=== PATIENT | male | born 1970 | race Caucasian/White ===

== ENCOUNTER → 2017-04-14 07:20 | Outpatient (CLI) | payer OTHER, SELFPAY ==
[2017-04-14 10:13] LABS: AST(SGOT) 24 U/L (15-37); Alanine Aminotransfer ALT/SGPT 64 U/L (16-61); Albumin, Serum 3.2 g/dL (3.2-5.0); Alkaline Phosphatase 82 U/L (45-117); Bilirubin, Direct 0.12 mg/dL (0.00-0.30); Globulin 4.3 g/dL (2.2-4.2); Protein, Total 7.5 g/dL (6.4-8.2)
[2017-04-16 12:59] LABS: Anti-Smooth Muscle ABS 16 Units (0-19)
[2017-04-17 12:53] LABS: ANTINUCLEAR ANTIBODIES DIRECT Negative (Negative)
== END ==
PROVIDERS: Family Provider Nurse Practitioner; PCP Nurse Practitioner; Visit Provider Internal Medicine Gastroenterology
DX: K51.90 Ulcerative colitis, unspecified, without complications (principal)
CPT/HCPCS: 36415; 80076; 83516; 86038

== ENCOUNTER → 2017-11-07 10:14 | Outpatient (CLI) | payer OTHER, SELFPAY ==
--- NOTE | 2017-11-07 10:16 | RAD_ITS ---
STUDY: X-RAY CHEST REASON FOR EXAM: Male, 47 years old. One-week history of cough. TECHNIQUE: PA and lateral views of the chest. COMPARISON: Comparison is made with prior examination dated September 09, 2016. FINDINGS: Azygos lobe. This is a normal variant. Mild increased markings in the lingular segment of the left upper lobe. This may represent either atelectasis and/or scarring. There is no demonstrated pleural abnormality. Normal size heart. Normal mediastinum and kathy. Normal visualized pulmonary arteries. Normal visualized aortic arch and descending thoracic aorta. There are degenerative changes of the visualized thoracic spine. Normal visualized ribs, clavicles, and shoulders. There is no demonstrated abnormality of the visualized soft tissue structures of the upper abdomen. RAD/Chest PA and Lateral IMPRESSION: Mild increased linear markings in the lingular segment of the left upper lobe suggestive of either linear atelectasis and/or scarring. Electronically Signed: Zoltan iWley MD at 10:29 EDT Tel [phone], Service support ,
== END ==
PROVIDERS: Family Provider Nurse Practitioner; PCP Nurse Practitioner; Visit Provider Physician Assistant Surgical
DX: R06.02 Shortness of breath (principal)
CPT/HCPCS: 71046

== ENCOUNTER → 2017-11-15 09:15 | Outpatient (CLI) | payer OTHER, SELFPAY ==
--- NOTE | 2017-11-15 09:18 | RAD_ITS ---
STUDY: X-RAY CHEST REASON FOR EXAM: Male, 47 years old. Acute asthma. TECHNIQUE: Frontal and lateral views of the chest. COMPARISON: November 07, 2017 FINDINGS: The lungs are clear and expanded. There is no demonstrated pleural abnormality. Normal size heart. Normal mediastinum and kathy. Normal visualized pulmonary arteries. Normal visualized aortic arch and descending thoracic aorta. Normal visualized thoracic spine. Normal visualized ribs, clavicles, and shoulders. There is no demonstrated abnormality of the visualized soft tissue structures of the upper abdomen. RAD/Chest PA and Lateral IMPRESSION: Normal x-ray examination of the chest. Electronically Signed: Vin Pelletier MD at 10:47 EDT , Service support ,
== END ==
PROVIDERS: Family Provider Nurse Practitioner; PCP Nurse Practitioner; Visit Provider Nurse Practitioner
DX: J45.901 Unspecified asthma with (acute) exacerbation (principal)
CPT/HCPCS: 71046

== ENCOUNTER → 2017-11-17 10:01 | Outpatient (CLI) | payer OTHER, SELFPAY ==
[2017-11-17 11:56] LABS: Absolute Lymphocyte Count 0.66 X10^3/ul (0.83-4.51); Absolute Neutrophil Count 12.2 X10^3/uL (2.0-7.7); Basophil# 0.01 X10^3/uL; Basophil% 0.1 % (0-1); Eosinophil# 0.01 X10^3/uL; Eosinophils% 0.1 % (0-5); Hematocrit 43.4 % (40-54); Hemoglobin 14.2 g/dl (13.0-16.5); Lymphocyte # 0.66 X10^3/ul (4.0); Lymphocyte % 4.9 % (19-41); Mean Corp Hgb Conc 32.7 g/gl (32-36); Mean Corpuscular Volume 88.8 fL (80-94); Monocyte# 0.56 X10^3/uL; Monocyte% 4.1 % (0-10); Neutrophil # 12.22 X10^3/uL (2.7-7.7); Neutrophil % 90.2 % (47-70); Platelet Count 308 K/mm3 (150-450); RBC Distribution Width CV 13.8 % (11.6-14.6); RBC Distribution Width SD 44.8 fl (35.1-43.9); Red Blood Count 4.89 M/mm3 (4.6-6.2); White Blood Count 13.5 K/mm3 (4.4-11.0)
[2017-11-17 11:58] LABS: POSITIVE COUNT NO; POSITIVE DIFFERENTIAL NO; POSITIVE MORPHOLOGY NO
[2017-11-17 12:09] LABS: ALB/GLOB Ratio 0.7 RATIO (0.9-2.4); AST(SGOT) 26 U/L (15-37); Alanine Aminotransfer ALT/SGPT 80 U/L (16-61); Albumin, Serum 3.2 g/dL (3.2-5.0); Alkaline Phosphatase 109 U/L (45-117); Anion Gap 9 (5-15); BUN 18 mg/dL (7-18); BUN/Creat Ratio 17.5 RATIO (10-20); Calcium,Total 8.8 mg/dL (8.5-10.1); Chloride 102 mmol/L (98-107); Creatinine, Serum 1.03 mg/dL (0.70-1.30); EST Glomerular Filtration Rate 82 mL/min (>60); Est Glom Filt Rate - Afr Amer 99 mL/min (>60); Globulin 4.3 g/dL (2.2-4.2); Glucose 124 mg/dL (74-106); Potassium 3.8 mmol/L (3.5-5.1); Protein, Total 7.5 g/dL (6.4-8.2); Sodium Level 139 mmol/L (136-145)
[2017-11-17 12:16] LABS: BNP,B-Type NATRIURETIC PEPTIDE 11.3 pg/mL (0-100)
== END ==
PROVIDERS: Family Provider Nurse Practitioner; PCP Nurse Practitioner; Visit Provider Nurse Practitioner
DX: Z79.899 Other long term (current) drug therapy (principal)
CPT/HCPCS: 36415; 80053; 83880; 85025

== ENCOUNTER → 2017-11-20 12:01 | Outpatient (CLI) | payer OTHER, SELFPAY ==
--- NOTE | 2017-11-20 12:58 | CT_ITS ---
STUDY: CT CHEST WITH CONTRAST REASON FOR EXAM: Male, 47 years old. 4 1/2 week history of shortness of breath and cough. RADIATION DOSAGE (If Supplied By Facility): CTDIvol = ( 18.47 ) mGy, DLP = ( 1053.15 ) mGycm TECHNIQUE: Transaxial imaging was performed following intravenous administration of 100 ml of Isovue 300 contrast material. Multiplanar coronal and sagittal images were reformatted. Individualized dose optimization techniques were used for this CT. COMPARISON: Comparison is made with prior study dated September 09, 2016. FINDINGS: There is evidence of an azygous lobe. This is a normal variant. Minimal degree of increased markings at the lung bases suggestive of a linear atelectasis and/or mild scarring. There is no demonstrated pleural abnormality. Normal heart and pericardium. There are multiple small lymph nodes within the mediastinum, which are normal in size and morphology most compatible with reactive lymph hyperplasia. Normal hilar regions. Normal enhanced pulmonary arteries. Normal aorta arch and descending thoracic aorta. There are multi-level degenerative changes of the thoracic spine. There is no demonstrated abnormality of the visualized upper abdomen. CT/Chest WITH Contrast IMPRESSION: Minimal increased markings at the lung bases suggestive of mild linear atelectasis and/or scarring. Electronically Signed: Zoltan Wiley MD at 14:08 EDT Tel [phone], Service support ,
--- NOTE | 2017-11-20 12:58 | CT_ITS ---
STUDY: CT MAXILLOFACIAL SINUSES REASON FOR EXAM: Male, 47 years old. Cough and sinusitis. RADIATION DOSAGE (If Supplied By Facility): CTDIvol = ( 18.47 ) mGy, DLP = ( 1053.15 ) mGycm TECHNIQUE: The patient was scanned in a multi detector CT scanner. High resolution axial imaging was performed without the administration of intravenous contrast material. Sagittal and coronal images were reconstructed. Individualized dose optimization techniques were used for this CT. COMPARISON: None. FINDINGS: FRONTAL SINUSES: Partial opacification of the frontal sinus. ETHMOIDAL SINUSES: Partial opacification of the ethmoid sinuses worse on the right side. MAXILLARY SINUSES: There is opacification of the right maxillary sinus partial opacification of the left maxillary sinus. SPHENOIDAL SINUSES: Mucosal thickening of the right sphenoid sinus. There is patency of the bilateral maxillary infundibuli with normal uncinate processes, ethmoid bullae, and hiatus semilunaris. Normal bilateral middle turbinates. Normal bilateral inferior turbinates. There is a right sided nasal septal deviation, but without a nasal septal spur. There is patency of the bilateral nasal airways. The visualized osseous structures are normal. The visualized bilateral orbital contents are normal. CT/Sinus/Facial Bone IMPRESSION: Rutledge sinusitis. Electronically Signed: Zoltan Wiley MD at 14:06 EDT Tel [phone], Service support ,
== END ==
PROVIDERS: Family Provider Nurse Practitioner; PCP Nurse Practitioner; Visit Provider Nurse Practitioner
DX: J32.9 Chronic sinusitis, unspecified (principal); R05 Cough
CPT/HCPCS: 70486; 71260; 85379; Q9967

== ENCOUNTER 2017-11-20 17:47 | Emergency (ER) | payer OTHER, SELFPAY ==
[2017-11-20 17:48] VITALS: BP 123/76; PULSE 105; RESP 18; TEMP 36.7; O2SAT 98; BMI 25.2
--- NOTE | 2017-11-20 18:35 | ED.VISSUMM ---
- ER Visit Summary Date of Service: 11/20/17 Chief Complaint: Sinusitis History of Present Illness: The patient is a [address] ulcerative colitis on immunosuppressive meds. Patient's had sinus infection for weeks. He was initially treated with Augmentin and then Zithromax and now currently on Levaquin he is not getting any better. The nurse practitioner that is his primary provider Haily Hayward obtain a CAT scan which showed pansinusitis and sent in the ER to be evaluated. Physical Examination: Middle-aged male no acute distress vital signs stable afebrile. Pulse ox 90% on room air no signs of hypoxia. HEENT exam posterior pharynx unremarkable. Moist mucous membranes. No erythema or exudate. No trouble swallowing or breathing. Frontal maxillary sinus tenderness. Swollen nasal turbinates. Neck nontender no meningismus. No lymphadenopathy. Lungs dry cough but no rales, rhonchi or wheezing. Heart regular rhythm no murmur. Abdomen soft nontender. Moving all 4 extremities. Neuro vascular intact. No edema. Neurologically awake and alert with no focal motor deficits. Test Results: Outpatient CT scan today showed pansinusitis. CBC showed white count 12.9. Normal hemoglobin. Chemistries normal. Normal creatinine and gap. Emergency Department Course and Treatment: Repeat exam patient is doing well at 1920. I went over his test results today. I went over the conversation I had with the ear nose and throat physician manager utilization management. Patient will call their office tomorrow to get in this week. I did speak to Dr. Zavala manager utilization management for ENT. He and I both feel the patient is better served to be seen in our office for outpatient potentially procedure of a balloon rhinoplasty. He did not feel the patient need to be admitted for IV antibiotics. Treatment Plan: Prednisone 40 mg a day for 5 days. Continue his current antibiotic Levaquin. Follow-up with ENT this week. Disposition: Discharge Impression: Acute pansinusitis History of ulcerative colitis This note was generated with [employer] dictation software. It may contain incorrect words, spelling, and punctuation that were not noted in review of the chart prior to signing ED Disposition - Plan for ED Patient: Chief Complaint: Cold Sx Referrals: Haily Zapata [Primary Care Provider] -
--- NOTE | 2017-11-20 18:42 | ED.DCSUM_ITS ---
- ER Visit Summary Date of Service: 11/20/17 Chief Complaint: Sinusitis History of Present Illness: The patient is a [address] ulcerative colitis on immunosuppressive meds. Patient's had sinus infection for weeks. He was initially treated with Augmentin and then Zithromax and now currently on Levaquin he is not getting any better. The nurse practitioner that is his primary provider Haily Hayward obtain a CAT scan which showed pansinusitis and sent in the ER to be evaluated. Physical Examination: Middle-aged male no acute distress vital signs stable afebrile. Pulse ox 90% on room air no signs of hypoxia. HEENT exam posterior pharynx unremarkable. Moist mucous membranes. No erythema or exudate. No trouble swallowing or breathing. Frontal maxillary sinus tenderness. Swollen nasal turbinates. Neck nontender no meningismus. No lymphadenopathy. Lungs dry cough but no rales, rhonchi or wheezing. Heart regular rhythm no murmur. Abdomen soft nontender. Moving all 4 extremities. Neuro vascular intact. No edema. Neurologically awake and alert with no focal motor deficits. Test Results: Outpatient CT scan today showed pansinusitis. CBC showed white count 12.9. Normal hemoglobin. Chemistries normal. Normal creatinine and gap. Emergency Department Course and Treatment: Repeat exam patient is doing well at 1920. I went over his test results today. I went over the conversation I had with the ear nose and throat physician weatherization administrator. Patient will call their office tomorrow to get in this week. I did speak to Dr. Zavala weatherization administrator for ENT. He and I both feel the patient is better served to be seen in our office for outpatient potentially procedure of a balloon rhinoplasty. He did not feel the patient need to be admitted for IV antibiotics. Treatment Plan: Prednisone 40 mg a day for 5 days. Continue his current antibiotic Levaquin. Follow-up with ENT this week. Disposition: Discharge Impression: Acute pansinusitis History of ulcerative colitis This note was generated with [employer] dictation software. It may contain incorrect words, spelling, and punctuation that were not noted in review of the chart prior to signing ED Disposition - Plan for ED Patient: Chief Complaint: Cold Sx Referrals: Haily Zapata [Primary Care Provider] -
[2017-11-20 18:49] LABS: Absolute Lymphocyte Count 1.03 X10^3/ul (0.83-4.51); Absolute Neutrophil Count 10.9 X10^3/uL (2.0-7.7); Basophil# 0.01 X10^3/uL; Basophil% 0.1 % (0-1); Eosinophil# 0.03 X10^3/uL; Eosinophils% 0.2 % (0-5); Hematocrit 44.8 % (40-54); Hemoglobin 14.9 g/dl (13.0-16.5); Lymphocyte # 1.03 X10^3/ul (4.0); Mean Corp Hgb Conc 33.3 g/gl (32-36); Mean Corpuscular Hgb 29.2 pg (27.0-32.0); Mean Corpuscular Volume 87.7 fL (80-94); Mean Platelet Vol. 9.4 fl (6.2-12.0); Monocyte% 6.2 % (0-10); Neutrophil # 10.93 X10^3/uL (2.7-7.7); Platelet Count 316 K/mm3 (150-450); RBC Distribution Width CV 13.8 % (11.6-14.6); RBC Distribution Width SD 44.3 fl (35.1-43.9); Red Blood Count 5.11 M/mm3 (4.6-6.2); White Blood Count 12.9 K/mm3 (4.4-11.0)
[2017-11-20 18:53] LABS: POSITIVE COUNT NO; POSITIVE DIFFERENTIAL NO; POSITIVE MORPHOLOGY NO
[2017-11-20 19:00] LABS: Anion Gap 7 (5-15); BUN 22 mg/dL (7-18); BUN/Creat Ratio 23.8 RATIO (10-20); Calcium,Total 8.9 mg/dL (8.5-10.1); Chloride 105 mmol/L (98-107); Creatinine, Serum 0.93 mg/dL (0.70-1.30); EST Glomerular Filtration Rate 92 mL/min (>60); Est Glom Filt Rate - Afr Amer 112 mL/min (>60); Estimated Creatinine Clearance 102.33 ml/min; Glucose 88 mg/dL (74-106); Potassium 4.1 mmol/L (3.5-5.1); Sodium Level 138 mmol/L (136-145)
--- NOTE | 2017-11-20 19:26 | ED.DEP ---
ED Disposition - Plan for ED Patient: Disposition: Home or Assisted Living Chief Complaint: Cold Sx Instructions: ED Sinusitis Abx Tx Prescriptions: Prednisone [Deltasone] 40 mg PO DAILY #7 tab Referrals: Wilver Lanier MD [STAFF PHYSICIAN] - As soon as possible Additional Instructions: Continue taking her Levaquin. Call Dr. Arnie Zavala's office first thing in the morning to be seen in the next 1-3 days. After he evaluates you they may consider doing a balloon rhinoplasty or other procedure. Prednisone daily to decrease the inflammation and help nasal drainage.
== END 2017-11-20 19:37 | disposition home or self-care (01) ==
PROVIDERS: Emergency Provider Emergency Medicine; Family Provider Nurse Practitioner; PCP Nurse Practitioner
DX: J01.40 Acute pansinusitis, unspecified (principal); K51.90 Ulcerative colitis, unspecified, without complications; Z79.899 Other long term (current) drug therapy
CPT/HCPCS: 80048; 85025; 99284; A4216

== ENCOUNTER → 2018-01-17 16:04 | Outpatient (CLI) | payer OTHER, SELFPAY | PROVIDERS: Family Provider Nurse Practitioner; PCP Nurse Practitioner; Referring Provider Otolaryngology; Visit Provider Otolaryngology | DX: J32.9 Chronic sinusitis, unspecified (principal) | CPT/HCPCS: 87070; 87205 ==

== ENCOUNTER → 2018-01-25 15:53 | Outpatient (CLI) | payer OTHER, SELFPAY ==
--- NOTE | 2018-01-25 08:21 | COLBX_PTH ---
PATIENT: HELEN NOGUEIRA LOC: [facility] U#:[id number] AGE/SX: 54/M ROOM: RE01/25/[address]: Dr. Constantino Mcelroy MD : 1970 BED: DIS: SPEC #: [id number] RECD: 01/25/18 15:29 STATUS: DELLA CHRISTIANO #: [id number] KADE: 01/25/18 08:[address]: Constantino Mcelroy DEPT: SURGICAL PATHOLOGY RECD BY: Vince Westfall ENTERED: 01/26/18 08:01 SP TYPE: COLON BX OTHR DR: Haily Zapata, PRODUCT [facility] Tissues: A - Right colon B - Left colon C - Transverse colon Procedures: Surgery Specimen Level IV HEADER OPERATION: Colonoscopy with biopsy PRE-OP DIAGNOSIS: History of ulcerative colitis TISSUE SUBMITTED: A - Biopsy right colon, rule out ulcerative colitis/dysplasia, B - Biopsy left colon, rule out ulcerative colitis/dysplasia, C - Transverse colon pseudopolyps, rule out dysplasia MICROSCOPIC DIAGNOSIS A. Right colon, biopsy: Focal acute colitis. See microscopic description and comment. B. Left colon, biopsy: Focal active colitis. See microscopic description and comment. C. Transverse colon, pseudopolyps, biopsy: Fragments of inflammatory pseudopolyps. See microscopic description and comment. SJ:deandra 01/29/18 COMMENT Correlation with clinical, endoscopic findings and appropriate follow up are necessary. Please make reference to previous specimen ([id number]) right colon, biopsy with diagnosis of fragments of colonic mucosa with minimal granular architectural distortion and left colon, biopsy with diagnosis of moderate diffuse chronic active colitis and ([id number]) left colon, biopsy with diagnosis of inflammatory polyp and smaller fragment of colonic mucosa with focal acute colitis and mild glandular distortion distal sigmoid/rectum, biopsy with diagnosis of mild architectural change with focal active colitis. MICROSCOPIC DESCRIPTION Slides are reviewed. A. The specimen shows fragments of colonic mucosa with one of the fragments showing focal cryptitis consistent with focal acute colitis. Significant glandular distortion, crypt abscesses or granulomas are not seen. No evidence of dysplasia. B. The specimen shows fragments of colonic mucosa with moderate glandular architectural distortion and focal cryptitis. Significant crypt abscess or granulomas are not seen. No evidence of dysplasia. C. The specimen shows fragments of colonic mucosa with moderate acute and chronic inflammatory cell infiltrates in the lamina propria, glandular distortion, cryptitis and crypt abscesses consistent with inflammatory pseudopolyp. No evidence of dysplasia. Granulomas are not seen. GROSS DESCRIPTION A - Received in fixative is one container labeled with the patient's name and designated biopsy right colon. The specimen consists of multiple irregular fragments of light conner soft tissue that in aggregate measure 2 x 0.6 x 0.1 cm. The specimen is totally submitted in one cassette. B - Received in fixative is one container labeled with the patient's name and designated biopsy left colon. The specimen consists of multiple irregular fragments of light conner soft tissue that in aggregate measure 1 x 0.5 x 0.1 cm. The specimen is totally submitted in one cassette. C - Received in fixative is one container labeled with the patient's name and designated biopsy transverse colon pseudopolyps. The specimen consists of multiple irregular fragments of light conner soft tissue that in aggregate measure 0.7 x 0.5 x 0.1 cm. The specimen is totally submitted in one cassette. / SJ:rg 01/26/18 TC:2 CPT: 81343 x3
--- OUTSIDE RECORDS SUMMARY | 2018-03-22 22:09 | XMS RPT_ITS ---
:1970 Author Organization OHIP Support Name Relationship Address Phone NORSCH Unavailable [address] + [address] [place] [address] JERO, LILA Unavailable [address] [place] + [place] [address] NORSCH Unavailable [address] + [address] [place] [address] JERO, LILA Unavailable [address] [place] + [place] [address] NORSCH Unavailable [address] + [address] [place] [address] JERO, LILA Unavailable [address] + [place] [address] NORSCH Unavailable [address] + [address] [place] [address] JERO, LILA Unavailable [address] [place] + [place] [address] NORSCH Unavailable [address] + [address] [place] [address] JERO, LILA Unavailable [address] + [place] [address] NORSCH Unavailable [address] + [address] [place] [address] JERO, LILA Unavailable [address] [place] + [place] [address] NORSCH Unavailable [address] + [address] [place] [address] JERO, LILA Unavailable [address] [place] + [place] [address] NORSCH Unavailable [address] + [address] [place] [address] JERO, LILA Unavailable [address] [place] + [place] [address] NORSCH Unavailable [address] + [address] [place] [address] JERO, LILA Unavailable [address] [place] + [place] [address] NORSCH Unavailable [address] + [address] [place] [address] JERO, LILA Unavailable [address] [place] + [place] [address] NORSCH Unavailable [address] + [address] [place] [address] JERO, LILA Unavailable [address] [place] + [place] [address] NORSCH Unavailable [address] + [address] [place] [address] JERO, LILA Unavailable [address] [place] + [place] [address] NORSCH Unavailable [address] + [address] [place] [address] NORSCH Unavailable [address] + [address] [place] [address] JERO, LILA Unavailable [address] [place] + [place] [address] NORSCH Unavailable [address] + [address] [place] [address] JERO, LILA Unavailable [address] [place] + [place] [address] JERO, ALYSA Unavailable [address] + [place] [address] NORSCH Unavailable [address] + [address] [place] [address] JERO, LILA Unavailable [address] [place] + [place] [address] JERO, ALYSA Unavailable [address] + [place] [address] NORSCH Unavailable [address] + [address] [place] [address] JERO, LILA Unavailable [address] [place] + [place] [address] ALYSA NOGUEIRA Unavailable [address] + [place] [address] Care Team Providers Name Role Phone Constantino Mcelroy Attending Unavailable Ciesa, Haily Primary Care Unavailable Jabour, Vincent Referring Unavailable Ciesa, Haily Consulting Unavailable Navi, Constantino Attending Unavailable Ciesa, [facility] Primary [facility] Unavailable Jabour, Constantino Referring Unavailable Simonbour, Constantino Attending Unavailable Ciesa, [facility] Unavailable Shantelle Dominguez Attending Unavailable Ciesa, Haily Referring Unavailable Ciesa, [facility] Unavailable Jabour, Constantino Attending Unavailable Ciesa, [facility] Unavailable Naveen Valencia Attending Unavailable Ciesa, Haily Referring Unavailable Ciesa, [facility] Unavailable Ashley Dempsey D.C. Attending Unavailable Ciesa, Haily Referring Unavailable Ciesa, [facility] Unavailable Naveen Valencia Attending Unavailable Ciesa, Haily Referring Unavailable Ciesa, [facility] Unavailable Tip Iglesias Attending Unavailable Ciesa, Haily Referring Unavailable Ciesa, [facility] Unavailable Tip Iglesias Attending Unavailable Tip Iglesias Referring Unavailable Ciesa, [facility] Unavailable Ciesa, Haily Attending Unavailable Ciesa, [facility] Unavailable Ciesa, Haily Attending Unavailable Ciesa, Haily Referring Unavailable Ciesa, [facility] Unavailable Ciesa, Haily Attending Unavailable Ciesa, Haily Referring Unavailable Ciesa, [facility] Unavailable Ciesa, [facility] Unavailable Sarabjit Izaguirre Attending Unavailable Domingo Atkinson Attending Unavailable Domingo Atkinson Referring Unavailable Ciesa, [facility] Unavailable Constantino Mcelroy Attending Unavailable Simonbour, Vincnettie Referring Unavailable Ciesa, [facility] Unavailable PROBLEMS PROBLEMS DATE TYPE CONDITION / CODE ATTENDING STATUS SOURCE 11/20/2017 Unknown J32.9 - Chronic CiesHaily bello Active [place] sinusitis, Community unspecified / Hospital J32.9(ICD-10) Repository 11/20/2017 Unknown R05 - Cough / CiesHaily bello Active [place] R05(ICD-10) Community Hospital Repository 11/17/2017 Unknown Z79.899 - Other CiesaHaily Active [facility] (current[facility] drug Hospital therapy / Repository Z79.899(ICD-10) 11/15/2017 Unknown J45.901 - Haily Butts Active [place] Unspecified asthma Community with (acute) Hospital exacerbation / Repository J45.901(ICD-10) 11/07/2017 Unknown R06.02 - ShortTip Joseph Active [facility] of breath / Community R06.02(ICD-10) Hospital Repository 08/23/2017 Unknown 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 Right colon B. Left colon C. Transverse colon COMMENT Correlation with clinical, endoscopic findings and appropriate follow up are necessary. Please make reference to previous specimen ([id number]) right colon, biopsy with diagnosis of fragments of colonic mucosa with minimal granular architectural distortion and left colon, biopsy with diagnosis of moderate diffuse chronic active colitis and (S18-120) left colon, biopsy with diagnosis of inflammatory polyp and smaller fragment of colonic mucosa with focal acute colitis and mild glandular distortion distal sigmoid/rectum, biopsy with diagnosis of mild architectural change with focal active colitis. GROSS DESCRIPTION A - Received in fixative is one container labeled with the patient's name and designated biopsy right colon. The specimen consists of multiple irregular fragments of light conner soft tissue that in aggregate measure 2 x 0.6 x 0.1 cm. The specimen is totally submitted in one cassette. B - Received in fixative is one container labeled with the patient's name and designated biopsy left colon. The specimen consists of multiple irregular fragments of light conner soft tissue that in aggregate measure 1 x 0.5 x 0.1 cm. The specimen is totally submitted in one cassette. C - Received in fixative is one container labeled with the patient's name and designated biopsy transverse colon pseudopolyps. The specimen consists of multiple irregular fragments of light conner soft tissue that in aggregate measure 0.7 x 0.5 x 0.1 cm. The specimen is totally submitted in one cassette. / VICTOR HUGO:deandra 01/26/18 TC:2 CPT: 90631 x3 HEADER OPERATION: Colonoscopy with biopsy PRE-OP DIAGNOSIS: History of ulcerative colitis TISSUE SUBMITTED: A - Biopsy right colon, rule out ulcerative colitis/ dysplasia, B - Biopsy left colon, rule out ulcerative colitis/dysplasia, C - Transverse colon pseudopolyps, rule out dysplasia MICROSCOPIC DESCRIPTION Slides are reviewed. A. The specimen shows fragments of colonic mucosa with one of the fragments showing focal cryptitis consistent with focal acute colitis. Significant glandular distortion, crypt abscesses or granulomas are not seen. No evidence of dysplasia. B. The specimen shows fragments of colonic mucosa with moderate glandular architectural distortion and focal cryptitis. Significant crypt abscess or granulomas are not seen. No evidence of dysplasia. C. The specimen shows fragments of colonic mucosa with moderate acute and chronic inflammatory cell infiltrates in the lamina propria, glandular distortion, cryptitis and crypt abscesses consistent with inflammatory pseudopolyp. No evidence of dysplasia. Granulomas are not seen. MICROSCOPIC DIAGNOSIS A. Right colon, biopsy: Focal acute colitis. See microscopic description and comment. B. Left colon, biopsy: Focal active colitis. See microscopic description and comment. C. Transverse colon, pseudopolyps, biopsy: Fragments of inflammatory pseudopolyps. See microscopic description and comment. SJ:deandra 01/29/18 Signed Doyle Brand 01/29/18 <signature on file> Performed By: #### PCOLBX #### [facility] [address] [place], [address] Observed: 01/17/2018 Status: F Source: [place] CULTURE, MISCELLANEOUS 5:16 AM [facility] REPOSITORY Comments: SINUS BACTERIA AEROBIC Misc. Culture No growth aerobically. Gram Stain Gram Stain Rare Red Blood Cells No organisms seen Performed By: #### M100.1950 #### [facility] [address] [place], [address] EMERGENCY DEPARTMENT Observed: 11/21/2017 Status: F Source: [place] SUMMARY 12:19 AM [facility] REPOSITORY [facility] Medical Records Department [address] [place] [address] Emergency Department Summary 11/20/17 1835 MR#: [id number] Acct: [id number] Name: HELEN NOGUEIRA Rep #: [id number] : 1970 47 From: Sarabjit Izaguirre MD PCP: Haily Butts NP Status: DEP ER - ER Visit Summary Date of Service: 11/20/17 Chief Complaint: Sinusitis History of Present Illness: The patient is a [address] ulcerative colitis on immunosuppressive meds. Patient's had sinus infection for weeks. He was initially treated with Augmentin and then Zithromax and now currently on Levaquin he is not getting any better. The nurse practitioner that is his primary provider Haily Hayward obtain a CAT scan which showed pansinusitis and sent in the ER to be evaluated. Physical Examination: Middle-aged male no acute distress vital signs stable afebrile. Pulse ox 90% on room air no signs of hypoxia. HEENT exam posterior pharynx unremarkable. Moist mucous membranes. No erythema or exudate. No trouble swallowing or breathing. Frontal maxillary sinus tenderness. Swollen nasal turbinates. Neck nontender no meningismus. No lymphadenopathy. Lungs dry cough but no rales, rhonchi or wheezing. Heart regular rhythm no murmur. Abdomen soft nontender. Moving all 4 extremities. Neuro vascular intact. No edema. Neurologically awake and alert with no focal motor deficits. Test Results: Outpatient CT scan today showed pansinusitis. CBC showed white count 12.9. Normal hemoglobin. Chemistries normal. Normal creatinine and gap. Emergency Department Course and Treatment: Repeat exam patient is doing well at 1920. I went over his test results today. I went over the conversation I had with the ear nose and throat physician second officer. Patient will call their office tomorrow to get in this week. I did speak to Dr. Zavala second officer for ENT. He and I both feel the patient is better served to be seen in our office for outpatient potentially procedure of a balloon rhinoplasty. He did not feel the patient need to be admitted for IV antibiotics. Treatment Plan: Prednisone 40 mg a day for 5 days. Continue his current antibiotic Levaquin. Follow-up with ENT this week. Disposition: Discharge Impression: Acute pansinusitis History of ulcerative colitis This note was generated with [employer] dictation software. It may contain incorrect words, spelling, and punctuation that were not noted in review of the chart prior to signing ED Disposition - Plan for ED Patient: Chief Complaint: Cold Sx Referrals: Haily Butts [Primary Care Provider] - What to do if you have Problems For any increased pain, shortness of breath, bleeding, nausea or vomiting, chest pain, or any unexpected problems, contact your Primary Care Provider. Call [facility] ([phone]) or report to the closest Emergency Room. Call 911 if necessary. 11/21/17 0019 <Electronically signed by Sarabjit Izaguirre MD> Date Sarabjit Izaguirre MD Cosigner Signature (If Indicated): Date CC: Haily Butts NP DISCHARGE INSTRUCTION Observed: 11/21/2017 Status: F Source: [place] 12:19 AM [facility] Medical Records Department [address] [place] [address] Discharge Instruction 11/20/17 1926 MR#: [id number] Acct: [id number] Name: HELEN NOGUEIRA Rep #: [id number] : 1970 47 From: Sarabjit Izaguirre MD PCP: Haily Butts NP Status: DEP ER ED Disposition - Plan for ED Patient: Disposition: Home or Assisted Living Chief Complaint: Cold Sx Instructions: ED Sinusitis Abx Tx Prescriptions: Prednisone [Deltasone] 40 mg PO DAILY #7 tab Referrals: Wilver Lanier MD [STAFF PHYSICIAN] - As soon as possible Additional Instructions: Continue taking her Levaquin. Call Dr. Arnie Zavala's office first thing in the morning to be seen in the next 1-3 days. After he evaluates you they may consider doing a balloon rhinoplasty or other procedure. Prednisone daily to decrease the inflammation and help nasal drainage. What to do if you have Problems For any increased pain, shortness of breath, bleeding, nausea or vomiting, chest pain, or any unexpected problems, contact your Primary Care Provider. Call [facility] ([phone]) or report to the closest Emergency Room. Call 911 if necessary. 11/21/17 0019 <Electronically signed by Sarabjit Izaguirre MD> Date Sarabjit Izaguirre MD Cosigner Signature (If Indicated): Date CC: Haily Butts ORTHOTICS ASSISTANT CBC W/DIFF, AUTOMATED Collected: 11/20/2017 Status: F Source: [place] 6:40 PM [facility] REPOSITORY TYPE CODE TESTS RESULT OUT OF RANGE REFERENCE UNITS LAB L100.1000 4.4-11.0 K/mm3 High WBC 12.9 LAB L100.1200 4.6-6.2 M/mm3 Normal RBC 5.11 LAB L100.1300 13.0-16.5 g/dl Normal HGB 14.9 LAB L100.1400 40-54 % Normal HCT 44.8 LAB L100.1500 80-94 fL Normal MCV 87.7 LAB L100.1600 27.0-32.0 pg Normal MCH 29.2 LAB L100.1700 32-36 g/gl Normal MCHC 33.3 LAB L100.1810 11.6-14.6 % Normal RDW CV 13.8 LAB L100.1820 35.1-43.9 fl High RDW SD 44.3 LAB L100.1900 150-450 K/mm3 Normal PLT 316 LAB L100.2000 6.2-12.0 fl Normal MPV 9.4 LAB L100.2100 47-70 % High NEUT% 85.0 LAB L100.2200 19-41 % Low LY% 8.0 LAB L100.2300 0-10 % Normal MONO% 6.2 LAB L100.2400 0-5 % Normal EO% 0.2 LAB L100.2500 0-1 % Normal BASO% 0.1 LAB L100.2550 0.0-0.9 % Normal IM GRAN % 0.500 Result Comment: IG% - Immature Granulocytes (promyelocytes, myelocytes and metamyelocytes) > 1% indicates that a LEFT SHIFT is Present. LAB L100.2620 2.0-7.7 X10 3/uL High Absolute Neut 10.9 LAB L100.2720 0.83-4.51 X10 3/ul Normal Absolute Lymph 1.03 Performed By: #### L100.0100 #### [facility] [address] [place], [address] BASIC METABOLIC Collected: 11/20/2017 Status: F Source: [place] PROFILE ([facility]) 6:40 PM [facility] REPOSITORY TYPE CODE TESTS RESULT OUT OF RANGE REFERENCE UNITS LAB L501.0100 74-106 mg/dL Normal GLU 88 Result Comment: Please note revised GLUCOSE reference range effective 2017. LAB L501.1000 7-18 mg/dL High BUN 22 LAB L501.1100 0.70-1.30 mg/dL Normal CREAT,SERUM 0.93 Result Comment: The validity of the calculated GFR AND GFRAA in patients over 70 years has not been determined. Clinical correlation is essential. LAB L501.1110 >60 mL/min Normal EST GFR 92 Result Comment: Non- GFR Calc LAB L501.1115 >60 mL/min Normal EST GFR - AA 112 Result Comment: GFR Calc LAB L501.1255 ml/min Normal Estimated CRCL 102.33 LAB L501.1300 10-20 RATIO High BUN/CRE 23.8 LAB L501.2200 8.5-10 mg/dL .1 CA Normal 8.9 LAB L501.5300 136-14 mmol/L 5 NA Normal 138 LAB L501.5600 3.5-5. mmol/L 1 K Normal 4.1 LAB L501.5900 98-107 mmol/L CL Normal 105 LAB L501.6100 21.0-3 mmol/L 2.0 CO2 Normal 26.0 LAB L501.6200 5-15 GAP Normal 7 Performed By: #### L500.2500 #### [facility] [address] [place], [address] SINUS/FACIAL BONE Observed: 11/20/2017 Status: F Source: [place] 12:59 PM [facility] REPOSITORY [facility] Imaging Services [address] [place] [address] Sinus/Facial Bone MR#: [id number] Acct: [id number] Name: HELEN NOGUEIRA Rep #: [id number] : 1970 M 47 From: Zoltan Wiley MD PCP: Haily Butts NP Status: REG CLI Study: Sinus/Facial Bone Date of Exam: 11/20/17 Exam# [id number] Ordering Dr: Haily Butts STUDY: CT MAXILLOFACIAL SINUSES REASON FOR EXAM: Male, 47 years old. Cough and sinusitis. RADIATION DOSAGE (If Supplied By Facility): CTDIvol = ( 18.47 ) mGy, DLP = ( 1053.15 ) mGycm TECHNIQUE: The patient was scanned in a multi detector CT scanner. High resolution axial imaging was performed without the administration of intravenous contrast material. Sagittal and coronal images were reconstructed. Individualized dose optimization techniques were used for this CT. COMPARISON: None. FINDINGS: FRONTAL SINUSES: Partial opacification of the frontal sinus. ETHMOIDAL SINUSES: Partial opacification of the ethmoid sinuses worse on the right side. MAXILLARY SINUSES: There is opacification of the right maxillary sinus partial opacification of the left maxillary sinus. SPHENOIDAL SINUSES: Mucosal thickening of the right sphenoid sinus. There is patency of the bilateral maxillary infundibuli with normal uncinate processes, ethmoid bullae, and hiatus semilunaris. Normal bilateral middle turbinates. Normal bilateral inferior turbinates. There is a right sided nasal septal deviation, but without a nasal septal spur. There is patency of the bilateral nasal airways. The visualized osseous structures are normal. The visualized bilateral orbital contents are normal. CT/Sinus/Facial Bone IMPRESSION: [place] sinusitis. Electronically Signed: Zoltan Wiley MD at 14:06 EDT Tel [phone], Service support , CC: Haily Butts NP Clinical Education Consultant: Signed CHEST WITH CONTRAST Observed: 11/20/2017 Status: F Source: [place] 12:59 PM [facility] REPOSITORY [facility] Imaging Services [address] [place] [address] Chest WITH Contrast MR#: [id number] Acct: [id number] Name: HELEN NOGUEIRA Rep #: [id number] : 1970 M 47 From: Zoltan Wiley MD PCP: Haily Butts NP Status: REG CLI Study: Chest WITH Contrast Date of Exam: 11/20/17 Exam# [id number] Ordering Dr: Haily Butts STUDY: CT CHEST WITH CONTRAST REASON FOR EXAM: Male, 47 years old. 4 1/2 week history of shortness of breath and cough. RADIATION DOSAGE (If Supplied By Facility): CTDIvol = ( 18.47 ) mGy, DLP = ( 1053.15 ) mGycm TECHNIQUE: Transaxial imaging was performed following intravenous administration of 100 ml of Isovue 300 contrast material. Multiplanar coronal and sagittal images were reformatted. Individualized dose optimization techniques were used for this CT. COMPARISON: Comparison is made with prior study dated September 09, 2016. FINDINGS: There is evidence of an azygous lobe. This is a normal variant. Minimal degree of increased markings at the lung bases suggestive of a linear atelectasis and/or mild scarring. There is no demonstrated pleural abnormality. Normal heart and pericardium. There are multiple small lymph nodes within the mediastinum, which are normal in size and morphology most compatible with reactive lymph hyperplasia. Normal hilar regions. Normal enhanced pulmonary arteries. Normal aorta arch and descending thoracic aorta. There are multi-level degenerative changes of the thoracic spine. There is no demonstrated abnormality of the visualized upper abdomen. CT/Chest WITH Contrast IMPRESSION: Minimal increased markings at the lung bases suggestive of mild linear atelectasis and/or scarring. Electronically Signed: Zoltan Wiley MD at 14:08 EDT Tel [phone], Service support , CC: Haily Butts NP Clinical Education Consultant: Signed D-DIMER QUANTITATIVE Collected: 11/20/2017 Status: F Source: [place] (DVT/PE) 11:28 AM [facility] REPOSITORY Order Comment: Order Date: 11/20/17 Order Info: 51818-0 - D-DIMER TYPE CODE TESTS RESULT OUT OF RANGE REFERENCE UNITS LAB L300.8000 0.27-0.49 FEU/ug/m High alert D-DIMER 0.80 QUANT Result Comment: D-Dimer ELEVATED (>0.49): Additional studies and clinical assessments are indicated to conclude diagnosis of: Deep Vein Thrombosis (DVT) or Pulmonary Embolism (PE) CRITICAL VALUE VERIFIED. CALLED TO HAILY BUTTS NP 11/20/17 1310 Marquis Rueda. RESULTS READ BACK BY SAME. Performed By: #### L300.8000 #### [facility] [place], [address] CBC W/DIFF, AUTOMATED Collected: 11/17/2017 Status: F Source: [place] 10:04 AM [facility] REPOSITORY TYPE CODE TESTS RESULT OUT OF RANGE REFERENCE UNITS LAB L100.1000 4.4-11.0 K/mm3 High WBC 13.5 LAB L100.1200 4.6-6.2 M/mm3 Normal RBC 4.89 LAB L100.1300 13.0-16.5 g/dl Normal HGB 14.2 LAB L100.1400 40-54 % Normal HCT 43.4 LAB L100.1500 80-94 fL Normal MCV 88.8 LAB L100.1600 27.0-32.0 pg Normal MCH 29.0 LAB L100.1700 32-36 g/gl Normal MCHC 32.7 LAB L100.1810 11.6-14.6 % Normal RDW CV 13.8 LAB L100.1820 35.1-43.9 fl High RDW SD 44.8 LAB L100.1900 150-450 K/mm3 Normal PLT 308 LAB L100.2000 6.2-12.0 fl Normal MPV 10.0 LAB L100.2100 47-70 % High NEUT% 90.2 LAB L100.2200 19-41 % Low LY% 4.9 LAB L100.2300 0-10 % Normal MONO% 4.1 LAB L100.2400 0-5 % Normal EO% 0.1 LAB L100.2500 0-1 % Normal BASO% 0.1 LAB L100.2550 0.0-0.9 % Normal IM GRAN % 0.600 Result Comment: IG% - Immature Granulocytes (promyelocytes, myelocytes and metamyelocytes) > 1% indicates that a LEFT SHIFT is Present. LAB L100.2620 2.0-7.7 X10 3/uL High Absolute Neut 12.2 LAB L100.2720 0.83-4.51 X10 3/ul Low Absolute Lymph 0.66 Performed By: #### L100.0100 #### [facility] [address] [place], [place], [address] COMPREHENSIVE METABOLIC Collected: 11/17/2017 Status: F Source: [facility] 10:04 AM [facility] REPOSITORY TYPE CODE TESTS RESULT OUT OF RANGE REFERENCE UNITS LAB L501.0100 74-106 mg/dL High GLU 124 Result Comment: Fasting Glucose result from 100 to 125 mg/dL suggests IMPAIRED HOMEOSTASIS per A.D.A. criteria. Please note revised GLUCOSE reference range effective 2017. LAB L501.1000 7-18 mg/dL Normal BUN 18 LAB L501.1100 0.70-1.30 mg/dL Normal CREAT,SERUM 1.03 Result Comment: The validity of the calculated GFR AND GFRAA in patients over 70 years has not been determined. Clinical correlation is essential. LAB L501.1110 >60 mL/min Normal EST GFR 82 Result Comment: Non- GFR Calc LAB L501.1115 >60 mL/min Normal EST GFR - AA 99 Result Comment: GFR Calc LAB L501.1300 10-20 RATIO Normal BUN/CRE 17.5 LAB L501.1500 6.4-8.2 g/dL T Normal PROT 7.5 LAB L501.1800 3.2-5.0 g/dL Normal ALB 3.2 LAB L501.1950 2.2-4.2 g/dL High GLOB 4.3 LAB L501.2000 0.9-2.4 RATIO Low A/G 0.7 LAB L501.2200 8.5-10.1 mg/dL CA Normal 8.8 LAB L501.4100 15-37 U/L Normal AST 26 LAB L501.4305 45-117 U/L Normal ALK P 109 LAB L501.4405 16-61 U/L High ALT 80 LAB L501.4600 0.20-1.00 mg/dL T Normal BILI 0.40 LAB L501.5300 136-145 mmol/L NA Normal 139 LAB L501.5600 3.5-5.1 mmol/L K Normal 3.8 LAB L501.5900 98-107 mmol/L CL Normal 102 LAB L501.6100 21.0-32.0 mmol/L Normal CO2 28.0 LAB L501.6200 5-15 Normal GAP 9 Performed By: #### L500.4050 #### [facility] [address] [place], [address] BNP,B-TYPE NATRIURETIC Collected: 11/17/2017 Status: F Source: [place] [facility] 10:04 AM [facility] REPOSITORY TYPE CODE TESTS RESULT OUT OF RANGE REFERENCE UNITS LAB L503.6620 0-100 pg/mL Normal B-TYPE 11.3 DONTAE PEP Performed By: #### L503.6620 #### [facility] [address] [place], [address] CHEST PA AND LATERAL Observed: 11/15/2017 Status: F Source: [place] 9:18 AM [facility] REPOSITORY [facility] Imaging Services [address] [place] [address] Chest PA and Lateral MR#: [id number] Acct: [id number] Name: HELEN NOGUEIRA Rep #: [id number] : 1970 M 47 From: Vin Pelletier MD PCP: Haily Butts NP Status: REG CLI Study: Chest PA and Lateral Date of Exam: 11/15/17 Exam# [id number] Ordering Dr: Haily Butts STUDY: X-RAY CHEST REASON FOR EXAM: Male, 47 years old. Acute asthma. TECHNIQUE: Frontal and lateral views of the chest. COMPARISON: November 07, 2017 FINDINGS: The lungs are clear and expanded. There is no demonstrated pleural abnormality. Normal size heart. Normal mediastinum and kathy. Normal visualized pulmonary arteries. Normal visualized aortic arch and descending thoracic aorta. Normal visualized thoracic spine. Normal visualized ribs, clavicles, and shoulders. There is no demonstrated abnormality of the visualized soft tissue structures of the upper abdomen. RAD/Chest PA and Lateral IMPRESSION: Normal x-ray examination of the chest. Electronically Signed: Vin Pelletier MD at 10:47 EDT , Service support , CC: Haily Butts NP Clinical Education Consultant: Signed URGENT CARE VISIT Observed: 11/07/2017 Status: F Source: [place] REPORT 10:50 AM [facility] [address] [place] [address] OFFICE VISIT Date of Service: 11/07/17 MR#: [id number] Acct: [id number] Name: HELEN NOGUEIRA Rep #: [id number] : 1970 Provider: Tip YUN Age/Sex: 47/M Location: [facility] Status: Signed Intake Vital Signs11/07/17 Height 5 ft 11 in 11/07/17 Weight: 185 lb 11/07/17 Body Mass Index (BMI) 25.7 11/07/17 Blood Pressure 140/88 Intake Visit Reasons: SINUS INFECTION Chief Complaint: sinus congestion Floor 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 Required: No Accompanied by: self Is patient in pain?: No Allergies No Known Allergies Allergy (Verified 11/07/17 10:07) Medications Infliximab [Remicade] 10 mg IV QMONTH 06/06/14 [History Confirmed 11/07/17] Desloratadine [Clarinex] 5 mg PO DAILY 03/06/15 [History Confirmed 11/07/17] Fluticasone/Salmeterol [Advair 100/50 Diskus] 1 puff INHALATION DAILY 03/06/15 [History Confirmed 11/07/17] Mesalamine [Lialda] 2.4 gm PO DAILY 04/17/15 [History Confirmed 11/07/17] amoxicillin 875 mg-potassium clavulanate 125 mg tablet 1 tab PO BID #20 tab 11/01/17 [Rx Confirmed 11/07/17] azithromycin 250 mg tablet See Label Instructions PO .COMPLEX #6 tab 11/07/17 [Rx Confirmed 11/07/17] dextromethorphan-guaifenesin 20 mg-400 mg tablet 1 tab PO Q4H PRN #30 tab 11/07/17 [Rx Confirmed 11/07/17] methylprednisolone 4 mg tablets in a dose pack 4 mg PO PER PKG DIR 5 Days #21 tab 11/07/17 [Rx Confirmed 11/07/17] PFSH Social History Smoking Status: Never smoker alcohol intake: current alcohol intake frequency: holidays/special occasions only substance use type: does not use what type of physical activity do you participate in: walking, aerobics, weight training frequency: 3-4 times per week HPI HPI Chief Complaint: sinus congestion Details: HELEN NOGUEIRA, is a 47 M who presents to the office today for complaint of continued sinus pressure and pain and new cough with chest congestion. Patient was seen here on 11/01/2017 and started for treatment of maxillary sinusitis with Augmentin 875 mg twice daily for 10 days. Patient states that his symptoms have worsened since being seen on that date and he is concerned that the drainage and congestion has moved into his chest. He does report that he has had some shortness of breath due to inability to take deep breaths because of the congestion as well as wheezing which is worse at night. He describes his cough as productive of yellow sputum however denies any hemoptysis. Patient does report being on an immune modulator for ulcerative colitis and states that he regularly gets sinus infections and other types of infections. He denies any fever, chills, sweats. No nausea, vomiting, diarrhea. No history of asthma or pneumonia. No other associated symptoms or alleviating/aggravating factors. ROS Const Constitutional: No fever(s), chills, headache(s), night sweats or abnormal sleep pattern ENT ENT: Positive for nasal discharge, nasal congestion, post nasal drip, sinus pressure and sinus pain; no headache(s), ear pain, ear discharge or sore throat Resp Respiratory: Positive for cough Cough: Yes productive, wheezing and pain with cough; no hemoptysis or shortness of breath Cardio Cardiology: No chest pain at rest or shortness of breath Neuro Neurology: No headache(s), behavioral changes or confusion Psych Psychiatric: No abnormal sleep pattern, No behavioral changes, No confusion Aller/Imm Allergy/Immunologic: Positive for wheezing Exam Const General: cooperative, well developed HENMT Head: normal to inspection Ears: hearing grossly normal bilaterally, TM's normal bilaterally, EAC's normal Nose: nasal discharge clear Face and sinus: sinus tenderness maxillary Mouth: oral mucosae normal Throat: abnormal tonsil bilaterally, postnasal drainage Resp Effort AND Inspection: normal respiratory effort, audible wheezes, not labored Auscultation: Bilateral: Expiratory Wheezes Cardio Palpation: normal PMI Rate: regular rate Rhythm: regular rhythm Neuro General: alert, CN's II-XI intact bilaterally Psych Appearance: grossly normal Mental Status: mental status grossly normal Assessment AND Plan Problems 1. Acute non-recurrent maxillary sinusitis J01.00 2. Bronchitis J40 Plan X-ray read and interpreted by myself finding no acute signs of pneumonia. Later radiologist confirmed with interpretation of possible atelectasis/scarring however no other acute findings. Z-Aubrey and Medrol Dosepak as prescribed today. Encouraged to get plenty of rest, drink lots of clear liquids, and use Tylenol or Ibuprofen (unless contraindicated) for fever and comfort. Patient also educated on other symptomatic management techniques. To be seen in 7-10 days if no improvement; sooner if worsening of symptoms. Patient advised of potential red flags and when appropriate report to the ED. Patient verbalized understanding of all the above. Orders Orders: Medications New: Plan Detail Goals Decrease pain Improve sleep Coding Level of Care Code Off vis,est,level 4 Diagnoses Acute non-recurrent maxillary sinusitis J01.00 Chronicity: acute Recurrence: non-recurrent Bronchitis J40 11/07/17 1050 <Electronically signed by Tip YUN> Date Tip YUN Cosigner Signature: Date (if applicable) CC: CHEST PA AND LATERAL Observed: 11/07/2017 Status: F Source: [place] 10:16 AM [facility] REPOSITORY [facility] Imaging Services [address] [place] [address] Chest PA and Lateral MR#: [id number] Acct: [id number] Name: HELEN NOGUEIRA Rep #: [id number] : 1970 M 47 From: Zoltan Wiley MD PCP: Haily Butts NP Status: REG CLI Study: Chest PA and Lateral Date of Exam: 11/07/17 Exam# [id number] Ordering Dr: Tip Iglesias STUDY: X-RAY CHEST REASON FOR EXAM: Male, 47 years old. One-week history of cough. TECHNIQUE: PA and lateral views of the chest. COMPARISON: Comparison is made with prior examination dated September 09, 2016. FINDINGS: Azygos lobe. This is a normal variant. Mild increased markings in the lingular segment of the left upper lobe. This may represent either atelectasis and/or scarring. There is no demonstrated pleural abnormality. Normal size heart. Normal mediastinum and kathy. Normal visualized pulmonary arteries. Normal visualized aortic arch and descending thoracic aorta. There are degenerative changes of the visualized thoracic spine. Normal visualized ribs, clavicles, and shoulders. There is no demonstrated abnormality of the visualized soft tissue structures of the upper abdomen. RAD/Chest PA and Lateral IMPRESSION: Mild increased linear markings in the lingular segment of the left upper lobe suggestive of either linear atelectasis and/or scarring. Electronically Signed: Zoltan Wiley MD at 10:29 EDT Tel [phone], Service support , CC: Haily Butts ORTHOTICS ASSISTANT; Tip YUN Clinical Education Consultant: Signed URGENT CARE VISIT Observed: 11/01/2017 Status: F Source: [place] REPORT 2:00 PM [facility] RE[facility] [address] [place] [address] [address] [place] [address] OFFICE VISIT Date of Service: 11/01/17 MR#: [id number] Acct: [id number] Name: HELEN NOGUEIRA Rep #: [id number] : 1970 Provider: Naveen YUN Age/Sex: 47/M Location: [facility] Status: Signed Intake Vital Signs11/01/17 Height 5 ft 11 in Intake Visit Reasons: SINUS INFECTION/EAR CLOGGED Chief Complaint: Facial pressure Allergies No Known Allergies Allergy (Verified 11/01/17 13:44) Medications Infliximab [Remicade] 10 mg IV QMONTH 06/06/14 [History Confirmed 11/01/17] Desloratadine [Clarinex] 5 mg PO DAILY 03/06/15 [History Confirmed 11/01/17] Fluticasone/Salmeterol [Advair 100/50 Diskus] 1 puff INHALATION DAILY 03/06/15 [History Confirmed 11/01/17] Mesalamine [Lialda] 2.4 gm PO DAILY 04/17/15 [History Confirmed 11/01/17] amoxicillin 875 mg-potassium clavulanate 125 mg tablet 1 tab PO BID #20 tab 11/01/17 [Rx Confirmed 11/01/17] PFSH Social History Smoking Status: Never smoker alcohol intake: current alcohol intake frequency: holidays/special occasions only substance use type: does not use what type of physical activity do you participate in: walking, aerobics, weight training frequency: 3-4 times per week HPI HPI Chief Complaint: Facial pressure Details: HELEN NOGUEIRA, is a 47 M who presents to the office today for initial evaluation approximately 3-week history of progressive worsening facial pressure, postnasal drip, hoarseness, chills. No complaints of fever, sweats, rash, chest pain/shortness of breath. Patient notes having a cough which is worse when supine. He is a non-smoker noting no other members in household who smoke. No other associated symptoms and no other alleviating factors. ROS Const Constitutional: Positive for other (ROS negative x10 other than that noted above) Exam Const General: cooperative, healthy appearing, no acute distress, comfortable Nutritional Appearance: average body habitus Orientation: alert, awake, oriented x3 HENMT Head: normal to inspection Ears: hearing grossly normal bilaterally, external ears normal, TM's normal bilaterally, EAC's normal Nose: external nose normal, nares normal, septum normal, no nasal discharge Face and sinus: normal facial exam, face symmetric, sinus tenderness maxillary Mouth: oral mucosae normal, lip normal, oropharynx normal, tongue normal Teeth and gingiva: dentition normal, gingiva normal Throat: uvula midline, tonsils normal, posterior oropharynx normal, postnasal drainage (Scant purulent) Eyes General: appearance normal, both eyes and all related structures Neck Neck: normal visual inspection, full ROM, no lymphadenopathy, no meningeal signs, supple Neck mass: No Thyroid: thyroid normal Lymphatic: no lymphadenopathy noted Chest Chest palpation AND inspection: normal inspection of the chest Resp Effort AND Inspection: normal respiratory effort, able to speak in complete sentences, symmetric chest movement, no cough (No unsolicited cough appreciated during today's exam) Auscultation: Bilateral: Clear to Auscultation Cardio Palpation: normal PMI Rate: regular rate Rhythm: regular rhythm Heart Sounds: S1 normal, S2 normal, no gallops, no murmurs, no rubs Pulses: radial pulses present GI Inspection: normal to inspection Palpation: soft, no hepatosplenomegaly Skin General: no rashes or lesions noted Neuro General: alert, awake, oriented x3, gait normal Cognition: normal cognition Speech: speech normal Gait: normal gait Motor: muscle tone normal throughout Sensory Exam: no sensory deficits noted Psych Appearance: grossly normal Mental Status: mental status grossly normal Mood: congruent mood Affect: normal affect Speech and Movement: speech and movement normal Attitude: cooperative Thought Process: normal Thought Content: normal Judgment: judgment good Assessment AND Plan Problems 1. Maxillary sinusitis J32.0 Plan Augmentin as prescribed today. Clear fluids, rest, Advil/Tylenol, warm facial compresses as instructed today. Follow-up with PCP in 3-5 days should symptoms not improve, sooner should symptoms worsen or develop. Patient states acknowledging understanding all the above. This note was generated with Guestyation software. It may contain incorrect words, spelling, and punctuation that were not noted in checking the note before signing. Medications New: Plan Detail Goals Decrease pain Improve sleep Coding Level of Care Code Off vis,est,level 3 Diagnoses Maxillary sinusitis J32.0 11/01/17 1400 <Electronically signed by Naveen YUN> Date Naveen YUN Cosigner Signature: Date (if applicable) CC: CHIROPRACTIC REPORT Observed: 08/23/2017 Status: F Source: [place] 8:46 AM [facility] [address] [place] [address] OFFICE VISIT Date of Service: 08/22/17 MR#: [id number] Acct: [id number] Name: HELEN NOGUEIRA Rep #: [id number] : 1970 Provider: Ashley Sweeney D.C. Age/Sex: 46/M Location: [facility] Status: Signed Intake Vital Signs08/22/17 Height 5 ft 11 in 08/22/17 Weight: 185 lb 2 oz 08/22/17 Body Mass Index (BMI) 25.8 Intake Visit Reasons: Back pain Is patient in pain?: Yes Allergies No Known Allergies Allergy (Verified 05/04/17 10:16) Medications Infliximab [Remicade] 10 mg IV QMONTH 06/06/14 [History Confirmed 05/04/17] Desloratadine [Clarinex] 5 mg PO DAILY 03/06/15 [History Confirmed 05/04/17] Fluticasone/Salmeterol [Advair 100/50 Diskus] 1 puff INHALATION DAILY 03/06/15 [History Confirmed 05/04/17] Mesalamine [Lialda] 2.4 gm PO DAILY 04/17/15 [History Confirmed 05/04/17] PFSH Social History Smoking Status: Never smoker alcohol intake: current alcohol intake frequency: holidays/special occasions only substance use type: does not use what type of physical activity do you participate in: walking, aerobics, weight training frequency: 3-4 times per week HPI Back pain: Chief Complaint: back pain Visit Number: 1 Referral source: Family member Details: HELEN NOGUEIRA is a 46 year old M who presents with mid back pain. He states that over the past two weeks he has been experiencing a tight throbbing pain in the middle of the back, just below the shoulder blades. Today the patient rates his pain a 1/10 and describes it as a slight ache, the pain increases at night after laying face down. The pressure added on the back causes a sensation of a tennis ball digging into his back, at times the pain will because a tight sensation throughout his chest. The pain has come on slowly over the past 6 months. Helen denies any numbness, tingling, or radiculopathy. Onset: 08/08/17 Location: back Duration: intermittent Aggravating or associated factors: laying on the back, sleeping Relieving factors: movement Pain Quality: aching, dull, sharp Exam Musc General: Yes normal posture, normal gait and joint tenderness (T5, T6, T7, T8) Thoracic/Lumbar Spine: thoracic and lumbar spine normal to inspection, pain with thoraco-lumbar ROM with forward flexion, with lateral flexion to the right and with lateral flexion to the left, paraspinal tenderness bilaterally (T5, T6, T7, T8), thoraco-lumbar ROM normal, thoraco-lumbar spasm bilaterally (rhomboids) in the mid thoracic Neuro General: alert, awake, oriented x3, gait normal, normal light touch, pain and propioception, no focal motor deficits Ortho Test CERVICAL THORACIC Kemps: Positive, Right, Le Schepelmanns pain: Left Morgan: Negative LUMBAR Office Procedures Chiropractic Treatments Procedures Manipulation: 1-2 regions (T5, T6, T7, T8) Assessment AND Plan 1. Segmental and somatic dysfunction of thoracic region M99.02 2. Thoracic neuritis M54.14 Plan Detail Other Orders Orders: Additional Comments Patient experienced relief following the adjustment. Goals Decrease pain Improve sleep Follow Up PRN Coding Level of Care Code Off vis,new,level 3 Diagnoses Segmental and somatic dysfunction of thoracic region M99.02 Thoracic neuritis M54.14 Additional Codes Procedures - Manipulation: 1-2 regions (08688) 08/23/17 0846 <Electronically signed by Ashley Sweeney D.C.> Date Ashley Sweeney D.C. Cosigner Signature: Date (if applicable) CC: URGENT CARE VISIT Observed: 05/04/2017 Status: F Source: [place] REPORT 12:58 PM [facility] REPOSIT[facility] [address] [place], [place] [id number] OFFICE VISIT Date of Service: 05/04/17 MR#: [id number] Acct: [id number] Name: HELEN NOGUEIRA Rep #: [id number] : 1970 Provider: Naveen YUN Age/Sex: 46/M Location: [facility] Status: Signed Intake Vital Signs05/04/17 Height 5 ft 11 in 05/04/17 Weight: 180 lb 05/04/17 Body Mass Index (BMI) 25.1 05/04/17 Blood Pressure 146/92 Intake Visit Reasons: CONGESTED Chief Complaint: Sinus congestion and cough Allergies No Known Allergies Allergy (Verified 05/04/17 10:16) Medications Infliximab [Remicade] 10 mg IV QMONTH 06/06/14 [History Confirmed 05/04/17] Desloratadine [Clarinex] 5 mg PO DAILY 03/06/15 [History Confirmed 05/04/17] Fluticasone/Salmeterol [Advair 100/50 Diskus] 1 puff INHALATION DAILY 03/06/15 [History Confirmed 05/04/17] Mesalamine [Lialda] 2.4 gm PO DAILY 04/17/15 [History Confirmed 05/04/17] Ibuprofen 600 mg PO 4X/DAY PRN #30 tab 09/09/16 [Rx Confirmed 05/04/17] Oxycodone HCl/Acetaminophen [Percocet 5/325] 1 - 2 tab PO Q4H PRN PRN #20 tab 09/09/16 [Rx Confirmed 05/04/17] amoxicillin 875 mg-potassium clavulanate 125 mg tablet 1 tab PO BID #20 tab 05/04/17 [Rx Confirmed 05/04/17] PFSH Social History Smoking Status: Never smoker alcohol intake: never HPI HPI Chief Complaint: Sinus congestion and cough Details: HELEN NOGUEIRA, is a 46 M who presents to the office today for initial evaluation approximately 1 week history of progressively worsening sinus pressure, postnasal drip, cough. Patient notes several weeks ago recently getting over influenza after being treated with Tamiflu and improved significant though not completely as he describes. Then approximately week ago he noticed the symptoms slowly progressively worsening but slightly changing now having an colored sputum and colored postnasal drip as he describes. He notes facial pressure is remarkably worse to touch more on the right cheek than on the left cheek. He is a non-smoker. He has no other associated symptoms, no other alleviating or aggravating factors. ROS Const Constitutional: Positive for chills; no excessive sweating, abnormal sleep pattern, fever(s), night sweats or body ache Eyes Eyes: No change in vision ENT ENT: Positive for post nasal drip, sinus pressure and sinus pain; no abnormal hearing, ear pain, ear discharge, ear pressure or hearing loss Resp Respiratory: Positive for cough; no chest congestion Cardio Cardiology: No excessive sweating, chest pain at rest, chest pain with exertion, shortness of breath, dyspnea on exertion, irregular heart rhythm, generalized swelling or leg pain with exertion Gastro GI: No abdominal pain, change in stool character or change in bowel habits Musc Musculoskeletal: No joint pain, back pain or limited range of motion Skin Skin: No change in hair or sores Neuro Neurology: No abnormal hearing, abnormal speech or abnormal movements Psych Psychiatric: No abnormal sleep pattern Endo Endocrine: No excessive sweating, change in body appearance, cold intolerance or heat intolerance Aller/Imm Allergy/Immunologic: No food intolerance Tony/Lymp Hematologic/Lymphatic: No easy bruising Exam Const General: cooperative, healthy appearing, no acute distress Nutritional Appearance: average body habitus Orientation: alert, awake, oriented x3 [facility] Head: normal to inspection Ears: hearing grossly normal bilaterally, external ears normal, TM's normal bilaterally, EAC's normal Nose: external nose normal, nares normal, septum normal, no nasal discharge Face and sinus: normal facial exam, sinus tenderness maxillary, face symmetric Mouth: oral mucosae normal, oropharynx normal, lip normal, tongue normal Teeth and gingiva: dentition normal, gingiva normal Throat: uvula midline, tonsils normal, posterior oropharynx normal, postnasal drainage (Purulent) Eyes General: appearance normal, both eyes and all related structures Neck Neck: normal visual inspection, full ROM, no meningeal signs, supple, lymphadenopathy (Bilateral anterior cervical node swelling and tenderness to palpation) Neck mass: No Thyroid: thyroid normal Chest Chest palpation AND inspection: normal inspection of the chest Resp Effort AND Inspection: normal respiratory effort, able to speak in complete sentences, symmetric chest movement, cough Quality of cough: wet Auscultation: Bilateral: Clear to Auscultation Cardio Palpation: normal PMI Rate: regular rate Rhythm: regular rhythm Heart Sounds: S1 normal, S2 normal, no gallops, no murmurs, no rubs Pulses: radial pulses present GI Inspection: normal to inspection Palpation: soft, no hepatosplenomegaly Skin General: no rashes or lesions noted Neuro General: alert, awake, oriented x3, gait normal Cognition: normal cognition Speech: speech normal Gait: normal gait Motor: muscle tone normal throughout Sensory Exam: no sensory deficits noted Extrem General: normal to inspection Psych Appearance: grossly normal Mental Status: mental status grossly normal Mood: congruent mood Affect: normal affect Speech and Movement: speech and movement normal Attitude: cooperative Thought Process: normal Thought Content: normal Judgment: judgment good Assessment AND Plan Problems 1. Bronchitis J40 2. Sinusitis, acute maxillary J01.00 Plan Augmentin as prescribed today. Clear fluids, rest, Advil/Tylenol, warm facial compresses as needed as instructed today. Avoid tobacco exposure. Follow-up with PCP in 3-5 days should symptoms not improved, sooner should symptoms worsen or any other concerns develop. Patient states acknowledging understanding all the above. This note was generated with Guestyation software. It may contain incorrect words, spelling, and punctuation that were not noted in checking the note before signing. Medications New: Coding Level of Care Code Off vis,new,level 4 Diagnoses Bronchitis J40 Sinusitis, acute maxillary J01.00 05/04/17 1258 <Electronically signed by Naveen YUN> Date Naveen YUN Cosigner Signature: Date (if applicable) CC: LIVER PROFILE Collected: 04/14/2017 Status: F Source: [place] 7:26 AM [facility] REPOSITORY TYPE CODE TESTS RESULT OUT OF RANGE REFERENCE UNITS LAB L501.1500 6.4-8.2 g/dL Normal T PROT 7.5 LAB L501.1800 3.2-5.0 g/dL Normal ALB 3.2 LAB L501.1950 2.2-4.2 g/dL High GLOB 4.3 LAB L501.4100 15-37 U/L Normal AST 24 LAB L501.4305 45-117 U/L Normal ALK P 82 LAB L501.4405 16-61 U/L High ALT 64 Result Comment: Please note revised ALT reference range effective 2017. LAB L501.4600 0.20-1.00 mg/dL Normal T BILI 0.70 LAB L501.4700 0.00-0.30 mg/dL Normal D BILI 0.12 Performed By: #### L500.3400 #### [facility] Yenny Garcia [place], [place], [id number] ANTI-SMOOTH MUSCLE ABS Collected: 04/14/2017 Status: F Source: [place] 7:26 AM [facility] REPOSITORY TYPE CODE TESTS RESULT OUT OF RANGE REFERENCE UNITS LAB L803.2200 0-19 Units Normal ANTISMOOTH 6643 16 Result Comment: Negative 0 - 19 Weak positive 20 - 30 Moderate to strong positive >30 Actin Antibodies are found in 52-85% of patients with autoimmune hepatitis or chronic active hepatitis and in 22% of patients with primary biliary cirrhosis. Performed at: - [facility] [address] [id number] Icing Machine Operator: Constantino Cruz PhD, Phone: [phone] Performed By: #### L803.2200 #### [facility] (refer to report for specific site) refer to report for address and phone number ANTINUCLEAR ANTIBODIES Collected: 04/14/2017 Status: F Source: [place] [facility] 7:26 AM [facility] REPOSITORY TYPE CODE TESTS RESULT OUT OF RANGE REFERENCE UNITS LAB L3100.5475 Negative Normal Negative VICKY-DIRECT Result Comment: Performed at: - [facility] [id number] Icing Machine Operator: Constantino Cruz PhD, Phone: [phone] Performed By: #### L3100.5475 #### [facility] (refer to report for specific site) refer to report for address and phone number LIVER PROFILE Collected: 03/23/2017 Status: F Source: [place] 1:27 PM [facility] REPOSITORY TYPE CODE TESTS RESULT OUT OF RANGE REFERENCE UNITS LAB L501.1500 6.4-8.2 g/dL Normal T PROT 7.9 LAB L501.1800 3.4-5.0 g/dL Normal ALB 3.6 Result Comment: Please note revised Albumin AND Globulin reference range effective 2016. LAB L501.1950 2.2-4.2 g/dL High GLOB 4.3 LAB L501.4100 15-37 U/L Normal AST 30 LAB L501.4305 45-117 U/L Normal ALK P 91 LAB L501.4405 12-78 U/L High ALT 80 LAB L501.4600 0.20-1.00 mg/dL Normal T BILI 0.50 LAB L501.4700 0.00-0.30 mg/dL Normal D BILI 0.07 Performed By: #### L500.3400 #### [facility] [address] [place], [place], [address] CBC W/DIFF, AUTOMATED Collected: 03/10/2017 Status: F Source: [place] 7:48 AM [facility] REPOSITORY TYPE CODE TESTS RESULT OUT OF RANGE REFERENCE UNITS LAB L100.1000 4.4-11.0 K/mm3 Normal WBC 10.3 LAB L100.1200 4.6-6.2 M/mm3 Normal RBC 4.79 LAB L100.1300 13.0-16.5 g/dl Normal HGB 14.5 LAB L100.1400 40-54 % Normal HCT 42.5 LAB L100.1500 80-94 fL Normal MCV 88.7 LAB L100.1600 27.0-32.0 pg Normal MCH 30.3 LAB L100.1700 32-36 g/gl Normal MCHC 34.1 LAB L100.1810 11.6-14.6 % Normal RDW CV 13.7 LAB L100.1820 35.1-43.9 fl High RDW SD 44.0 LAB L100.1900 150-450 K/mm3 Normal PLT 294 LAB L100.2000 6.2-12.0 fl Normal MPV 10.0 LAB L100.2100 47-70 % High NEUT% 83.8 LAB L100.2200 19-41 % Low LY% 9.8 LAB L100.2300 0-10 % Normal MONO% 5.2 LAB L100.2400 0-5 % Normal EO% 0.7 LAB L100.2500 0-1 % Normal BASO% 0.1 LAB L100.2550 0.0-0.9 % Normal IM GRAN % 0.400 Result Comment: IG% - Immature Granulocytes (promyelocytes, myelocytes and metamyelocytes) > 1% indicates that a LEFT SHIFT is Present. LAB L100.2620 2.0-7.7 X10 3/uL High Absolute Neut 8.6 LAB L100.2720 0.83-4.51 X10 3/ul Normal Absolute Lymph 1.01 Performed By: #### L100.0100 #### [facility] [address] [place], [address] ALK PHOS ISOENZYME Collected: 03/10/2017 Status: F Source: [place] 7:48 AM [facility] REPOSITORY TYPE CODE TESTS RESULT OUT OF RANGE REFERENCE UNITS LAB L3250.0200 39-117 IU/L ALK Normal PHOS, S 77 LAB L3250.0300 13-88 % LIVER Normal FRACTION 62 LAB L3250.0400 12-68 % BONE Normal FRACTION 37 LAB L3250.0500 0-18 % Normal INTESTINAL FRAC 1 Result Comment: Performed at: - [facility] [address] [id number] Icing Machine Operator: Constantino Cruz PhD, Phone: [phone] Performed By: #### L3250.0100 #### [facility] (refer to report for specific site) refer to report for address and phone number COLON BIOPSY (CHOOSE Observed: 03/07/2017 Status: F Source: YONAS SITE) 10:47 AM [facility] REPOSITORY Patient: HELEN NOGUEIRA : 1970 (46/M) Acct Num: [id number] Phys: Constantino Mcelroy Unit Num: [id number] Loc: [facility] Specimen: [id number] Received: 03/07/17 - 1524 Spec Type: COLON BX TISSUES TISSUES: A. Left colon B. Sigmoid colon biopsy COMMENT A AND B. The findings are consistent with patient s history of ulcerative colitis. Clinical correlation is suggested. GROSS DESCRIPTION A - Received in fixative is one container labeled with the patient's name and designated biopsy, left colon and polyp. The specimen consists of a conner-pink polyp measuring 1.5 x 1 x 1 cm. Also present in the container are multiple fragments of conner soft tissue measuring in aggregate 1 x 0.5 x 0.1 cm. Apparent base of the polyp is inked black. The polyp is bisected. The entire specimen is submitted in two cassettes as follows: 1 one bisected polyp, 2 rest of the specimen. B - Received in fixative is one container labeled with the patient's name and designated biopsy distal sigmoid/rectum. The specimen consists of two irregular fragments of light conner soft tissue that in aggregate measure 0.3 x 0.2 x 0.1 cm. The specimen is totally submitted in one cassette. / VICTOR HUGO:deandra 03/08/17 TC:2 CPT: 51632 x2 HEADER OPERATION: Colonoscopy with biopsy PRE-OP DIAGNOSIS: History ulcerative colitis TISSUE SUBMITTED: A Biopsy left colon, rule out ulcerative colitis/dysplasia; descending colon polyp/ pseudopolyp, rule out dysplasia, B Biopsy distal sigmoid/rectum, rule out dysplasia/ ulcerative colitis MICROSCOPIC DESCRIPTION Slides are reviewed. MICROSCOPIC DIAGNOSIS A. Left colon, biopsy: Inflammatory polyp. Smaller fragments of colonic mucosa with focal acute colitis and mild glandular distortion. No evidence of dysplasia. B. Distal sigmoid/rectum, biopsy: Mild architectural change with focal active colitis. No evidence of dysplasia. AM:deandra 03/09/17 Signed Ramone Turk 03/09/17 <signature on file> Performed By: #### PCOLBX #### [facility] [address] [place], [address] ALLERGIES ALLERGIES DATE TYPE / CODE NAME / CODE REACTION SEVERITY SOURCE 11/20/2017 Drug No Known Unknown [facility] Allergy/4160 Allergies/F00 Hospital 21800(SNOMED 5399760(RXNOR Repository CT) M) ENCOUNTERS ENCOUNTERS ADMIT/DISCHARGE ACCOUNT ADMITTING ENCOUNTER LOCATION SOURCE NUMBER CLASS 01/25/2018 [id number] Ambulatory [place] [facility] ing:[facility] Repository 01/17/2018 [id number] Ambulatory [place] 3 [facility] ing:[facility] Repository 11/20/2017/ [id number] [place] 8 3 [facility] ing:ED Repository 11/20/2017 [id number] Ambulatory [place] 4 [facility] ing:CT Repository 11/17/2017 [id number] Ambulatory [place] 2 [facility] ing:MTLAB Repository 11/15/2017 [id number] Ambulatory [place] 7 [facility] ing:MTLAB Repository 11/07/2017 [id number] [place] [facility] ing:HPRAD Repository 11/07/2017/ [id number] Ambulatory [facility] [place] 8 [facility] Repository 11/01/2017/ [id number] Ambulatory [facility]:B [place] 6 [facility] Repository 08/22/2017/ [id number] Ambulatory [facility]:B [place] [facility] 4 [facility] Repository 05/04/2017/ [id number] Ambulatory BMS[facility]:B [place] 8 0 [facility] Repository 04/14/2017 [id number] [place] 8 [facility] ing:LAB.FUTUR Repository E 04/02/2017/ [id number] Ambulatory BMSBuilding:B [place] 8 3 [facility] Repository 03/23/2017 [id number] Ambulatory [place] 4 [facility] ing:MTLAB Repository 03/10/2017 [id number] Ambulatory [place] 0 [facility] ing:LAB.FUTUR Repository E 03/07/2017 [id number] Ambulatory [place] 7 [facility] ing:[facility] Repository PAYERS PAYERS ENCOUNTER GUARANTOR PAYER SUBSCRIBER SOURCE 01/25/2018 HELEN S Primary HELEN S [place] [id number] S Insurance:MEDICAL STANLEYDOB: [facility] [id number] Number: Repository [address]Atg: 330 [id number] [phone] (HP) Date:1940-94-[address] [address]TZ: 01/25/2018 Secondary NOT GIVENUNK [place] Insurance:SELF PAY [facility] Number: Effective Repository Date:2018-01-25 01/17/2018 HELEN S Primary HELEN S [place] [id number] S Insurance:MEDICAL STANLEYDOB: [facility] [id number] Number: Repository [address]Tlm: 330 [id number] [phone] (HP) Date:1083-72-96VN[address] [address]UB: 01/17/2018 Secondary NOT GIVENUNK [place] Insurance:SELF PAY [facility] Number: Effective Repository Date:2018-01-17 11/20/2017 HELEN S Primary HELEN S [place] [id number] S Insurance:[facility] [id number] Number: Repository [address]Djh: 330 [id number] [phone] (HP) Date:3288-21-04YO [address] [place] [address]OC: 11/20/2017 Secondary NOT GIVENUNK [place] Insurance:SELF PAY [facility] Number: Effective Repository Date:2017-11-20 11/20/2017 HELEN S Primary HELEN S [place] [id number] S Insurance:MEDICAL STANLEYDOB: [facility] [id number] Number: Repository [address]Ikc: 330 [id number] [phone] (HP) Date:5340-27-39QY [address] [place] [address]LY: 11/20/2017 Secondary NOT GIVENUNK [place] Insurance:SELF PAY [facility] Number: Effective Repository Date:2017-11-20 11/17/2017 HELEN S Primary HELEN S [place] [id number] S Insurance:MEDICAL STANLEYDOB: [facility] [id number] Number: Repository [address]Wkp: 330 [id number] [phone] (HP) Date:8546-47-81UM [address] [address]MR: 11/17/2017 Secondary NOT GIVENUNK [place] Insurance:SELF PAY [facility] Number: Effective Repository Date:2017-11-17 11/15/2017 HELEN S Primary HELEN S [place] [id number] S Insurance:MEDICAL STANLEYDOB: [facility] [id number] Number: Repository [address]Zzx: 330 [id number] [phone] (HP) Date:2853-70-04AQ [address] [place] [address]QB: 11/15/2017 Secondary NOT GIVENUNK [place] Insurance:SELF PAY [facility] Number: Effective Repository Date:2017-11-15 11/07/2017 HELEN S Primary HELEN S [place] [id number] S Insurance:MEDICAL STANLEYDOB: [facility] [id number] Number: Repository [address]Ccs: 330 [id number] [phone] (HP) Date:5215-90-25VN [address] [place] [address]PX: 11/07/2017 Secondary NOT GIVENUNK [place] Insurance:SELF PAY [facility] Number: Effective Repository Date:2017-11-07 11/07/2017 HELEN S Primary HELEN S [place] [id number] S Insurance:MEDICAL STANLEYDOB: [facility] [id number] Number: Repository [address]Zeb: 330 [id number] [phone] (HP) Date:6744-40-80SQ [address] [address]ID: 11/07/2017 Secondary NOT GIVENUNK [place] Insurance:SELF PAY [facility] Number: Effective Repository Date:2017-11-07 11/01/2017 HELEN S Primary HELEN S [place] [id number] S Insurance:MEDICAL BURLINGTONDOB: [facility] [id number] Number: Repository [address]Kdm: 330 [id number] [phone] (HP) Date:4427-52-43GT [address] [address]TB: 11/01/2017 Secondary NOT GIVENUNK [place] Insurance:SELF PAY [facility] Number: Effective Repository Date:2017-11-01 08/22/2017 HELEN S Primary HELEN S [place] [id number] S Insurance:[facility]: [facility] [id number] Number: Repository [address]Itk: 330 [id number] [phone] (HP) Date:2557-74-44XL [address] [address]LM: 08/22/2017 Secondary NOT GIVENUNK [place] Insurance:SELF PAY [facility] Number: Effective Repository Date:2017-08-22 05/04/2017 HELEN S Primary HELEN [place] [id number] S Insurance:MEDICAL STANLEYDOB: [facility] [id number] Number: Repository [address]Bpv: 330 [id number] [phone] (HP) Date:0087-00-54QN [address] [address]BJ: 05/04/2017 Secondary NOT GIVENUNK [place] Insurance:SELF PAY [facility] Number: Effective Repository Date:2017-05-04 04/14/2017 HELEN S Primary HELEN S [place] [id number] S Insurance:MEDICAL STANLEYDOB: [facility] [id number] Number: Repository [address]Sfb: 330 [id number] [phone] (HP) Date:4295-80-56HZ [address] [address]BR: 04/14/2017 Secondary NOT GIVENUNK [place] Insurance:SELF PAY [facility] Number: Effective Repository Date:2017-04-03 04/02/2017 HELEN S Primary HELEN [place] [id number] S Insurance:MEDICAL STANLEYDOB: [facility] [id number] Number: Repository [address]Fym: 330 [id number] [phone] (HP) Date:0721-24-44BH [address] [address]DK: 04/02/2017 Secondary NOT GIVENUNK [place] Insurance:SELF PAY [facility] Number: Effective Repository Date:2017-04-02 03/23/2017 HELEN S Primary HELEN S [place] [id number] S Insurance:MEDICAL STANLEYDOB: [facility] [id number] Number: Repository [address]Nct: 330 [id number] [phone] (HP) Date:4398-49-08YT [address] [place] [address]KC: 03/23/2017 Secondary NOT GIVENUNK [place] Insurance:SELF PAY [facility] Number: Effective Repository Date:2017-03-23 03/10/2017 HELEN S Primary HELEN S [place] [id number] S Insurance:[facility]: [facility] [id number] Number: Repository [address]Axm: 330 [id number] [phone] (HP) Date:9371-34-07MG [address] [place] [address]BX: 03/10/2017 Secondary NOT GIVENUNK [place] Insurance:SELF PAY [facility] Number: Effective Repository Date:2017-02-13 03/07/2017 HELEN S Primary HELEN S [place] [id number] S Insurance:[facility]: [facility] [id number] Number: Repository [address]Bjn: 330 [id number] [phone] (HP) Date:7151-83-25CW [address] [place] [address]NL: 03/07/2017 Secondary NOT GIVENUNK [place] Insurance:SELF PAY [facility] Number: Effective Repository Date:2017-03-07
== END ==
PROVIDERS: Family Provider Nurse Practitioner; PCP Nurse Practitioner; Referring Provider Internal Medicine Gastroenterology; Visit Provider Internal Medicine Gastroenterology
DX: K51.90 Ulcerative colitis, unspecified, without complications (principal); K51.40 Inflammatory polyps of colon without complications
CPT/HCPCS: 88305

== ENCOUNTER → 2018-10-17 | Outpatient (CLI) | payer OTHER, SELFPAY ==
[2018-10-17 17:34] LABS: Hematocrit 41.7 % (40-54); Mean Corp Hgb Conc 33.6 g/dL (32-36); Mean Corpuscular Volume 89.3 fL (80-94); Mean Platelet Vol. 10.9 fl (6.2-12.0); Platelet Count 315 K/mm3 (150-450); RBC Distribution Width CV 12.9 % (11.6-14.6); RBC Distribution Width SD 41.7 fl (35.1-43.9); Red Blood Count 4.67 M/mm3 (4.6-6.2); White Blood Count 10.9 K/mm3 (4.4-11.0)
[2018-10-17 17:52] LABS: Erythrocyte Sedimentation Rate 12 mm/hr (0-20)
== END | disposition home or self-care (01) ==
LOC: MTLAB 15:34
PROVIDERS: Family Provider Nurse Practitioner; PCP Nurse Practitioner; Referring Provider Internal Medicine Gastroenterology; Visit Provider Internal Medicine Gastroenterology
DX: K51.90 Ulcerative colitis, unspecified, without complications (principal)
CPT/HCPCS: 36415; 85027; 85652

== ENCOUNTER → 2018-11-20 15:30 | Outpatient (CLI) | payer OTHER, SELFPAY ==
[2018-11-20 17:26] LABS: Absolute Lymphocyte Count 1.45 X10^3/uL (0.83-4.51); Absolute Neutrophil Count 6.3 X10^3/uL (2.0-7.7); Basophil# 0.05 X10^3/uL; Basophil% 0.6 % (0-1); Eosinophil# 0.18 X10^3/uL; Eosinophils% 2.1 % (0-5); Hematocrit 40.4 % (40-54); Hemoglobin 13.6 g/dL (13.0-16.5); Lymphocyte # 1.45 X10^3/ul (4.0); Lymphocyte % 16.8 % (19-41); Mean Corp Hgb Conc 33.7 g/dL (32-36); Mean Corpuscular Hgb 29.1 pg (27.0-32.0); Mean Corpuscular Volume 86.5 fL (80-94); Mean Platelet Vol. 10.1 fl (6.2-12.0); Monocyte# 0.65 X10^3/uL; Monocyte% 7.5 % (0-10); NRBC Flagged by Analyzer 0 % (0-5); Neutrophil % 72.8 % (47-70); Platelet Count 338 K/mm3 (150-450); RBC Distribution Width CV 12.5 % (11.6-14.6); RBC Distribution Width SD 39.4 fl (35.1-43.9); Red Blood Count 4.67 M/mm3 (4.6-6.2); White Blood Count 8.7 K/mm3 (4.4-11.0)
[2018-11-20 18:18] LABS: Erythrocyte Sedimentation Rate 23 mm/hr (0-20)
== END ==
PROVIDERS: Family Provider Nurse Practitioner; PCP Nurse Practitioner; Referring Provider Internal Medicine Gastroenterology; Visit Provider Internal Medicine Gastroenterology
DX: K51.90 Ulcerative colitis, unspecified, without complications (principal)
CPT/HCPCS: 36415; 85025; 85652

== ENCOUNTER → 2018-11-26 16:33 | Outpatient (CLI) | payer OTHER, SELFPAY | PROVIDERS: Family Provider Nurse Practitioner; PCP Nurse Practitioner; Referring Provider Internal Medicine Gastroenterology; Visit Provider Internal Medicine Gastroenterology | DX: K51.90 Ulcerative colitis, unspecified, without complications (principal) ==

== ENCOUNTER → 2018-11-27 08:15 | Outpatient (CLI) | payer OTHER, SELFPAY | PROVIDERS: Family Provider Nurse Practitioner; PCP Nurse Practitioner; Referring Provider Internal Medicine Gastroenterology; Visit Provider Internal Medicine Gastroenterology | DX: K51.90 Ulcerative colitis, unspecified, without complications (principal) | CPT/HCPCS: 87493 ==

== ENCOUNTER → 2018-12-13 07:43 | Outpatient (CLI) | payer OTHER, SELFPAY ==
[2018-12-13 12:24] LABS: Erythrocyte Sedimentation Rate 12 mm/hr (0-20)
[2018-12-13 12:27] LABS: Absolute Lymphocyte Count 1.94 X10^3/uL (0.83-4.51); Absolute Neutrophil Count 7.3 X10^3/uL (2.0-7.7); Basophil# 0.03 X10^3/uL; Basophil% 0.3 % (0-1); Eosinophil# 0.16 X10^3/uL; Eosinophils% 1.6 % (0-5); Hematocrit 43.2 % (40-54); Hemoglobin 14.3 g/dL (13.0-16.5); Lymphocyte # 1.94 X10^3/ul (4.0); Lymphocyte % 19.3 % (19-41); Mean Corp Hgb Conc 33.1 g/dL (32-36); Mean Corpuscular Hgb 29.4 pg (27.0-32.0); Mean Corpuscular Volume 88.7 fL (80-94); Mean Platelet Vol. 10.9 fl (6.2-12.0); Monocyte# 0.56 X10^3/uL; Monocyte% 5.6 % (0-10); NRBC Flagged by Analyzer 0 % (0-5); Neutrophil # 7.34 X10^3/uL (2.7-7.7); Neutrophil % 72.9 % (47-70); Platelet Count 336 K/mm3 (150-450); RBC Distribution Width CV 12.9 % (11.6-14.6); RBC Distribution Width SD 41.7 fl (35.1-43.9); Red Blood Count 4.87 M/mm3 (4.6-6.2); White Blood Count 10.1 K/mm3 (4.4-11.0)
== END ==
PROVIDERS: Family Provider Nurse Practitioner; PCP Nurse Practitioner; Referring Provider Internal Medicine Gastroenterology; Visit Provider Internal Medicine Gastroenterology
DX: K51.00 Ulcerative (chronic) pancolitis without complications (principal)
CPT/HCPCS: 36415; 85025; 85652

== ENCOUNTER 2019-02-05 08:38 | Outpatient (RCR) | payer OTHER, SELFPAY ==
[2019-02-05 10:10] LABS: Absolute Lymphocyte Count 1.82 X10^3/uL (0.83-4.51); Absolute Neutrophil Count 8.4 X10^3/uL (2.0-7.7); Basophil# 0.04 X10^3/uL; Basophil% 0.4 % (0-1); Eosinophil# 0.17 X10^3/uL; Eosinophils% 1.5 % (0-5); Hematocrit 44.9 % (40-54); Hemoglobin 14.7 g/dL (13.0-16.5); Lymphocyte # 1.82 X10^3/ul (4.0); Lymphocyte % 16.1 % (19-41); Mean Corp Hgb Conc 32.7 g/dL (32-36); Mean Corpuscular Hgb 29.6 pg (27.0-32.0); Mean Corpuscular Volume 90.5 fL (80-94); Mean Platelet Vol. 10.3 fl (6.2-12.0); Monocyte# 0.74 X10^3/uL; Monocyte% 6.6 % (0-10); NRBC Flagged by Analyzer 0 % (0-5); Neutrophil # 8.41 X10^3/uL (2.7-7.7); Neutrophil % 74.6 % (47-70); Platelet Count 329 K/mm3 (150-450); RBC Distribution Width CV 13.2 % (11.6-14.6); RBC Distribution Width SD 44.2 fl (35.1-43.9); Red Blood Count 4.96 M/mm3 (4.6-6.2); White Blood Count 11.3 K/mm3 (4.4-11.0)
== END 2019-02-05 18:00 | disposition home or self-care (01) ==
LOC: MTLAB 08:38
PROVIDERS: Family Provider Nurse Practitioner; PCP Nurse Practitioner; Referring Provider Internal Medicine Gastroenterology; Visit Provider Internal Medicine Gastroenterology
DX: K51.90 Ulcerative colitis, unspecified, without complications (principal)
CPT/HCPCS: 36415; 85025; 86140

== ENCOUNTER → 2019-03-26 10:37 | Outpatient (CLI) | payer OTHER, SELFPAY | PROVIDERS: PCP Nurse Practitioner; Referring Provider Internal Medicine Gastroenterology; Visit Provider Internal Medicine Gastroenterology | DX: K51.90 Ulcerative colitis, unspecified, without complications (principal) ==

== ENCOUNTER → 2019-07-16 08:14 | Outpatient (CLI) | payer OTHER, SELFPAY | PROVIDERS: PCP Nurse Practitioner; Referring Provider Internal Medicine Gastroenterology; Visit Provider Internal Medicine Gastroenterology | DX: K51.90 Ulcerative colitis, unspecified, without complications (principal) ==

== ENCOUNTER → 2020-07-22 15:44 | Outpatient (CLI) | payer OTHER, SELFPAY ==
[2020-07-22 17:41] LABS: Hematocrit 42.1 % (40-54); Hemoglobin 14.2 g/dL (13.0-16.5); Mean Corp Hgb Conc 33.7 g/dL (32-36); Mean Corpuscular Hgb 29.5 pg (27.0-32.0); Mean Corpuscular Volume 87.3 fL (80-94); Mean Platelet Vol. 10.6 fl (6.2-12.0); Platelet Count 306 K/mm3 (150-450); RBC Distribution Width CV 12.8 % (11.6-14.6); RBC Distribution Width SD 41.2 fl (35.1-43.9); Red Blood Count 4.82 M/mm3 (4.6-6.2); White Blood Count 8.3 K/mm3 (4.4-11.0)
[2020-07-22 18:07] LABS: AST(SGOT) 46 U/L (15-37); Alanine Aminotransfer ALT/SGPT 92 U/L (16-61); Albumin, Serum 3.7 g/dL (3.2-5.0); Alkaline Phosphatase 116 U/L (45-117); CRP 4.82 mg/L (0.0-3.0); GGTP 506 U/L (15-85); Globulin 4.1 g/dL (2.2-4.2); Protein, Total 7.8 g/dL (6.4-8.2)
[2020-07-22 18:27] LABS: Erythrocyte Sedimentation Rate 7 mm/hr (0-20)
== END ==
PROVIDERS: PCP Nurse Practitioner; Referring Provider Internal Medicine Gastroenterology; Visit Provider Internal Medicine Gastroenterology
DX: K52.9 Noninfective gastroenteritis and colitis, unspecified (principal)
CPT/HCPCS: 36415; 80076; 82977; 85027; 85652; 86140

== ENCOUNTER → 2020-10-17 07:42 | Outpatient (CLI) | payer OTHER, SELFPAY ==
[2020-10-17 08:10] LABS: Absolute Lymphocyte Count 1.98 X10^3/uL (0.83-4.51); Absolute Neutrophil Count 3.3 X10^3/uL (2.0-7.7); Basophil# 0.05 X10^3/uL; Basophil% 0.8 % (0-1); Eosinophil# 0.23 X10^3/uL; Eosinophils% 3.8 % (0-5); Hematocrit 45.3 % (40-54); Hemoglobin 15.1 g/dL (13.0-16.5); Lymphocyte # 1.98 X10^3/ul (0.83-4.51); Lymphocyte % 32.8 % (19-41); Mean Corp Hgb Conc 33.3 g/dL (32-36); Mean Corpuscular Hgb 29.8 pg (27.0-32.0); Mean Corpuscular Volume 89.5 fL (80-94); Mean Platelet Vol. 9.9 fl (6.2-12.0); Monocyte# 0.47 X10^3/uL; Monocyte% 7.8 % (0-10); NRBC Flagged by Analyzer 0 % (0-5); Neutrophil # 3.28 X10^3/uL (2.7-7.7); Neutrophil % 54.5 % (47-70); Platelet Count 310 K/mm3 (150-450); RBC Distribution Width CV 12.2 % (11.6-14.6); RBC Distribution Width SD 40.1 fl (35.1-43.9); Red Blood Count 5.06 M/mm3 (4.6-6.2)
[2020-10-17 08:32] LABS: ALB/GLOB Ratio 0.9 RATIO (0.9-2.4); AST(SGOT) 51 U/L (15-37); Alanine Aminotransfer ALT/SGPT 95 U/L (16-61); Albumin, Serum 3.7 g/dL (3.2-5.0); Alkaline Phosphatase 110 U/L (45-117); BUN 15 mg/dL (7-18); BUN/Creat Ratio 15.4 RATIO (10-20); Calcium,Total 8.4 mg/dL (8.5-10.1); Cholesterol 223 mg/dL (200); Creatinine, Serum 0.98 mg/dL (0.70-1.30); EST Glomerular Filtration Rate 86 mL/min (>60); Est Glom Filt Rate - Afr Amer 104 mL/min (>60); Globulin 4.1 g/dL (2.2-4.2); Glucose 90 mg/dL (74-106); Protein, Total 7.8 g/dL (6.4-8.2); Triglycerides 113 mg/dL
[2020-10-17 08:33] LABS: Anion Gap 4 (5-15); Chloride 107 mmol/L (98-107); High Density Lipoprotein 68 mg/dL; PSA,Total - Annual Screen 0.73 ng/mL (0.00-4.00); Sodium Level 138 mmol/L (136-145); Very Low Density Lipoprotein 23 mg/dL (5-40)
== END ==
PROVIDERS: PCP Nurse Practitioner; Referring Provider Nurse Practitioner; Visit Provider Nurse Practitioner
DX: E78.2 Mixed hyperlipidemia (principal); Z12.5 Encounter for screening for malignant neoplasm of prostate; K51.90 Ulcerative colitis, unspecified, without complications; D72.829 Elevated white blood cell count, unspecified
CPT/HCPCS: 36415; 80053; 80061; 84153; 85025; G0103

== ENCOUNTER → 2021-08-11 | Outpatient (CLI) | payer OTHER, SELFPAY ==
[2021-08-11 17:33] LABS: Hematocrit 42.9 % (40-54); Hemoglobin 14.7 g/dL (13.0-16.5); Mean Corp Hgb Conc 34.3 g/dL (32-36); Mean Corpuscular Hgb 30.3 pg (27.0-32.0); Mean Corpuscular Volume 88.5 fL (80-94); Mean Platelet Vol. 10.2 fl (6.2-12.0); Platelet Count 296 K/mm3 (150-450); RBC Distribution Width CV 12.7 % (11.6-14.6); RBC Distribution Width SD 41.4 fl (35.1-43.9); Red Blood Count 4.85 M/mm3 (4.6-6.2); White Blood Count 9.9 K/mm3 (4.4-11.0)
[2021-08-11 17:53] LABS: ALB/GLOB Ratio 0.8 RATIO (0.9-2.4); AST(SGOT) 33 U/L (15-37); Alanine Aminotransfer ALT/SGPT 67 U/L (16-61); Albumin, Serum 3.6 g/dL (3.2-5.0); Alkaline Phosphatase 97 U/L (45-117); Anion Gap 6 (5-15); BUN 15 mg/dL (7-18); BUN/Creat Ratio 12.7 RATIO (10-20); CRP 4.41 mg/L (0.0-3.0); Calcium,Total 9.6 mg/dL (8.5-10.1); Chloride 104 mmol/L (98-107); Creatinine, Serum 1.18 mg/dL (0.70-1.30); EST Glomerular Filtration Rate 69 mL/min (>60); Est Glom Filt Rate - Afr Amer 83 mL/min (>60); Globulin 4.3 g/dL (2.2-4.2); Glucose 69 mg/dL (74-106); Potassium 3.7 mmol/L (3.5-5.1); Protein, Total 7.9 g/dL (6.4-8.2); Sodium Level 140 mmol/L (136-145)
[2021-08-11 17:57] LABS: Erythrocyte Sedimentation Rate 9 mm/hr (0-20)
== END | disposition home or self-care (01) ==
LOC: MTLAB 15:43
PROVIDERS: PCP Nurse Practitioner; Referring Provider Internal Medicine Gastroenterology; Visit Provider Internal Medicine Gastroenterology
DX: K51.90 Ulcerative colitis, unspecified, without complications (principal)
CPT/HCPCS: 36415; 80053; 85027; 85652; 86140

== ENCOUNTER → 2023-12-14 | Outpatient (CLI) | payer OTHER, SELFPAY ==
[2023-12-14 10:21] LABS: Hematocrit 43.7 % (40-54); Hemoglobin 15.3 g/dL (13.0-16.5); Mean Corpuscular Hgb 30.3 pg (27.0-32.0); Mean Corpuscular Volume 86.5 fL (80-94); Mean Platelet Vol. 10.7 fl (6.2-12.0); Platelet Count 277 K/mm3 (150-450); RBC Distribution Width CV 12.4 % (11.6-14.6); RBC Distribution Width SD 38.8 fl (35.1-43.9); Red Blood Count 5.05 M/mm3 (4.6-6.2); White Blood Count 6.6 K/mm3 (4.4-11.0)
[2023-12-14 11:30] LABS: ALB/GLOB Ratio 0.9 RATIO (0.9-2.4); AST(SGOT) 52 U/L (15-37); Alanine Aminotransfer ALT/SGPT 113 U/L (16-61); Albumin, Serum 3.7 g/dL (3.2-5.0); Alkaline Phosphatase 105 U/L (45-117); Anion Gap 5 (5-15); BUN 15 mg/dL (7-18); BUN/Creat Ratio 16.1 RATIO (10-20); CRP 4.33 mg/L (0.0-3.0); Calcium,Total 9.1 mg/dL (8.5-10.1); Chloride 105 mmol/L (98-107); Cholesterol 190 mg/dL (200); Creatinine, Serum 0.93 mg/dL (0.70-1.30); EST Glomerular Filtration Rate 90 mL/min (>60); Est Glom Filt Rate - Afr Amer 108 mL/min (>60); Globulin 4.3 g/dL (2.2-4.2); Glucose 106 mg/dL (74-106); High Density Lipoprotein 53 mg/dL; PSA,Total - Annual Screen 0.94 ng/mL (0.00-4.00); Potassium 3.9 mmol/L (3.5-5.1); Sodium Level 134 mmol/L (136-145); Triglycerides 258 mg/dL; Very Low Density Lipoprotein 52 mg/dL (5-40)
== END | disposition home or self-care (01) ==
PROVIDERS: PCP Nurse Practitioner Family; Referring Provider Internal Medicine Gastroenterology; Visit Provider Internal Medicine Gastroenterology
DX: K51.90 Ulcerative colitis, unspecified, without complications (principal); E78.5 Hyperlipidemia, unspecified; F41.9 Anxiety disorder, unspecified; Z12.5 Encounter for screening for malignant neoplasm of prostate
CPT/HCPCS: 36415; 80053; 80061; 84153; 84443; 85027; 86140; G0103

== ENCOUNTER → 2024-01-29 | Outpatient (CLI) | payer OTHER, SELFPAY ==
[2024-01-29 12:26] LABS: Mucous, Urine 0 SEEN /hpf (<or=2+); Red Blood Cells-Urine 0 SEEN /hpf (0-5)
[2024-01-29 12:30] LABS: Erythrocyte Sedimentation Rate 22 mm/hr (0-20)
[2024-01-29 12:35] LABS: Absolute Lymphocyte Count 1.62 X10^3/uL (0.83-4.51); Absolute Neutrophil Count 4.2 X10^3/uL (2.0-7.7); Basophil# 0.04 X10^3/uL; Basophil% 0.6 % (0-1); Eosinophil# 0.15 X10^3/uL; Eosinophils% 2.3 % (0-5); Hemoglobin 13.3 g/dL (13.0-16.5); Lymphocyte # 1.62 X10^3/ul (0.83-4.51); Lymphocyte % 24.5 % (19-41); Mean Corp Hgb Conc 33.3 g/dL (32-36); Mean Corpuscular Hgb 29.8 pg (27.0-32.0); Mean Corpuscular Volume 89.7 fL (80-94); Mean Platelet Vol. 9.5 fl (6.2-12.0); Monocyte# 0.59 X10^3/uL; Monocyte% 8.9 % (0-10); NRBC Flagged by Analyzer 0 % (0-5); Neutrophil # 4.18 X10^3/uL (2.7-7.7); Neutrophil % 63.2 % (47-70); Platelet Count 306 K/mm3 (150-450); Red Blood Count 4.46 M/mm3 (4.6-6.2); White Blood Count 6.6 K/mm3 (4.4-11.0)
[2024-01-29 12:36] LABS: Color, Urine Yellow (Yellow); Glucose, Dipstick Normal (Normal); Ketone-Dipstick Negative (Negative); Leukocyte Esterase-Dipstick Negative /ul (Negative); Nitrite-Dipstick Negative (Negative); Occult Blood-Urine Negative /ul (Negative); Protein-Dipstick Negative (Negative); Specific Gravity, Urine 1.015 (1.002-1.030); Urine Bilirubin Dipstick Negative (Negative); Urine Clarity Clear (Clear); Urine Urobilinogen Normal (Normal)
[2024-01-29 12:42] LABS: Bacteria RARE /hpf (None Seen); Squamous Epithelial Cells - UA 0-5 SEEN /hpf (0-5); White Blood Cells 0-5 SEEN /hpf (0-5)
[2024-01-29 12:59] LABS: ALB/GLOB Ratio 0.7 RATIO (0.9-2.4); AST(SGOT) 154 U/L (15-37); Alanine Aminotransfer ALT/SGPT 445 U/L (16-61); Albumin, Serum 3.1 g/dL (3.2-5.0); Alkaline Phosphatase 306 U/L (45-117); Anion Gap 4 (5-15); BUN 15 mg/dL (7-18); BUN/Creat Ratio 15.2 RATIO (10-20); Calcium,Total 8.7 mg/dL (8.5-10.1); Chloride 102 mmol/L (98-107); Creatinine, Serum 0.98 mg/dL (0.70-1.30); EST Glomerular Filtration Rate 84 mL/min (>60); Est Glom Filt Rate - Afr Amer 102 mL/min (>60); Globulin 4.5 g/dL (2.2-4.2); Glucose 122 mg/dL (74-106); Potassium 3.7 mmol/L (3.5-5.1); Protein, Total 7.6 g/dL (6.4-8.2); Sodium Level 134 mmol/L (136-145)
[2024-01-29 13:01] LABS: Lactic Acid 1.2 mmol/L (0.4-1.9)
== END | disposition home or self-care (01) ==
PROVIDERS: PCP Nurse Practitioner Family; Referring Provider Nurse Practitioner Family; Visit Provider Nurse Practitioner Family
DX: J18.9 Pneumonia, unspecified organism (principal)
CPT/HCPCS: 71260; 80053; 81001; 83605; 85025; 85652; 86140; Q9967; A4216

== ENCOUNTER → 2024-09-09 | Outpatient (CLI) | payer OTHER, SELFPAY ==
--- NOTE | 2024-09-09 09:19 | RAD_ITS ---
PROCEDURE: ANKLE MIN 3 VIEWS 09/09/2024 REASON FOR EXAM: PAIN TECHNIQUE: ANKLE MIN 3 VIEWS COMPARISON: None FINDINGS: There is no evidence of fracture or dislocation. There are no joint space abnormalities. There is a posterior heel spur. There are no soft tissue abnormalities. RAD/Ankle min 3 Views IMPRESSION: No evidence of fracture or significant arthropathy. No evidence of soft tissue gas or radiopaque foreign body. Reading Location: [place] [address]
== END | disposition home or self-care (01) ==
LOC: MTRAD 09:19
PROVIDERS: PCP Nurse Practitioner Family; Referring Provider Physician Assistant; Visit Provider Physician Assistant
DX: M25.572 Pain in left ankle and joints of left foot (principal)
CPT/HCPCS: 73610

== ENCOUNTER → 2025-02-11 | Outpatient (CLI) | payer OTHER, SELFPAY ==
--- NOTE | 2025-02-11 15:59 | RAD_ITS ---
PROCEDURE: CERV SPINE 4 OR 5 VIEWS 02/11/2025 REASON FOR EXAM: PAIN WITH RADICULOPATHY IN LEFT ARM TECHNIQUE: Procedure Code: RADSP Modality: DX Procedure: CERV SPINE 4 OR 5 VIEWS COMPARISON: None available. FINDINGS: Straightening of the cervical spine. The odontoid process is intact. The cervical vertebral bodies are normal in height. No significant spondylolisthesis. Multiple small anterior osteophytes. There is mild facet arthrosis and uncovertebral spurring. RAD/Cerv Spine 4 or 5 Views IMPRESSION: No significant spondylolisthesis in the cervical spine. Degenerative changes. Reading Location: [id number]
== END | disposition home or self-care (01) ==
LOC: MTRAD 15:59
PROVIDERS: PCP Family Medicine; Referring Provider Family Medicine; Visit Provider Family Medicine
DX: M54.12 Radiculopathy, cervical region (principal); M79.602 Pain in left arm
CPT/HCPCS: 72050

== ENCOUNTER → 2025-02-17 | Outpatient (CLI) | payer OTHER, SELFPAY ==
--- OUTSIDE RECORDS SUMMARY | 2025-02-17 07:16 | XMS RPT_ITS | CCD ---
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 Name Role Phone Laraarti Tiffanie Unavailable Manchak, Alie Unavailable Unavailable Slarb, Sana Unavailable Unavailable Nasra Lee Unavailable Unavailable Karla العراقي Unavailable Unavailable Unavailable Unavailable Pk Tian Unavailable Varghese Peace Unavailable Unavailable MessengerKarla Unavailable Unavailable Unavailable Unavailable Teddy, Alie Unavailable Unavailable Varghese Alonso Unavailable Unavailable Haily Butts CNP Unavailable Pk Tian Unavailable Varghese Alonso LPN Unavailable Unavailable April FLEMING Sana Unavailable Unavailable Cheyanne Monzon MA Unavailable Unavailable Messenger Karla GARCIA Unavailable Unavailable Unavailable Unavailable Benny Haily Unavailable Fast DO, Subha A Unavailable Ciesa IMMIGRATION MANAGER, IMMIGRATION MANAGER-C [facility] Primary Care Provider Cikassiea IMMIGRATION MANAGER, IMMIGRATION MANAGER-C [facility] Referring Provider [phone] Dr. Ashley Sweeney Attending Provider [phone] Ashley Sweeney Referring Provider [phone] Amanda Woods CNP Unavailable Amanda Woods CNP Unavailable Vielka Marina LPN Unavailable Unavailable Shanika Wells MA Unavailable Unavailable Haily Butts Referring Unavailable Amanda Woods CNP Attending Unavailable Amanda oWods CNP Consulting Unavailable Chuck IMMIGRATION MANAGER-CAmanda Primary Care Provider Chuck IMMIGRATION MANAGER-CAmanda Referring Provider Enio WOO-CJohn Attending Provider Naveen Martinez Attending Provider Naveen Martinez Referring Provider Chuck IMMIGRATION MANAGER-C, Amanda Primary Care Provider [phone] Chuck IMMIGRATION MANAGER-C, Amanda Referring Provider Tip Junior Attending Provider Chuck, Amanda Primary Care Unavailable Nawaf Martino Attending Unavailable Faye Little Attending Unavailable Chuck, Amanda Referring Unavailable Tip Junior Attending Unavailable Chuck, Amanda Primary Care Unavailable Chuck, Amanda Referring Unavailable Naveen Martinez Attending Unavailable Chuck, Amanda Primary Care Unavailable Chuck, Amanda Referring Unavailable John Steen NP Attending Unavailable Chuck, Amanda Primary Care Unavailable Chuck, Amanda Referring Unavailable John Steen NP Attending Unavailable Chuck, Amanda Primary Care Unavailable Chuck, Amanda Consulting Unavailable Chuck, Amanda Primary Care Unavailable Constantino Mcelroy Referring Unavailable Constantino Mcelroy Attending Unavailable Naveen Martinez Attending Unavailable Chuck, Amanda Primary Care Unavailable Naveen Martinez Referring Unavailable Chuck, Amanda Referring Unavailable Chuck, Amanda Attending Unavailable Chuck, Amanda Primary Care Unavailable Chuck, Amanda Referring Unavailable Chuck, Amanda Attending Unavailable Chuck, Amanda Primary Care Unavailable Medications Current Medications Medication Drug Class(es) Dates Sig (Normalized) Sig (Original) ibuprofen 800 mg oral tablet (7 sources) Nonsteroidal Anti-inflammatory Drug Start: 09-09-2024 take 1 tablet by mouth every eight hours as needed for pain Ibuprofen 800 mg tablet Active 800 mg PO Q8H as needed for pain 30 0 September 09, 2024 12:00am Start: 09-09-2016 End: 08-22-2017 take 1 tablet by mouth four times daily as needed for pain Ibuprofen 600 MG tablet Discontinued 600 mg PO 4 TIMES DAILY as needed for Pain 30 September 09, 2016 4:21pm August 22, 2017 11:38am rosuvastatin calcium 5 mg oral tablet (10 sources) HMG-CoA Reductase Inhibitor Start: 05-11-2022 End: 06-08-2022 take 1 tablet by mouth once daily Rosuvastatin 5 mg tablet Active 5 mg PO DAILY May 24, 2022 12:00am vedolizumab (20 sources) Integrin Receptor Antagonist Start: 05-24-2022 Entyvio Active 1 IV ONE TIME May 24, 2022 8:06am Every 8 weeks Start: 10-20-2020 Entyvio 300 MG Intravenous Solution Reconstituted 1 (one) For Solution q 8 weeks for 0 days Quantity: 1 {Each} Refills: 0 Ordered: 20-Oct-2020 Shirley Corbin DO Start : 20-Oct-2020 Active Comments: Dr Mcelroy Start: 11-20-2017 End: 05-24-2022 Entyvio Discontinued 1 IV ON E TIME November 20, 2017 12:00am May 24, 2022 8:11am Start: 11-20-2017 Entyvio Active 1 IV ONE TIME November 20, 2017 12:00am Start: 02-06-2017 End: 09-16-2019 Entyvio 300 MG Intravenous S olution Reconstituted 1 (one) For Solution q 8 weeks for 0 days Quantity: 1 {QS} Refills: 0 Ordered: 16-Sep-2019 Varghese Alonso LPN Start : 06-Feb-2017 End : 16-Sep-2019 Inactive Comments: Dr Mcelroy Comment on above: Dr Mcelroy Completed/Discontinued Medications Medication Drug Class(es) Dates Sig (Normalized) Sig (Original) acetaminophen 500 mg oral tablet (20 sources) Start: 11-18-2015 End: 12-14-2020 take 1 tablet by mouth every eight hours as needed Tylenol Extra Strength 500 MG Oral Tablet 1 (one) Tablet Tablet q8hrs prn for 0 days Quantity: 30 {Tablet} Refills: 0 Ordered: 14-Dec-2020 Cheyanne Monzon MA Start : 18-Nov-2015 End : 14-Dec-2020 Inactive acetaminophen 325 mg / oxyCODONE hydrochloride 5 mg oral tablet (4 sources) Opioid Agonist Start: 09-09-2016 End: 08-22-2017 Oxycodone-Acetamino phen 1 TABLET tablet Discontinued 1 - 2 {tbl} PO EVERY 4 HOURS NEEDED as needed for Pain September 09, 2016 12:00am August 22, 2017 11:38am Start: 09-09-2016 End: 08-22-2017 take 1 tablet by mouth every four hours as needed Oxycodone-Acetaminophen Discontinued 1 - 2 TABLET PO EVERY 4 HOURS NEEDED September 09, 2016 12:00am August 22, 2017 11:38am albuterol 0.83 mg/ml inhalation solution (20 sources) beta2-Adrenergic Agonist Start: 11-17-2017 End: 03-26-2019 Albuterol Sulfate (2.5 MG/3ML) 0.083% Inhalation Nebulization Solution 1 (one) Milliliter q8hrs prn for 0 days Quantity: 1 {Box} Refills: 3 Ordered: 26-Mar-2019 Varghese Alonso LPN Start : 17-Nov-2017 End : 26-Mar-2019 Inactive Start: 11-15-2017 End: 04-28-2021 ProAir HFA 108 (90 Base) MCG /ACT Inhalation Aerosol Solution 2 (two) Puff Puff tid or qid for 0 days Quantity: 1 {Inhaler} Refills: 3 Ordered: 28-Apr-2021 Vielka Marina LPN Start : 15-Nov-2017 End : 28-Apr-2021 Inactive Start: 11-15-2017 ProAir HFA 108 (90 Base) MCG/ACT Inhalation Aerosol Solution 2 (two) Puff Puff tid or qid for 0 days Quantity: 1 {Inhaler} Refills: 3 Ordered: 15-Nov-2017 Nasra Lee Start : 15-Nov-2017 Active Start: 06-03-2014 End: 07-19-2016 Proventil HFA 108 (90 Base) MCG/ACT Inhalation Aerosol Solution 1 (one) Aerosol Soln as needed for 0 days Quantity: 3 {Container} Refills: 3 Ordered: 19-Jul-2016 Sana Chen LPN Start : 03-Jun-2014 End : 19-Jul-2016 Discontinued Comments: Mail order. Medication taken as needed. Start: 06-03-2014 End: 07-19-2016 Proventil HFA 108 (90 Base) MCG/ACT Inhalation Aerosol Solution 1 (one) Aerosol Soln as needed for 0 days Quantity: 1 {Container} Refills: 3 Ordered: 19-Jul-2016 Sana Chen LPN Start : 03-Jun-2014 End : 19-Jul-2016 Discontinued Comments: Medication taken as needed. Comment on above: Medication taken as needed. Mail order. Medicati on taken as needed. amoxicillin 500 mg oral capsule (3 sources) Penicillin-class Antibacterial Start: 05-25-19 End: 06-04-19 take 1 capsule by mouth three times daily Amoxicillin 500 mg capsule Discontinued 500 mg PO THREE TIMES A DAY 30 May 24, 2022 12:00am June 02, 2022 12:00am June 03, 2022 12:04am amoxicillin 875 mg / clavulanate 125 mg oral tablet (20 sources) Penicillin-class Antibacterial Start: 11-18-19 End: 11-23-19 Amoxicillin-Pot Clavulanate 875-125 mg tablet Discontinued 1 {tbl} PO TWICE A DAY 10 5 November 18, 2023 12:00am November 22, 2023 12:00am November 23, 2023 12:07am Start: 11-12-2022 End: 11-22-2022 Amoxicillin-Pot Clavulanate (Augmentin) 500-125 mg tablet Discontinued 1 {tbl} PO TWICE A DAY 20 10 November 12, 2022 12:00am November 21, 2022 12:00am November 22, 2022 12:05am Start: 12-07-2021 End: 12-17-2021 take 1 tablet by mouth twice daily Amoxicillin-Pot Clavulanate 875-125 MG Oral Tablet 1 (one) Tablet two times daily for 10 days Quantity: 20 {Tablet} Refills: 0 Ordered: 07-Dec-2021 Amanda Woods CNP Start : 07-Dec-2021 End : 17-Dec-2021 Inactive Start: 12-14-2020 End: 12-28-2020 take 1 tablet by mouth every twelve hours Augmentin 500-125 MG Oral Tablet 1 (one) Tablet q12hr for 14 days Quantity: 28 {Tablet} Refills: 0 Ordered: 14-Dec-2020 Haily Butts Start : 14-Dec-2020 End : 28-Dec-2020 Inactive Start: 03-26-2019 End: 04-09-2019 take 1 tablet by mouth every twelve hours Augmentin 500-125 MG Oral Tablet 1 (one) Tablet q12hr for 14 days Quantity: 28 {Tablet} Refills: 0 Ordered: 26-Mar-2019 Haily Butts CNP, CNP, Mary E Start : 26-Mar-2019 End : 09-Apr-2019 Inactive Start: 05-04-2017 End: 08-22-2017 Amoxicillin-Pot Clavulanate 875-125 mg tablet Discontinued 1 {tbl} PO TWICE A DAY 20 May 04, 2017 1:00am August 22, 2017 11:37am Start: 05-04-2017 End: 08-22-2017 take 1 tablet by mouth twice daily Amoxicillin-Pot Clavulanate Discontinued 1 TABLET PO TWICE A DAY May 04, 2017 1:00am August 22, 2017 11:37am Start: 11-18-2015 End: 11-28-2015 take 1 tablet by mouth twice daily Augmentin 875-125 MG Oral Tablet 1 (one) Tablet bid for 10 days Quantity: 20 {Tablet} Refills: 0 Ordered: 18-Nov-2015 Haily Butts Start : 18-Nov-2015 End : 28-Nov-2015 Inactive azaTHIOprine 50 mg oral tablet (20 sources) Purine Antimetabolite Start: 06-03-2014 End: 02-06-2017 take 3 tablets by mouth once daily AzaTHIOprine 50 MG Oral Tablet 3 Tablet daily for 0 days Quantity: 120 {Tablet} Refills: 3 Ordered: 06-Feb-2017 Sana Chen LPN Start : 03-Jun-2014 End : 06-Feb-2017 Inactive Comments: Mail order. Comment on above: Mail order. azithromycin 250 mg oral tablet (14 sources) Macrolide Antimicrobial Start: 07-13-2021 End: 11-10-2021 Azithromycin 250 MG Oral Tablet 2 (two) Tablet today then 1 qd for 4 days for 0 days Quantity: 6 {Tablet} Refills: 0 Ordered: 10-Nov-2021 Vielka Marina LPN Start : 13-Jul-2021 End : 10-Nov-2021 Inactive 14 actuat budesonide 2 mg/actuat rectal foam (20 sources) Corticosteroid Start: 11-20-2017 End: 05-24-2022 take 9 mg by mouth once daily Budesonide (Uceris) 33.4 GM foam Discontinued 9 mg PO DAILY November 20, 2017 12:00am May 24, 2022 8:07am Start: 02-06-2017 End: 10-20-2020 take 1 tablet by mouth once daily Uceris 9 MG Oral Tablet Extended Release 24 Hour 1 (one) Tablet Tablet daily for 0 days Quantity: 30 {Tablet} Refills: 0 Ordered: 20-Oct-2020 Sana Chen LPN Start : 06-Feb-2017 End : 20-Oct-2020 Inactive cephalexin 500 mg oral capsule (3 sources) Cephalosporin Antibacterial Start: 09-09-2024 End: 10-04-2024 take 1 capsule by mouth three times daily Cephalexin 500 mg capsule Discontinued 500 mg PO THREE TIMES A DAY 30 0 September 09, 2024 12:00am October 04, 2024 6:52am ciprofloxacin 3 mg/ml ophthalmic solution (20 sources) Quinolone Antimicrobial Start: 11-15-2017 End: 03-26-2019 Ciprofloxacin HCl 0.3 % Ophthalmic Solution 1-2 Metric Drop Metric Drop q2hr while awake x 2 days then q 4 x 5 days for 0 days Quantity: 1 {Bottle} Refills: 0 Ordered: 26-Mar-2019 Varghese Alonso LPN Start : 15-Nov-2017 End : 26-Mar-2019 Inactive cyclobenzaprine hydrochloride 5 mg oral tablet (16 sources) Muscle Relaxant Start: 04-28-2021 End: 11-10-2021 take 1-2 tablets by mouth at bedtime as needed Cyclobenzaprine HCl 5 MG Oral Tablet 1-2 Tablet at hs prn for 0 days Quantity: 30 {Tablet} Refills: 0 Ordered: 10-Nov-2021 Vielka Marina LPN Start : 28-Apr-2021 End : 10-Nov-2021 Inactive desloratadine 5 mg oral tablet (20 sources) Histamine-1 Receptor Antagonist Start: 05-11-2022 take 1 tablet by mouth once daily desloratadine 5 mg oral tablet 1 (one) Tablet daily for 0 days Quantity: 90 {Tablet} Refills: 3 Ordered: 11-May-2022 Amanda Woods CNP Start : 11-May-2022 Active Start: 03-07-2022 take 1 tablet by john th once daily desloratadine 5 mg oral tablet 1 (one) Tablet daily for 90 days Quantity: 90 {Tablet} Refills: 3 Ordered: 07-Mar-2022 Amanda Woods CNP Start : 07-Mar-2022 Active Comments: Mail order. Start: 03-07-2022 take 1 tablet by john th once daily desloratadine 5 mg oral tablet 1 (one) Tablet daily for 0 days Quantity: 90 {Tablet} Refills: 3 Ordered: 07-Mar-2022 Amanda Woods CNP Start : 07-Mar-2022 Active Start: 11-10-2021 take 1 tablet by john th once daily Desloratadine 5 MG Oral Tablet 1 (one) Tablet daily for 90 days Quantity: 90 {Tablet} Refills: 3 Ordered: 10-Nov-2021 Amanda Woods CNP Start : 10-Nov-2021 Active Comments: Mail order. Start: 10-20-2020 take 1 tablet by john th once daily Desloratadine 5 MG Oral Tablet 1 (one) Tablet daily for 0 days Quantity: 90 {Tablet} Refills: 3 Ordered: 20-Oct-2020 Haily Butts Mary Start : 20-Oct-2020 Active Comments: Mail order. Start: 03-24-2020 take 1 tablet by john th once daily Desloratadine 5 MG Oral Tablet 1 (one) Tablet daily for 0 days Quantity: 90 {Tablet} Refills: 3 Ordered: 24-Mar-2020 Varghese Alonso LPN Start : 24-Mar-2020 Active Comments: Mail order. Start: 03-26-2019 End: 09-16-2019 take 1 tablet by mouth once daily Clarinex 5 MG Oral Tablet 1 (one) Tablet daily for 30 days Quantity: 90 {Tablet} Refills: 3 Ordered: 16-Sep-2019 Varghese Alonso LPN Start : 26-Mar-2019 End : 16-Sep-2019 Inactive Comments: Mail order. Start: 03-06-2015 End: 05-24-2022 take 1 tablet by mouth once daily Clarinex 5 MG Oral Tablet 1 (one) Tablet daily for 30 days Quantity: 30 {Tablet} Refills: 0 Ordered: 28-Dec-2018 Haily Butts CNP, CNP, Mary E Start : 28-Dec-2018 Active Comments: Mail order. Pt needs an appointment before more refills Comment on above: Mail order. Mail order. Pt needs an appointment before more refills dextromethorphan hydrobromide 20 mg / guaiFENesin 400 mg oral tablet (4 sources) Uncompetitive S-wzpngm-T-aspartate Receptor Antagonist, Sigma-1 Agonist Start: 11-07-2017 End: 05-24-2022 Dextromethorphan-Guaif enesin 20-400 mg tablet Discontinued 1 {tbl} PO Q4H as needed for cough 30 November 07, 2017 12:00am May 24, 2022 8:07am Bronchitis, not specified as acute or chronic Start: 11-07-2017 take 1 tablet by john th every four hours Dextromethorphan-Guaifenesin Active 1 TA BLET PO Q4H November 07, 2017 12:00am fluticasone propionate 0.05 mg/actuat metered dose nasal spray (16 sources) Corticosteroid Start: 12-14-2020 End: 04-28-2021 Flonase Allergy Relief 50 MCG/ACT Nasal Suspension 2 (two) [place] daily for 0 days Quantity: 1 {Each} Refills: 0 Ordered: 28-Apr-2021 Vielka Marina LPN Start : 14-Dec-2020 End : 28-Apr-2021 Inactive 14 actuat fluticasone propionate 0.1 mg/actuat / salmeterol 0.05 mg/actuat dry powder inhaler (20 sources) Corticosteroid, beta2-Adrenergic Agonist Start: 05-11-2022 take 1 puff(s) by inhalation every twelve hours Advair Diskus 100 mcg-50 mcg/dose powder for inhalation 1 (one) Puff q 12 hours for 90 days Quantity: 3 {Blister} Refills: 1 Ordered: 11-May-2022 Amanda Woods CNP Start : 11-May-2022 Active Comments: Mail order. Start: 11-10-2021 take 1 puff(s) by in halation every twelve hours Advair Diskus 100-50 MCG/ACT Inhalation Aerosol Powder Breath Activated 1 (one) Puff q 12 hours for 90 days Quantity: 3 {Blister} Refills: 1 Ordered: 10-Nov-2021 Amanda Woods CNP Start : 10-Nov-2021 Active Comments: Mail order. Start: 11-10-2021 take 1 puff(s) by in halation every twelve hours Advair Diskus 100-50 MCG/ACT Inhalation Aerosol Powder Breath Activated 1 (one) Puff q 12 hours for 90 days Quantity: 3 {Blister} Refills: 1 Ordered: 10-Nov-2021 Amanda Woods CNP Start : 10-Nov-2021 Active Comments: Mail order. Start: 05-24-2021 Advair Diskus 100-50 MCG/DOSE Inhalation Aerosol Powder Breath Activated 1 (one) Aero Pow Br Act daily for 0 days Quantity: 3 {Each} Refills: 3 Ordered: 24-May-2021 Haily Butts Mary Start : 24-May-2021 Active Comments: Mail order. Start: 03-24-2020 Advair Diskus 100-50 MCG/DOSE Inhalation Aerosol Powder Breath Activated 1 (one) Aero Pow Br Act daily for 0 days Quantity: 3 {Disk} Refills: 3 Ordered: 24-Mar-2020 Varghese Alonso LPN Start : 24-Mar-2020 Active Comments: Mail order. Start: 09-16-2019 Advair Diskus 100-50 MCG/DOSE Inhalation Aerosol Powder Breath Activated 1 (one) Aero Pow Br Act daily for 0 days Quantity: 3 {Disk} Refills: 3 Ordered: 16-Sep-2019 Varghese Peace LPN Start : 16-Sep-2019 Active Comments: Mail order. Start: 05-18-2018 Advair Diskus 100-50 MCG/DOSE Inhalation Aerosol Powder Breath Activated 1 (one) Aero Pow Br Act daily for 0 days Quantity: 3 {Disk} Refills: 3 Ordered: 18-May-2018 Haily Butts CNP RESIDENTIAL SERVICE TECHNICIANHaily Start : 18-May-2018 Active Comments: Mail order. Start: 11-15-2017 Advair Diskus 100-50 MCG/DOSE Inhalation Aerosol Powder Breath Activated 1 (one) Aero Pow Br Act daily for 0 days Quantity: 3 {Disk} Refills: 3 Ordered: 15-Nov-2017 Haily Butts CNP, CNP, Mary E Start : 15-Nov-2017 Active Start: 03-06-2015 take 1 puff(s) by in halation once daily Fluticasone Propion-Salmeterol 1 PUFF inhaler Active 1 NMA INHALATION DAILY March 06, 2015 1:00am Start: 03-06-2015 take 1 puff(s) by in halation once daily Fluticasone Propion-Salmeterol Active 1 PUFF INHALATION DAILY March 06, 2015 1:00am Comment on above: Mail order. inFLIXimab 100 mg injection (20 sources) Tumor Necrosis Factor Shikha Start: 06-04-19 15 End: 07-20-19 17 Remicade 100 MG Intravenous Solution Reconstituted 1 (one) For Solution Q 6 weeks for 7 days Refills: 0 Ordered: 19-Jul-2016 Sana Chen LPN Start : 03-Jun-2014 End : 19-Jul-2016 Discontinued levoFLOXacin 750 mg oral tablet (20 sources) Quinolone Antimicrobial Start: 06-03-19 End: 06-10-19 take 1 tablet by mouth once daily Levofloxacin 750 mg tablet Discontinued 750 mg PO DAILY 7 7 0 June 02, 2024 8:09am June 08, 2024 12:00am June 09, 2024 12:05am Start: 11-18-2023 End: 11-18-2023 take 1 tablet by mouth once daily Levofloxacin 500 mg tablet Discontinued 500 mg PO daily November 18, 2023 12:00am November 18, 2023 10:28am Start: 11-23-2022 take 1 tablet by john th once daily levoFLOXacin 500 mg oral tablet 1 (one) Tablet daily for 7 days Quantity: 7 {Tablet} Refills: 0 Ordered: 23-Nov-2022 Amanda Woods CNP Start : 23-Nov-2022 Active Start: 12-13-2021 End: 12-20-2021 take 1 tablet by mouth once daily levoFLOXacin 500 MG Oral Tablet 1 (one) Tablet daily for 7 days Quantity: 7 {Tablet} Refills: 0 Ordered: 13-Dec-2021 Amanda Woods CNP Start : 13-Dec-2021 End : 20-Dec-2021 Inactive Start: 11-20-2017 End: 11-23-2017 take 1 tablet by mouth once daily Levaquin 500 MG Oral Tablet 1 (one) Tablet daily for 3 days Quantity: 3 {Tablet} Refills: 0 Ordered: 20-Nov-2017 Haily Butts Start : 20-Nov-2017 End : 23-Nov-2017 Inactive Start: 11-20-2017 End: 05-24-2022 take 1 tablet by mouth once daily Levofloxacin (Levaquin) 750 MG tablet Discontinued 750 mg PO DAILY November 20, 2017 12:00am May 24, 2022 8:07am mesalamine 1200 mg delayed release oral tablet (20 sources) Aminosalicylate Start: 03-26-2019 End: 10-20-2020 Lialda 1.2 GM Oral Tablet Delayed Release [address] daily for 0 days Quantity: 90 {Tablet} Refills: 0 Ordered: 20-Oct-2020 Sana Chen LPN Start : 26-Mar-2019 End : 20-Oct-2020 Inactive Start: 03-26-2019 Lialda 1.2 GM Oral Tablet Delayed Release [address] daily for 0 days Quantity: 90 {Tablet} Refills: 0 Ordered: 26-Mar-2019 Haily Butts CNP, CNP, Mary E Start : 26-Mar-2019 Active Start: 07-19-2016 take 3 tablets by mo uth once daily Lialda 1.2 GM Oral Tablet Delayed Release 3 (three) Tablet DR daily for 0 days Quantity: 90 {Tablet} Refills: 0 Ordered: 19-Jul-2016 Vaneace HENRIQUEZ Haily Cifuentesace HENRIQUEZ Haily Rowley Start : 19-Jul-2016 Active Start: 04-17-2015 End: 05-24-2022 take 2 tablets by mouth once daily Mesalamine 1.2 GM tablet Discontinued 2.4 g PO DAILY April 17, 2015 1:00am May 24, 2022 8:07am Start: 04-17-2015 take 2.4 g by mouth once daily Mesalamine Active 2.4 GM PO DAILY April 17, 2015 1:00am Start: 06-03-2014 End: 05-29-2015 take 4 capsules by mouth once daily APRISO, 0.375GM (Oral Capsule Extended Release 24 Hour) 4 ( four) Capsule ER 24HR daily for 360 days Refills: 0 Ordered: 08-Jun-2015 Haily Butts Start : 03-Jun-2014 End : 29-May-2015 Inactive Comment on above: Mail order. methylPREDNISolone 4 mg oral tablet (4 sources) Corticosteroid Start: 2017 End: 2017 take 1 tablet by mouth once Methylprednisolone (Medrol (Aubrey)) 4 mg tablets,dose pack Discontinued 4 mg PO per package directions 21 5 0 November 07, 2017 12:00am November 11, 2017 12:00am November 12, 2017 12:07am Bronchitis, not specified as acute or chronic pravastatin sodium 80 mg oral tablet (10 sources) HMG-CoA Reductase Inhibitor Start: 2022 take 1 tablet by mouth once daily at bedtime pravastatin 80 mg oral tablet 1 (one) tablet qhs for 0 days Quantity: 90 {Tablet} Refills: 3 Ordered: 23-Nov-2022 Chuck FLORENCEAmanda Start : 23-Nov-2022 Active Comments: Mail order. Start: 08-15-2022 take 1 tablet by john th once daily at bedtime pravastatin 80 mg oral tablet 1 (one) tablet qhs for 0 days Quantity: 30 {Tablet} Refills: 2 Ordered: 15-Aug-2022 Chuck FLORENCEAmanda Start : 15-Aug-2022 Active Comments: New dose 08/15/22 Start: 06-08-2022 take 1 tablet by john th once daily at bedtime pravastatin 40 mg oral tablet 1 (one) tablet qhs for 0 days Quantity: 30 {Tablet} Refills: 2 Ordered: 08-Jun-2022 April DIASana Siu Start : 08-Jun-2022 Active Comments: This replaces the rosuvastatin Comment on above: This replaces the ro suvastatin New dose 08/15/22 Mail order. predniSONE 10 mg oral tablet (20 sources) Start: 06-02-2024 End: 09-09-2024 Prednisone 10 mg tablet Discontinued 10 mg PO .COMPLEX 30 0 June 02, 2024 8:10am September 09, 2024 9:11am Take 4 pills for 3 days, 3 pills for 3 days, 2 pills for 3 days, take 1 pill for 3 days Start: 03-10-2024 End: 03-25-2024 Prednisone 10 mg tablet Discontinued 10 mg PO .COMPLEX 35 15 0 March 10, 2024 1:00am March 24, 2024 1:00am March 25, 2024 1:10am 10 mg orally; 40mg x5 days, 20mg x5 days, 10mg x5 days Start: 11-12-2022 End: 11-18-2023 Prednisone 10 mg tablet Discontinued 10 mg PO .COMPLEX 30 0 November 12, 2022 12:00am November 18, 2023 10:08am Take 4 pills for 3 days, 3 pills for 3 days, 2 pills for 3 days, take 1 pill for 3 days Start: 11-20-2017 End: 11-18-2023 take 2 tablets by mouth once daily at mealtime Prednisone 20 MG tablet Discontinued 40 mg PO DAILY November 20, 2017 12:00am November 18, 2023 10:08am With food Start: 11-20-2017 take 40 mg by mouth once daily at mealtime Prednisone Active 40 MG PO DAILY November 20, 2017 12:00am With food Start: 11-15-2017 End: 12-15-2017 take 2 tablets by mouth once daily PredniSONE 10 MG Oral Tablet 2 (two) Tablet daily for 5 days for 30 days Quantity: 30 {Tablet} Refills: 0 Ordered: 19-Jan-2018 Haily Butts Start : 15-Nov-2017 End : 15-Dec-2017 Inactive Comments: then 15mg x5 days then 10mg x5 days then 5mg x5days Comment on above: then 15mg x5 days th en 10mg x5 days then 5mg x5days sertraline 50 mg oral tablet (20 sources) Serotonin Reuptake Inhibitor Start: 11-23-2022 take 0.5 tablet by mouth once daily Zoloft 50 mg oral tablet 1/2 (one half) Tablet daily for 90 days Quantity: 90 {Tablet} Refills: 3 Ordered: 23-Nov-2022 Amanda Woods CNP Start : 23-Nov-2022 Active Comments: Mail order. Start: 05-24-2022 take 1 tablet by john th once daily Sertraline 50 mg tablet Active 50 mg PO DAILY May 24, 2022 12:00am Start: 05-11-2022 take 0.5 tablet by m outh once daily Zoloft 50 mg oral tablet 1/2 (one half) Tablet daily for 90 days Quantity: 90 {Tablet} Refills: 3 Ordered: 11-May-2022 Amanda Woods CNP Start : 11-May-2022 Active Comments: Mail order. Start: 12-20-2021 take 0.5 tablet by m outh once daily Zoloft 50 MG Oral Tablet 1/2 (one half) Tablet daily for 90 days Quantity: 90 {Tablet} Refills: 3 Ordered: 20-Dec-2021 Amanda Woods CNP Start : 20-Dec-2021 Active Comments: Mail order. Start: 11-10-2021 take 0.5 tablet by m outh once daily Zoloft 50 MG Oral Tablet 1/2 (one half) Tablet daily for 90 days Quantity: 90 {Tablet} Refills: 3 Ordered: 10-Nov-2021 Amanda Woods CNP Start : 10-Nov-2021 Active Comments: Mail order. Start: 10-20-2020 take 0.5 tablet by m outh once daily Zoloft 50 MG Oral Tablet 1/2 (one half) Tablet daily for 0 days Quantity: 90 {Tablet} Refills: 3 Ordered: 20-Oct-2020 Haily Butts Mary Start : 20-Oct-2020 Active Comments: Mail order. Start: 03-24-2020 take 0.5 tablet by m outh once daily Zoloft 50 MG Oral Tablet 1/2 (one half) Tablet daily for 0 days Quantity: 90 {Tablet} Refills: 3 Ordered: 24-Mar-2020 Varghese Alonso LPN Start : 24-Mar-2020 Active Comments: Mail order. Start: 09-16-2019 take 0.5 tablet by m outh once daily Zoloft 50 MG Oral Tablet 1/2 (one half) Tablet daily for 0 days Quantity: 90 {Tablet} Refills: 3 Ordered: 16-Sep-2019 Varghese Peace LPN Start : 16-Sep-2019 Active Comments: Mail order. Start: 04-30-2018 take 0.5 tablet by m outh once daily Zoloft 50 MG Oral Tablet 1/2 (one half) Tablet daily for 0 days Quantity: 90 {Tablet} Refills: 3 Ordered: 30-Apr-2018 Haily Butts CNP, CNP, Mary E Start : 30-Apr-2018 Active Comments: Mail order. Start: 11-20-2017 End: 05-24-2022 take 1 tablet by mouth once daily Sertraline (Zoloft) 25 MG tablet Discontinued 25 mg PO DAILY November 20, 2017 12:00am May 24, 2022 8:07am Comment on above: Mail order. Problems Active Problems Problem Classification Problem Date Documented Date Episodic/Chronic Abdominal pain (20 sources) Left upper quadrant pain; Translations: [Abdominal pain, LUQ] Resolved: 7 02-06-2017 Episodic Comment on above: History of colitis s dustin Mcelroy, Anxiety disorders (20 sources) Anxiety; Translations: [Anxiety] 11-18-2015 Chronic Comment on above: with depression cont olled on zoloft with depression cont olled on zoloft, will wean with depression cont rolled was on zoloft Asthma (20 sources) Asthma; Translations: [Acute exacerbation of asthma] Resolved: 2 11-20-2017 Chronic Comment on above: currently on 20mg pr ednisone then 15mg then wean Advair, desloratadin e (clarinex) Chronic obstructive pulmonary disease and bronchiectasis (4 sources) Bronchitis; Translations: [Bronchitis, not specified as acute or chronic] 05-04-2017 Episodic Deficiency and other anemia (9 sources) Deficiency and other anemia Diabetes mellitus without complication (20 sources) Hyperglycemia; Translations: [Elevated fasting glucose] Resolved: 3 11-20-2017 Episodic Comment on above: pre diabetes ? likel y related to prednisone needs checked q 3 months Diseases of white blood cells (20 sources) Leukocytosis; Translations: [Elevated WBC count] Resolved: 2 03-24-2020 Chronic Disorders of lipid metabolism (20 sources) Mixed hypercholesterolemia and hypertriglyceridemia; Translations: [Elevated triglycerides with high cholesterol] Resolved: 3 03-24-2020 Chronic Comment on above: check cardiac CT sco ring for risk stratification if does not want to go on statin.otherwise, rosuvastatin 5mg qhs or atorvastatin 10mg qhswants to avoid statin. ASCVD 10 yr risk assessment for 1st cardiovascular event is 8.2%, lifetime ASCVD risk 50%. Recommendations based upon this data are to initiate moderate intensity statin. The 10-year, ACC/AHA 2013 risk score 8.17%.-no family hx early heart disease. has UC10/17/20: chol 223, HDL 68, LDL 132, trig : chol 246, HDL 37, LDL 134, trig 413 04/2022 = [address] sco ring for risk stratification if does not want to go on statin.otherwise, rosuvastatin 5mg qhs or atorvastatin 10mg qhs-eats healthy for most part, very rare fast food. lots chicken. not much sweetsASCVD 10 yr risk for 1st cardiovascular event is 8.2%, lifetime ASCVD risk 50%. Recommendations based upon this data are to initiate moderate intensity statin. The 10-year, ACC/AHA 2013 risk score 8.17%.-no family hx early heart disease. has UC8/21: chol 223, HDL 68, LDL 132, trig : chol 246, HDL 37, LDL 134, trig 413 starting statin. rec heck 3 mo04/2022 = [address] sco ring for risk stratification if does not want to go on statin.otherwise, rosuvastatin 5mg qhs or atorvastatin 10mg qhs-eats healthy for most part, very rare fast food. lots chicken. not much sweetsASCVD 10 yr risk for 1st cardiovascular event is 8.2%, lifetime risk 50%. Recommendations based upon data- moderate intensity statin. The 10-year, ACC/AHA 2013 risk score 8.17%.-no family hx early heart disease. has UC10/17/20: chol 223, HDL 68, LDL 132, trig : chol 246, HDL 37, LDL 134, trig 413 -significant improve ment on pravastatin 80mg qhs w/ CoQ-10-eats healthy for most part, very rare fast food. lots chicken. not much sweetsASCVD 10 yr risk for 1st cardiovascular event is 8.2%, lifetime risk 50%. Recommendations based upon data- moderate intensity statin. The 10-year, ACC/AHA 2013 risk score 8.17%.-no family hx early heart disease. has UC10/17/20: chol 223, HDL 68, LDL 132, trig : chol 246, HDL 37, LDL 134, trig 413 improved with pravas tatin, taking with CoQ- = 413 Disorders of teeth and jaw (20 sources) Temporomandibular joint disorder; Translations: [TMJ (temporomandibular joint disorder)] 11-20-2017 Episodic Immunity disorders (20 sources) Drug-induced immunodeficiency ; Translations: [Patient immunocompromised] 11-20-2017 Chronic Comment on above: on Entyvio , q 8 wks infusion x 1.5 yrs, [place], and remicaid. Has had asthma flare was treated with augmentin, and zpac on 11-01 and 11-07 without improvment and worsening. Started levoquin on 11-15 and little improvement. on Entyvio,but has h ad all covid and shingles Inflammation; infection of eye (except that caused by tuberculosis or sexually transmitteddisease) (20 sources) Conjunctivitis; Translations: [Conjunctivitis] 11-20-2017 Episodic Influenza (6 sources) Influenza Noninfectious gastroenteritis (20 sources) Colitis; Translations: [Colitis] 11-20-2017 Episodic Open wounds of extremities (20 sources) Open bite, left lower leg, initial encounter; Translations: [Open bite, left thigh, initial encounter] Resolved: 7 02-06-2017 Episodic Other aftercare (20 sources) Drug-induced immunodeficiency ; Translations: [Immunocompromised state due to drug therapy] 04-28-2021 Episodic Comment on above: on Entyvio , q 8 wks infusion x 1.5 yrs, [employer], and remicaid. Has had asthma flare was treated with augmentin, and zpac on 11-01 and 11-07 without improvment and worsening. Started levoquin on 11-15 and little improvement. Other bone disease and musculoskeletal deformities (15 sources) Segmental and somatic dysfunction; Translations: [Segmental and somatic dysfunction of lumbar region] 06-14-2022 Episodic Other bone disease and musculoskeletal deformities (1 source) Segmental and somatic dysfunction of lumbar region; Translations: [Nonallopathic lesions, lumbar region] Episodic Other bone disease and musculoskeletal deformities (1 source) Segmental and somatic dysfunction of pelvic region; Translations: [Nonallopathic lesions, pelvic region] Episodic Other ear and sense organ disorders (20 sources) Excessive cerumen in ear canal ; Translations: [Ceruminosis, right] Resolved: 3 02-06-2017 Episodic Other ear and sense organ disorders (20 sources) Otalgia, left ear; Translations: [Ear pain, left] Resolved: 7 02-06-2017 Episodic Comment on above: on tragus with enlar ged lymph node Other liver diseases (20 sources) Abnormal levels of other serum enzymes; Translations: [Serum alkaline phosphatase raised] Resolved: 2 11-20-2017 Episodic Comment on above: Sine September 09, 2016 a nd liver enzymes, seeing Navi Other lower respiratory disease (20 sources) Cough; Translations: [Cough] Resolved: 3 11-20-2017 Episodic Comment on above: in immunocompromised ptSputum show mod gm pos and routine resp nathan, had been on Augment and z aubrey Other lower respiratory disease (20 sources) Snoring; Translations: [Snores] 09-16-2019 Episodic Comment on above: with periods of apne a witnessed by Other lower respiratory disease (4 sources) Dyspnea; Translations: [Shortness of breath] 11-07-2017 Episodic Other non-traumatic joint disorders (1 source) Pain in left ankle and joints of left foot; Translations: [Pain in left ankle and joints of left foot] Onset: 5 Episodic Other nutritional; endocrine; and metabolic disorders (20 sources) Body mass index 25-29 - overweight; Translations: [BMI 26.0-26.9,adult] 11-20-2017 Chronic Other nutritional; endocrine; and metabolic disorders (20 sources) Body mass index 25-29 - overweight; Translations: [BMI 25.0-25.9,adult] 04-28-2021 Episodic Other nutritional; endocrine; and metabolic disorders (20 sources) Overweight in adulthood with body mass index of 25 or more but less than 30; Translations: [BMI 25.0-25.9,adult] Resolved: 3 12-14-2020 Episodic Other screening for suspected conditions (not mental disorders or infectious disease) (20 sources) Patient encounter status; Translations: [Encounter for screening for lipid disorder] 04-28-2021 Episodic Other upper respiratory disease (20 sources) Allergic rhinitis due to other allergen; Translations: [Allergic rhinitis] 11-20-2017 Chronic Other upper respiratory disease (20 sources) Allergic rhinitis; Translations: [Allergic rhinitis] 11-20-2017 Chronic Comment on above: seasonal Spring Other upper respiratory disease (8 sources) Nasal sinus problem; Translations: [Sinus pressure] 11-23-2022 Episodic Other upper respiratory infections (20 sources) Recurrent sinusitis; Translations: [Recurrent sinusitis] 11-20-2017 Chronic Comment on above: in immunocompromised pt in immunocompromised pt on Entivio had sinus Surgery Dr. Haynes in office April 2017 in immunocompromised pt on Entyvio had sinus Surgery Dr. Haynes in office April 2017 Otitis media and related conditions (20 sources) Dysfunction of eustachian tube; Translations: [Eustachian tube dysfunction] Resolved: 2 04-28-2021 Episodic Regional enteritis and ulcerative colitis (20 sources) Ulcerative colitis; Translations: [Ulcerative colitis, unspecified, without complications] Onset: 4 09-02-2015 Chronic Comment on above: see darian q 6month s on chronic [id number] chronic acitve biops y 01-01-2015 Sees Navi recent flare, on steroid at this time and med changes chronic acitve biops y 01-01-2015 Sees Navi recent flare, just off of steroid at this time and med changes [facility] q [facility] week [facility], Colonoscopy 2019, apt with Navi 10-31-2019 chronic acitve biops y 01-01-2015 Sees Navi recent flare, just off of steroid at this time and med changes [facility] q 8 week [facility], Colonoscopy 2019, apt with [facility] stable, f/u with GI - no issues for 3 years since on Entyvivochronic acitve biopsy 01-01-2015 Sees Navi -Entivio q 8 wk Navi follows-Colonoscopy 2019, appt with [facility] stable, f/u with GI - no issues for 3 years since on Entyviochronic acitve biopsy 01-01-2015 Sees Navi -Entivio q 8 wk Navi follows-Colonoscopy 2019, appt with [facility] Residual codes; unclassified (20 sources) Family history of prostate cancer; Translations: [Family history of prostate cancer in father] 09-16-2019 Episodic Residual codes; unclassified (20 sources) Insomnia; Translations: [Insomnia] Resolved: 2 09-16-2019 Episodic Comment on above: snoring and wak es and toss and turn, Residual codes; unclassified (20 sources) Non-smoker; Translations: [Nonsmoker] 04-28-2021 Episodic Spondylosis; intervertebral disc disorders; other back problems (20 sources) Backache; Translations: [Back pain] 04-28-2021 Episodic Unclassified (20 sources) Unclassified (20 sources) Nonsmoker; Translations: [Non-smoker] 11-20-2017 Unclassified (20 sources) Chronic ulcerative colitis without complication Unclassified (20 sources) Elevated alkaline phosphatase level Unclassified (20 sources) BMI 25.0-25.9,adult Unclassified (16 sources) TMJ (temporomandibular joint disorder) Unclassified (20 sources) BMI 26.0-26.9,adult Unclassified (20 sources) Encounter for screening for lipid disorder; Translations: [Patient encounter status] Resolved: 7 02-06-2017 Unclassified (20 sources) Elevated fasting glucose Unclassified (13 sources) Immunocompromised state due to drug therapy Unclassified (20 sources) Screening status; Translations: [Encounter for screening for malignant neoplasm of prostate (Renamed from Screening for prostate cancer)] 09-16-2019 Unclassified (20 sources) Patient encounter status; Translations: [Encounter for screening for other suspected endocrine disorder] 09-16-2019 Unclassified (9 sources) Family history of prostate cancer in father Unclassified (4 sources) Elevated WBC count Unclassified (4 sources) Elevated triglycerides with high cholesterol Unclassified (6 sources) Immunocompromised Past or Other Problems Problem Classification Problem Date Documented Da te Episodic/Chronic Administrative/social admission (20 sources) Stress; Translations: [Feeling stressed] Resolved: 04-28-2021 11-20-2017 Chronic Asthma (20 sources) Asthma External cause codes: Natural/environment (20 sources) Dog bite Other and unspecified benign neoplasm (20 sources) Lipoma (clinical); Translations: [Lipoma] Resolved: 02-06-2017 02-06-2017 Episodic Other ear and sense organ disorders (8 sources) Otalgia of left ear; Translations: [Ear pain, left] Resolved: 02-06-2017 02-06-2017 Comment on above: on tragus with enlar ged lymph node Other upper respiratory infections (20 sources) Acute sinusitis, unspecified; Translations: [Acute sinusitis] Onset: 06-02-2024 11-20-2017 Episodic Comment on above: has had amoxicillin and zpack in last 5 weeks not helping Pneumonia (except that caused by tuberculosis or sexually transmitted disease) (2 sources) Pneumonia, unspecified organism; Translations: [Pneumonia, unspecified organism] Onset: 01-29-2024 Episodic Unclassified (13 sources) Dog bite of thigh, left, initial encounter Unclassified (13 sources) Dog bite of calf, left, initial encounter Unclassified (13 sources) Ceruminosis, right Unclassified (13 sources) Ear pain, left Unclassified (20 sources) Unspecified Diagnosis 11-20-2017 Unclassified (13 sources) Abdominal pain, LUQ Unclassified (9 sources) Snores Unclassified (3 sources) Eustachian tube dysfunction Results Test Name Value Interpretation Reference Range Facility Urgent Care Visit Reporton 0 10-04-2024 Urgent Care Visit Report [facility] [address], [address] [place], [place] [address] OFFICE VISIT Date of Service: 10/04/24 MR#: [id number] Acct: [id number] Name: HELEN NOGUEIRA Rep #: [id number] : 1970 Provider: JAMA Westfall Age/Sex: 53/M Location: [facility] Status: Signed Intake Vital Signs 09/09/24 09:11 10/04/24 06:51 Height 5 ft 11 in Weight: 197 lb BMI 27.4 BP 130/82 H 102/62 Blood Pressure Location Lt brachial Lt brachial Position Sitting Sitting Respiration 14 15 Pulse 79 73 Pulse Source Monitor NIBP Temp 98.3 F 97.9 F Temp Source Oral Oral Pulse Oximetry (%) 98 96 Oxygen Delivery Method room air room air Intake Visit Reasons: RASH ON R LEG Chief Complaint: right lower leg rash 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 Is patient in pain?: Yes Allergies No Known Allergies Allergy (Verified 10/04/24 06:51) Medications ???Medication ???Instructions ???Recorded ???Confirmed ???Type fluticasone 100 mcg-salmeterol 50 1 puff inhalation DAILY 03/06/15 09/09/24 History mcg/dose blistr powdr for inhalation Entyvio 1 IV X1 05/24/22 09/09/24 History rosuvastatin 5 mg tablet 5 mg PO DAILY 05/24/22 09/09/24 Hi story sertraline 50 mg tablet 50 mg PO DAILY 05/24/22 09/09/24 H istory ibuprofen 800 mg tablet 800 mg PO Q8H PRN pain #30 tabs 09/09/24 Rx prednisone 10 mg tablet 10 mg PO DIRECTED 12 days #30 0 10/04/24 10/04/24 Rx tabs triamcinolone acetonide 0.1 % 1 applic topical BID #15 grams 10/2110/04/24 Rx topical cream Have you fallen in the past year?: No Nurse's Note: right medial lower leg rash with pain x 1 week and much worse since last night. denies additional areas of concern. denies itching PFSH Medical History Acute streptococcal pharyngitis Social History Smoking Status: Never smoker alcohol intake: current alcohol intake frequency: holidays/special occasions only substance use type: does not use what type of physical activity do you participate in: walking, aerobics and weight training frequency: 3-4 times per week HPI HPI Chief Complaint: right lower leg rash Details: HELEN NOGUEIRA, is a 53 M who presents to the office today for complaint of a rash to his right lower leg. Patient states that has been ongoing for the past week. A contact and denies any medications, foods or detergents. He denies shortness of breath, difficulty breathing or chest pain. No other associated symptoms or alleviating/aggravating factors. ROS Const Constitutional: Positive for other (ROS negative x6 except what was placed in HPI) Exam Const General: cooperative and healthy appearing HENRI Head: normocephalic and atraumatic Ears: hearing grossly normal bilaterally Nose: external nose normal Face and sinus: normal facial exam and face symmetric Skin Other: Grouped vesicular lesions right lower leg medial aspect. Neuro General: patient alert Psych Appearance: grossly normal Mental Status: mental status grossly normal Coding Level of Care Code Off vis,est,level 3 Diagnoses Contact dermatitis L25.9 Assessment and Plan Assessment and Plan (1) Contact dermatitis: Status: Acute Plan: Prednisone taper and steroid cream as prescribed today. Encouraged to get plenty of rest, drink lots of clear liquids, and use Tylenol or Ibuprofen (unless contraindicated) for fever and comfort. Patient also educated on other symptomatic management techniques. To be seen in 7-10 days if no improvement; sooner if worsening of symptoms. Patient advised of potential red flags and when appropriate to report to the ED. Patient verbalized understanding and agreement with all the above. Medications: New prednisone Take 4 tabs once daily days 1-3 3 tabs once daily days 4-6 2 tabs once daily days 7-9 and 1 tab once daily days 10-12. 10 mg PO DIRECTED 12 days 30 tabs 0RF L25.9 - Unspecified contact dermatitis, unspecified cause triamcinolone acetonide 0.1% 1 applic topical BID 15 grams 0RF Plan Details Goals Barriers: Goals Decrease pain Decrease inflammation Improve ability to sit Improve ROM Barriers Jackson walker Decreased L5/S1 Clinical Quality Measures Falls Risk Screening/Assistive Devices Have you fallen in the past year?: No 10/04/24 0745 Date Tip YUN Cosigner Signature: Date (if applicable) CC: Normal [facility] Ankle min 3 Viewson 09-10-19 25 Ankle min 3 Views [facility] [address] [place], [place] [address] Ankle min 3 Views MR#: [id number] Acct: [id number] Name: HELEN NOGUEIRA Rep #: [id number] : 1970 M 53 From: Sarthak Underwood MD PCP: JUHI WongC Status: REG CLI Study: Ankle min 3 Views Date of Exam: 09/09/24 Exam# [id number] Ordering Dr: Naveen Valencia PROCEDURE: ANKLE MIN 3 VIEWS 09/09/2024 REASON FOR EXAM: PAIN TECHNIQUE: ANKLE MIN 3 VIEWS COMPARISON: None FINDINGS: There is no evidence of fracture or dislocation. There are no joint space abnormalities. There is a posterior heel spur. There are no soft tissue abnormalities. RAD/Ankle min 3 Views IMPRESSION: No evidence of fracture or significant arthropathy. No evidence of soft tissue gas or radiopaque foreign body. Reading Location: [place] [address] CC: IMMIGRATION MANAGER-C Amanda Woods; JAMA Muhammad Foreign Exchange Dealer: Signed Normal [facility] Urgent Care Visit Reporton 0 09-09-2024 Urgent Care Visit Report [facility] [address], [address] [place] [address] OFFICE VISIT Date of Service: 09/09/24 MR#: [id number] Acct: [id number] Name: HELEN NOGUEIRA Rep #: [id number] : 1970 Provider: JAMA Muhammad Age/Sex: 53/M Location: [facility] Status: Signed Intake Vital Signs 11/18/23 09:51 09/09/24 09:11 Height 5 ft 11 in 5 ft 11 in Weight: 197 lb BMI 27.4 BP 130/82 H Blood Pressure Location Lt brachial Position Sitting Respiration 14 Pulse 79 Pulse Source Monitor Temp 98.3 F Temp Source Oral Pulse Oximetry (%) 98 Oxygen Delivery Method room air Intake Visit Reasons: SWOLLEN L FOOT FROM NON INJURY Chief Complaint: left foot swelling Is patient in pain?: No Allergies No Known Allergies Allergy (Verified 09/09/24 09:10) Medications ???Medication ???Instructions ???Recorded ???Confirmed ???Type fluticasone 100 mcg-salmeterol 50 1 puff inhalation DAILY 03/06/15 09/09/24 History mcg/dose blistr powdr for inhalation Entyvio 1 IV X1 05/24/22 09/09/24 History rosuvastatin 5 mg tablet 5 mg PO DAILY 05/24/22 09/09/24 Hi story sertraline 50 mg tablet 50 mg PO DAILY 05/24/22 09/09/24 H istory cephalexin 500 mg capsule 500 mg PO TID #30 caps 09/09/24 Rx ibuprofen 800 mg tablet 800 mg PO Q8H PRN pain #30 tabs 09/09/24 Rx Nurse's Note: hx of ankle injury 08/21 [place] the [place] week edema and slight itching with skin irritation to L ankle, has attempted otc creams with no success. slight tight feeling 5/10 pain scale. states no fevers , muscle cramping. slight pitting noted per pt. PFSH Medical History Acute streptococcal pharyngitis Social History Smoking Status: Never smoker alcohol intake: current alcohol intake frequency: holidays/special occasions only substance use type: does not use what type of physical activity do you participate in: walking, aerobics and weight training frequency: 3-4 times per week HPI HPI Chief Complaint: left foot swelling Details: HELEN NOGUEIRA, is a 53 M who presents to the office today for History of Present Illness The patient is a 53-year-old male presenting with a rash and swelling on the ankle. The issue began when the patient was at the beach and got stuck between a step and a cooler, which resulted in the removal of skin from the back of the heel. Approximately three to four days later, the patient noticed a small speck on the ankle, which has since worsened despite the use of topical creams such as hydrocortisone and triple antibiotic ointment. The patient reports that the rash does not itch but has started to swell significantly, resembling a balloon, as of yesterday. There is no fever, chills, or loss of sensation, but the area melendez slightly. The patient has a history of a previous ankle sprain and is concerned about the persistent rash that has not resolved over the past two to three weeks. The patient has been using topical treatments and keeping the area covered, but the condition has not improved. Attestation: Documentation on this patient encounter was supported using ambient scribe technology/ voice AI technology. The patient consented to recording for the purpose of documenting the encounter. Provider reviewed content of the generated note prior to signature. Review of Systems - Dermatological: Reports rash on the ankle, denies itching - Musculoskeletal: Reports swelling of the ankle, denies loss of sensation or strength - Constitutional: Denies fever, chills Physical Exam - Dermatological: Rash on the ankle, no warmth, soreness upon palpation - Musculoskeletal: X-ray shows no signs of cutaneous infection or osteomyelitis Results - X-ray: No signs of cutaneous infection or osteomyelitis per my review, pending radiologist interpretation time patient discharge. Assessment and Plan The patient is a 53-year-old male with a history of a previous ankle sprain presenting with a rash and swelling on the ankle. The rash began after an incident at the beach where the skin was removed from the back of the heel, and it has progressively worsened despite topical treatments. The swelling has increased significantly, and there is a concern for possible infection, although the x- ray shows no signs of infection in the bone. 1. Cellulitis of left lower limb L03.116 The patient will be prescribed a prescription-strength anti-inflammatory and an antibiotic to address the rash and potential infection. The patient is advised to follow up with their family doctor, cefalejusta, in three to five days to ensure the condition is improving. If symptoms worsen, such as the devel (more content not included)... Normal [facility] Urgent Care Visit Reporton 0 06-02-2024 Urgent Care Visit Report [facility] [address], [address] [place] [address] OFFICE VISIT Date of Service: 06/02/24 MR#: [id number] Acct: [id number] Name: HELEN NOGUEIRA Rep #: [id number] 2 : 1970 Provider: JUAN navarro Age/Sex: 53/M Location: [facility] [email or web address] Status: Signed Intake Vital Signs 11/18/23 09:51 06/02/24 08:02 Height 5 ft 11 in BP 110/78 Blood Pressure Location Lt brachial Position Sitting Respiration 15 Pulse 81 Pulse Source NIBP Temp 98.2 F Temp Source Oral Pulse Oximetry (%) 98 Oxygen Delivery Method room air Intake Visit Reasons: concern for sinus infection Chief Complaint: congest, face pressure, drainage 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 Is patient in pain?: No Allergies No Known Allergies Allergy (Verified 06/02/24 08:05) Have you fallen in the past year?: No Nurse's Note: congestion, face pressure, eye drainage x 3 days. hx sinus infections, feels same. [facility] Medical History Acute streptococcal pharyngitis Social History Smoking Status: Never smoker alcohol intake: current alcohol intake frequency: holidays/special occasions only substance use type: does not use what type of physical activity do you participate in: walking, aerobics and weight training frequency: 3-4 times per week HPI HPI Chief Complaint: congest, face pressure, drainage Details: HELEN NOGUEIRA, is a 53 M who presents to the office today for possible sinus infection. He states his symptoms have been ongoing for 3 days. He does acknowledge a history of sinus infection that has previously turned into pneumonia. He acknowledges nasal drainage, sinus pain and congestion, and eye drainage. ROS Const Constitutional: Positive for headache(s); No body ache, chills, fatigue, fever(s), sleep problems, abnormal sleep pattern or change in appetite Eyes Eyes: Positive for discharge; No blurry vision, change in vision, double vision, irritation, vision loss, dry eyes, bulging eyes, floaters, visual disturbances, eye pain, Light sensitivity, spots in vision, tunnel vision or other ENT ENT: Positive for nasal congestion, sinus pressure, sinus pain, nasal discharge and headache(s); No ear or mastoid pain, ear discharge, ear pressure, tinnitus, dizziness/vertigo, nosebleed/epistaxis, nose pain, post nasal drip, facial pain, dental pain, difficulty swallowing, bad breath, hoarseness, lip swelling, mouth lesions, mouth pain, neck pain, sore throat, tongue swelling or throat swelling Resp Respiratory: No cough, change in phlegm color, chest congestion, hemoptysis, pain on inspiration, shortness of breath, pain with cough, stridor or wheezing Cardio Cardiology: No chest pain at rest, chest pain with exertion, shortness of breath, dyspnea on exertion or lightheadedness Gastro GI: No abdominal pain, change in bowel habits, constipation, diarrhea, difficulty swallowing, nausea/dyspepsia or vomiting Genitourinary Male: No burning urination or urinary frequency Musc Musculoskeletal: No joint pain or neck pain Skin Skin: No rash Neuro Neurology: Positive for headache(s); No visual disturbances Psych Psychiatric: No abnormal sleep pattern and No change in appetite Endo Endocrine: No fatigue Aller/Imm Allergy/Immunologic: No lip swelling, throat swelling, tongue swelling or wheezing Exam Const General: cooperative, healthy appearing, comfortable and no acute distress Orientation: alert, awake and oriented x3 [facility] Head: normal to inspection and normocephalic Ears: hearing grossly normal bilaterally, external ears normal and TM's normal bilaterally Nose: external nose normal, nares normal and no nasal discharge Face and sinus: normal facial exam and sinus tenderness frontal, ethmoid and maxillary Mouth: oral mucosae normal, lip normal, tongue normal, oropharynx normal and moist mucous membranes Throat: posterior oropharynx normal, tonsils normal, uvula midline and no postnasal drainage Eyes General: appearance normal, both eyes and all related structures Neck Neck: normal visual inspection and no lymphadenopathy Carotids: normal carotid upstroke Lymphatic: no lymphadenopathy noted Chest Chest palpation inspection: normal inspection of the chest Resp Effort Inspection: normal respiratory effort, able to speak in complete sentences, symmetric chest movement, no cough and no stridor Auscultation: Bilateral: Clear to Auscultation Cardio Rate: regular rate Rhythm: regular rhythm Heart Sounds: S1 normal, S2 normal and no murmurs GI Inspection: normal to inspection Auscultation: normal bowel sounds Palpation: soft Skin General: no rashes or lesions noted Neuro Speech: speech normal Extrem General: normal to (more content not included)... Normal [facility] Office Visit Reporton 2024 Office Visit Report [facility] [address] [place] [address] OFFICE VISIT Date of Service: 03/10/24 MR#: [id number] Acct: [id number] Patient: HELEN NOGUEIRA Rep #: [id number] : 1970 Provider: JUAN navarro Age/Sex: 53/M Location: [email or web address] Status: Signed Intake Vital Signs 11/18/23 09:51 03/10/24 11:12 Height 5 ft 11 in BP 154/64 H Blood Pressure Location Lt brachial Position Sitting Respiration 16 Pulse 92 Pulse Source NIBP Temp 96.0 F L Temp Source Oral Pulse Oximetry (%) 97 Oxygen Delivery Method room air Intake Visit Reasons: Rash Chief Complaint: rash 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 Is patient in pain?: No Allergies No Known Allergies Allergy (Verified 03/10/24 11:12) Have you fallen in the past year?: No Nurse's Note: red rash to abdomen x 3 days without resolve. denies spread, denies any new products/meds/foods. has tried different cortisone creams without resolve. [facility] Medical History Acute streptococcal pharyngitis Social History Smoking Status: Never smoker alcohol intake: current alcohol intake frequency: holidays/special occasions only substance use type: does not use what type of physical activity do you participate in: walking, aerobics and weight training frequency: 3-4 times per week HPI HPI Chief Complaint: rash Details: HELEN NOGUEIRA, is a 53 M who presents to the office today for concerns regarding abdominal rash. This been ongoing for the last 3 days. He does not feel this to be spreading. He denies any new travels, environmental factors such as diet or skin products. He has tried cortisone cream without improvement. He denies fever, chills, body aches, or headaches. He denies any obvious insect bites. He denies any autoimmune history such as eczema, psoriasis, asthma, or lupus. He was treated for sinus infection with Augmentin in October 2023. ROS Const Constitutional: No body ache, chills, fatigue, fever(s) or headache(s) ENT ENT: No headache(s) Skin Skin: Positive for redness Neuro Neurology: No headache(s) Endo Endocrine: No fatigue Exam Const General: cooperative, healthy appearing, comfortable and no acute distress Orientation: alert and awake Skin General: other Rashes: rashes noted urticaria diffuse anterior abdomen tender Coding Level of Care Code Off vis,est,level 3 Diagnoses Rash R21 Assessment and Plan Assessment and Plan (1) Rash: Plan: The exact etiology is unclear. This is thought to be inflammatory related. Will treat with steroid to assist. He does have a past medical history of ulcerative colitis in which she is taking Entyvio. He denies obvious systemic symptoms. He was asked to monitor for worsening symptoms. Encouraged to get plenty of rest, drink lots of clear liquids, and use Tylenol or Ibuprofen (unless contraindicated) for fever and comfort. Patient also educated on other symptomatic management techniques. To be seen in 7-10 days if no improvement; sooner if worsening of symptoms.??? Patient advised of potential red flags and when appropriate to report to the ED.??? Patient verbalized understanding and agreement with all the above. Medications: New prednisone 10 mg orally; 40mg x5 days, 20mg x5 days, 10mg x5 days 15 days 35 tabs 0RF Plan Details Goals Barriers: Goals Decrease pain Decrease inflammation Improve ability to sit Improve ROM Barriers Avid golfer Decreased L5/S1 Clinical Quality Measures Falls Risk Screening/Assistive Devices Have you fallen in the past year?: No 03/10/24 1145 Date [facility] IMMIGRATION MANAGER IMMIGRATION MANAGER-C Cosigner Signature: Date (if applicable) CC: Normal [facility] CBC W/Diff, Automatedon 12-0 2-2024 Absolute Lymph 1.62 X10 3/uL Normal 0.83-4.51 [facility] Comment on above: Performed By: #### L 400.0001, L101.9900, L500.4050, L503.6005, L100.0100, L501.6710 #### [facility] [address] [place], [address] Absolute Neut 4.2 X10 3/uL Normal 2.0-7.7 [facility] Comment on above: Performed By: #### L 400.0001, L101.9900, L500.4050, L503.6005, L100.0100, L501.6710 #### [facility] [address] [place], [address] Basophils/100 WBC (Bld) 0.6 % Normal 0-1 [facility] Comment on above: Performed By: #### L 400.0001, L101.9900, L500.4050, L503.6005, L100.0100, L501.6710 #### [facility] [address] [place], [address] Eosinophils/100 WBC (Bld) 2.3 % Normal 0-5 [facility] Comment on above: Performed By: #### L 400.0001, L101.9900, L500.4050, L503.6005, L100.0100, L501.6710 #### [facility] [address] [place], [address] Erythrocyte distribution width (RBC) [Ratio] 13.0 % Normal 11.6-14.6 [facility] Comment on above: Performed By: #### L 400.0001, L101.9900, L500.4050, L503.6005, L100.0100, L501.6710 #### [facility] [address] [place], [address] Hematocrit (Bld) [Volume fraction] 40.0 % Normal 40-54 [facility] Comment on above: Performed By: #### L 400.0001, L101.9900, L500.4050, L503.6005, L100.0100, L501.6710 #### [facility] [address] [place], [address] Hemoglobin (Bld) [Mass/Vol] 13.3 g/dL Normal 13.0-16.5 [facility] Comment on above: Performed By: #### L 400.0001, L101.9900, L500.4050, L503.6005, L100.0100, L501.6710 #### [facility] [address] [place], [address] IG% 0.500 Normal 0.0-0.9 [facility] Comment on above: Result Comment: IG% - Immature Granulocytes (promyelocytes, myelocytes and metamyelocytes) > 1% indicates that a LEFT SHIFT is Present. Performed By: #### L 400.0001, L101.9900, L500.4050, L503.6005, L100.0100, L501.6710 #### [facility] [address] [place], [address] Lymphocytes/100 WBC (Bld) 24.5 % Normal 19-41 [facility] Comment on above: Performed By: #### L 400.0001, L101.9900, L500.4050, L503.6005, L100.0100, L501.6710 #### [facility] [address] [place], [address] MCH (RBC) [Entitic mass] 29.8 pg Normal 27.0-32.0 [facility] Comment on above: Performed By: #### L 400.0001, L101.9900, L500.4050, L503.6005, L100.0100, L501.6710 #### [facility] [address] [place], [address] MCHC (RBC) [Mass/Vol] 33.3 g/dL Normal 32-36 [facility] Comment on above: Performed By: #### L 400.0001, L101.9900, L500.4050, L503.6005, L100.0100, L501.6710 #### [facility] [address] [place], [address] MCV (RBC) [Entitic vol] 89.7 fL Normal 80-94 [facility] Comment on above: Performed By: #### L 400.0001, L101.9900, L500.4050, L503.6005, L100.0100, L501.6710 #### [facility] [address] [place], [address] Monocytes/100 WBC (Bld) 8.9 % Normal 0-10 [facility] Comment on above: Performed By: #### L 400.0001, L101.9900, L500.4050, L503.6005, L100.0100, L501.6710 #### [facility] [address] [place], [address] Neutrophils/100 WBC (Bld) 63.2 % Normal 47-70 [facility] Comment on above: Performed By: #### L 400.0001, L101.9900, L500.4050, L503.6005, L100.0100, L501.6710 #### [facility] [address] [place], [address] Nucleated RBC (Bld) [#/Vol] 0 10*3/uL Normal 0-5 [facility] Comment on above: Performed By: #### L 400.0001, L101.9900, L500.4050, L503.6005, L100.0100, L501.6710 #### [facility] [address] [place], [address] Platelet mean volume (Bld) [Entitic vol] 9.5 fL Normal 6.2-12.0 [facility] Comment on above: Performed By: #### L 400.0001, L101.9900, L500.4050, L503.6005, L100.0100, L501.6710 #### [facility] [address] [place], [address] Platelets (Bld) [#/Vol] 306 10*3/uL Normal 150-450 [facility] Comment on above: Performed By: #### L 400.0001, L101.9900, L500.4050, L503.6005, L100.0100, L501.6710 #### [facility] [address] [place], [address] RBC (Bld) [#/Vol] 4.46 10*6/uL Low 4.6-6.2 [facility] Comment on above: Performed By: #### L 400.0001, L101.9900, L500.4050, L503.6005, L100.0100, L501.6710 #### [facility] [address] [place], [address] RDW SD 43.0 fl Normal 35.1-43.9 [facility] Comment on above: Performed By: #### L 400.0001, L101.9900, L500.4050, L503.6005, L100.0100, L501.6710 #### [facility] [address] [place], [address] WBC (Bld) [#/Vol] 6.6 10*3/uL Normal 4.4-11.0 [facility] Comment on above: Performed By: #### L 400.0001, L101.9900, L500.4050, L503.6005, L100.0100, L501.6710 #### [facility] [address] [place], [address] CRPon 01-29-2024 C-REACTIVE PROT 42.50 mg/L High 0.0-3.0 [facility] Comment on above: Result Comment: C-Re active Protein (CRP) provides useful information for the diagnosis, therapy and monitoring of inflammatory processes and associated diseases. For the evaluation of Relative Risk for Cardiovascular Disease, a High Sensitivity CRP (HSCRP) should be ordered. Performed By: #### L 400.0001, L101.9900, L500.4050, L503.6005, L100.0100, L501.6710 #### [facility] [address] [place], [address] Chest WITH Contraston 2023 Chest WITH Contrast [facility] [address] [place] [place] [address] Chest WITH Contrast MR#: [id number] Acct: [id number] Name: HELEN NOGUEIRA Rep #: [id number] : 1970 M 53 From: Zoltan castellanos MD PCP: JUAN Wong Status: REG CLI Study: Chest WITH Contrast Date of Exam: 01/29/24 Exam# [id number] Ordering Dr: Amanda Woods IMMIGRATION MANAGER-C [id number] STUDY: CT CHEST WITH CONTRAST REASON FOR EXAM: Male, 53 years old. STAT persistent pneumonia, immunocompromised, fevers -- STAT RADIATION DOSAGE (If Supplied By Facility): CTDIvol = ( 9.00 ) mGy, DLP = ( 409.10 ) mGycm TECHNIQUE: Transaxial imaging was performed following intravenous administration of IV 100mL Isovue-370. Multiplanar coronal and sagittal images were reformatted. Individualized dose optimization techniques were used for this CT. COMPARISON: Comparison is made with prior CT scan of thorax dated November 20, 2017 and January 02, 2024. FINDINGS: CHEST Azygos lobe. This is a normal anatomic variant. There is evidence of a consolidation in the posterior medial segment of the right lower lobe. There is no demonstrated pleural abnormality. Normal heart and pericardium. Normal mediastinum. Normal hilar regions. Normal unenhanced pulmonary arteries. Normal aorta arch and descending thoracic aorta. There are multi-level degenerative changes of the thoracic spine. There is no demonstrated abnormality of the visualized upper abdomen. CT/Chest WITH Contrast IMPRESSION: Consolidation in the posterior medial segment of the right lower lobe. Electronically Signed: Zoltan Wiley MD at 13:20 EST Reading Location ID and State: [address] [place] [address] , Service support , CC: JUAN Woods Foreign Exchange Dealer: Signed Normal [facility] Comprehensive Metabolic Prof ilon 01-29-2024 Albumin [Mass/Vol] 3.1 g/dL Low 3.2-5.0 [facility] Comment on above: Performed By: #### L 400.0001, L101.9900, L500.4050, L503.6005, L100.0100, L501.6710 #### [facility] [address] [place], [place], [address] Albumin/Globulin [Mass ratio] 0.7 {ratio} Low 0.9-2.4 [facility] Comment on above: Performed By: #### L 400.0001, L101.9900, L500.4050, L503.6005, L100.0100, L501.6710 #### [facility] [address] [place], [address] ALK P 306 U/L High 45-117 [facility] Comment on above: Performed By: #### L 400.0001, L101.9900, L500.4050, L503.6005, L100.0100, L501.6710 #### [facility] [address] [place], [address] ALT [Catalytic activity/Vol] 445 U/L High 16-61 [facility] Comment on above: Performed By: #### L 400.0001, L101.9900, L500.4050, L503.6005, L100.0100, L501.6710 #### [facility] [address] [place], [address] AST [Catalytic activity/Vol] 154 U/L High 15-37 [facility] Comment on above: Performed By: #### L 400.0001, L101.9900, L500.4050, L503.6005, L100.0100, L501.6710 #### [facility] [address] [place], [address] Bilirubin [Mass/Vol] 0.50 mg/dL Normal 0.20-1.00 [facility] Comment on above: Result Comment: For patients on eltrombopag therapy, use of Dimension [place] TBIL is not recommended. Performed By: #### L 400.0001, L101.9900, L500.4050, L503.6005, L100.0100, L501.6710 #### [facility] [address] [place], [address] BUN/CRE 15.2 RATIO Normal 10-20 [facility] Comment on above: Performed By: #### L 400.0001, L101.9900, L500.4050, L503.6005, L100.0100, L501.6710 #### [facility] [address] [place], [address] CA,Total 8.7 mg/dL Normal 8.5-10.1 [facility] Comment on above: Performed By: #### L 400.0001, L101.9900, L500.4050, L503.6005, L100.0100, L501.6710 #### [facility] [address] [place], [address] Chloride [Moles/Vol] 102 mmol/L Normal 98-107 [facility] Comment on above: Performed By: #### L 400.0001, L101.9900, L500.4050, L503.6005, L100.0100, L501.6710 #### [facility] [address] [place], [address] CO2 [Moles/Vol] 28.0 mmol/L Normal 21.0-32.0 [facility] Comment on above: Performed By: #### L 400.0001, L101.9900, L500.4050, L503.6005, L100.0100, L501.6710 #### [facility] [address] [place], [address] Creatinine [Mass/Vol] 0.98 mg/dL Normal 0.70-1.30 [facility] Comment on above: Result Comment: The validity of the calculated GFR GFRAA in patients over 70 years has not been determined. Clinical correlation is essential. Performed By: #### L 400.0001, L101.9900, L500.4050, L503.6005, L100.0100, L501.6710 #### [facility] [address] [place], [address] EST GFR - AA 102 mL/min Normal >60 [facility] Comment on above: Result Comment: Afri can [place]uvian GFR Calc Performed By: #### L 400.0001, L101.9900, L500.4050, L503.6005, L100.0100, L501.6710 #### [facility] [address] [place], [address] GAP 4 Low 5-15 [facility] Comment on above: Performed By: #### L 400.0001, L101.9900, L500.4050, L503.6005, L100.0100, L501.6710 #### [facility] [address] [place], [address] GFR/1.73 sq M.predicted among non-blacks MDRD (S/P/Bld) [Vol rate/Area] 84 mL/min/{1.73_m2} Normal >60 [facility] Comment on above: Result Comment: Non- GFR Calc Performed By: #### L 400.0001, L101.9900, L500.4050, L503.6005, L100.0100, L501.6710 #### [facility] [address] [place], [address] Globulin (S) [Mass/Vol] 4.5 g/dL High 2.2-4.2 [facility] Comment on above: Performed By: #### L 400.0001, L101.9900, L500.4050, L503.6005, L100.0100, L501.6710 #### [facility] [address] [place], [address] Glucose [Mass/Vol] 122 mg/dL High 74-106 [facility] Comment on above: Result Comment: Fast ing Glucose result from 100 to 125 mg/dL suggests IMPAIRED HOMEOSTASIS per A.D.A. criteria. Performed By: #### L 400.0001, L101.9900, L500.4050, L503.6005, L100.0100, L501.6710 #### [facility] [address] [place], [address] Potassium [Moles/Vol] 3.7 mmol/L Normal 3.5-5.1 [facility] Comment on above: Performed By: #### L 400.0001, L101.9900, L500.4050, L503.6005, L100.0100, L501.6710 #### [facility] [address] [place], [address] Sodium [Moles/Vol] 134 mmol/L Low 136-145 [facility] Comment on above: Performed By: #### L 400.0001, L101.9900, L500.4050, L503.6005, L100.0100, L501.6710 #### [facility] [address] [place], [address] T PROT 7.6 g/dL Normal 6.4-8.2 [facility] Comment on above: Performed By: #### L 400.0001, L101.9900, L500.4050, L503.6005, L100.0100, L501.6710 #### [facility] [address] [place], [address] Urea nitrogen [Mass/Vol] 15 mg/dL Normal 7-18 [facility] Comment on above: Performed By: #### L 400.0001, L101.9900, L500.4050, L503.6005, L100.0100, L501.6710 #### [facility] [address] [place], [address] Erythrocyte Sed Rateon 01-28 SED RATE 22 mm/hr High 0-20 [facility] Comment on above: Performed By: #### L 400.0001, L101.9900, L500.4050, L503.6005, L100.0100, L501.6710 #### [facility] [address] [place], [address] Lactic Acidon 01-29-2024 Lactate [Moles/Vol] 1.2 mmol/L Normal 0.4-1.9 [facility] Comment on above: Order Comment: N Performed By: #### L 400.0001, L101.9900, L500.4050, L503.6005, L100.0100, L501.6710 ####[facility] [address] [place], [address] Urinalysis, Completeon 01-28 BACTERIA RARE Normal None Seen [facility] Comment on above: Order Comment: Urine , Random Performed By: #### L 400.0001, L101.9900, L500.4050, L503.6005, L100.0100, L501.6710 #### [facility] [address] [place], [address] EPI,SQUAMOUS 0-5 SEEN Normal 0-5 [facility] Comment on above: Order Comment: Urine , Random Performed By: #### L 400.0001, L101.9900, L500.4050, L503.6005, L100.0100, L501.6710 #### [facility] [address] [place], [address] WBC 0-5 SEEN Normal 0-5 [facility] Comment on above: Order Comment: Urine , Random Performed By: #### L 400.0001, L101.9900, L500.4050, L503.6005, L100.0100, L501.6710 #### [facility] [address] [place], [address] Mucus Ql (Urine sed) 0 SEEN Normal [facility] Comment on above: Order Comment: Urine , Random Performed By: #### L 400.0001, L101.9900, L500.4050, L503.6005, L100.0100, L501.6710 #### [facility] [address] [place], [address] RBC 0 SEEN Normal 0-5 [facility] Comment on above: Order Comment: Urine , Random Performed By: #### L 400.0001, L101.9900, L500.4050, L503.6005, L100.0100, L501.6710 #### [facility] [address] [place], [address] Chest PA and Lateralon 01-01 Chest PA and Lateral [facility] [address] [place] [address] Chest PA and Lateral MR#: [id number] Acct: [id number] Name: HELEN NOGUEIRA Rep #: [id number] : 1970 M 53 From: Zoltan castellanos MD PCP: JUAN Wong Status: DEP AMB Study: Chest PA and Lateral Date of Exam: 01/02/24 Exam# [id number] Ordering Dr: Amanda Woods IMMIGRATION MANAGER-C 529:[id number] STUDY: X-RAY CHEST REASON FOR EXAM: Male, 53 years old. R/O PNEUMONIA -- STAT TECHNIQUE: PA and lateral views of the chest. COMPARISON: Comparison is made with prior study dated November 15, 2017. FINDINGS: The lungs are clear and expanded. There is no demonstrated pleural abnormality. Normal size heart. Normal mediastinum and kathy. Normal visualized pulmonary arteries. Normal visualized aortic arch and descending thoracic aorta. There are diffuse degenerative changes of the visualized thoracic spine. Normal visualized ribs, clavicles, and shoulders. There is no demonstrated abnormality of the visualized soft tissue structures of the upper abdomen. RAD/Chest PA and Lateral IMPRESSION: No acute abnormality is seen. Electronically Signed: Zoltan Wiley MD at 9:21 EST Reading Location ID and State: [facility] / [place] , Service support , CC: JUAN Woods Foreign Exchange Dealer: Signed Normal [facility] CBC-Complete Blood Cnt No Pushpa griffin 12-14-2023 Erythrocyte distribution width (RBC) [Ratio] 12.4 % Normal 11.6-14.6 [facility] Comment on above: Performed By: #### L 400.2010, L501.6710, L501.9910, L501.9520, L500.4100, L100.0500, L500.4050 ####[facility] [address] [place], [address] Hematocrit (Bld) [Volume fraction] 43.7 % Normal 40-54 [facility] Comment on above: Performed By: #### L 400.2010, L501.6710, L501.9910, L501.9520, L500.4100, L100.0500, L500.4050 ####[facility] [address] [place], [address] Hemoglobin (Bld) [Mass/Vol] 15.3 g/dL Normal 13.0-16.5 [facility] Comment on above: Performed By: #### L 400.2010, L501.6710, L501.9910, L501.9520, L500.4100, L100.0500, L500.4050 ####[facility] [address] [place], [address] MCH (RBC) [Entitic mass] 30.3 pg Normal 27.0-32.0 [facility] Comment on above: Performed By: #### L 400.2010, L501.6710, L501.9910, L501.9520, L500.4100, L100.0500, L500.4050 ####[facility] [address] [place], [address] MCHC (RBC) [Mass/Vol] 35.0 g/dL Normal 32-36 [facility] Comment on above: Performed By: #### L 400.2010, L501.6710, L501.9910, L501.9520, L500.4100, L100.0500, L500.4050 ####[facility] [address] [place], [address] MCV (RBC) [Entitic vol] 86.5 fL Normal 80-94 [facility] Comment on above: Performed By: #### L 400.2010, L501.6710, L501.9910, L501.9520, L500.4100, L100.0500, L500.4050 ####[facility] [address] [place], [address] Platelet mean volume (Bld) [Entitic vol] 10.7 fL Normal 6.2-12.0 [facility] Comment on above: Performed By: #### L 400.2010, L501.6710, L501.9910, L501.9520, L500.4100, L100.0500, L500.4050 ####[facility] [address] [place], [address] Platelets (Bld) [#/Vol] 277 10*3/uL Normal 150-450 [facility] Comment on above: Performed By: #### L 400.2010, L501.6710, L501.9910, L501.9520, L500.4100, L100.0500, L500.4050 ####[facility] [address] [place], [address] RBC (Bld) [#/Vol] 5.05 10*6/uL Normal 4.6-6.2 [facility] Comment on above: Performed By: #### L 400, L501.6710, L501.9910, L501.9520, L500.4100, L100.0500, L500.4050 ####[facility] [address] [place], [address] RDW SD 38.8 fl Normal 35.1-43.9 [facility] Comment on above: Performed By: #### L 400.2010, L501.6710, L501.9910, L501.9520, L500.4100, L100.0500, L500.4050 ####[facility] [address] [place], [address] WBC (Bld) [#/Vol] 6.6 10*3/uL Normal 4.4-11.0 [facility] Comment on above: Performed By: #### L , L501.6710, L501.9910, L501.9520, L500.4100, L100.0500, L500.4050 ####[facility] [address] [facility] [place], [address] CRPon 12-14-2023 C-REACTIVE PROT 4.33 mg/L High 0.0-3.0 [facility] Comment on above: Result Comment: C-Re active Protein (CRP) provides useful information for the diagnosis, therapy and monitoring of inflammatory processes and associated diseases. For the evaluation of Relative Risk for Cardiovascular Disease, a High Sensitivity CRP (HSCRP) should be ordered. Performed By: #### L , L501.6710, L501.9910, L501.9520, L500.4100, L100.0500, L500.4050 ####[facility] [address] [place], [address] Comprehensive Metabolic Prof ilon 12-14-2023 Albumin [Mass/Vol] 3.7 g/dL Normal 3.2-5.0 [facility] Comment on above: Performed By: #### L 400, L501.6710, L501.9910, L501.9520, L500.4100, L100.0500, L500.4050 ####[facility] [address] [place], [address] Albumin/Globulin [Mass ratio] 0.9 {ratio} Normal 0.9-2.4 [facility] Comment on above: Performed By: #### L 400.2010, L501.6710, L501.9910, L501.9520, L500.4100, L100.0500, L500.4050 ####[facility] [address] [place], [address] ALK P 105 U/L Normal 45-117 [facility] Comment on above: Performed By: #### L 400, L501.6710, L501.9910, L501.9520, L500.4100, L100.0500, L500.4050 ####[facility] [address] [place], [address] ALT [Catalytic activity/Vol] 113 U/L High 16-61 [facility] Comment on above: Performed By: #### L 400, L501.6710, L501.9910, L501.9520, L500.4100, L100.0500, L500.4050 ####[facility] [address] [place], [address] AST [Catalytic activity/Vol] 52 U/L High 15-37 [facility] Comment on above: Performed By: #### L 400, L501.6710, L501.9910, L501.9520, L500.4100, L100.0500, L500.4050 ####[facility] [address] [place], [address] Bilirubin [Mass/Vol] 0.80 mg/dL Normal 0.20-1.00 [facility] Comment on above: Result Comment: For patients on eltrombopag therapy, use of Dimension [place] TBIL is not recommended. Performed By: #### L 400, L501.6710, L501.9910, L501.9520, L500.4100, L100.0500, L500.4050 ####[facility] [address] [place], [address] BUN/CRE 16.1 RATIO Normal 10-20 [facility] Comment on above: Performed By: #### L 400.2010, L501.6710, L501.9910, L501.9520, L500.4100, L100.0500, L500.4050 ####[facility] [address] [place], [address] CA,Total 9.1 mg/dL Normal 8.5-10.1 [facility] Comment on above: Performed By: #### L 400, L501.6710, L501.9910, L501.9520, L500.4100, L100.0500, L500.4050 ####[facility] [address] [place], [address] Chloride [Moles/Vol] 105 mmol/L Normal 98-107 [facility] Comment on above: Performed By: #### L 400, L501.6710, L501.9910, L501.9520, L500.4100, L100.0500, L500.4050 ####[facility] [address] [place], [address] CO2 [Moles/Vol] 24.0 mmol/L Normal 21.0-32.0 [facility] Comment on above: Performed By: #### L 400, L501.6710, L501.9910, L501.9520, L500.4100, L100.0500, L500.4050 ####[facility] [address] [place], [address] Creatinine [Mass/Vol] 0.93 mg/dL Normal 0.70-1.30 [facility] Comment on above: Result Comment: The validity of the calculated GFR GFRAA in patients over 70 years has not been determined. Clinical correlation is essential. Performed By: #### L 400.2010, L501.6710, L501.9910, L501.9520, L500.4100, L100.0500, L500.4050 ####[facility] [address] [place], [address] EST GFR - AA 108 mL/min Normal >60 [facility] Comment on above: Result Comment: Afri can Peruvian GFR Calc Performed By: #### L 400, L501.6710, L501.9910, L501.9520, L500.4100, L100.0500, L500.4050 ####[facility] [address] [place], [address] GAP 5 Normal 5-15 [facility] Comment on above: Performed By: #### L 400, L501.6710, L501.9910, L501.9520, L500.4100, L100.0500, L500.4050 ####[facility] [address] [place], [address] GFR/1.73 sq M.predicted among non-blacks MDRD (S/P/Bld) [Vol rate/Area] 90 mL/min/{1.73_m2} Normal >60 [facility] Comment on above: Result Comment: Non- GFR Calc Performed By: #### L 400, L501.6710, L501.9910, L501.9520, L500.4100, L100.0500, L500.4050 ####[facility] [address] [place], [address] Globulin (S) [Mass/Vol] 4.3 g/dL High 2.2-4.2 [facility] Comment on above: Performed By: #### L 400, L501.6710, L501.9910, L501.9520, L500.4100, L100.0500, L500.4050 ####[facility] [address] [place], [address] Glucose [Mass/Vol] 106 mg/dL Normal 74-106 [facility] Comment on above: Result Comment: Fast ing Glucose result from 100 to 125 mg/dL suggests IMPAIRED HOMEOSTASIS per A.D.A. criteria. Performed By: #### L 400.2010, L501.6710, L501.9910, L501.9520, L500.4100, L100.0500, L500.4050 ####[facility] [address] [place], [address] Potassium [Moles/Vol] 3.9 mmol/L Normal 3.5-5.1 [facility] Comment on above: Performed By: #### L 400, L501.6710, L501.9910, L501.9520, L500.4100, L100.0500, L500.4050 ####[facility] [address] [place], [address] Sodium [Moles/Vol] 134 mmol/L Low 136-145 [facility] Comment on above: Performed By: #### L 400, L501.6710, L501.9910, L501.9520, L500.4100, L100.0500, L500.4050 ####[facility] [address] [place], [address] T PROT 8.0 g/dL Normal 6.4-8.2 [facility] Comment on above: Performed By: #### L 400, L501.6710, L501.9910, L501.9520, L500.4100, L100.0500, L500.4050 ####[facility] [address] [place], [address] Urea nitrogen [Mass/Vol] 15 mg/dL Normal 7-18 [facility] Comment on above: Performed By: #### L 400.2010, L501.6710, L501.9910, L501.9520, L500.4100, L100.0500, L500.4050 ####[facility] [address] [place], [address] Lipid Profileon 12-14-2023 Cholesterol [Mass/Vol] 190 mg/dL Normal 200 [facility] Comment on above: Result Comment: <200 mg/dL Desirable 200-240 mg/dL Borderline >240 mg/dL High Risk Performed By: #### L 400, L501.6710, L501.9910, L501.9520, L500.4100, L100.0500, L500.4050 ####[facility] [address] [place], [address] Cholesterol in HDL [Mass/Vol] 53 mg/dL Normal [facility] Comment on above: Result Comment: The drugs N-Acetylcysteine and Metamizole may falsely depress this assay. Reference Range HDL <40 mg/dL Low HDL Cholesterol HDL >or= 60 mg/dL High HDL Cholesterol Performed By: #### L 400, L501.6710, L501.9910, L501.9520, L500.4100, L100.0500, L500.4050 ####[facility] [address] [place], [address] Cholesterol in LDL [Mass/Vol] 85 mg/dL Normal 0-130 [facility] Comment on above: Performed By: #### L 400, L501.6710, L501.9910, L501.9520, L500.4100, L100.0500, L500.4050 ####[facility] [address] [place], [address] Cholesterol in VLDL [Mass/Vol] 52 mg/dL High 5-40 [facility] Comment on above: Performed By: #### L 400, L501.6710, L501.9910, L501.9520, L500.4100, L100.0500, L500.4050 ####[facility] [address] [place], [address] Triglyceride [Mass/Vol] 258 mg/dL High [facility] Comment on above: Result Comment: The drugs N-Acetylcysteine and Metamizole may falsely depress this assay. Serum Triglycerides Reference Interval Normal <150 mg/dL Borderline high 150 - 199 mg/dL High 200 - 499 mg/dL Very High > or = 500 mg/dL Performed By: #### L 400, L501.6710, L501.9910, L501.9520, L500.4100, L100.0500, L500.4050 ####[facility] [address] [place], [place], [address] PSA,Total - Annual Screenon 12-14-2023 PSA,TOT SCREEN 0.94 ng/mL Normal 0.00-4.00 [facility] Comment on above: Result Comment: This test was performed using the TPSA assay method for the [employer] chemistry system. Values obtained with different assay methods cannot be used interchangably. When changing PSA assays in the course of monitoring a patient, additional sequential testing should be carried out to confirm baseline values. Performed By: #### L , L501.6710, L501.9910, L501.9520, L500.4100, L100.0500, L500.4050 ####[facility] [address] [place], [address] Thyroid Stim Hormone (TSH)on 12-14-2023 TSH 2.460 uIU/mL Normal 0.358-3.74 0 [facility] Comment on above: Performed By: #### L 400, L501.6710, L501.9910, L501.9520, L500.4100, L100.0500, L500.4050 ####[facility] [address] [place], [address] Urinalysis, Routine (Dipstic k)on 12-14-2023 BILIRUBIN URINE Normal Negative [facility] Comment on above: Order Comment: Urine , Random Result Comment: NOT NEEDED Performed By: #### L 400.2010, L501.6710, L501.9910, L501.9520, L500.4100, L100.0500, L500.4050 ####[facility] [address] [place], [address] Clarity (U) Normal Clear [facility] Comment on above: Order Comment: Urine , Random Result Comment: NOT NEEDED Performed By: #### L 400.2010, L501.6710, L501.9910, L501.9520, L500.4100, L100.0500, L500.4050 ####[facility] [address] [place], [address] Color (U) Normal Yellow [facility] Comment on above: Order Comment: Urine , Random Result Comment: NOT NEEDED Performed By: #### L 400.2010, L501.6710, L501.9910, L501.9520, L500.4100, L100.0500, L500.4050 ####[facility] [address] [place], [address] GLUCOSE, UR Normal Normal [facility] Comment on above: Order Comment: Urine , Random Result Comment: NOT NEEDED Performed By: #### L 400.2010, L501.6710, L501.9910, L501.9520, L500.4100, L100.0500, L500.4050 ####[facility] [address] [place], [address] KETONE UR Normal Negative [facility] Comment on above: Order Comment: Urine , Random Result Comment: NOT NEEDED Performed By: #### L 400.2010, L501.6710, L501.9910, L501.9520, L500.4100, L100.0500, L500.4050 ####[facility] [address] [place], [address] LEUK ESTERASE Normal Negative [facility] Comment on above: Order Comment: Urine , Random Result Comment: NOT NEEDED Performed By: #### L 400.2010, L501.6710, L501.9910, L501.9520, L500.4100, L100.0500, L500.4050 ####[facility] [address] [place], [address] Nitrite Ql (U) Normal Negative [facility] Comment on above: Order Comment: Urine , Random Result Comment: NOT NEEDED Performed By: #### L 400.2010, L501.6710, L501.9910, L501.9520, L500.4100, L100.0500, L500.4050 ####[facility] [address] [place], [address] OCCULT BLOOD-UR Normal Negative [facility] Comment on above: Order Comment: Urine , Random Result Comment: NOT NEEDED Performed By: #### L 400.2010, L501.6710, L501.9910, L501.9520, L500.4100, L100.0500, L500.4050 ####[facility] [address] [place], [address] pH UR Normal 5.0 - 8.0 [facility] Comment on above: Order Comment: Urine , Random Result Comment: NOT NEEDED Performed By: #### L 400.2010, L501.6710, L501.9910, L501.9520, L500.4100, L100.0500, L500.4050 ####[facility] [address] [place], [address] PROT DIPSTX Normal Negative [facility] Comment on above: Order Comment: Urine , Random Result Comment: NOT NEEDED Performed By: #### L 400.2010, L501.6710, L501.9910, L501.9520, L500.4100, L100.0500, L500.4050 ####[facility] [address] [place], [address] SP.GR. DIPSTX Normal 1.002-1.03 0 [facility] Comment on above: Order Comment: Urine , Random Result Comment: NOT NEEDED Performed By: #### L 400.2010, L501.6710, L501.9910, L501.9520, L500.4100, L100.0500, L500.4050 ####[facility] [address] [place], [address] UR Preservative Normal [facility] Comment on above: Order Comment: Urine , Random Result Comment: NOT NEEDED Performed By: #### L 400.2010, L501.6710, L501.9910, L501.9520, L500.4100, L100.0500, L500.4050 ####[facility] [address] [place], [address] UROBILI Normal Normal [facility] Comment on above: Order Comment: Urine , Random Result Comment: NOT NEEDED Performed By: #### L 400.2010, L501.6710, L501.9910, L501.9520, L500.4100, L100.0500, L500.4050 ####[facility] [address] [place], [address] Urgent Care Visit Reporton 0 11-18-2023 Urgent Care Visit Report [facility] [address], [address] [place], [place] [address] OFFICE VISIT Date of Service: 11/18/23 MR#: [id number] Acct: [id number] Name: HELEN NOGUEIRA Rep #: [id number] : 1970 Provider: JUAN Little Age/Sex: 53/M Location: [facility] Status: Signed Intake Vital Signs 11/12/22 08:11 11/18/23 09:51 Height 5 ft 11 in 5 ft 11 in BP 124/88 H Blood Pressure Location Rt brachial Position Sitting Respiration 16 Pulse 78 Pulse Source NIBP Temp 98.1 F Temp Source Temporal Pulse Oximetry (%) 98 Oxygen Delivery Method room air Intake Visit Reasons: SINUS INFECTION Chief 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: sinus infection 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 Is patient in pain?: Yes Allergies No Known Allergies Allergy (Verified 11/18/23 10:23) Medications ???Medication ???Instructions ???Recorded ???Confirmed ???Type fluticasone 100 mcg-salmeterol 50 1 puff inhalation DAILY 03/06/15 11/18/23 History mcg/dose blistr powdr for inhalation Entyvio 1 IV X1 05/24/22 11/18/23 History rosuvastatin 5 mg tablet 5 mg PO DAILY 05/24/22 11/18/23 History sertraline 50 mg tablet 50 mg PO DAILY 05/24/22 11/18/23 History amoxicillin 875 mg-potassium 1 tab PO BID 5 days #10 tabs 11/18/23 11/18/23 Rx clavulanate 125 mg tablet Have you fallen in the past year?: No Nurse's Note: dxd with sinus infection by PCP, given Levaquin 5 days ago. pt continues with pain, cough, drainage, yellow mucus. today feels worse than prior. concerned ATB is not working. was not covid tested at that time. [facility] Medical History Acute streptococcal pharyngitis Social History Smoking Status: Never smoker alcohol intake: current alcohol intake frequency: holidays/special occasions only substance use type: does not use what type of physical activity do you participate in: walking, aerobics and weight training frequency: 3-4 times per week HPI HPI Chief Complaint: sinus infection Details: HELEN NOGUEIRA, is a 53 M who presents to the office today for sinus inf -saw PCP on Monday - started on levofloxacin for sinus infection- today not feeling better- feels worse -sx sinus pressure, congestion, cough with yellow phlegm -no fever or chills -no pain or headache -no sob or cp -tried above atb, sudafed, flonase, afrin- no saline nasal spray ROS Const Constitutional: Positive for other (ROS negative x6 except what was placed in HPI) Exam Const General: cooperative, comfortable and no acute distress Orientation: alert, awake and oriented x3 HENMT Head: normal to inspection and normocephalic Ears: hearing grossly normal bilaterally, external ears normal and TM's normal bilaterally Nose: external nose normal and other (+ congestion and rhinorrhea. Mild erythema and swelling) Face and sinus: normal facial exam, face symmetric and sinus tenderness maxillary Mouth: oral mucosae normal, lip normal, tongue normal, oropharynx normal and moist mucous membranes Throat: posterior oropharynx normal, tonsils normal, uvula midline and postnasal drainage Neck Neck: normal visual inspection, full ROM and no lymphadenopathy Resp Effort Inspection: normal respiratory effort, able to speak in complete sentences and symmetric chest movement Auscultation: Bilateral: Clear to Auscultation, Left: Clear to Auscultation and Right: Clear to Auscultation Cardio Rate: regular rate Rhythm: regular rhythm Heart Sounds: S1 normal and S2 normal GI Auscultation: normal bowel sounds Palpation: soft Skin General: no rashes or lesions noted and turgor normal Neuro General: patient alert, patient awake and patient oriented x3 Cognition: normal cognition Speech: speech normal Psych Appearance: grossly normal Mental Status: mental status grossly normal Attitude: cooperative Thought Process: normal Thought Content: normal Coding Level of Care Code Off vis,est,level 3 Diagnoses Subacute maxillary sinusitis J01.00 Sinusitis location: maxillary Chronicity: subacute Assessment and Plan Assessment and Plan (1) Sinus infection: Status: Acute Qualifiers: Sinusitis location: maxillary Chronicity: subacute Qualified Code(s): J01.00 - Acute maxillary sinusitis, unspecified Medications: New amoxicillin-pot clavulanate 875-125 mg 1 TAB PO BID 5 days 10 tabs 0RF Plan -stop taking levofloxacin -If prescribed antibiotics take the full course even if feeling better. Warm salt water gargles, warm tea with honey, increase fluids, saline nasal spray 2 squirts each nostril every 2 hours as needed, Flonase nasal spray 1 squirt once a day, cetirizine (Zyrtec) one daily, cool mist humidifier, Tylenol and or ibuprofen as needed for fever or disco (more content not included)... Normal [facility] LIPID PANEL ([id number])Ordered B y: Museum Informatics Specialist on 11-18-2022 Cholesterol [Mass/Vol] 161 mg/dL Normal 100-199 [facility] Work Phone: Comment on above: PATIENT WAS FASTINGP ERFORMED BY: ZAHEER [facility] [id number] [place] [id number] Cholesterol in HDL [Mass/Vol] 55 mg/dL Normal [facility]; [facility] Work Phone: Comment on above: PATIENT WAS FASTINGP ERFORMED BY: ZAHEER [facility] [address] [place] [id number] Triglyceride [Mass/Vol] 114 mg/dL Normal 0-149 [facility] Work Phone: Comment on above: PATIENT WAS FASTINGP ERFORMED BY: ZAHEER [facility] [address] [place] [id number] LIPID PANEL ([id number]) 20 mg/dL Normal 5-40 Compr [facility]; [facility] Work Phone: Comment on above: PATIENT WAS FASTINGP ERFORMED BY: ZAHEER [facility] [address] [place] [id number] LIPID PANEL ([id number]) 86 mg/dL Normal 0-99 Compr e[facility]; [facility] Work Phone: Comment on above: PATIENT WAS FASTINGP ERFORMED BY: ZAHEER [facility] [id number] [place] [id number] LIPID PANEL (77351) 1.6 {ratio} Normal 0.0-3.6 [facility]; [facility] Work Phone: Comment on above: LDL/HDL Ratio Men Wo men 1/2 Avg.Risk 1.0 1.5 Avg.Risk 3.6 3.2 2X Avg.Risk 6.2 5.0 3X Avg.Risk 8.0 6.1 PATIENT WAS FASTINGP ERFORMED BY: ZAHEER [facility] [address] [place] [id number] LIPID PANEL ([id number])Ordered B y: [employer] In[employer] Specialist on 08-12-2022 Cholesterol [Mass/Vol] 208 mg/dL Abnormal 100-199 [facility] Work Phone: Comment on above: fasting; PATIENT WAS FASTINGPERFORMED BY: ZAHEER Labcominerva MonroePgeiqn9834 Ricardo RoadDublin [place] [id number] Cholesterol in HDL [Mass/Vol] 47 mg/dL Normal [facility]; [facility] Work Phone: Comment on above: fasting; PATIENT WAS FASTINGPERFORMED BY: ZAHEER [facility] Xpfvuy1401 [address]ardo RoadDublin [place] [id number] Triglyceride [Mass/Vol] 274 mg/dL Abnormal 0-149 [facility]; [facility] Work Phone: Comment on above: fasting; PATIENT WAS FASTINGPERFORMED BY: ZAHEER Labcominerva MonroeHwsebu0851 [address]ardo RoadDublin [place] [id number] LIPID PANEL (96723) 47 mg/dL Abnormal 5-40 [facility] Work Phone: Comment on above: fasting; PATIENT WAS FASTINGPERFORMED BY: ZAHEER Labcominerva Xtblyc6557 [address] RoadDublin [place] [id number] LIPID PANEL (55650) 114 mg/dL Abnormal 0-99 [facility]; [facility] Work Phone: Comment on above: fasting; PATIENT WAS FASTINGPERFORMED BY: ZAHEER [facility] Ultotm2907 [address] RoadDublin [place] [id number] LIPID PANEL (06137) 2.4 {ratio} Normal 0.0-3.6 [facility]; [facility] Work Phone: Comment on above: LDL/HDL Ratio Men Wo men 1/2 Avg.Risk 1.0 1.5 Avg.Risk 3.6 3.2 2X Avg.Risk 6.2 5.0 3X Avg.Risk 8.0 6.1 fasting; PATIENT WAS FASTINGPERFORMED BY: ZAHEER [facility] Rlngoc[address]103 [address] [facility] HospitalDublin [place] [id number] LIPID PANEL (73876)Ordered B y: Museum In[employer] Specialist on 05-06-2022 Cholesterol [Mass/Vol] 246 mg/dL Abnormal 100-199 [facility]; [facility] Work Phone: Comment on above: PATIENT WAS FASTINGP ERFORMED BY: ZAHEER [facility] Uewrue0805 [address] RoadDublin [place] [id number] Cholesterol in HDL [Mass/Vol] 37 mg/dL Abnormal [facility]; [facility] Work Phone: Comment on above: PATIENT WAS FASTINGP ERFORMED BY: CB [facility] Oahhsi2216 [address] RoadDublin [place] [id number] Triglyceride [Mass/Vol] 413 mg/dL Abnormal 0-149 [facility]; [facility] Work Phone: Comment on above: PATIENT WAS FASTINGP ERFORMED BY: ZAHEER [facility] Rjqiol5096 [address] RoadDublin [place] [id number] LIPID PANEL (05151) 75 mg/dL Abnormal 5-40 Com[facility] ens[facility]; [facility] Work Phone: Comment on above: PATIENT WAS FASTINGP ERFORMED BY: ZAHEER [facility] Dpkoui6202 [address] RoadDublin [place] [id number] LIPID PANEL (84883) 134 mg/dL Abnormal 0-99 [facility] ens[facility]; [facility] Work Phone: Comment on above: PATIENT WAS FASTINGP ERFORMED BY: ZAHEER [facility] Mlbbre3177 [address] RoadDublin [place] [id number] LIPID PANEL (85782) 3.6 {ratio} Normal 0.0-3.6 [facility]erens[facility]; [facility] Work Phone: Comment on above: LDL/HDL Ratio Men Wo men 1/2 Avg.Risk 1.0 1.5 Avg.Risk 3.6 3.2 2X Avg.Risk 6.2 5.0 3X Avg.Risk 8.0 6.1 PATIENT WAS FASTINGP ERFORMED BY: CB [facility] Jetoub7651 [address] RoadDublin [place] [id number] PSA (PROSTATE SPECIFIC ANTIG EN) (11484)Ordered By: Museum Informatics Specialist on 05-06-2022 Prostate specific Ag [Mass/Vol] 1.9 ng/mL Normal 0.0-4.0 [facility]; [facility] Work Phone: Comment on above: Von ECLIA methodol ogjaylin. .According to the [place] [employer], Serum PSA shoulddecrease and remain at undetectable levels after radicalprostatectomy. The AUA defines biochemical recurrence as an initialPSA value 0.2 ng/mL or greater followed by a subsequent confirmatoryPSA value 0.2 ng/mL or greater.Values obtained with different assay methods or kits cannot be usedinterchangeably. Results cannot be interpreted as absolute evidenceof the presence or absence of malignant disease. PATIENT WAS FASTINGP ERFORMED BY: LabKal[facility]6370 [facility] [id number] Basophil percentageon 2021 Bilirubin [Mass/Vol] 0.60 mg/dL 0.20-1.00 [facility] Work Phone: Comment on above: For patients on eltr ombopag therapy, use of Dimension [place] TBIL is not recommended. Chloride [Moles/Vol] 104 mmol/L 98-107 [facility] Work Phone: Glucose [Mass/Vol] 69 mg/dL 74-106 [facility] Work Phone: Potassium [Moles/Vol] 3.7 mmol/L 3.5-5.1 [facility] Work Phone: Protein [Mass/Vol] 7.9 g/dL 6.4-8.2 [facility] Work Phone: Sodium [Moles/Vol] 140 mmol/L 136-145 [facility] Work Phone: WBC (Bld) [#/Vol] 9.9 10*3/uL 4.4-11.0 [facility] Work Phone: Blood erythrocytes count (nu mber/volume)on 08-11-2021 RBC (Bld) [#/Vol] 4.85 10*6/uL 4.6-6.2 [facility] Work Phone: Blood hemoglobin measurement (mass/volume)on 08-11-2021 Hemoglobin (Bld) [Mass/Vol] 14.7 g/dL 13.0-16.5 [facility] Work Phone: Blood platelet mean volumeon 08-11-2021 Platelet mean volume (Bld) [Entitic vol] 10.2 fL 6.2-12.0 [facility] Work Phone: Determination of erythrocyte mean corpuscular volume (MCV)on 08-11-2021 MCV (RBC) [Entitic vol] 88.5 fL 80-94 [facility] Work Phone: Erythrocyte sedimentation ra manjit 08-11-2021 ESR (Bld) [Velocity] 9 mm/h 0-20 [facility] Work Phone: Hematocrit Auto (Bld) [Volum e fraction]on 08-11-2021 Hematocrit (Bld) [Volume fraction] 42.9 % 40-54 [facility] Work Phone: Laboratory - Chemistry and C hemistry - challengeon 08-11-2021 ALP [Catalytic activity/Vol] 97 U/L 45-117 [facility] Work Phone: ALT [Catalytic activity/Vol] 67 U/L 16-61 [facility] Work Phone: CO2 [Moles/Vol] 30.0 mmol/L 21.0-32.0 [facility] Work Phone: Globulin (S) [Mass/Vol] 4.3 g/dL 2.2-4.2 [facility] Work Phone: Urea nitrogen/Creatinine [Mass ratio] 12.7 mg/mg 10-20 [facility] Work Phone: Laboratory - Hematology and Cell countson 08-11-2021 Erythrocyte distribution width (RBC) [Entitic vol] 41.4 fL 35.1-43.9 [facility] Work Phone: Erythrocyte distribution width (RBC) [Ratio] 12.7 % 11.6-14.6 [facility] Work Phone: MCH (RBC) [Entitic mass] 30.3 pg 27.0-32.0 [facility] Work Phone: MCHC Auto (RBC) [Mass/Vol]on 08-11-2021 MCHC (RBC) [Mass/Vol] 34.3 g/dL 32-36 [facility] Work Phone: No Panel Informationon 08-11 Estimated GFR (MDRD) Amer 83 mL/min >60 [facility] Work Phone: Comment on above: GFR Calc Estimated GFR (MDRD) Non-Af Amer 69 mL/min >60 [facility] Work Phone: Comment on above: Non- GFR Calc Platelets bldon 08-11-2021 Platelets (Bld) [#/Vol] 296 10*3/uL 150-450 [facility] Work Phone: Serum or plasma C reactive p rotein measurement (mass/volume)on 08-11-2021 CRP [Mass/Vol] 4.41 mg/L 0.0-3.0 [facility] Work Phone: Comment on above: C-Reactive Protein ( CRP) provides useful information for thediagnosis, therapy and monitoring of inflammatory processesand associated diseases. For the evaluation of Relative Riskfor Cardiovascular Disease, a High Sensitivity CRP (HSCRP)should be ordered. Serum or plasma albumin josefina urement (mass/volume)on 08-11-2021 Albumin [Mass/Vol] 3.6 g/dL 3.2-5.0 [facility] Work Phone: Serum or plasma albumin/glob ulin mass ratioon 08-11-2021 Albumin/Globulin [Mass ratio] 0.8 {ratio} 0.9-2.4 [facility] Work Phone: Serum or plasma calcium josefina urement (mass/volume)on 08-11-2021 Calcium [Mass/Vol] 9.6 mg/dL 8.5-10.1 [facility] Work Phone: Serum or plasma creatinine m easurement (mass/volume)on 08-11-2021 Creatinine [Mass/Vol] 1.18 mg/dL 0.70-1.30 [facility] Work Phone: Comment on above: The validity of the calculated GFR & GFRAA in patients over 70 years has not been determined. Clinical correlation is essential. Serum or plasma urea nitroge n measurement (mass/volume)on 08-11-2021 Urea nitrogen [Mass/Vol] 15 mg/dL 7-18 [facility] Work Phone: Thin prep Papanicolaou smear with manual screeningon 08-11-2021 Thin prep Papanicolaou smear with manual screening 33 U/L 15-37 [facility] Work Phone: Thin prep Papanicolaou smear with manual screening 6 5-15 [facility] Work Phone: 2018 Novel Coronavirus (COVI D-19), ESPERANZA ([id number])Ordered By: Museum Informatics Specialist on 07-13-20212018 Novel Coronavirus (COVID-19), ESPERANZA ([id number]) Not detected Normal [facility]; [facility] Work Phone: Comment on above: This nucleic acid am plification test was developed and its performancecharacteristics determined by [facility] Nucleic acidamplification tests include RT-PCR and TMA. This test has not beenFDA cleared or approved. This test has been authorized by FDA underan Emergency Use Authorization (EUA). This test is only authorizedfor the duration of time the declaration that circumstances existjustifying the authorization of the emergency use of in vitrodiagnostic tests for detection of SARS-CoV-2 virus and/or diagnosisof COVID-19 infection under section 564(b)(1) of the Act, 21 U.S.C.360bbb-3(b) (1), unless the authorization is terminated or revokedsooner.When diagnostic testing is negative, the possibility of a falsenegative result should be considered in the context of a patient'srecent exposures and the presence of clinical signs and symptomsconsistent with COVID-19. An individual without symptoms of COVID-19and who is not shedding SARS-CoV-2 virus would expect to have anegative (not detected) result in this assay. PATIENT NOT FASTINGP ERFORMED BY: CRAiLAR Owipog3780 [facility] [id number] GGT (GAMMA GLUTAMYLTRANSFERA SE) ([id number])Ordered By: Museum In[employer] Specialist on 09-19-2019 Gamma glutamyl transferase [Catalytic activity/Vol] 438 [iU]/L Abnormal 0-65 [facility] Work Phone: Comment on above: PATIENT NOT FASTINGP ERFORMED BY: [facility]ILMymichigan [facility] Alpena6370 [facility] [id number] Gamma glutamyl transferase [Catalytic activity/Vol] 438 U/L Abnormal 0-65 [facility]; [facility] Work Phone: Comment on above: PATIENT NOT FASTINGP ERFORMED BY: [facility]ILMymichigan [facility] Alpena6370 [facility] [id number] CBC & PLATELETS (AUTO) ([id number])Ordered By: [employer] In[employer] Specialist on 09-16-2019 Erythrocyte distribution width (RBC) [Ratio] 12.5 % Normal 11.6-15.4 [facility] Work Phone: Comment on above: PATIENT WAS FASTINGP ERFORMED BY: [facility] Jzwrrm9565 [facility] [id number] Hematocrit (Bld) [Volume fraction] 46.2 % Normal 37.5-51.0 [facility] Work Phone: Comment on above: PATIENT WAS FASTINGP ERFORMED BY: [facility]IL[facility] Alpena6370 [facility] [id number] Hemoglobin (Bld) [Mass/Vol] 16.0 g/dL Normal 13.0-17.7 [facility] Work Phone: Comment on above: PATIENT WAS FASTINGP ERFORMED BY: [facility]6370 [facility] [id number] MCH (RBC) [Entitic mass] 30.8 pg Normal 26.6-33.0 [facility] Work Phone: Comment on above: PATIENT WAS FASTINGP ERFORMED BY: CB [facility] Bualoj3724 [address] RoadDublin [place] [id number] MCHC (RBC) [Mass/Vol] 34.6 g/dL Normal 31.5-35.7 [facility] Work Phone: Comment on above: PATIENT WAS FASTINGP ERFORMED BY: CB [facility] Zgbhdw3574 [address] RoadDublin [place] [id number] MCV (RBC) [Entitic vol] 89 fL Normal 79-97 [facility] Work Phone: Comment on above: PATIENT WAS FASTINGP ERFORMED BY: CB [facility] Mtbsyi5751 [address] RoadDublin [place] [id number] Platelets (Bld) [#/Vol] 407 {x10E3/uL} Normal 150-450 [facility] Work Phone: Comment on above: PATIENT WAS FASTINGP ERFORMED BY: CB [facility] Fpfgfm6205 [address] RoadDublin [place] [id number] Platelets (Bld) [#/Vol] 407 10*3/uL Normal 150-450 [facility]; [facility] Work Phone: Comment on above: PATIENT WAS FASTINGP ERFORMED BY: CB [facility] Olwsms4901 [address] RoadDublin [place] [id number] RBC (Bld) [#/Vol] 5.19 {x10E6/uL} Normal 4.14-5.80 [facility] Internal Medicine Work Phone: Comment on above: PATIENT WAS FASTINGP ERFORMED BY: CB [facility] Wmhzrr0376 [address] RoadDublin [place] [id number] RBC (Bld) [#/Vol] 5.19 10*6/uL Normal 4.14-5.80 [facility] Internal [facility]; [facility] Work Phone: Comment on above: PATIENT WAS FASTINGP ERFORMED BY: CB [facility] Vcspfb7825 [address] RoadDublin [place] [id number] WBC (Bld) [#/Vol] 12.4 {x10E3/uL} Abnormal 3.4-10.8 [facility] Internal Medicine Work Phone: Comment on above: PATIENT WAS FASTINGP ERFORMED BY: ZAHEER [facility] Nqduzf9700 [address] [facility] HospitalD[facility] [place] [id number] WBC (Bld) [#/Vol] 12.4 10*3/uL Abnormal 3.4-10.8 [facility]; [facility] Work Phone: Comment on above: PATIENT WAS FASTINGP ERFORMED BY: ZAHEER [facility] Lfpcfz0307 Ric[address] [facility] Hospitalblin [place] [id number] LIPID PANEL ([id number])Ordered B y: [employer] In[employer] Specialist on 09-16-2019 Cholesterol [Mass/Vol] 202 mg/dL Abnormal 100-199 [facility] Work Phone: Comment on above: PATIENT WAS FASTINGP ERFORMED BY: ZAHEER LabArnaud MonroeVfegxc7744 [address] [facility] Hospitalin [place] [id number] Cholesterol in HDL [Mass/Vol] 48 mg/dL Normal [facility] Work Phone: Comment on above: PATIENT WAS FASTINGP ERFORMED BY: ZAHEER LabCominerva Sxbvpt2821 [address] [facility] HospitalD[place] [id number] Cholesterol in LDL [Mass/Vol] 102 mg/dL Abnormal 0-99 [facility] Work Phone: Comment on above: PATIENT WAS FASTINGP ERFORMED BY: ZAHEER LabCominerva Gvdnvq6478 [facility]in [place] [id number] Cholesterol in LDL/Cholesterol in HDL [Mass ratio] 2.1 {ratio} Normal 0.0-3.6 [facility] Work Phone: Comment on above: LDL/HDL Ratio Men Wo men 1/2 Avg.Risk 1.0 1.5 Avg.Risk 3.6 3.2 2X Avg.Risk 6.2 5.0 3X Avg.Risk 8.0 6.1 PATIENT WAS FASTINGP ERFORMED BY: ZAHEER [facility] Lhiyqi6231 [address] RoadDublin [place] [id number] Cholesterol in VLDL [Mass/Vol] 52 mg/dL Abnormal 5-40 [facility] Work Phone: Comment on above: PATIENT WAS FASTINGP ERFORMED BY: ZAHEER [facility] Mfnomi4551 [address] RoadDublin [place] [id number] Triglyceride [Mass/Vol] 260 mg/dL Abnormal 0-149 [facility] Work Phone: Comment on above: PATIENT WAS FASTINGP ERFORMED BY: ZAHEER [facility] Pkjmhu4989 [address] RoadDublin [place] [id number] Metabolic Panel, Comprehensi ve (48946)Ordered By: Museum In[employer] Specialist on 09-16-2019 Albumin [Mass/Vol] 4.1 g/dL Normal 4.0-5.0 [facility] Internal Medicine Work Phone: Comment on above: PATIENT WAS FASTINGP ERFORMED BY: ZAHEER [facility] Uqorjv1909 [address] RoadDublin [place] [id number] Albumin/Globulin [Mass ratio] 1.2 {ratio} Normal 1.2-2.2 [facility] Work Phone: Comment on above: PATIENT WAS FASTINGP ERFORMED BY: [facility] Bqqdch7773 [address] RoadDublin [place] [id number] ALP [Catalytic activity/Vol] 314 [iU]/L Abnormal 39-117 [facility] Work Phone: Comment on above: PATIENT WAS FASTINGP ERFORMED BY: [facility] Wdjoeb1335 [address] RoadDublin [place] [id number] ALP [Catalytic activity/Vol] 314 U/L Abnormal 39-117 [facility]; [facility] Work Phone: Comment on above: PATIENT WAS FASTINGP ERFORMED BY: [facility] Ucwlra7437 [address] RoadDublin [place] [id number] ALT [Catalytic activity/Vol] 114 [iU]/L Abnormal 0-44 [facility] Work Phone: Comment on above: PATIENT WAS FASTINGP ERFORMED BY: [facility] Kmqwya2749 [address] RoadDublin [place] [id number] ALT [Catalytic activity/Vol] 114 U/L Abnormal 0-44 [facility]; [facility] Work Phone: Comment on above: PATIENT WAS FASTINGP ERFORMED BY: ZAHEER [facility] Hizqud6592 [address] RoadDublin [place] [id number] AST [Catalytic activity/Vol] 65 [iU]/L Abnormal 0-40 [facility] Work Phone: Comment on above: PATIENT WAS FASTINGP ERFORMED BY: ZAHEER [facility] Cazyin0849 [address] RoadDublin [place] [id number] AST [Catalytic activity/Vol] 65 U/L Abnormal 0-40 [facility]; [facility] Medicine Work Phone: Comment on above: PATIENT WAS FASTINGP ERFORMED BY: ZAHEER [facility] Vvumzu3541 [address] RoadDublin [place] [id number] Bilirubin [Mass/Vol] 0.3 mg/dL Normal 0.0-1.2 [facility] Work Phone: Comment on above: PATIENT WAS FASTINGP ERFORMED BY: ZAHEER LabKindred Hospital Pqkehc8259 [address] RoadDublin [place] [id number] Calcium [Mass/Vol] 9.3 mg/dL Normal 8.7-10.2 [facility] Work Phone: Comment on above: PATIENT WAS FASTINGP ERFORMED BY: ZAHEER [facility] Epjvtd1941 [address] RoadDublin [place] [id number] Chloride [Moles/Vol] 105 mmol/L Normal 96-106 [facility]eren[facility] Work Phone: Comment on above: PATIENT WAS FASTINGP ERFORMED BY: [facility] Ztxkfh9763 [address] RoadDublin [place] [id number] CO2 [Moles/Vol] 25 mmol/L Normal 20-29 [facility] Internal Medicine Work Phone: Comment on above: PATIENT WAS FASTINGP ERFORMED BY: [facility] Xujwdt7434 [address] RoadDublin [place] [id number] Creatinine [Mass/Vol] 1.10 mg/dL Normal 0.76-1.27 [facility] Internal Medicine Work Phone: Comment on above: PATIENT WAS FASTINGP ERFORMED BY: [facility] Siihay4879 [address] RoadDublin [place] [id number] GFR/1.73 sq M predicted among blacks CKD-EPI (S/P/Bld) [Vol rate/Area] 90 mL/min/1.73 Normal [facility] Work Phone: Comment on above: PATIENT WAS FASTINGP ERFORMED BY: ZAHEER [facility]6370 [address] [facility]in [place] [id number] GFR/1.73 sq M predicted among non-blacks CKD-EPI (S/P/Bld) [Vol rate/Area] 78 mL/min/1.73 Normal [facility] Work Phone: Comment on above: PATIENT WAS FASTINGP ERFORMED BY: ZAHEER [place] 9188670 [facility] [id number] Globulin (S) [Mass/Vol] 3.5 g/dL Normal 1.5-4.5 [facility] Internal Medicine Work Phone: Comment on above: PATIENT WAS FASTINGP ERFORMED BY: [facility]6370 [facility] [id number] Glucose [Mass/Vol] 92 mg/dL Normal 65-99 [facility] Internal Medicine Work Phone: Comment on above: PATIENT WAS FASTINGP ERFORMED BY: ZAHEER [facility]6370 [facility] [id number] Potassium [Moles/Vol] 5.4 mmol/L Abnormal 3.5-5.2 [facility] Work Phone: Comment on above: PATIENT WAS FASTINGP ERFORMED BY: [facility]6370 [facility] [id number] Protein [Mass/Vol] 7.6 g/dL Normal 6.0-8.5 [facility] Internal Medicine Work Phone: Comment on above: PATIENT WAS FASTINGP ERFORMED BY: [facility]6370 [facility] [id number] Sodium [Moles/Vol] 141 mmol/L Normal 134-144 [facility] Internal Medicine Work Phone: Comment on above: PATIENT WAS FASTINGP ERFORMED BY: [employer] Wrrnep4531 [address] [place] [id number] Urea nitrogen [Mass/Vol] 15 mg/dL Normal 6-24 [facility] Work Phone: Comment on above: PATIENT WAS FASTINGP ERFORMED BY: [facility] Jejzdl5418 [address] [place] [id number] Urea nitrogen/Creatinine [Mass ratio] 14 mg/mg Normal 9-20 [facility] Work Phone: Comment on above: PATIENT WAS FASTINGP ERFORMED BY: [employer] Gkglyx3601 [address] [facility] Shared [facility] [id number] PSA (PROSTATE SPECIFIC ANTIG EN) (V76.44)Ordered By: Museum In[employer] Specialist on 09-16-2019 Prostate specific Ag [Mass/Vol] 1.3 ng/mL Normal 0.0-4.0 [facility] Work Phone: Comment on above: Von ECLIA methodol ogy. .According to the [place] [employer], Serum PSA shoulddecrease and remain at undetectable levels after radicalprostatectomy. The AUA defines biochemical recurrence as an initialPSA value 0.2 ng/mL or greater followed by a subsequent confirmatoryPSA value 0.2 ng/mL or greater.Values obtained with different assay methods or kits cannot be usedinterchangeably. Results cannot be interpreted as absolute evidenceof the presence or absence of malignant disease. PATIENT WAS FASTINGP ERFORMED BY: [employer] Jzftev5824 [address] [facility]Angel [facility] [id number] TSH (THYROID STIMULATING HOR SHAJI) ([id number])Ordered By: Museum In[employer] Specialist on 09-16-2019 TSH Qn 2.460 {uIU/mL} Normal 0.450-4.50 0 [facility] Work Phone: Comment on above: PATIENT WAS FASTINGP ERFORMED BY: [facility]Mang[facility] [employer] Tjshdp6262 [address] [facility]in [place] [id number] COLON BIOPSY (CHOOSE SITE)Or dered By: [employer] In[employer] Specialist on 01-25-2018 COLON BIOPSY (CHOOSE SITE) See Note Normal [facility] Work Phone: Comment on above: Patient: KILLIAN NOGUEIRA : 1970 (47/M) Acct Num: [id number] Phys: Constantino Mcelroy Unit Num: [id number] Loc: LABSPEC Specimen: [id number] Received: 01/25/18 - 1529 Spec Type: COLON [...] is totally submitted in one cassette. / SJ:deandra 01/26/18 TC:2 CPT: 98897 x3 HEADER OPERATION: Colonoscopy with biopsy PRE-OP DIAGNOSIS: History of ulcerative colitis TISSUE SUBMITTED: A - Biopsy right colon, rule out ulcerative colitis/dysplasia, B - Biopsy left colon, rule out [...] comment. SJ:deandra 01/29/18 Signed Doyle Brand 01/29/18 [facility] [address] [place], [place], [id number] Culture, MiscellaneousOrdere d By: Museum In[employer] Specialist on 01-17-2018 Culture, Miscellaneous See Note Normal [facility] Work Phone: Comment on above: Comments: SINUS BACT ERIA AEROBICMisc. CultureNo growth aerobically. Gram StainGram Stain Rare Red Blood Cells No organisms seen [facility] [address] [place], [place], [phone] Basic Metabolic Profile (BMP )Ordered By: Museum Informatics Specialist on 11-20-2017 Basic metabolic 2000 panel 88 mg/dL Normal 74-106 [facility] Work Phone: Comment on above: Please note revised GLUCOSE reference range ypmgkkhzo05/02/2018. [facility] [address] [place], [place], [id number] Basic metabolic 2000 panel 7 1 Normal 5-15 [facility] Work Phone: Comment on above: [facility] [address] [place], [place], [phone] Basic metabolic 2000 panel 112 mL/min Normal [facility] Work Phone: Comment on above: GFR Calc [facility] [address] [place], [address] Basic metabolic 2000 panel 105 mmol/L Normal 98-107 [facility] Work Phone: Comment on above: [facility] [address] [place], [address] Basic metabolic 2000 panel 26.0 mmol/L Normal 21.0-32.0 [facility] Work Phone: Comment on above: [facility] [facility] [address] [place], [address] Basic metabolic 2000 panel 138 mmol/L Normal 136-145 [facility] Work Phone: Comment on above: [facility] [address] [place], [address] Basic metabolic 2000 panel 8.9 mg/dL Normal 8.5-10.1 [facility] Work Phone: Comment on above: [facility] [address] [place], [place], [address] Basic metabolic 2000 panel 4.1 mmol/L Normal 3.5-5.1 [facility] Work Phone: Comment on above: [facility] [address] [place], [address] Basic metabolic 2000 panel 23.8 {RATIO} Abnormal 10-20 [facility] Work Phone: Comment on above: [facility] [address] [place], [address] Basic metabolic 2000 panel 92 mL/min Normal [facility] Work Phone: Comment on above: Non- GFR Calc [facility] [address] [place], [address] Basic metabolic 2000 panel 0.93 mg/dL Normal 0.70-1.30 [facility] Work Phone: Comment on above: The validity of the calculated GFR AND GFRAA in patients over70 years has not been determined. Clinical correlation isessential. [facility] [address] [place], [place], [phone] Basic metabolic 2000 panel 102.33 ml/min Normal [facility] Work Phone: Comment on above: [facility] [address] [place], [place], [phone] Basic metabolic 2000 panel 22 mg/dL Abnormal 7-18 [facility] Work Phone: Comment on above: [facility] [address] [place], [place], [phone] Blood Glucose , Office ([phone])Ordered By: Nasra Lee on 11-20-2017 Glucose Glucometer molar conc (BldC) 116 1 Normal [facility] Work Phone: CBC W/Diff, AutomatedOrdered By: Museum Informatics Specialist on 11-20-2017 Absolute Neut 10.9 {X10_3/uL} Abnormal 2.0-7.7 [facility] Internal Medicine Work Phone: Comment on above: [facility] [address] [place], [place], [phone] Basophils/100 WBC (Bld) 0.1 % Normal 0-1 [facility] Work Phone: Comment on above: [facility] [address] [place], [place], [phone] Eosinophils/100 WBC (Bld) 0.2 % Normal 0-5 [facility] Work Phone: Comment on above: [facility] [address] [place], [place], [phone] Erythrocyte distribution width Ratio (RBC) 13.8 % Normal 11.6-14.6 [facility] Work Phone: Comment on above: [facility] [address] [place], [place], [phone] Hematocrit Volume Fraction (Bld) 44.8 % Normal 40-54 [facility] Work Phone: Comment on above: [facility] [address] [place], [address] Hemoglobin mass conc (Bld) 14.9 g/dL Normal 13.0-16.5 [facility] Work Phone: Comment on above: [facility] [address] [place], [address] IM GRAN % 0.500 % Normal 0.0-0.9 [facility] Work Phone: Comment on above: IG% - Immature Granu locytes (promyelocytes, myelocytes andmetamyelocytes) > 1% indicates that a LEFT SHIFT is Present. [facility] [address] [place], [address] Lymphocytes #/vol (Bld) 1.03 {X10_3/ul} Normal 0.83-4.51 [facility] Work Phone: Comment on above: [facility] [address] [place], [address] Lymphocytes/100 WBC (Bld) 8.0 % Abnormal 19-41 [facility] Work Phone: Comment on above: [facility] [address] [place], [address] MCH Entitic mass (RBC) 29.2 pg Normal 27.0-32.0 [facility] Work Phone: Comment on above: [facility] [address] [place], [address] MCHC mass conc (RBC) 33.3 {g/gl} Normal 32-36 [facility] prehensive Internal Medicine Work Phone: Comment on above: [facility] [address] [place], [address] MCV Entitic volume (RBC) 87.7 fL Normal 80-94 [facility] Work Phone: Comment on above: [facility] [address] [place], [address] Monocytes/100 WBC (Bld) 6.2 % Normal 0-10 [facility] Work Phone: Comment on above: [facility] [address] [place], [address] Neutrophils/100 WBC (Bld) 85.0 % Abnormal 47-70 [facility] Work Phone: Comment on above: [facility] [address] [place], [address] Platelet mean volume Entitic volume (Bld) 9.4 fL Normal 6.2-12.0 Comprehensi Internal Medicine Work Phone: Comment on above: [facility] [address] [place], [address] Platelets #/vol (Bld) 316 10*3/uL Normal 150-450 [facility] Internal Medicine Work Phone: Comment on above: [facility] [address] [place], [address] RBC #/vol (Bld) 5.11 {M/mm3} Normal 4.6-6.2 Compreh ensive Internal Medicine Work Phone: Comment on above: [facility] [address] [place], [address] RDW SD 44.3 fL Abnormal 35.1-43.9 [facility] Work Phone: Comment on above: [facility] [address] [place], [address] WBC #/vol (Bld) 12.9 10*3/uL Abnormal 4.4-11.0 Compreh ensive Internal Medicine Work Phone: Comment on above: [facility] [address] [place], [place], [phone] D-Dimer Quantitative (DVT/PE )Ordered By: Museum Informatics Specialist on 11-20-2017 D-Dimer Quantitative (DVT/PE) 0.80 {FEU/ug/m} Abnormal 0.27-0.49 [facility] Work Phone: Comment on above: D-Dimer ELEVATED (>0 .49): Additional studies and clinicalassessments are indicated to conclude diagnosis of:Deep Vein Thrombosis (DVT) or Pulmonary Embolism (PE)CRITICAL VALUE VERIFIED. CALLED TO HAILY BUTTS NP11/20/17 1310 Marquis Rueda.RESULTS READ BACK BY SAME. Order Date: 11/20/17 Order Info: [id number] - [facility] [address] [place], [place], [phone] HgA1C , Office ([id number])Ordere d By: Nasra Lee on 11-20-2017 Hemoglobin A1c/Hemoglobin.total mass fraction (Bld) 5.8 % Normal 4.6 - 7.1 Comprehensiv e Internal Medicine Work Phone: BNP,B-Type NATRIURETIC PEPTI DEOrdered By: Museum Informatics Specialist on 11-17-2017 BNP,B-Type NATRIURETIC PEPTIDE 11.3 pg/mL Normal 0-100 Comprehensiv e Internal Medicine Work Phone: Comment on above: [facility] [address] [place], [place], [phone] CBC W/Diff, AutomatedOrdered By: Museum Informatics Specialist on 11-17-2017 Absolute Neut 12.2 {X10_3/uL} Abnormal 2.0-7.7 Compre [facility] Work Phone: Comment on above: [facility] [address] [place], [place], [phone] Basophils/100 WBC (Bld) 0.1 % Normal 0-1 [facility] Work Phone: Comment on above: [facility] [address] [place], [address] Eosinophils/100 WBC (Bld) 0.1 % Normal 0-5 [facility] Work Phone: Comment on above: [facility] [address] [place], [address] Erythrocyte distribution width Ratio (RBC) 13.8 % Normal 11.6-14.6 [facility] Work Phone: Comment on above: [facility] [address] [place], [address] Hematocrit Volume Fraction (Bld) 43.4 % Normal 40-54 [facility] Work Phone: Comment on above: [place] [address] [place], [place], [phone] Hemoglobin mass conc (Bld) 14.2 g/dL Normal 13.0-16.5 [facility] Work Phone: Comment on above: [place] [address] [place], [address] IM GRAN % 0.600 % Normal 0.0-0.9 [facility] Work Phone: Comment on above: IG% - Immature Granu locytes (promyelocytes, myelocytes andmetamyelocytes) > 1% indicates that a LEFT SHIFT is Present. [place] [address] [place], [place], [phone] Lymphocytes #/vol (Bld) 0.66 {X10_3/ul} Abnormal 0.83-4.51 [facility] Work Phone: Comment on above: [facility] [address] [place], [address] Lymphocytes/100 WBC (Bld) 4.9 % Abnormal 19-41 [facility] Work Phone: Comment on above: [facility] [address] [place], [address] MCH Entitic mass (RBC) 29.0 pg Normal 27.0-32.0 [facility] Work Phone: Comment on above: [facility] [address] [place], [address] MCHC mass conc (RBC) 32.7 {g/gl} Normal 32-36 Com prehensive Internal Medicine Work Phone: Comment on above: [facility] [address] [place], [address] MCV Entitic volume (RBC) 88.8 fL Normal 80-94 [facility] Work Phone: Comment on above: [facility] [address] [place], [address] Monocytes/100 WBC (Bld) 4.1 % Normal 0-10 [facility] Work Phone: Comment on above: [facility] [address] [place], [address] Neutrophils/100 WBC (Bld) 90.2 % Abnormal 47-70 [facility] Work Phone: Comment on above: [facility] [address] [place], [address] Platelet mean volume Entitic volume (Bld) 10.0 fL Normal 6.2-12.0 Comprehensi Internal Medicine Work Phone: Comment on above: [facility] [address] [place], [address] Platelets #/vol (Bld) 308 10*3/uL Normal 150-450 Co [facility] monettensive Internal Medicine Work Phone: Comment on above: [facility] [address] [place], [address] RBC #/vol (Bld) 4.89 {M/mm3} Normal 4.6-6.2 Compreh ensive Internal Medicine Work Phone: Comment on above: [facility] [address] [place], [place], [phone] RDW SD 44.8 fL Abnormal 35.1-43.9 [facility] Work Phone: Comment on above: [facility] [address] [place], [place], [address] WBC #/vol (Bld) 13.5 10*3/uL Abnormal 4.4-11.0 Compreh ensive Internal Medicine Work Phone: Comment on above: [facility] [address] [place], [place], [address] Comprehensive Metabolic Prof ilOrdered By: Museum Informatics Specialist on 11-17-2017 Comprehensive metabolic 2000 panel 26 U/L Normal 15-37 Comprehensi ve Internal Medicine Work Phone: Comment on above: [facility] [address] [place], [place], [address] Comprehensive metabolic 2000 panel 8.8 mg/dL Normal 8.5-10.1 Comprehensi ve Internal Medicine Work Phone: Comment on above: [facility] [address] [place], [place], [address] Comprehensive metabolic 2000 panel 3.8 mmol/L Normal 3.5-5.1 Comprehensi ve Internal Medicine Work Phone: Comment on above: [facility] [address] [place], [place], [address] Comprehensive metabolic 2000 panel 0.7 {RATIO} Abnormal 0.9-2.4 Comprehensi ve Internal Medicine Work Phone: Comment on above: [facility] [address] [place], [place], [address] Comprehensive metabolic 2000 panel 4.3 g/dL Abnormal 2.2-4.2 Comprehensi ve Internal Medicine Work Phone: Comment on above: [facility] [address] [place], [place], [address] Comprehensive metabolic 2000 panel 3.2 g/dL Normal 3.2-5.0 Comprehensi ve Internal Medicine Work Phone: Comment on above: [facility] [address] [place], [place], [address] Comprehensive metabolic 2000 panel 7.5 g/dL Normal 6.4-8.2 Comprehensi ve Internal Medicine Work Phone: Comment on above: [facility] [address] [place], [place], [address] Comprehensive metabolic 2000 panel 17.5 {RATIO} Normal 10-20 Comprehensi ve Internal Medicine Work Phone: Comment on above: [facility] [address] [place], [place], [address] Comprehensive metabolic 2000 panel 109 U/L Normal 45-117 Comprehensi ve Internal Medicine Work Phone: Comment on above: [facility] [address] [place], [place], [address] Comprehensive metabolic 2000 panel 82 mL/min Normal Comprehensi ve Internal Medicine Work Phone: Comment on above: Non- GFR Calc [facility] [address] [place], [place], [address] Comprehensive metabolic 2000 panel 1.03 mg/dL Normal 0.70-1.30 Comprehensi ve Internal Medicine Work Phone: Comment on above: The validity of the calculated GFR AND GFRAA in patients over70 years has not been determined. Clinical correlation isessential. [facility] [address] [place], [place], [address] Comprehensive metabolic 2000 panel 18 mg/dL Normal 7-18 Comprehensi ve Internal Medicine Work Phone: Comment on above: [facility] [address] [place], [place], [address] Comprehensive metabolic 2000 panel 124 mg/dL Abnormal 74-106 Comprehensi ve Internal Medicine Work Phone: Comment on above: Fasting Glucose resu lt from 100 to 125 mg/dLsuggests IMPAIRED HOMEOSTASIS per A.D.A. criteria.Please note revised GLUCOSE reference range psnxjpynt06/02/2018. [facility] [address] [place], [place], [phone] Comprehensive metabolic 2000 panel 80 U/L Abnormal 16-61 Comprehensi ve Internal Medicine Work Phone: Comment on above: [facility] [address] [place], [place], [address] Comprehensive metabolic 2000 panel 0.40 mg/dL Normal 0.20-1.00 Comprehensi ve Internal Medicine Work Phone: Comment on above: [facility] [address] [place], [place], [address] Comprehensive metabolic 2000 panel 139 mmol/L Normal 136-145 Comprehensi ve Internal Medicine Work Phone: Comment on above: [facility] [address] [place], [place], [phone] Comprehensive metabolic 2000 panel 102 mmol/L Normal 98-107 Comprehensi ve Internal Medicine Work Phone: Comment on above: [facility] [address] [place], [place], [address] Comprehensive metabolic 2000 panel 28.0 mmol/L Normal 21.0-32.0 Comprehensi ve Internal Medicine Work Phone: Comment on above: [facility] [address] [place], [place], [address] Comprehensive metabolic 2000 panel 9 1 Normal 5-15 Comprehensi ve Internal Medicine Work Phone: Comment on above: [facility] [address] [place], [place], [address] Comprehensive metabolic 2000 panel 99 mL/min Normal Comprehensi ve Internal Medicine Work Phone: Comment on above: GFR Calc [facility] [address] [place], [address] Sputum CultureOrdered By: Christiano stem Dry Can Tender on 11-15-2017 Bacteria identified Cx Nom (Sput) Final report Normal [facility] Work Phone: Comment on above: PATIENT NOT FASTINGP ERFORMED BY: CB [facility] Wqzbjg7[address] [place] [id number] Bacteria identified Cx Nom (Sput) RRF Normal [facility] Work Phone: Comment on above: Routine respiratory nathan PATIENT NOT FASTINGP ERFORMED BY: CB [facility] Jbcxbg3367 [address]Dublin [place] [id number] Sputum Culture ([id number])Ordere d By: Museum Informatics Specialist on 11-15-2017 Epithelial cells.squamous LM Ql (Sput) Few Normal [facility] Work Phone: Comment on above: PATIENT NOT FASTINGP ERFORMED BY: CB [facility] Npkjzw0797 [address] RoadDuin [place] [id number] Information: SRC:SP Microscopic observation Gram stain Nom (Sput) PCM Normal [facility] Work Phone: Comment on above: Moderate number of g jamal positive cocci. PATIENT NOT FASTINGP ERFORMED BY: CB [facility] Uwmqjr1540 [address]Dublin [place] [id number] Information: SRC:SP Microscopic observation Gram stain Nom (Sput) GSACC Normal [facility] Work Phone: Comment on above: This specimen is of good quality and is acceptable for routinebacterial culture. PATIENT NOT FASTINGP ERFORMED BY: CB [facility] Lswnfm5128 [address]Dublin [place] [id number] Information: SRC:SP WBC LM Ql (Sput) Few Normal Comprehe nsive Internal Medicine Work Phone: Comment on above: PATIENT NOT FASTINGP ERFORMED BY: CB [facility] Pqvkwy4235 [address] RoadDublin [place] [id number] Information: SRC:SP ANTINUCLEAR ANTIBODIES DIREC TOrdered By: Museum Informatics Specialist on 04-14-2017 Nuclear Ab Ql (S) Negative Normal Compreh ensive Internal Medicine Work Phone: Comment on above: Performed at: [employer] [address] [id number] Director: Constantino Cruz PhD, Phone: [phone] [facility] (refer to re port for specific site)refer to report for address and phone number Anti-Smooth Muscle ABSOrdere d By: Museum In[employer] Specialist on 04-14-2017 Smooth muscle Ab Ql (S) 16 {Units} Normal 0-19 [facility] Work Phone: Comment on above: Negative 0 - 19 Weak positive 20 - 30 Moderate to strong positive >30 Actin Antibodies are found in 52-85% of patients with autoimmune hepatitis or chronic active hepatitis and in 22% of patients with primary biliary cirrhosis.Performed at: [facility] [address] [id number] Director: Constantino Cruz PhD, Phone: [phone] [facility] (refer to re port for specific site)refer to report for address and phone number Liver ProfileOrdered By: Sys tem Dry Can Tender on 04-14-2017 Albumin mass conc 3.2 g/dL Normal 3.2-5.0 Compreh [facility] Internal [facility] Work Phone: Comment on above: [facility] [address] [place], [place], [address] ALP enzyme act/vol 82 U/L Normal 45-117 [facility] Internal Medicine Work Phone: Comment on above: [facility] [address] [place], [place], [address] ALT enzyme act/vol 64 U/L Abnormal 16-61 [facility] Internal Medicine Work Phone: Comment on above: Please note revised ALT reference range /28/2018. [facility] [address] [place], [address] AST enzyme act/vol 24 U/L Normal 15-37 [facility] hens[facility] Work Phone: Comment on above: [facility] [address] [place], [place], [address] Bilirubin mass conc 0.70 mg/dL Normal 0.20-1.00 Compr ehensive Internal Medicine Work Phone: Comment on above: [facility] [address] [place], [place], [address] Bilirubin.direct mass conc 0.12 mg/dL Normal 0.00-0.30 [facility] Work Phone: Comment on above: [facility] [address] [place], [place], [address] Globulin mass conc (S) 4.3 g/dL Abnormal 2.2-4.2 [facility] Work Phone: Comment on above: [facility] [address] [place], [place], [address] Protein mass conc 7.5 g/dL Normal 6.4-8.2 Compreh ensive Internal Medicine Work Phone: Comment on above: [facility] [address] [place], [place], [address] Liver ProfileOrdered By: Mima tem Dry Can Tender on 03-23-2017 Albumin mass conc 3.6 g/dL Normal 3.4-5.0 Compreh ensive Internal Medicine Work Phone: Comment on above: Please note revised Albumin AND Globulin reference rangeeffective 2016. [facility] [address] [place], [place], [address] ALP enzyme act/vol 91 U/L Normal 45-117 Compre [facility] Internal Medicine Work Phone: Comment on above: [facility] [address] [place], [place], [address] ALT enzyme act/vol 80 U/L Abnormal 12-78 Compre [facility] Work Phone: Comment on above: [facility] [address] [place], [place], [address] AST enzyme act/vol 30 U/L Normal 15-37 Compre [facility] Internal Medicine Work Phone: Comment on above: [facility] [address] [place], [place], [address] Bilirubin mass conc 0.50 mg/dL Normal 0.20-1.[address] [facility] Internal Medicine Work Phone: Comment on above: [facility] [address] [place], [place], [address] Bilirubin.direct mass conc 0.07 mg/dL Normal 0.00-0.30 [facility] Work Phone: Comment on above: [facility] [address] [place], [place], [address] Globulin mass conc (S) 4.3 g/dL Abnormal 2.2-4.2 [facility] Work Phone: Comment on above: [facility] [address] [place], [place], [address] Protein mass conc 7.9 g/dL Normal 6.4-8.2 Compreh [facility] Internal Medicine Work Phone: Comment on above: [facility] [address] [place], [place], [address] ALK Phos IsoenzymeOrdered By : Museum Informatics Specialist on 03-10-2017 ALP Iso Qn 77 [iU]/L Normal 39-117 [facility] Work Phone: Comment on above: [facility] (refer to re port for specific site)refer to report for address and phone number ALP Iso Qn 37 % Normal 12-68 [facility] Work Phone: Comment on above: [facility] (refer to re port for specific site)refer to report for address and phone number ALP Iso Qn 1 % Normal 0-18 [facility] Work Phone: Comment on above: Performed at: - L [address] [id number] Director: Constantino Cruz PhD, Phone: [phone] [facility] (refer to re port for specific site)refer to report for address and phone number ALP Iso Qn 62 % Normal 13-88 [facility] Work Phone: Comment on above: [facility] (refer to re port for specific site)refer to report for address and phone number CBC W/Diff, AutomatedOrdered By: Museum In[employer] Specialist on 03-10-2017 Absolute Neut 8.6 {X10_3/uL} Abnormal 2.0-7.7 Compreh ensive Internal Medicine Work Phone: Comment on above: [facility] [address] [place], [address] Basophils/100 WBC (Bld) 0.1 % Normal 0-1 Comprehensive [facility] Work Phone: Comment on above: [facility] [address] [place], [address] Eosinophils/100 WBC (Bld) 0.7 % Normal 0-5 Comprehensive [facility] Work Phone: Comment on above: [facility] [address] [place], [address] Erythrocyte distribution width Ratio (RBC) 13.7 % Normal 11.6-14.6 [facility] Work Phone: Comment on above: [facility] [address] [place], [address] Hematocrit Volume Fraction (Bld) 42.5 % Normal 40-54 Comprehensive [facility] Work Phone: Comment on above: [facility] [address] [place], [address] Hemoglobin mass conc (Bld) 14.5 g/dL Normal 13.0-16.5 Comprehensive [facility] Work Phone: Comment on above: [facility] [address] [place], [address] IM GRAN % 0.400 % Normal 0.0-0.9 Comprehensive [facility] Medicine Work Phone: Comment on above: IG% - Immature Granu locytes (promyelocytes, myelocytes andmetamyelocytes) > 1% indicates that a LEFT SHIFT is Present. [facility] [address] [place], [address] Lymphocytes #/vol (Bld) 1.01 {X10_3/ul} Normal 0.83-4.51 [facility] Work Phone: Comment on above: [facility] [address] [place], [address] Lymphocytes/100 WBC (Bld) 9.8 % Abnormal 19-41 [facility] Work Phone: Comment on above: [facility] [address] [place], [address] MCH Entitic mass (RBC) 30.3 pg Normal 27.0-32.0 [facility] Work Phone: Comment on above: [facility] [address] [place], [address] MCHC mass conc (RBC) 34.1 {g/gl} Normal 32-36 [facility] prehensive Internal Medicine Work Phone: Comment on above: [facility] [address] [place], [address] MCV Entitic volume (RBC) 88.7 fL Normal 80-94 [facility] Work Phone: Comment on above: [facility] [address] [place], [address] Monocytes/100 WBC (Bld) 5.2 % Normal 0-10 [facility] Work Phone: Comment on above: [facility] [address] [place], [place], [phone] Neutrophils/100 WBC (Bld) 83.8 % Abnormal 47-70 [facility] Work Phone: Comment on above: [facility] [address] [place], [address] Platelet mean volume Entitic volume (Bld) 10.0 fL Normal 6.2-12.0 Comprehensi Internal Medicine Work Phone: Comment on above: [facility] [address] [place], [address] Platelets #/vol (Bld) 294 10*3/uL Normal 150-450 [facility] Internal Medicine Work Phone: Comment on above: [facility] [address] [place], [address] RBC #/vol (Bld) 4.79 {M/mm3} Normal 4.6-6.2 Compreh ensive Internal Medicine Work Phone: Comment on above: [facility] [address] [place], [address] RDW SD 44.0 fL Abnormal 35.1-43.9 [facility] Work Phone: Comment on above: [facility] [address] [place], [address] WBC #/vol (Bld) 10.3 10*3/uL Normal 4.4-11.0 Compreh ensive Internal Medicine Work Phone: Comment on above: [facility] [address] [place], [address] COLON BIOPSY (CHOOSE SITE)Or dered By: Museum Informatics Specialist on 03-07-2017 COLON BIOPSY (CHOOSE SITE) See Note Normal [facility] Work Phone: Comment on above: Patient: KILLIAN NOGUEIRA : 1970 (46/M) Acct Num: [id number] Phys: Constantino Mcelroy Unit Num: [id number] Loc: LABSPEC Specimen: [id number] Received: 03/07/171523 Spec Type: COLON BX TISSUES TISSUES: A. [...] tissue that in aggregate measure 0.3 x 0.2x 0.1 cm. The specimen is totally submitted in one cassette. / SJ:deandra 03/08/17 TC:2 CPT: 62295 x2 HEADER OPERATION: Colonoscopy with biopsy PRE-OP DIAGNOSIS: History ulcerative colitis TISSUE SUBMITTED: A Biopsy left colon, rule out ulcerative colitis/dysplasia;descending colon polyp/ pseudopolyp, rule out dysplasia, B [...] dysplasia. AM:deandra 03/09/17 Signed Ramone Turk 03/09/17 ; ADDENDA: Dr Navi [place] [facility] [address] [place] [address], [phone] Liver ProfileOrdered By: Mima tem Dry Can Tender on 01-09-2017 Albumin mass conc 3.2 g/dL Abnormal 3.4-5.0 Compreh ensive Internal Medicine Work Phone: Comment on above: Please note revised Albumin AND Globulin reference rangeeffective 2016. [facility] [address] [place], [place], [phone] ALP enzyme act/vol 258 U/L Abnormal 45-117 Compre hensive Internal Medicine Work Phone: Comment on above: [facility] [address] [place], [place], [phone] ALT enzyme act/vol 91 U/L Abnormal 12-78 Compre hensive Internal Medicine Work Phone: Comment on above: [facility] [address] [place], [address] AST enzyme act/vol 55 U/L Abnormal 15-37 Compre [facility] Work Phone: Comment on above: [facility] [address] [place], [place], [phone] Bilirubin mass conc 0.40 mg/dL Normal 0.20-1.00 Compr ensive Internal Medicine Work Phone: Comment on above: [facility] [address] [place], [place], [phone] Bilirubin.direct mass conc 0.10 mg/dL Normal 0.00-0.30 [facility] Work Phone: Comment on above: [facility] [address] [place], [address] Globulin mass conc (S) 4.6 g/dL Abnormal 2.2-4.2 [facility] Work Phone: Comment on above: [facility] [address] [place], [place], [phone] Protein mass conc 7.8 g/dL Normal 6.4-8.2 Compreh ensive Internal Medicine Work Phone: Comment on above: [facility] [address] [place], [address] VICKY Comprehensive PanelOrder ed By: Museum Informatics Specialist on 11-29-2016 VICKY Comprehensive Panel Normal [facility] Work Phone: Comment on above: TEST RESULT LIMITSAN A Comprehensive Plus ProfileAnti-DNA (DS) Ab Qn 10 High IU/mL 0 - 9 Negative <5 Equivocal 5 - 9 Positive >9RNP Antibodies 0.4 AI 0.0 - 0.9Smith Antibodies <0.2 AI 0.0 - 0.9Smith/DIE ATTACHER Antibodies <0.2 AI 0.0 - 0.9Antiscleroderma-70 Antibodies <0.2 AI 0.0 - 0.9Sjogren's Anti-SS-A <0.2 AI 0.0 - 0.9Sjogren's Anti-SS-B <0.2 AI 0.0 - 0.9Antichromatin Antibodies <0.2 AI 0.0 - 0.9Antiribosomal P Antibodies <0.2 AI 0.0 - 0.9Anti-Jocelin-1 <0.2 AI 0.0 - 0.9Anti-Centromere B Antibodies <0.2 AI 0.0 - 0.9See below: Autoantibody Disease Association Condition Frequency Antinuclear Antibody, SLE, mixed connectiveDirect (VICKY-D) tissue diseases dsDNA SLE 40 - 60% Chromatin Drug induced SLE 90% SLE 48 - 97% SSA (Ro) SLE 25 - 35% Sjogren's Syndrome 40 - 70% Lupus 100% SSB (La) SLE 10% Sjogren's Syndrome 30% Sm (anti-Peace) SLE 15 - 30% RNP Mixed Connective Tissue Disease 95%(U1 nRNP, SLE 30 - 50%anti-ribonucleoprotein) Polymyositis and/orDermatomyositis 20% Scl-70 (antiDNA Scleroderma (diffuse) 20 - 35%topoisomerase) Crest 13% Jo-1 Polymyositis and/or Dermatomyositis 20 - 40% Centromere B Scleroderma - Crest variant 80% Ribosomal P SLE 10 - 20% TESTING PERFORMED AT [facility]. ORIGINAL REPORT ON FILE IN LAB CONTAINS ADDITIONAL TEST SITE INFORMATION. [facility] (refer to re port for specific site)refer to report for address and phone number VICKY w/Robe Salmeron y: Museum Informatics Specialist on 11-29-2016 VICKY w/Comprehensive Test not performed Normal [facility] Work Phone: Comment on above: Test not performed [facility] (refer to re port for specific site)refer to report for address and phone number; Dr Mcelroy Please refer to the following specimen for additional labresults.See Report: [id number] Negative <5 Equivocal 5 - 9 Positive >9 VICKY w/Comprehensive Comment Normal Compr ehensive Internal Medicine Work Phone: Comment on above: Autoantibody Disease Association Condition Frequency Antinuclear Antibody, SLE, mixed connectiveDirect (VICKY-D) tissue diseases dsDNA SLE 40 - 60% Chromatin Drug induced SLE 90% SLE 48 - 97% SSA (Ro) SLE 25 - 35% Sjogren's Syndrome 40 - 70% Lupus 100% SSB (La) SLE 10% Sjogren's Syndrome 30% Sm (anti-Peace) SLE 15 - 30% RNP Mixed Connective Tissue Disease 95%(U1 nRNP, SLE 30 - 50%anti-ribonucleoprotein) Polymyositis and/or Dermatomyositis 20% Scl-70 (antiDNA Scleroderma (diffuse) 20 - 35%topoisomerase) Crest 13% Jo-1 Polymyositis and/or Dermatomyositis 20 - 40% Centromere B Scleroderma - Crest variant 80% Ribosomal P SLE 10 - 20% [facility] (refer to re port for specific site)refer to report for address and phone number; Dr Mcelroy Complement [id number] By: Sys tem Dry Can Tender on 11-29-2016 Complement C3 122 mg/dL Normal 82-167 Comprehensi Internal Medicine Work Phone: Comment on above: [facility] (refer to re port for specific site)refer to report for address and phone number Complement [id number] By: Sys tem Dry Can Tender on 11-29-2016 Complement C4 mass conc 29 mg/dL Normal 14-44 [facility] Work Phone: Comment on above: [facility] (refer to re port for specific site)refer to report for address and phone number Thyroid Peroxidase ABOrdered By: Museum Informatics Specialist on 11-29-2016 Thyroperoxidase Ab Qn 13 {IU/mL} Normal 0-34 Com prehensive Internal Medicine Work Phone: Comment on above: Performed at: [address] [id number] Director: Constantino Cruz PhD, Phone: [phone] [facility] (refer to re port for specific site)refer to report for address and phone number ANTINUCLEAR ANTIBODIES DIREC TOrdered By: Museum Informatics Specialist on 11-23-2016 Nuclear Ab Ql (S) Positive Abnormal Compreh ensive Internal Medicine Work Phone: Comment on above: Performed at: [facility] [address] [id number] Director: Constantino Cruz PhD, Phone: [phone] [facility] (refer to re port for specific site)refer to report for address and phone number Anti-Smooth Muscle ABSOrdere d By: Museum Informatics Specialist on 11-23-2016 Smooth muscle Ab Ql (S) 13 {Units} Normal 0-19 [facility] Work Phone: Comment on above: Negative 0 - 19 Weak positive 20 - 30 Moderate to strong positive >30 Actin Antibodies are found in 52-85% of patients with autoimmune hepatitis or chronic active hepatitis and in 22% of patients with primary biliary cirrhosis. [facility] (refer to re port for specific site)refer to report for address and phone number FerritinOrdered By: Claire salguero on 11-23-2016 Ferritin mass conc 62 ng/mL Normal 26-388 Compre hensive Internal Medicine Work Phone: Comment on above: [facility] [address] [place], [place], [address] Hepatitis C AntibodiesOrdere d By: Museum Informatics Specialist on 11-23-2016 Hepatitis C Antibodies 0.1 {s/co_ratio} Normal 0.0-0.9 [facility] Work Phone: Comment on above: Negative: < 0.8 Inde terminate: 0.8 - 0.9 Positive: > 0.9 The CDC recommends that a positive HCV antibody result be followed up with a HCV Nucleic Acid Amplification test (727304).Performed at: [facility] [address] [id number] Director: Constantino Cruz PhD, Phone: [phone] [facility] (refer to re port for specific site)refer to report for address and phone number CBC W/Diff, AutomatedOrdered By: Museum Informatics Specialist on 11-22-2016 Absolute Neut 4.2 {X10_3/uL} Normal 2.0-7.7 Compreh ensive Internal Medicine Work Phone: Comment on above: [facility] [address] [place], [address] Basophils/100 WBC (Bld) 0.3 % Normal 0-1 [facility] Work Phone: Comment on above: [facility] [address] [place], [address] Eosinophils/100 WBC (Bld) 4.6 % Normal 0-5 [facility] Work Phone: Comment on above: [facility] [address] [place], [place], [phone] Erythrocyte distribution width Ratio (RBC) 12.5 % Normal 11.6-14.6 [facility] Work Phone: Comment on above: [facility] [address] [place], [address] Hematocrit Volume Fraction (Bld) 40.0 % Normal 40-54 [facility] Work Phone: Comment on above: [facility] [address] [place], [address] Hemoglobin mass conc (Bld) 13.9 g/dL Normal 13.0-16.5 [facility] Work Phone: Comment on above: [facility] [address] [place], [address] IM GRAN % 0.100 % Normal 0.0-0.9 [facility] Work Phone: Comment on above: IG% - Immature Granu locytes (promyelocytes, myelocytes andmetamyelocytes) > 1% indicates that a LEFT SHIFT is Present. [facility] [address] [place], [place], [phone] Lymphocytes #/vol (Bld) 2.22 {X10_3/ul} Normal 0.83-4.51 [facility] Work Phone: Comment on above: [facility] [address] [place], [address] Lymphocytes/100 WBC (Bld) 29.8 % Normal 19-41 [facility] Work Phone: Comment on above: [facility] [address] [place], [address] MCH Entitic mass (RBC) 30.8 pg Normal 27.0-32.0 [facility] Work Phone: Comment on above: [facility] [address] [place], [address] MCHC mass conc (RBC) 34.8 {g/gl} Normal 32-36 [facility] Internal Medicine Work Phone: Comment on above: [facility] [address] [place], [address] MCV Entitic volume (RBC) 88.5 fL Normal 80-94 [facility] Internal Medicine Work Phone: Comment on above: [facility] [address] [place], [address] Monocytes/100 WBC (Bld) 9.0 % Normal 0-10 [facility] Work Phone: Comment on above: [facility] [address] [place], [address] Neutrophils/100 WBC (Bld) 56.2 % Normal 47-70 [facility] Work Phone: Comment on above: [facility] [address] [place], [address] Platelet mean volume Entitic volume (Bld) 10.6 fL Normal 6.2-12.0 [facility] Internal [facility] Work Phone: Comment on above: [facility] [address] [place], [address] Platelets #/vol (Bld) 354 10*3/uL Normal 150-450 Co mprehensive Internal Medicine Work Phone: Comment on above: [facility] [address] [place], [phone] RBC #/vol (Bld) 4.52 {M/mm3} Abnormal 4.6-6.2 Compreh ensive Internal Medicine Work Phone: Comment on above: [facility] [address] [place], [place], [phone] RDW SD 40.5 fL Normal 35.1-43.9 [facility] Work Phone: Comment on above: [facility] [address] [place], [place], [phone] WBC #/vol (Bld) 7.5 10*3/uL Normal 4.4-11.0 Comprehe nsive Internal Medicine Work Phone: Comment on above: [facility] [address] [place], [address] Liver ProfileOrdered By: Mima tem Dry Can Tender on 11-22-2016 Albumin mass conc 3.3 g/dL Abnormal 3.4-5.0 Compreh ensive Internal Medicine Work Phone: Comment on above: [facility] [address] [place], [address] ALP enzyme act/vol 277 U/L Abnormal 45-117 Compre [facility] Internal Medicine Work Phone: Comment on above: [facility] [address] [place], [address] ALT enzyme act/vol 136 U/L Abnormal 12-78 Compre [facility] Internal Medicine Work Phone: Comment on above: [facility] [address] [place], [address] AST enzyme act/vol 69 U/L Abnormal 15-37 Compre [facility] Internal Medicine Work Phone: Comment on above: [facility] [address] [place], [place], [phone] Bilirubin mass conc 0.30 mg/dL Normal 0.20-1.00 Compr ehensive Internal Medicine Work Phone: Comment on above: [facility] [address] [place], [place], [phone] Bilirubin.direct mass conc 0.10 mg/dL Normal 0.00-0.30 [facility] Work Phone: Comment on above: [facility] [address] [place], [place], [phone] Globulin mass conc (S) 4.7 g/dL Abnormal 2.3-3.5 [facility] Work Phone: Comment on above: [facility] [address] [place], [place], [phone] Protein mass conc 8.0 g/dL Normal 6.4-8.2 Compreh ensive Internal Medicine Work Phone: Comment on above: [facility] [address] [place], [place], [phone] Liver ProfileOrdered By: Mima tem Dry Can Tender on 11-01-2016 Albumin mass conc 3.4 g/dL Normal 3.4-5.0 Compreh ensive Internal Medicine Work Phone: Comment on above: [facility] [address] [place], [place], [phone] ALP enzyme act/vol 231 U/L Abnormal 45-117 Compre hensive Internal Medicine Work Phone: Comment on above: [facility] [address] [place], [place], [phone] ALT enzyme act/vol 86 U/L Abnormal 12-78 Compre hensive Internal Medicine Work Phone: Comment on above: [facility] [address] [place], [place], [phone] AST enzyme act/vol 62 U/L Abnormal 15-37 Compre hensive Internal Medicine Work Phone: Comment on above: [facility] [address] [place], [place], [phone] Bilirubin mass conc 0.50 mg/dL Normal 0.20-1.00 Compr ehensive Internal Medicine Work Phone: Comment on above: [facility] [address] [place], [place], [phone] Bilirubin.direct mass conc 0.10 mg/dL Normal 0.00-0.30 [facility] Work Phone: Comment on above: [facility] [address] [place], [place], [phone] Globulin mass conc (S) 4.9 g/dL Abnormal 2.3-3.5 [facility] Work Phone: Comment on above: ADDENDA: Dr Mcelroy [facility] [address] [place], [place], [phone] Protein mass conc 8.3 g/dL Abnormal 6.4-8.2 Compreh ensive Internal Medicine Work Phone: Comment on above: [facility] [address] [place], [place], [phone] Liver ProfileOrdered By: Mima tem Dry Can Tender on 09-26-2016 Albumin mass conc 3.3 g/dL Abnormal 3.4-5.0 Compreh ensive Internal Medicine Work Phone: Comment on above: [facility] [address] [place], [place], [address] ALP enzyme act/vol 184 U/L Abnormal 45-117 Compre hensive Internal Medicine Work Phone: Comment on above: [facility] [address] [place], [address] ALT enzyme act/vol 47 U/L Normal 12-78 Compre [facility] Internal Medicine Work Phone: Comment on above: [facility] [address] [place], [place], [phone] AST enzyme act/vol 36 U/L Normal 15-37 Compre [facility] Internal Medicine Work Phone: Comment on above: [facility] [address] [place], [place], [phone] Bilirubin mass conc 0.50 mg/dL Normal 0.20-1.00 Compr ensive Internal Medicine Work Phone: Comment on above: [facility] [address] [place], [address] Bilirubin.direct mass conc 0.13 mg/dL Normal 0.00-0.30 [facility] Work Phone: Comment on above: [facility] [address] [place], [place], [phone] Globulin mass conc (S) 4.4 g/dL Abnormal 2.3-3.5 [facility] Work Phone: Comment on above: [facility] [address] [place], [address] Protein mass conc 7.7 g/dL Normal 6.4-8.2 Compreh [facility] Internal [facility] Work Phone: Comment on above: [facility] [address] [place], [address] Basic Metabolic Profile (BMP )Ordered By: Museum Informatics Specialist on 09-09-2016 Basic metabolic 2000 panel 85 mL/min Normal [facility] Work Phone: Comment on above: Non- GFR Calc 'TROP' Serial specim en #1, #2, #3, or #4: [facility] [address] [place], [address] Basic metabolic 2000 panel 105 mmol/L Normal 98-107 [facility] Work Phone: Comment on above: 'TROP' Serial specim en #1, #2, #3, or #4: [address] [place] [address] [place], [place], [phone] Basic metabolic 2000 panel 3.8 mmol/L Normal 3.5-5.1 [facility] Work Phone: Comment on above: 'TROP' Serial specim en #1, #2, #3, or #4: [address] [place] [address] [place], [place], [phone] Basic metabolic 2000 panel 97 mg/dL Normal 70-110 [facility] Work Phone: Comment on above: 'TROP' Serial specim en #1, #2, #3, or #4: [address] [place] [address] [place], [place], [phone] Basic metabolic 2000 panel 13 mg/dL Normal 7-18 [facility] Work Phone: Comment on above: 'TROP' Serial specim en #1, #2, #3, or #4: [address] [place] [address] [place], [address] Basic metabolic 2000 panel 138 mmol/L Normal 136-145 [facility] Work Phone: Comment on above: 'TROP' Serial specim en #1, #2, #3, or #4: [address] [place] [address] [place], [place], [phone] Basic metabolic 2000 panel 5 1 Normal 5-15 [facility] Work Phone: Comment on above: 'TROP' Serial specim en #1, #2, #3, or #4: [address] [place] [address] [place], [place], [phone] Basic metabolic 2000 panel 1.00 mg/dL Normal 0.70-1.30 [facility] Work Phone: Comment on above: The validity of the calculated GFR AND GFRAA in patients over70 years has not been determined. Clinical correlation isessential. 'TROP' Serial specim en #1, #2, #3, or #4: [address] [place] [address] [place], [place], [phone] Basic metabolic 2000 panel 8.5 mg/dL Normal 8.5-10.1 [facility] Work Phone: Comment on above: 'TROP' Serial specim en #1, #2, #3, or #4: [address] [place] [address] [place], [place], [phone] Basic metabolic 2000 panel 13.0 {RATIO} Normal 10-20 [facility] Work Phone: Comment on above: 'TROP' Serial specim en #1, #2, #3, or #4: [address] [place] [address] [place], [place], [phone] Basic metabolic 2000 panel 28.0 mmol/L Normal 21.0-32.0 [facility] Work Phone: Comment on above: 'TROP' Serial specim en #1, #2, #3, or #4: [address] [place] [address] [place], [address] Basic metabolic 2000 panel 103 mL/min Normal [facility] Work Phone: Comment on above: GFR Calc 'TROP' Serial specim en #1, #2, #3, or #4: [address] [place] [address] [place], [place], [phone] Basic metabolic 2000 panel 97.26 ml/min Normal [facility] Work Phone: Comment on above: 'TROP' Serial specim en #1, #2, #3, or #4: [address] [place] [address] [place], [place], [phone] Bilirubin, DirectOrdered By: Museum Informatics Specialist on 09-09-2016 Bilirubin.conjugated mass conc 0.12 mg/dL Normal 0.00-0.30 [facility] Work Phone: Comment on above: CBCD LIVER HAILY BUTTS LIPID [facility] [address] [place], [place], [phone] CBC W/Diff, AutomatedOrdered By: Museum Informatics Specialist on 09-09-2016 Absolute Neut 5.6 {X10_3/uL} Normal 2.0-7.7 Compreh ensive Internal Medicine Work Phone: Comment on above: [facility] [address] [place], [address] Absolute Neut 7.1 {X10_3/uL} Normal 2.0-7.7 Compreh ensive Internal Medicine Work Phone: Comment on above: [facility] [address] [place], [address] Basophils/100 WBC (Bld) 0.5 % Normal 0-1 [facility] Work Phone: Comment on above: [facility] [address] [place], [address] Basophils/100 WBC (Bld) 0.4 % Normal 0-1 [facility] Work Phone: Comment on above: [facility] [facility] [address] [place], [address] Eosinophils/100 WBC (Bld) 3.1 % Normal 0-5 [facility] Work Phone: Comment on above: [facility] [address] [place], [address] Eosinophils/100 WBC (Bld) 4.7 % Normal 0-5 [facility] Work Phone: Comment on above: [facility] [address] [place], [address] Erythrocyte distribution width Ratio (RBC) 14.0 % Normal 11.6-14.6 [facility] Work Phone: Comment on above: [facility] [address] [place], [place], [phone] Hematocrit Volume Fraction (Bld) 40.5 % Normal 40-54 [facility] Work Phone: Comment on above: [facility] [address] [place], [address] Hematocrit Volume Fraction (Bld) 42.9 % Normal 40-54 [facility] Work Phone: Comment on above: [facility] [address] [place], [address] Hemoglobin mass conc (Bld) 14.0 g/dL Normal 13.0-16.5 [facility] Work Phone: Comment on above: [facility] [address] [place], [address] Hemoglobin mass conc (Bld) 15.1 g/dL Normal 13.0-16.5 [facility] Work Phone: Comment on above: [facility] [address] [place], [place], [phone] IM GRAN % 0.100 % Normal 0.0-0.9 [facility] Work Phone: Comment on above: IG% - Immature Granu locytes (promyelocytes, myelocytes andmetamyelocytes) > 1% indicates that a LEFT SHIFT is Present. [facility] [address] [place], [place], [phone] IM GRAN % 0.200 % Normal 0.0-0.9 [facility] Work Phone: Comment on above: IG% - Immature Granu locytes (promyelocytes, myelocytes andmetamyelocytes) > 1% indicates that a LEFT SHIFT is Present. [facility] [address] [place], [address] Lymphocytes #/vol (Bld) 1.44 {X10_3/ul} Normal 0.83-4.51 [facility] Work Phone: Comment on above: [facility] [address] [place], [address] Lymphocytes #/vol (Bld) 1.55 {X10_3/ul} Normal 0.83-4.51 [facility] Work Phone: Comment on above: [facility] [address] [place], [address] Lymphocytes/100 WBC (Bld) 16.1 % Abnormal 19-41 [facility] Work Phone: Comment on above: [facility] [address] [place], [address] Lymphocytes/100 WBC (Bld) 18.1 % Abnormal 19-41 [facility] Work Phone: Comment on above: [facility] [address] [place], [address] MCH Entitic mass (RBC) 31.0 pg Normal 27.0-32.0 [facility] Work Phone: Comment on above: [facility] [address] [place], [address] MCH Entitic mass (RBC) 31.5 pg Normal 27.0-32.0 [facility] Work Phone: Comment on above: [facility] [address] [place], [address] MCHC mass conc (RBC) 35.2 {g/gl} Normal 32-36 Com prehensive Internal Medicine Work Phone: Comment on above: [facility] [address] [place], [address] MCHC mass conc (RBC) 34.6 {g/gl} Normal 32-36 Com prehensive Internal Medicine Work Phone: Comment on above: [facility] [address] [place], [address] MCV Entitic volume (RBC) 89.6 fL Normal 80-94 [facility] Work Phone: Comment on above: [facility] [address] [place], [address] MCV Entitic volume (RBC) 89.8 fL Normal 80-94 [facility] Work Phone: Comment on above: [facility] [address] [place], [address] Monocytes/100 WBC (Bld) 6.8 % Normal 0-10 [facility] Work Phone: Comment on above: [facility] [address] [place], [address] Monocytes/100 WBC (Bld) 6.4 % Normal 0-10 [facility] Work Phone: Comment on above: [facility] [address] [place], [address] Neutrophils/100 WBC (Bld) 70.2 % Abnormal 47-70 [facility] Work Phone: Comment on above: [facility] [address] [place], [address] Neutrophils/100 WBC (Bld) 73.4 % Abnormal 47-70 [facility] Work Phone: Comment on above: [facility] [address] [place], [address] Platelet mean volume Entitic volume (Bld) 9.8 fL Normal 6.2-12.0 Comprehensi Internal Medicine Work Phone: Comment on above: [facility] [address] [place], [address] Platelet mean volume Entitic volume (Bld) 10.4 fL Normal 6.2-12.0 Comprehensi ve Internal Medicine Work Phone: Comment on above: [facility] [address] [place], [address] Platelets #/vol (Bld) 340 10*3/uL Normal 150-450 Co mprehensive Internal Medicine Work Phone: Comment on above: [facility] [address] [place], [address] Platelets #/vol (Bld) 382 10*3/uL Normal 150-450 Co mprehensive Internal Medicine Work Phone: Comment on above: [facility] [address] [place], [address] RBC #/vol (Bld) 4.79 {M/mm3} Normal 4.6-6.2 Compreh ensive Internal Medicine Work Phone: Comment on above: [facility] [address] [place], [address] RBC #/vol (Bld) 4.51 {M/mm3} Abnormal 4.6-6.2 Compreh ensive Internal Medicine Work Phone: Comment on above: [facility] [address] [place], [address] RDW SD 44.8 fL Abnormal 35.1-43.9 [facility] Work Phone: Comment on above: [facility] [address] [place], [address] RDW SD 45.2 fL Abnormal 35.1-43.9 [facility] Work Phone: Comment on above: [facility] [address] [place], [address] WBC #/vol (Bld) 7.9 10*3/uL Normal 4.4-11.0 Comprehe nsive Internal Medicine Work Phone: Comment on above: [facility] [address] [place], [place], [address] WBC #/vol (Bld) 9.6 10*3/uL Normal 4.4-11.0 Comprehe nsive Internal Medicine Work Phone: Comment on above: [facility] [address] [place], [place], [phone] Comprehensive Metabolic Prof ilOrdered By: Museum Informatics Specialist on 09-09-2016 Comprehensive metabolic 2000 panel 101 U/L Abnormal 12-78 Comprehensi ve Internal Medicine Work Phone: Comment on above: [facility] [address] [place], [place], [phone] Comprehensive metabolic 2000 panel 0.60 mg/dL Normal 0.20-1.00 Comprehensi ve Internal Medicine Work Phone: Comment on above: [facility] [address] [place], [place], [phone] Comprehensive metabolic 2000 panel 8.8 mg/dL Normal 8.5-10.1 Comprehensi ve Internal Medicine Work Phone: Comment on above: [facility] [address] [place], [place], [phone] Comprehensive metabolic 2000 panel 135 mmol/L Abnormal 136-145 Comprehensi ve Internal Medicine Work Phone: Comment on above: [facility] [address] [place], [place], [phone] Comprehensive metabolic 2000 panel 183 U/L Abnormal 45-117 Comprehensi ve Internal Medicine Work Phone: Comment on above: [facility] [address] [place], [place], [phone] Comprehensive metabolic 2000 panel 0.7 {RATIO} Abnormal 0.9-2.4 Comprehensi ve Internal Medicine Work Phone: Comment on above: [facility] [address] [place], [place], [phone] Comprehensive metabolic 2000 panel 79 U/L Abnormal 15-37 Comprehensi ve Internal Medicine Work Phone: Comment on above: [facility] [address] [place], [address] Comprehensive metabolic 2000 panel 3.7 mmol/L Normal 3.5-5.1 Comprehensi ve Internal Medicine Work Phone: Comment on above: [facility] [address] [place], [place], [phone] Comprehensive metabolic 2000 panel 9 1 Normal 5-15 Comprehensi ve Internal Medicine Work Phone: Comment on above: [facility] [address] [place], [place], [address] Comprehensive metabolic 2000 panel 24.0 mmol/L Normal 21.0-32.0 Comprehensi ve Internal Medicine Work Phone: Comment on above: [facility] [address] [place], [place], [address] Comprehensive metabolic 2000 panel 102 mmol/L Normal 98-107 Comprehensi ve Internal Medicine Work Phone: Comment on above: [facility] [address] [place], [place], [address] Comprehensive metabolic 2000 panel 73 mg/dL Normal 70-110 Comprehensi ve Internal Medicine Work Phone: Comment on above: [facility] [address] [place], [place], [address] Comprehensive metabolic 2000 panel 14 mg/dL Normal 7-18 Comprehensi ve Internal Medicine Work Phone: Comment on above: [facility] [address] [place], [place], [address] Comprehensive metabolic 2000 panel 1.06 mg/dL Normal 0.70-1.30 Comprehensi ve Internal Medicine Work Phone: Comment on above: The validity of the calculated GFR AND GFRAA in patients over70 years has not been determined. Clinical correlation isessential. [facility] [address] [place], [place], [address] Comprehensive metabolic 2000 panel 79 mL/min Normal Comprehensi ve Internal Medicine Work Phone: Comment on above: Non- GFR Calc [facility] [address] [place], [place], [address] Comprehensive metabolic 2000 panel 96 mL/min Normal Comprehensi ve Internal Medicine Work Phone: Comment on above: GFR Calc [facility] [address] [place], [place], [phone] Comprehensive metabolic 2000 panel 13.2 {RATIO} Normal 10-20 Comprehensi ve Internal Medicine Work Phone: Comment on above: [facility] [address] [place], [place], [address] Comprehensive metabolic 2000 panel 8.6 g/dL Abnormal 6.4-8.2 Comprehensi ve Internal Medicine Work Phone: Comment on above: [facility] LIPID [facility] [address] [place], [address] Comprehensive metabolic 2000 panel 3.6 g/dL Normal 3.4-5.0 Comprehensi ve Internal Medicine Work Phone: Comment on above: [facility] LIPID [facility] [address] [place], [address] Comprehensive metabolic 2000 panel 5.0 g/dL Abnormal 2.3-3.5 Comprehensi ve Internal Medicine Work Phone: Comment on above: [facility] [address] [place], [address] Lipid ProfileOrdered By: Mima tem Dry Can Tender on 09-09-2016 Cholesterol in HDL mass conc 49 mg/dL Normal [facility] Work Phone: Comment on above: The drugs N-Acetylcy steine and Metamizole may falsely deressthis assay. Reference Range HDL <40 mg/dL Low HDL Cholesterol HDL >or= 60 mg/dL High HDL Cholesterol [facility] [address] [place], [address] Cholesterol in LDL mass conc 116 mg/dL Normal 0-130 [facility] Work Phone: Comment on above: [facility] LIPID [facility] [address] [place], [address] Cholesterol in VLDL mass conc 41 mg/dL Abnormal 5-40 [facility] Work Phone: Comment on above: [facility] LIPID [facility] [address] [place], [address] Cholesterol mass conc 206 mg/dL Abnormal Com prehensive Internal Medicine Work Phone: Comment on above: <200 mg/dL Desirable 200-240 mg/dL Borderline >240 mg/dL High Risk [facility] [address] [place], [place], [address] Triglyceride mass conc 207 mg/dL Abnormal [facility] Work Phone: Comment on above: The drugs N-Acetylcy steine and Metamizole may falsely deressthis assay.Serum Triglycerides Reference Interval Normal <150 mg/dL Borderline high 150 - 199 mg/dL High 200 - 499 mg/dL Very High > or = 500 mg/dL [facility] [address] [place], [place], [phone] Troponin-IOrdered By: Museum Informatics Specialist on 09-09-2016 Troponin I.cardiac mass conc ng/mL Normal [facility] Work Phone: Comment on above: TROPONIN-I EXPECTED VALUES <0.05 NEGATIVE 0.06 - 0.59 AT RISK OF [place] > OR = 0.60 SUGGEST [place] 'TROP' Serial specim en #1, #2, #3, or #4: [address] [place] [address] [place], [address] CBC W/Diff, AutomatedOrdered By: Museum In[employer] Specialist on 07-01-2016 Absolute Neut 11.2 {X10_3/uL} Abnormal 2.0-7.7 Compre [facility] Internal Medicine Work Phone: Comment on above: [facility] [address] [place], [address] Basophils/100 WBC (Bld) 0.2 % Normal 0-1 [facility] Work Phone: Comment on above: [facility] [address] [place], [address] Eosinophils/100 WBC (Bld) 0.8 % Normal 0-5 [facility] Work Phone: Comment on above: [facility] [address] [place], [place], [phone] Erythrocyte distribution width Ratio (RBC) 13.8 % Normal 11.6-14.6 [facility] Work Phone: Comment on above: [facility] [address] [place], [address] Hematocrit Volume Fraction (Bld) 41.5 % Normal 40-54 [facility] Work Phone: Comment on above: [facility] [address] [place], [place], [phone] Hemoglobin mass conc (Bld) 14.4 g/dL Normal 13.0-16.5 [facility] Work Phone: Comment on above: [facility] [address] [place], [address] IM GRAN % 0.800 % Normal 0.0-0.9 [facility] Work Phone: Comment on above: IG% - Immature Granu locytes (promyelocytes, myelocytes andmetamyelocytes) > 1% indicates that a LEFT SHIFT is Present. [facility] [address] [place], [place], [phone] Lymphocytes #/vol (Bld) 1.31 {X10_3/ul} Normal 0.83-4.51 [facility] Work Phone: Comment on above: [facility] [address] [place], [address] Lymphocytes/100 WBC (Bld) 9.9 % Abnormal 19-41 [facility] Work Phone: Comment on above: [facility] [address] [place], [address] MCH Entitic mass (RBC) 31.4 pg Normal 27.0-32.0 [facility] Work Phone: Comment on above: [facility] [address] [place], [place], [phone] MCHC mass conc (RBC) 34.7 {g/gl} Normal 32-36 Com [facility] Work Phone: Comment on above: [facility] [address] [place], [place], [phone] MCV Entitic volume (RBC) 90.4 fL Normal 80-94 [facility] Work Phone: Comment on above: [facility] [address] [place], [address] Monocytes/100 WBC (Bld) 3.5 % Normal 0-10 [facility] Work Phone: Comment on above: [facility] [address] [place], [address] Neutrophils/100 WBC (Bld) 84.8 % Abnormal 47-70 [facility] Work Phone: Comment on above: [facility] [address] [place], [place], [phone] Platelet mean volume Entitic volume (Bld) 9.7 fL Normal 6.2-12.0 Comprehensi Internal Medicine Work Phone: Comment on above: [facility] [address] [place], [address] Platelets #/vol (Bld) 293 10*3/uL Normal 150-450 Co [facility] Internal Medicine Work Phone: Comment on above: [facility] [address] [place], [address] RBC #/vol (Bld) 4.59 {M/mm3} Abnormal 4.6-6.2 Compreh [facility] Internal Medicine Work Phone: Comment on above: [facility] [address] [place], [address] RDW SD 45.2 fL Abnormal 35.1-43.9 Comprehensive Internal Medicine Work Phone: Comment on above: [facility] [address] [place], [place], [address] WBC #/vol (Bld) 13.2 10*3/uL Abnormal 4.4-11.0 Compreh ensive Internal Medicine Work Phone: Comment on above: [facility] [address] [place], [place], [address] Liver ProfileOrdered By: Mima tem Dry Can Tender on 07-01-2016 Albumin mass conc 3.3 g/dL Abnormal 3.4-5.0 Compreh [facility] Internal [facility] Work Phone: Comment on above: [facility] [address] [place], [place], [phone] ALP enzyme act/vol 58 U/L Normal 45-117 Compre [facility] Internal Medicine Work Phone: Comment on above: [facility] [address] [place], [place], [address] ALT enzyme act/vol 34 U/L Normal 12-78 Compre [facility] Internal Medicine Work Phone: Comment on above: [facility] [address] [place], [place], [address] AST enzyme act/vol 16 U/L Normal 15-37 Compre [facility] Internal Medicine Work Phone: Comment on above: [facility] [address] [place], [place], [address] Bilirubin mass conc 0.40 mg/dL Normal 0.20-1.[address] [facility] Internal Medicine Work Phone: Comment on above: [facility] [address] [place], [place], [phone] Bilirubin.direct mass conc 0.11 mg/dL Normal 0.00-0.30 Comprehensive Internal Medicine Work Phone: Comment on above: [facility] [address] [place], [place], [phone] Globulin mass conc (S) 4.1 g/dL Abnormal 2.3-3.5 Comprehensive Internal Medicine Work Phone: Comment on above: [facility] [address] [place], [place], [address] Protein mass conc 7.4 g/dL Normal 6.4-8.2 Compreh ensive Internal Medicine Work Phone: Comment on above: [facility] [address] [place], [address] CBC W/Diff, AutomatedOrdered By: Museum Informatics Specialist on 02-18-2016 Absolute Neut 8.2 {X10_3/uL} Abnormal 2.0-7.7 Compreh ensive Internal Medicine Work Phone: Comment on above: [facility] [address] [place], [address] Basophils/100 WBC (Bld) 0.5 % Normal 0-1 Comprehensive Internal Medicine Work Phone: Comment on above: [facility] [address] [place], [address] Eosinophils/100 WBC (Bld) 1.0 % Normal 0-5 Comprehensive Internal Medicine Work Phone: Comment on above: [facility] [address] [place], [address] Erythrocyte distribution width Ratio (RBC) 13.5 % Normal 11.6-14.6 Comprehensive Internal Medicine Work Phone: Comment on above: [facility] [address] [place], [address] Hematocrit Volume Fraction (Bld) 45.2 % Normal 40-54 Comprehensive Internal Medicine Work Phone: Comment on above: [facility] [address] [place], [address] Hemoglobin mass conc (Bld) 15.6 g/dL Normal 13.0-16.5 Comprehensive Internal Medicine Work Phone: Comment on above: [facility] [address] [place], [address] IM GRAN % 1.000 % Abnormal 0.0-0.9 Comprehensive Internal Medicine Work Phone: Comment on above: IG% - Immature Granu locytes (promyelocytes, myelocytes andmetamyelocytes) > 1% indicates that a LEFT SHIFT is Present. [facility] [address] [place], [place], [phone] Lymphocytes #/vol (Bld) 1.26 {X10_3/ul} Normal 0.83-4.51 Comprehensive Internal Medicine Work Phone: Comment on above: [facility] [address] [place], [address] Lymphocytes/100 WBC (Bld) 12.0 % Abnormal 19-41 Comprehensive Internal Medicine Work Phone: Comment on above: [facility] [address] [place], [address] MCH Entitic mass (RBC) 30.8 pg Normal 27.0-32.0 Comprehensive Internal Medicine Work Phone: Comment on above: [facility] [address] [place], [address] MCHC mass conc (RBC) 34.5 {g/gl} Normal 32-36 Com prehensive Internal Medicine Work Phone: Comment on above: [facility] [address] [place], [address] MCV Entitic volume (RBC) 89.3 fL Normal 80-94 Comprehensive Internal Medicine Work Phone: Comment on above: [facility] [address] [place], [place], [phone] Monocytes/100 WBC (Bld) 7.3 % Normal 0-10 Comprehensive Internal Medicine Work Phone: Comment on above: [facility] [address] [place], [address] Neutrophils/100 WBC (Bld) 78.2 % Abnormal 47-70 Comprehensive Internal Medicine Work Phone: Comment on above: [facility] [address] [place], [place], [phone] Platelet mean volume Entitic volume (Bld) 9.8 fL Normal 6.2-12.0 Comprehensi Internal Medicine Work Phone: Comment on above: [facility] [address] [place], [address] Platelets #/vol (Bld) 308 10*3/uL Normal 150-450 Co [facility] Internal Medicine Work Phone: Comment on above: [facility] [address] [place], [address] RBC #/vol (Bld) 5.06 {M/mm3} Normal 4.6-6.2 Compreh ensive Internal Medicine Work Phone: Comment on above: [facility] [address] [place], [address] RDW SD 44.0 fL Abnormal 35.1-43.9 Comprehensive Internal Medicine Work Phone: Comment on above: [facility] [address] [place], [address] WBC #/vol (Bld) 10.5 10*3/uL Normal 4.4-11.0 Compreh ensive Internal Medicine Work Phone: Comment on above: [facility] [address] [place], [address] Miscellaneous Lab ProcedureO rdered By: Museum Informatics Specialist on 12-24-2015 [facility] LAB TEST Normal Comprehensi Internal Medicine Work Phone: Comment on above: TEST RESULT LIMITSIn fliximab (IFX) Conc+ IFX AbInfliximab Drug Level 24 ug/mLReference Range:Quantitation Limit: <0.4 ug/mLResults of 0.4 or higher indicates detection of Infliximab.In the presence of anti-Infliximab antibodies, theInfliximab drug level reflects the antibody-unbound fractionof Infliximab concentration in serum.Anti-Infliximab Antibody <22 ng/mLAll positive antibody results are verified by confirmatorytest.<200 ng/mL Low antibody titer, no significant impact on freedrug pactv762-7,000 ng/mL Intermediate antibody titer, variable impacton free drug level>1,001 ng/mL High antibody titer, significant impact on freedrug levelReference Range:Quantitation Limit: <22 ng/mLResults of 22 or higher indicates detection ofAnti-Infliximab Antibodies. ____ TESTING PERFORMED AT [facility] HOSPITAL. ORIGINAL REPORT ON FILE IN LAB CONTAINS ADDITIONAL TEST SITE INFORMATION. Comments: [id number] I NFLIXIMAB CONCENTRATION AND ANTIINFLIXTest(s) Ordered: [id number] INFLIXIMAB CONCENTRATION AND ANTIINFLIXWoo[facility] [address] [place], [address] CBC W/Diff, AutomatedOrdered By: Museum Informatics Specialist on 04-10-2015 Absolute Neut 11.9 {X10_3/uL} Abnormal 2.0-7.7 [facility] Internal Medicine Work Phone: Comment on above: [facility] [address] [place], [address] ; ordered by another doctor Basophils/100 WBC (Bld) 0.1 % Normal 0-1 [facility] Work Phone: Comment on above: [facility] [address] [place], [place], [phone] ; ordered by another doctor Eosinophils/100 WBC (Bld) 0.1 % Normal 0-5 [facility] Work Phone: Comment on above: [facility] [address] [place], [place], [phone] ; ordered by another doctor Erythrocyte distribution width Ratio (RBC) 12.8 % Normal 11.6-14.6 [facility] Work Phone: Comment on above: [facility] [address] [place], [place], [phone] ; ordered by another doctor Hematocrit Volume Fraction (Bld) 41.4 % Normal 40-54 [facility] Work Phone: Comment on above: [facility] [address] [place], [place], [phone] ; ordered by another doctor Hemoglobin mass conc (Bld) 14.2 g/dL Normal 13.0-16.5 [facility] Work Phone: Comment on above: [facility] [address] [place], [place], [phone] ; ordered by another doctor IM GRAN % 0.400 % Normal 0.0-0.9 [facility] Work Phone: Comment on above: IG% - Immature Granu locytes (promyelocytes, myelocytes andmetamyelocytes) > 1% indicates that a LEFT SHIFT is Present. [facility] [address] [place], [place], [phone] ; ordered by another doctor Lymphocytes #/vol (Bld) 0.87 {X10_3/ul} Normal 0.83-4.51 [facility] Work Phone: Comment on above: [facility] [address] [place], [place], [phone] ; ordered by another doctor Lymphocytes/100 WBC (Bld) 6.6 % Abnormal 19-41 [facility] Work Phone: Comment on above: [facility] [address] [place], [place], [phone] ; ordered by another doctor MCH Entitic mass (RBC) 30.5 pg Normal 27.0-32.0 [facility] Work Phone: Comment on above: [facility] [address] [place], [place], [phone] ; ordered by another doctor MCHC mass conc (RBC) 34.3 {g/gl} Normal 32-36 [facility] prehensive Internal Medicine Work Phone: Comment on above: [facility] [address] [place], [place], [phone] ; ordered by another doctor MCV Entitic volume (RBC) 89.0 fL Normal 80-94 [facility] Work Phone: Comment on above: [facility] [address] [place], [address] ; ordered by another doctor Monocytes/100 WBC (Bld) 3.2 % Normal 0-10 [facility] Work Phone: Comment on above: [facility] [address] [place], [place], [phone] ; ordered by another doctor Neutrophils/100 WBC (Bld) 89.6 % Abnormal 47-70 [facility] Work Phone: Comment on above: [facility] [address] [place], [address] ; ordered by another doctor Platelet mean volume Entitic volume (Bld) 10.2 fL Normal 6.2-12.0 [facility] Work Phone: Comment on above: [facility] [address] [place], [place], [phone] ; ordered by another doctor Platelets #/vol (Bld) 384 10*3/uL Normal 150-450 [facility] monettensive Internal Medicine Work Phone: Comment on above: [facility] [address] [place], [place], [phone] ; ordered by another doctor RBC #/vol (Bld) 4.65 {M/mm3} Normal 4.6-6.2 Compreh ensive Internal Medicine Work Phone: Comment on above: [facility] [address] [place], [place], [phone] ; ordered by another doctor RDW SD 41.2 fL Normal 35.1-43.9 [facility] Work Phone: Comment on above: [facility] [address] [place], [place], [phone] ; ordered by another doctor WBC #/vol (Bld) 13.2 10*3/uL Abnormal 4.4-11.0 Compreh ensive Internal Medicine Work Phone: Comment on above: [facility] [address] [place], [place], [phone] ; ordered by another doctor CBC-Complete Blood Cnt No Di ffOrdered By: Museum Informatics Specialist on 04-01-2015 Erythrocyte distribution width Ratio (RBC) 12.7 % Normal 11.6-14.6 [facility] Work Phone: Comment on above: [facility] [address] [place], [place], [phone] ; ordered by another doctor Hematocrit Volume Fraction (Bld) 44.8 % Normal 40-54 [facility] Work Phone: Comment on above: [facility] [address] [place], [place], [phone] ; ordered by another doctor Hemoglobin mass conc (Bld) 15.1 g/dL Normal 13.0-16.5 [facility] Work Phone: Comment on above: [facility] [address] [place], [address] ; ordered by another doctor MCH Entitic mass (RBC) 30.3 pg Normal 27.0-32.0 [facility] Work Phone: Comment on above: [facility] [address] [place], [place], [phone] ; ordered by another doctor MCHC mass conc (RBC) 33.7 {g/gl} Normal 32-36 Com prehensive Internal Medicine Work Phone: Comment on above: [facility] [address] [place], [place], [phone] ; ordered by another doctor MCV Entitic volume (RBC) 89.8 fL Normal 80-94 [facility] Work Phone: Comment on above: [facility] [address] [place], [address] ; ordered by another doctor Platelet mean volume Entitic volume (Bld) 10.1 fL Normal 6.2-12.0 Comprehensi ve Internal Medicine Work Phone: Comment on above: [facility] [address] [place], [address] ; ordered by another doctor Platelets #/vol (Bld) 335 10*3/uL Normal 150-450 [facility] Work Phone: Comment on above: [facility] [address] [place], [address] ; ordered by another doctor RBC #/vol (Bld) 4.99 {M/mm3} Normal 4.6-6.2 Compreh ensive Internal Medicine Work Phone: Comment on above: [facility] [address] [place], [place], [phone] ; ordered by another doctor WBC #/vol (Bld) 12.3 10*3/uL Abnormal 4.4-11.0 Compreh ensive Internal Medicine Work Phone: Comment on above: [facility] [address] [place], [address] ; ordered by another doctor CBC-Complete Blood Cnt No Diff 40.9 fL Normal 35.1-43.9 [facility] Work Phone: Comment on above: [facility] [address] [place], [address] ; ordered by another doctor Erythrocyte Sed RateOrdered By: Museum Informatics Specialist on 04-01-2015 Erythrocyte Sed Rate 21 mm/h Abnormal 0-15 Comp rehensive Internal Medicine Work Phone: Comment on above: [facility] [address] [place], [address] Miscellaneous Lab ProcedureO rdered By: Museum Informatics Specialist on 04-01-2015 MISC LAB TEST Normal Comprehensi ve Internal Medicine Work Phone: Comment on above: TEST RESULT UNITS RE FERENCE INTERVALInfliximab+Ab (Serial Monitor)Infliximab Drug Level 26 ug/mLReference Range:Quantitation Limit: <0.4 ug/mLResults of 0.4 or higher indicates detection of Infliximab.In the presence of anti-Infliximab antibodies, theInfliximab drug level reflects the antibody-unbound fractionof Infliximab concentration in serum.Anti-Infliximab Antibody <22 ng/mLAll positive antibody results are verified by confirmatorytest.<200 ng/mL Low antibody titer, no significant impact on freedrug level 201-1,000 ng/mL Intermediate antibody titer,variable impact on free drug level >1,001 ng/mL Highantibody titer, significant impact on free drug levelReference Range:Quantitation Limit: <22 ng/mLResults of 22 or higher indicates detection ofAnti-Infliximab Antibodies. ____ [facility] ORIGINAL REPORT ON FILE IN LAB CONTAINS ADDITIONAL TEST SITE INFORMATION. Comments: [id number] I N FLIXIMAB CONCENT.+ AB SERIAL SST FZTest(s) Ordered: [id number] INFLIXIMAB CONTENT.+ AB SERIAL SST F[facility]WM[facility] [address] [place], [address] COLON BIOPSY (CHOOSE SITE)Or dered By: Museum Informatics Specialist on 01-01-2015 COLON BIOPSY (CHOOSE SITE) See Note Normal [facility] Work Phone: Comment on above: Patient: KILLIAN NOGUEIRA : 1970 (44/M) Acct Num: [id number] Phys: NaviConstantino Unit Num: [id number] Loc: LABSPEC Specimen: [id number] Received: 01/01/151622 Spec Type: COLON BX TISSUES TISSUES: GROSS DESCRIPTION A - Received is one container labeled with the patient name and designated biopsy right colon. The specimen consists of multiple irregular fragments of light conner soft tissue that in aggregate measure 1.5 x 0.2 x 0.1 cm. The specimen is totally submitted in one cassette. B - Received is one container labeled with the patient name and designated biopsy left colon. The specimen consists of multiple irregular fragments of light conner soft tissue that in aggregate measure 1.2 x 0.3 x 0.1 cm. The specimen is totally submitted in one cassette. / SJ: 01/02/15 TC:2 CPT: 34157 x2 HEADER OPERATION: Colonoscopy with biopsy PRE-OP DIAGNOSIS: History of ulcerative colitis TISSUE SUBMITTED: A - Right colon, rule out UC, dysplasia, B - Left colon, ruleout UC, dysplasia MICROSCOPIC DESCRIPTION Slides are reviewed. A - Sections show minimal glandular distortion with focal cryptitis. MICROSCOPIC DIAGNOSIS A. Right colon, biopsy: Focal acute colitis. No evidence of dysplasia. B. Left colon, biopsy: Chronic active colitis pattern of injury with minimal activity. No evidence of dysplasia. AM: 01/05/15 Signed Ramone Rosalee 01/05/15 [facility] [address] [place], [address] CBC W/Diff, AutomatedOrdered By: Museum Informatics Specialist on 06-04-2014 Absolute Neut 3.9 {X10_3/uL} Normal 2.0-7.7 Compreh ensive Internal Medicine Work Phone: Comment on above: Test performed at:[facility] [address] [place] [address] Basophils/100 WBC (Bld) 0.2 % Normal 0-1 [facility] Work Phone: Comment on above: Test performed at:[facility] [address] [place] [address] Eosinophils/100 WBC (Bld) 1.5 % Normal 0-5 [facility] Work Phone: Comment on above: Test performed at:[facility] [address] [place] [address] Erythrocyte distribution width Ratio (RBC) 13.4 % Normal 11.6-14.6 [facility] Work Phone: Comment on above: Test performed at:[facility] [address] [place] [address] Hematocrit Volume Fraction (Bld) 40.3 % Normal 40-54 [facility] Work Phone: Comment on above: Test performed at:[facility] [address] [place] [address] Hemoglobin mass conc (Bld) 14.0 g/dL Normal 13.0-16.5 [facility] Work Phone: Comment on above: Test performed at:[facility] [address] [place] [address] IM GRAN % 0.300 % Normal 0.0-0.9 [facility] Work Phone: Comment on above: IG% - Immature Granu locytes (promyelocytes, myelocytes andmetamyelocytes) > 1% indicates that a LEFT SHIFT is Present. Test performed at:[facility] [address] [place] [address] Lymphocytes #/vol (Bld) 1.53 {X10_3/ul} Normal 0.83-4.51 [facility] Work Phone: Comment on above: Test performed at:[facility] [address] [place] [address] Lymphocytes/100 WBC (Bld) 25.4 % Normal 19-41 [facility] Work Phone: Comment on above: Test performed at:[facility] [address] [place] [address] MCH Entitic mass (RBC) 32.6 pg Abnormal 27.0-32.0 [facility] Work Phone: Comment on above: Test performed at:[facility] [address] [place] [address] MCHC mass conc (RBC) 34.7 {g/gl} Normal 32-36 [facility] prehensive Internal Medicine Work Phone: Comment on above: Test performed at:[facility] [address] [place] [address] MCV Entitic volume (RBC) 93.9 fL Normal 80-94 [facility] Work Phone: Comment on above: Test performed at:[facility] [address] [place] [address] Monocytes/100 WBC (Bld) 7.6 % Normal 0-10 [facility] Work Phone: Comment on above: Test performed at:[facility] [address] [place] [address] Neutrophils/100 WBC (Bld) 65.0 % Normal 47-70 [facility] Work Phone: Comment on above: Test performed at:[facility] [address] [place] [address] Platelet mean volume Entitic volume (Bld) 10.5 fL Normal 6.2-12.0 Comprehensi ve Internal Medicine Work Phone: Comment on above: Test performed at:[facility] [address] [place] [address] Platelets #/vol (Bld) 282 10*3/uL Normal 150-450 Co mprehensive Internal Medicine Work Phone: Comment on above: Test performed at:[facility] [address] [place] [address] RBC #/vol (Bld) 4.29 {M/mm3} Abnormal 4.6-6.2 Compreh ensive Internal Medicine Work Phone: Comment on above: Test performed at:[facility] [address] [place] [address] RDW SD 44.5 fL Abnormal 35.1-43.9 [facility] Work Phone: Comment on above: Test performed at:[facility] [address] [place] [address] WBC #/vol (Bld) 6.0 10*3/uL Normal 4.4-11.0 Comprehe nsive Internal Medicine Work Phone: Comment on above: Test performed at:[facility] [address] [place] [address] Liver ProfileOrdered By: Mima tem Dry Can Tender on 06-04-2014 Albumin mass conc 3.8 g/dL Normal 3.4-5.0 Compreh ensive Internal Medicine Work Phone: Comment on above: Test performed at:[facility] [address] [place] [address] ALP enzyme act/vol 58 U/L Normal 50-136 Compre hensive Internal Medicine Work Phone: Comment on above: Test performed at:[facility] [address] [place] [address](638) ALT enzyme act/vol 52 U/L Normal 12-78 [facility] Internal Medicine Work Phone: Comment on above: Test performed at:[facility] [address] [place] [address] AST enzyme act/vol 32 U/L Normal 15-37 [facility] Internal Medicine Work Phone: Comment on above: Test performed at:[facility] [address] [place] [address]) Bilirubin mass conc 0.40 mg/dL Normal 0.00-4.00 [facility] Internal Medicine Work Phone: Comment on above: Test performed at:[facility] [address] [place] [address] Bilirubin.direct mass conc 0.09 mg/dL Normal 0.00-0.30 [facility] Work Phone: Comment on above: Test performed at:[facility] [address] [place] [address] Globulin mass conc (S) 3.8 g/dL Normal 2.7-4.2 [facility] Work Phone: Comment on above: Test performed at:[facility] [address] [place] [address] Protein mass conc 7.6 g/dL Normal 6.4-8.2 [facility] Work [facility]: Comment on above: Test performed at:[facility] [address] [place] [address] Vital Signs Date Time Vital Sign Value Performing Clinician Facility 10-04-2024 06:51-0400 Body temperature 97.9 [degF] Amanda Woods NP-C Work Phone: [facility] 10-04-2024 06:51-0400 Diastolic blood pressure 62 mm[Hg] Amanda Mcgowanam IMMIGRATION MANAGER-C Work Phone: [facility] 10-04-2024 06:51-0400 Heart rate 73 /min Amanda Mcgowanam IMMIGRATION MANAGER-C Work Phone: [facility] 10-04-2024 06:51-0400 Respiratory rate 15 /min Amanda Mcgowanam IMMIGRATION MANAGER-C Work Phone: [facility] 10-04-2024 06:51-0400 SaO2% (BldA) [Mass fraction] 96 % Amanda Mcgowanam IMMIGRATION MANAGER-C Work Phone: [facility] 10-04-2024 06:51-0400 Systolic blood pressure 102 mm[Hg] Amanda Mcogwanam IMMIGRATION MANAGER-C Work Phone: [facility] 09-09-2024 09:11-0400 Body height 180.34 cm Amanda Mcgowanam IMMIGRATION MANAGER-C Work Phone: [facility] 09-09-2024 09:11-0400 Body mass index (BMI) [Ratio] 27.4 kg/m2 Amanda Chuck IMMIGRATION MANAGER-C Work Phone: [facility] 09-09-2024 09:11-0400 Body temperature 98.3 [degF] Amanda Mcgowanam IMMIGRATION MANAGER-C Work Phone: [facility] 09-09-2024 09:11-0400 Body weight 89.35 kg Amanda Chuck IMMIGRATION MANAGER-C Work Phone: [facility] 09-09-2024 09:11-0400 Diastolic blood pressure 82 mm[Hg] Amanda Mcgowanam IMMIGRATION MANAGER-C Work Phone: [facility] 09-09-2024 09:11-0400 Heart rate 79 /min Amanda Mcgowanam IMMIGRATION MANAGER-C Work Phone: [facility] 09-09-2024 09:11-0400 Respiratory rate 14 /min Amanda Mcgowanam IMMIGRATION MANAGER-C Work Phone: [facility] 09-09-2024 09:11-0400 SaO2% (BldA) [Mass fraction] 98 % Amanda Woods IMMIGRATION MANAGER-C Work Phone: [facility] 09-09-2024 09:11-0400 Systolic blood pressure 130 mm[Hg] Amanda Mcgowanam IMMIGRATION MANAGER-C Work Phone: [facility] 06-02-2024 08:02-0400 Body temperature 98.2 [degF] Amanda Mcgowanam IMMIGRATION MANAGER-C Work Phone: [facility] 06-02-2024 08:02-0400 Diastolic blood pressure 78 mm[Hg] Amanda Mcgowanam IMMIGRATION MANAGER-C Work Phone: [facility] 06-02-2024 08:02-0400 Heart rate 81 /min Amanda Mcgowanam IMMIGRATION MANAGER-C Work Phone: [facility] 06-02-2024 08:02-0400 Respiratory rate 15 /min Amanda Mcgowanam IMMIGRATION MANAGER-C Work Phone: [facility] 06-02-2024 08:02-0400 SaO2% (BldA) [Mass fraction] 98 % Amanda Mcgowanam IMMIGRATION MANAGER-C Work Phone: [facility] 06-02-2024 08:02-0400 Systolic blood pressure 110 mm[Hg] Amanda Mcgowanam IMMIGRATION MANAGER-C Work Phone: [facility] 11-23-2022 14:58-0400 Body height 180.34 cm Sana Chen LPN [facility]; [facility] Work Phone: 11-23-2022 14:58-0400 Body mass index (BMI) [Ratio] 26.92 kg/m2 Sana Chen LPN [facility]; [facility] Work Phone: 11-23-2022 14:58-0400 Body surface area Derived from formula 2.08 m2 Sana Chen LPN [facility]; [facility] Work Phone: 09-27-2023 14:58-0400 Body temperature 97.1 [degF] Sana Slarb XEROX MACHINE OPERATOR [facility]; [facility] Work Phone: Comment on above: Method: Temporal 11-23-2022 14:58-0400 Body weight 87.54 kg Sana Slarb XEROX MACHINE OPERATOR [facility]; [facility] Work Phone: 11-23-2022 14:58-0400 Diastolic blood pressure 80 mm[Hg] Sana Slarb XEROX MACHINE OPERATOR [facility]; [facility] Work Phone: Comment on above: Patient Position: Sitting; Cuff Location : Left Arm; Cuff Size: Standard 11-23-2022 14:58-0400 Heart rate 71 /min Sana Slarb XEROX MACHINE OPERATOR [facility]; [facility] Work Phone: Comment on above: Pattern: Regular 11-23-2022 14:58-0400 Respiratory rate 16 /min Sana Slarb XEROX MACHINE OPERATOR [facility]; [facility] Work Phone: Comment on above: Pattern: Unlabored 11-23-2022 14:58-0400 SaO2% (BldA) [Mass fraction] 98 % Sana Slarb XEROX MACHINE OPERATOR [facility]; [facility] Work Phone: Comment on above: Room air 11-23-2022 14:58-0400 Systolic blood pressure 118 mm[Hg] Sana Slarb XEROX MACHINE OPERATOR [facility]; [facility] Work Phone: Comment on above: Patient Position: Sitting; Cuff Location : Left Arm; Cuff Size: Standard 05-11-2022 15:06-0400 Body height 180.34 cm Sana Slarb XEROX MACHINE OPERATOR [facility]; [facility] Work Phone: 05-11-2022 15:06-0400 Body mass index (BMI) [Ratio] 27.06 kg/m2 Sana Slarb XEROX MACHINE OPERATOR [facility]; [facility] Work Phone: 05-11-2022 15:06-0400 Body surface area Derived from formula 2.08 m2 Sana Slarb XEROX MACHINE OPERATOR [facility]; [facility] Work Phone: 05-11-2022 15:06-0400 Body temperature 97.7 [degF] Sana Slarb XEROX MACHINE OPERATOR [facility]; [facility] Work Phone: Comment on above: Method: Temporal 05-11-2022 15:06-0400 Body weight 88 kg Sana Slarb XEROX MACHINE OPERATOR [facility]; [facility] Work Phone: 05-11-2022 15:06-0400 Diastolic blood pressure 82 mm[Hg] Sana Slarb XEROX MACHINE OPERATOR [facility]; [facility] Work Phone: Comment on above: Patient Position: Sitting; Cuff Location : Left Arm; Cuff Size: Standard 05-11-2022 15:06-0400 Heart rate 86 /min Sana Slarb XEROX MACHINE OPERATOR [facility]; [facility] Work Phone: Comment on above: Pattern: Regular 05-11-2022 15:06-0400 Respiratory rate 17 /min Sana Slarb XEROX MACHINE OPERATOR [facility]; [facility] Work Phone: Comment on above: Pattern: Unlabored 05-11-2022 15:06-0400 SaO2% (BldA) [Mass fraction] 95 % Sana Slarb XEROX MACHINE OPERATOR [facility]; [facility] Work Phone: Comment on above: Room air 05-11-2022 15:06-0400 Systolic blood pressure 124 mm[Hg] Sana Slarb XEROX MACHINE OPERATOR [facility]; [facility] Work Phone: Comment on above: Patient Position: Sitting; Cuff Location : Left Arm; Cuff Size: Standard 12-07-2021 13:39-0400 Body height 180.34 cm Shanika Wells MA [facility]; [facility] Work Phone: 12-07-2021 13:39-0400 Body mass index (BMI) [Ratio] 25.94 kg/m2 Shanika eWlls MA [facility]; [facility] Work Phone: 12-07-2021 13:39-0400 Body surface area Derived from formula 2.04 m2 Shanika Welsl MA [facility]; [facility] Work Phone: 12-07-2021 13:39-0400 Body temperature 95.5 [degF] Shanika Wells MA [facility]; [facility] Work Phone: 12-07-2021 13:39-0400 Body weight 84.37 kg Shanika Wells MA [facility]; [facility] Work Phone: 12-07-2021 13:39-0400 Diastolic blood pressure 82 mm[Hg] Shanika Wells MA [facility]; [facility] Work Phone: Comment on above: Patient Position: Sitting; Cuff Location : Left Arm; Cuff Size: Standard 12-07-2021 13:39-0400 Heart rate 91 /min Shanika Wells MA [facility]; [facility] Work Phone: Comment on above: Pattern: Regular 12-07-2021 13:39-0400 Respiratory rate 16 /min Shanika Wells MA [facility]; [facility] Work Phone: Comment on above: Pattern: Unlabored 12-07-2021 13:39-0400 SaO2% (BldA) [Mass fraction] 86 % Shanika Wells MA [facility]; [facility] Work Phone: Comment on above: Room air 12-07-2021 13:39-0400 Systolic blood pressure 130 mm[Hg] Shanika Wells MA [facility]; [facility] Work Phone: Comment on above: Patient Position: Sitting; Cuff Location : Left Arm; Cuff Size: Standard 11-10-2021 14:47-0400 Body height 180.34 cm Vielka Marina LPN [facility]; [facility] Work Phone: 11-10-2021 14:47-0400 Body mass index (BMI) [Ratio] 25.94 kg/m2 Vielka Marina LPN [facility]; [facility] Work Phone: 11-10-2021 14:47-0400 Body surface area Derived from formula 2.04 m2 Vielka Marina LPN [facility]; [facility] Work Phone: 11-10-2021 14:47-0400 Body temperature 97.6 [degF] Vielka Marina LPN [facility]; [facility] Work Phone: 11-10-2021 14:47-0400 Body weight 84.37 kg Vielka Marina LPN [facility]; [facility] Work Phone: 11-10-2021 14:47-0400 Diastolic blood pressure 84 mm[Hg] Vielka Marina LPN [facility]; [facility] Work Phone: Comment on above: Patient Position: Sitting; Cuff Location : Left Arm; Cuff Size: Standard 11-10-2021 14:47-0400 Heart rate 83 /min Vielka Marina LPN [facility]; [facility] Work Phone: Comment on above: Pattern: Regular 11-10-2021 14:47-0400 Respiratory rate 16 /min Vielka Marina LPN [facility]; [facility] Work Phone: Comment on above: Pattern: Unlabored 11-10-2021 14:47-0400 SaO2% (BldA) [Mass fraction] 97 % Vielka Marina LPN [facility]; [facility] Work Phone: Comment on above: Room air 11-10-2021 14:47-0400 Systolic blood pressure 120 mm[Hg] Vielka Marina LPN [facility]; [facility] Work Phone: Comment on above: Patient Position: Sitting; Cuff Location : Left Arm; Cuff Size: Standard 07-13-2021 09:03-0400 Body height 180.34 cm Subha A Fast DO Work Phone: [facility]; [facility] Work Phone: 07-13-2021 09:03-0400 Body temperature 96.8 [degF] Subha A Fast DO Work Phone: [facility]; [facility] Work Phone: Comment on above: Method: Oral 07-13-2021 09:03-0400 Diastolic blood pressure 78 mm[Hg] Subha A Fast DO Work Phone: [facility]; [facility] Work Phone: Comment on above: Patient Position: Sitting 07-13-2021 09:03-0400 Heart rate 101 /min Subha A Fast DO Work Phone: [facility]; [facility] Work Phone: Comment on above: Pattern: Regular 07-13-2021 09:03-0400 Respiratory rate 16 /min Subha A Fast DO Work Phone: [facility]; [facility] Work Phone: 07-13-2021 09:03-0400 SaO2% (BldA) [Mass fraction] 99 % Subha A Fast DO Work Phone: [facility]; [facility] Work Phone: Comment on above: Room air 07-13-2021 09:03-0400 Systolic blood pressure 115 mm[Hg] Subha A Fast DO Work Phone: [facility]; [facility] Work Phone: Comment on above: Patient Position: Sitting 04-28-2021 15:05-0500 Body height 180.34 cm Vielka Marina LPN [facility]; [facility] Work Phone: 04-28-2021 15:05-0500 Body mass index (BMI) [Ratio] 26.57 kg/m2 Vielka Marina LPN [facility]; [facility] Work Phone: 04-28-2021 15:05-0500 Body surface area Derived from formula 2.07 m2 Vielka Marina LPN [facility]; [facility] Work Phone: 04-28-2021 15:05-0500 Body temperature 97.5 [degF] Vielka Marina LPN [facility]; [facility] Work Phone: Comment on above: Method: Temporal 04-28-2021 15:05-0500 Body weight 86.41 kg Vielka Marina LPN [facility]; [facility] Work Phone: 04-28-2021 15:05-0500 Diastolic blood pressure 84 mm[Hg] Vielka Marina LPN [facility]; [facility] Work Phone: Comment on above: Patient Position: Sitting; Cuff Location : Left Arm; Cuff Size: Standard 04-28-2021 15:05-0500 Heart rate 89 /min Vielka Marina LPN [facility]; [facility] Work Phone: Comment on above: Pattern: Regular 04-28-2021 15:05-0500 Respiratory rate 16 /min Vielka Marina LPN [facility]; [facility] Work Phone: Comment on above: Pattern: Unlabored 04-28-2021 15:05-0500 SaO2% (BldA) [Mass fraction] 97 % Vielka Marina LPN [facility]; [facility] Work Phone: Comment on above: Room air 04-28-2021 15:05-0500 Systolic blood pressure 132 mm[Hg] Vielka Marina LPN [facility]; [facility] Work Phone: Comment on above: Patient Position: Sitting; Cuff Location : Left Arm; Cuff Size: Standard 12-14-2020 09:28-0400 Body height 180.34 cm Cheyanne Monzon MA [facility]; [facility] Work Phone: Comment on above: Virtual- no report 12-14-2020 09:28-0400 Body mass index (BMI) [Ratio] 25.52 kg/m2 Cheyanne Monzon MA [facility]; [facility] Work Phone: Comment on above: Virtual- no report 12-14-2020 09:28-0400 Body surface area Derived from formula 2.03 m2 Cheyanne Monzon MA [facility]; [facility] Work Phone: Comment on above: Virtual- no report 12-14-2020 09:28-0400 Body weight 83.01 kg Cheyanne Monzon MA [facility]; [facility] Work Phone: Comment on above: Virtual- no report 10-20-2020 15:01-0400 Body height 180.34 cm Sana Slarb XEROX MACHINE OPERATOR [facility]; [facility] Work Phone: 10-20-2020 15:01-0400 Body mass index (BMI) [Ratio] 25.52 kg/m2 Sana Slarb XEROX MACHINE OPERATOR [facility]; [facility] Work Phone: 10-20-2020 15:01-0400 Body surface area Derived from formula 2.03 m2 Sana Slarb XEROX MACHINE OPERATOR [facility]; [facility] Work Phone: 10-20-2020 15:01-0400 Body temperature 97.3 [degF] Sana Slarb XEROX MACHINE OPERATOR [facility]; [facility] Work Phone: 10-20-2020 15:01-0400 Body weight 83.01 kg Sana Slarb XEROX MACHINE OPERATOR [facility]; [facility] Work Phone: 10-20-2020 15:01-0400 Diastolic blood pressure 82 mm[Hg] Sana Slarb XEROX MACHINE OPERATOR [facility]; [facility] Work Phone: Comment on above: Patient Position: Sitting; Cuff Location : Left Arm; Cuff Size: Standard 10-20-2020 15:01-0400 Heart rate 82 /min Sana Slarb XEROX MACHINE OPERATOR [facility]; [facility] Work Phone: Comment on above: Pattern: Regular 10-20-2020 15:01-0400 Respiratory rate 16 /min Sana Slarb XEROX MACHINE OPERATOR [facility]; [facility] Work Phone: Comment on above: Pattern: Unlabored 10-20-2020 15:01-0400 SaO2% (BldA) [Mass fraction] 98 % Sana Slarb XEROX MACHINE OPERATOR [facility]; [facility] Work Phone: Comment on above: Room air 10-20-2020 15:01-0400 Systolic blood pressure 130 mm[Hg] Sana Slarb XEROX MACHINE OPERATOR [facility]; [facility] Work Phone: Comment on above: Patient Position: Sitting; Cuff Location : Left Arm; Cuff Size: Standard 03-24-2020 09:09-0500 BMI (Body Mass Index) 25.39 kg/m2 Varghese Alonso LPN [facility]; [facility] Work Phone: 03-24-2020 09:09-0500 Body weight 82.56 kg Varghese Alonso LPN [facility]; [facility] Work Phone: 03-24-2020 09:09-0500 BSA (Body Surface Area) 2.03 m2 Varghese Alonso LPN [facility]; [facility] Work Phone: 03-24-2020 09:09-0500 Height 180.34 cm Varghese Alonso LPN [facility]; [facility] Work Phone: 09-16-2019 07:55-0400 BMI (Body Mass Index) 25.39 kg/m2 Varghese Alonso LPN [facility] Work Phone: 09-16-2019 07:55-0400 Body Temperature 96.8 [degF] Varghese Alonso LPN [facility] Work Phone: Comment on above: Method: Infrared 09-16-2019 07:55-0400 Body weight 82.56 kg Varghese Alonso LPN [facility] Work Phone: 09-16-2019 07:55-0400 BP Diastolic 70 mm[Hg] Varghese Alonso LPN [facility] Work Phone: Comment on above: Patient Position: Sitting; Cuff Location : Left Arm; Cuff Size: Standard 09-16-2019 07:55-0400 BP Systolic 116 mm[Hg] Varghese Alonso LPN [facility] Work Phone: Comment on above: Patient Position: Sitting; Cuff Location : Left Arm; Cuff Size: Standard 09-16-2019 07:55-0400 BSA (Body Surface Area) 2.03 m2 Varghese Alonso LPN [facility] Work Phone: 09-16-2019 07:55-0400 Height 180.34 cm Varghese Alonso XEROX MACHINE OPERATOR [facility] Work Phone: 09-16-2019 07:55-0400 Pulse (Heart Rate) 89 /min Varghese Alonso LPN [facility] Work Phone: Comment on above: Pattern: Regular 09-16-2019 07:55-0400 Pulse Oximetry 97 % Haily Butts [facility] Work Phone: Comment on above: Room air 09-16-2019 07:55-0400 Respiratory Rate 16 /min Varghese Alonso LPN [facility] Work Phone: Comment on above: Pattern: Unlabored 09-16-2019 07:55-0400 SaO2% (BldA) [Mass fraction] 97 % Varghese Alonso LPN [facility]; [facility] Work Phone: Comment on above: Room air 06-11-2019 07:39-0400 BMI (Body Mass Index) 26.23 kg/m2 Varghese Alonso LPN [facility] Work Phone: Comment on above: will check weight and temp and report to [facility] 06-11-2019 07:39-0400 Body weight 85.29 kg Varghese Alonso LPN [facility] Work Phone: Comment on above: will check weight and temp and report to [facility] 06-11-2019 07:39-0400 BSA (Body Surface Area) 2.05 m2 Varghese Alonso LPN [facility] Work Phone: Comment on above: will check weight and temp and report to [facility] 06-11-2019 07:39-0400 Height 180.34 cm Varghese Alonso LPN [facility] Work Phone: Comment on above: will check weight and temp and report to [facility] 03-26-2019 07:55-0500 BMI (Body Mass Index) 26.23 kg/m2 Varghese Alonso LPN [facility] Work Phone: 03-26-2019 07:55-0500 Body Temperature 97.9 [degF] Varghese Alonso LPN [facility] Work Phone: Comment on above: Method: Temporal 03-26-2019 07:55-0500 Body weight 85.29 kg Varghese Alonso LPN [facility] Work Phone: 03-26-2019 07:55-0500 BP Diastolic 82 mm[Hg] Varghese Alonso LPN [facility] Work Phone: Comment on above: Patient Position: Sitting; Cuff Location : Left Arm; Cuff Size: Standard 03-26-2019 07:55-0500 BP Systolic 142 mm[Hg] Varghese Alonso LPN [facility] Work Phone: Comment on above: Patient Position: Sitting; Cuff Location : Left Arm; Cuff Size: Standard 03-26-2019 07:55-0500 BSA (Body Surface Area) 2.05 m2 Varghese Alonso LPN [facility] Work Phone: 03-26-2019 07:55-0500 Height 180.34 cm Varghese Alonso LPN [facility] Work Phone: 03-26-2019 07:55-0500 Pulse (Heart Rate) 104 /min Varghese Alonso LPN [facility] Work Phone: Comment on above: Pattern: Regular 03-26-2019 07:55-0500 Pulse Oximetry 96 % Haily Butts [facility] Work Phone: Comment on above: Room air 03-26-2019 07:55-0500 Respiratory Rate 16 /min Varghese Alonso LPN [facility] Work Phone: Comment on above: Pattern: Unlabored 03-26-2019 07:55-0500 SaO2% (BldA) [Mass fraction] 96 % Varghese Alonso LPN [facility]; [facility] Work Phone: Comment on above: Room air 11-20-2017 10:07-0400 BMI (Body Mass Index) 25.31 kg/m2 Nasra Lee [facility] Work Phone: 11-20-2017 10:07-0400 Body Temperature 97.7 [degF] Nasra Lee [facility] Work Phone: Comment on above: Method: Temporal 11-20-2017 10:07-0400 Body weight 82.33 kg Nasra Lee [facility] Work Phone: 11-20-2017 10:07-0400 BP Diastolic 92 mm[Hg] Nasra Lee [facility] Work Phone: Comment on above: Patient Position: Sitting; Cuff Location : Left Arm; Cuff Size: Standard 11-20-2017 10:07-0400 BP Systolic 132 mm[Hg] Nasra Lee [facility] Work Phone: Comment on above: Patient Position: Sitting; Cuff Location : Left Arm; Cuff Size: Standard 11-20-2017 10:07-0400 BSA (Body Surface Area) 2.02 m2 Nasra Lee [facility] Work Phone: 11-20-2017 10:07-0400 Height 180.34 cm Nasra Lee [facility] Work Phone: 11-20-2017 10:07-0400 Pulse (Heart Rate) 115 /min Nasra Lee [facility] Work Phone: Comment on above: Pattern: Regular 11-20-2017 10:07-0400 Pulse Oximetry 94 % Haily Butts [facility] Work Phone: Comment on above: Room air 11-20-2017 10:07-0400 Respiratory Rate 22 /min Nasra Lee [facility] Work Phone: Comment on above: Pattern: Unlabored 11-20-2017 10:07-0400 SaO2% (BldA) [Mass fraction] 94 % Nasra Lee [facility]; [facility] Work Phone: Comment on above: Room air 11-20-2017 10:07-0400 Weight 82.33 kg Haily Butts [facility] Work Phone: 11-17-2017 08:36-0400 BMI (Body Mass Index) 25.31 kg/m2 Nasra Lee [facility] Work Phone: 11-17-2017 08:36-0400 Body Temperature 97.6 [degF] Nasra Lee [facility] Work Phone: Comment on above: Method: Temporal 11-17-2017 08:36-0400 Body weight 82.33 kg Nasra Lee [facility] Work Phone: 11-17-2017 08:36-0400 BP Diastolic 88 mm[Hg] Nasra Lee [facility] Work Phone: Comment on above: Patient Position: Sitting; Cuff Location : Left Arm; Cuff Size: Standard 11-17-2017 08:36-0400 BP Systolic 132 mm[Hg] Nasra Lee [facility] Work Phone: Comment on above: Patient Position: Sitting; Cuff Location : Left Arm; Cuff Size: Standard 11-17-2017 08:36-0400 BSA (Body Surface Area) 2.02 m2 Nasra Lee [facility] Work Phone: 11-17-2017 08:36-0400 Height 180.34 cm Nasra Lee [facility] Work Phone: 11-17-2017 08:36-0400 Pulse (Heart Rate) 105 /min Nasra Lee [facility] Work Phone: Comment on above: Pattern: Regular 11-17-2017 08:36-0400 Pulse Oximetry 92 % Haily Butts [facility] Work Phone: Comment on above: Room air 11-17-2017 08:36-0400 Respiratory Rate 18 /min Nasra Lee [facility] Work Phone: Comment on above: Pattern: Unlabored 11-17-2017 08:36-0400 SaO2% (BldA) [Mass fraction] 92 % Nasra Lee [facility]; [facility] Work Phone: Comment on above: Room air 11-17-2017 08:36-0400 Weight 82.33 kg Haily Butts [facility] Work Phone: 11-15-2017 08:08-0400 BMI (Body Mass Index) 25.31 kg/m2 Nasra Lee [facility] Work Phone: 11-15-2017 08:08-0400 Body Temperature 97.2 [degF] Nasra Lee [facility] Work Phone: Comment on above: Method: Temporal 11-15-2017 08:08-0400 Body weight 82.33 kg Nasra Lee [facility] Work Phone: 11-15-2017 08:08-0400 BP Diastolic 98 mm[Hg] Nasra Lee [facility] Work Phone: Comment on above: Patient Position: Sitting; Cuff Location : Left Arm; Cuff Size: Standard 11-15-2017 08:08-0400 BP Systolic 146 mm[Hg] Nasra Lee [facility] Work Phone: Comment on above: Patient Position: Sitting; Cuff Location : Left Arm; Cuff Size: Standard 11-15-2017 08:08-0400 BSA (Body Surface Area) 2.02 m2 Nasra Lee [facility] Work Phone: 11-15-2017 08:08-0400 Height 180.34 cm Nasra Lee [facility] Work Phone: 11-15-2017 08:08-0400 Pulse (Heart Rate) 91 /min Nasra Lee [facility] Work Phone: Comment on above: Pattern: Regular 11-15-2017 08:08-0400 Pulse Oximetry 95 % Haily Butts [facility] Work Phone: Comment on above: Room air 11-15-2017 08:08-0400 Respiratory Rate 18 /min Nasra Lee [facility] Work Phone: Comment on above: Pattern: Unlabored 11-15-2017 08:08-0400 SaO2% (BldA) [Mass fraction] 95 % Nasra Lee [facility]; [facility] Work Phone: Comment on above: Room air 11-15-2017 08:08-0400 Weight 82.33 kg Haily Butts [facility] Work Phone: 02-06-2017 14:20-0500 BMI (Body Mass Index) 25.38 kg/m2 Sana Chen XEROX MACHINE OPERATOR [facility] Work Phone: 02-06-2017 14:20-0500 Body Temperature 97.6 [degF] Sana Chen XEROX MACHINE OPERATOR [facility] Work Phone: 02-06-2017 14:20-0500 Body weight 82.56 kg Sana Velasquezlolita FLEMING [facility] Work Phone: 02-06-2017 14:20-0500 BP Diastolic 76 mm[Hg] Sana Velasquezrb XEROX MACHINE OPERATOR [facility] Work Phone: Comment on above: Patient Position: Sitting; Cuff Location : Left Arm; Cuff Size: Standard 02-06-2017 14:20-0500 BP Systolic 116 mm[Hg] Sana Evarb XEROX MACHINE OPERATOR [facility] Work Phone: Comment on above: Patient Position: Sitting; Cuff Location : Left Arm; Cuff Size: Standard 02-06-2017 14:20-0500 BSA (Body Surface Area) 2.03 m2 Sana Evarb XEROX MACHINE OPERATOR [facility] Work Phone: 02-06-2017 14:20-0500 Height 180.34 cm Sana Evarb XEROX MACHINE OPERATOR [facility] Work Phone: 02-06-2017 14:20-0500 Pulse (Heart Rate) 97 /min Sana Evarb XEROX MACHINE OPERATOR [facility] Work Phone: Comment on above: Pattern: Regular 02-06-2017 14:20-0500 Pulse Oximetry 96 % Haily Butts [facility] Work Phone: Comment on above: Room air 02-06-2017 14:20-0500 Respiratory Rate 16 /min Sana Evarb XEROX MACHINE OPERATOR [facility] Work Phone: Comment on above: Pattern: Unlabored 02-06-2017 14:20-0500 SaO2% (BldA) [Mass fraction] 96 % Sana Slarb XEROX MACHINE OPERATOR [facility]; [facility] Work Phone: Comment on above: Room air 02-06-2017 14:20-0500 Weight 82.56 kg Haily Butts [facility] Work Phone: 09-09-2016 12:12-0400 Body weight 66.68 kg Haily Butts RESIDENTIAL SERVICE TECHNICIAN Work Phone: [facility] Work Phone: 09-09-2016 12:12-0400 BP Diastolic 92 mm[Hg] Haily Butts RESIDENTIAL SERVICE TECHNICIAN Work Phone: [facility] Work Phone: Comment on above: Patient Position: Supine; Cuff Location: Right Arm; Cuff Size: Standard 09-09-2016 12:12-0400 BP Systolic 147 mm[Hg] Haily Butts [facility] Work Phone: [facility] Work Phone: Comment on above: Patient Position: Supine; Cuff Location: Right Arm; Cuff Size: Standard 09-09-2016 12:12-0400 Weight 66.68 kg Haily Butts [facility] Work Phone: 09-09-2016 11:54-0400 BMI (Body Mass Index) 26.78 kg/m2 Alie Espinal [facility] Work Phone: 09-09-2016 11:54-0400 Body Temperature 97.7 [degF] Alie Espinal [facility] Work Phone: Comment on above: Method: Temporal 09-09-2016 11:54-0400 Body weight 87.09 kg Alie Espinal [facility] Work Phone: 09-09-2016 11:54-0400 BSA (Body Surface Area) 2.07 m2 Alie Espinal [facility] Work Phone: 09-09-2016 11:54-0400 Height 180.34 cm Alie Espinal [facility] Work Phone: 09-09-2016 11:54-0400 Pulse (Heart Rate) 104 /min Alie Espinal [facility] Work Phone: Comment on above: Pattern: Regular 09-09-2016 11:54-0400 Pulse Oximetry 94 % Haily Butts [facility] Work Phone: Comment on above: Room air 09-09-2016 11:54-0400 Respiratory Rate 20 /min Alie Espinal [facility] Work Phone: Comment on above: Pattern: Unlabored 09-09-2016 11:54-0400 SaO2% (BldA) [Mass fraction] 94 % Alie Espinal [facility]; [facility] Work Phone: Comment on above: Room air 09-09-2016 11:54-0400 Weight 87.09 kg Haily Butts [facility] Work Phone: 07-19-2016 15:31-0400 BMI (Body Mass Index) 26.78 kg/m2 Sana Slarb XEROX MACHINE OPERATOR [facility] Work Phone: 07-19-2016 15:31-0400 Body Temperature 97.5 [degF] Sana Slarb XEROX MACHINE OPERATOR [facility] Work Phone: 07-19-2016 15:31-0400 Body weight 87.09 kg Sana Slarb XEROX MACHINE OPERATOR [facility] Work Phone: 07-19-2016 15:31-0400 BP Diastolic 80 mm[Hg] Sana Slarb XEROX MACHINE OPERATOR [facility] Work Phone: Comment on above: Patient Position: Sitting; Cuff Location : Left Arm; Cuff Size: Standard 07-19-2016 15:31-0400 BP Systolic 118 mm[Hg] Sana Slarb XEROX MACHINE OPERATOR [facility] Work Phone: Comment on above: Patient Position: Sitting; Cuff Location : Left Arm; Cuff Size: Standard 07-19-2016 15:31-0400 BSA (Body Surface Area) 2.07 m2 Sana Slarb XEROX MACHINE OPERATOR [facility] Work Phone: 07-19-2016 15:31-0400 Height 180.34 cm Sana Slarb XEROX MACHINE OPERATOR [facility] Work Phone: 07-19-2016 15:31-0400 Pulse (Heart Rate) 96 /min Sana Slarb XEROX MACHINE OPERATOR [facility] Work Phone: Comment on above: Pattern: Regular 07-19-2016 15:31-0400 Pulse Oximetry 96 % Haily Butts [facility] Work Phone: Comment on above: Room air 07-19-2016 15:31-0400 Respiratory Rate 16 /min Sana Slarb XEROX MACHINE OPERATOR [facility] Work Phone: Comment on above: Pattern: Unlabored 07-19-2016 15:31-0400 SaO2% (BldA) [Mass fraction] 96 % Sana Evarb XEROX MACHINE OPERATOR [facility] Work Phone: Comment on above: Room air 07-19-2016 15:31-0400 Weight 87.09 kg Haily Butts [facility] Work Phone: 11-18-2015 13:22-0400 BMI (Body Mass Index) 25.68 kg/m2 Sana Slarb XEROX MACHINE OPERATOR [facility] Work Phone: 11-18-2015 13:22-0400 Body Temperature 97.6 [degF] Sana Evarb XEROX MACHINE OPERATOR [facility] Work Phone: 11-18-2015 13:22-0400 Body weight 83.52 kg Sana Velasquezrb XEROX MACHINE OPERATOR [facility] Work Phone: 11-18-2015 13:22-0400 BP Diastolic 82 mm[Hg] Sana Slarb XEROX MACHINE OPERATOR [facility] Work Phone: Comment on above: Patient Position: Sitting; Cuff Location : Left Arm; Cuff Size: Standard 11-18-2015 13:22-0400 BP Systolic 126 mm[Hg] Sana Evarb XEROX MACHINE OPERATOR [facility] Work Phone: Comment on above: Patient Position: Sitting; Cuff Location : Left Arm; Cuff Size: Standard 11-18-2015 13:22-0400 BSA (Body Surface Area) 2.04 m2 Sana Evarb XEROX MACHINE OPERATOR [facility] Work Phone: 11-18-2015 13:22-0400 Height 180.34 cm Sana Evarb XEROX MACHINE OPERATOR [facility] Work Phone: 11-18-2015 13:22-0400 Pulse (Heart Rate) 90 /min Sana Evarb XEROX MACHINE OPERATOR [facility] Work Phone: Comment on above: Pattern: Regular 11-18-2015 13:22-0400 Pulse Oximetry 95 % Haily Butts [facility] Work Phone: Comment on above: Room air 11-18-2015 13:22-0400 Respiratory Rate 16 /min Sana Chen LONNIE [facility] Work Phone: Comment on above: Pattern: Unlabored 11-18-2015 13:22-0400 SaO2% (BldA) [Mass fraction] 95 % Sana Chen LONNIE [facility]; [facility] Work Phone: Comment on above: Room air 11-18-2015 13:22-0400 Weight 83.52 kg Haily Butts [facility] Work Phone: 09-02-2015 10:30-0400 BMI (Body Mass Index) 25.68 kg/m2 Karla العراقي RN [facility] Work Phone: 09-02-2015 10:30-0400 Body weight 83.52 kg Karla العراقي RN [facility] Work Phone: 09-02-2015 10:30-0400 BP Diastolic 64 mm[Hg] Karla العراقي RN [facility] Work Phone: Comment on above: Patient Position: Sitting; Cuff Location : Left Arm; Cuff Size: Large 09-02-2015 10:30-0400 BP Systolic 116 mm[Hg] Karla العراقي RN [facility] Work Phone: Comment on above: Patient Position: Sitting; Cuff Location : Left Arm; Cuff Size: Large 09-02-2015 10:30-0400 BSA (Body Surface Area) 2.04 m2 Karla العراقي RN [facility] Work Phone: 09-02-2015 10:30-0400 Height 180.34 cm Karla العراقي RN [facility] Work Phone: 09-02-2015 10:30-0400 Pulse (Heart Rate) 91 /min Karla العراقي RN [facility] Work Phone: Comment on above: Pattern: Regular 09-02-2015 10:30-0400 Pulse Oximetry 96 % Haily Butts [facility] Work Phone: Comment on above: Room air 09-02-2015 10:30-0400 Respiratory Rate 18 /min Karla العراقي RN [facility] Work Phone: Comment on above: Pattern: Unlabored 09-02-2015 10:30-0400 SaO2% (BldA) [Mass fraction] 96 % Karla العراقي RN [facility]; [facility] Work Phone: Comment on above: Room air 09-02-2015 10:30-0400 Weight 83.52 kg Haily Butts [facility] Work Phone: 06-03-2014 09:57-0400 Body Temperature 97.6 [degF] Shyanne Marcelo FLEMING [facility] Work Phone: Comment on above: Method: Oral 06-03-2014 09:57-0400 Body weight 83.52 kg Shyanne Robertson LPN [facility] Work Phone: 06-03-2014 09:57-0400 BP Diastolic 84 mm[Hg] Shyanne Robertson LPN [facility] Work Phone: Comment on above: Patient Position: Sitting; Cuff Location : Left Arm; Cuff Size: Standard 06-03-2014 09:57-0400 BP Systolic 136 mm[Hg] Shyanne Marcelo FLEMING [facility] Work Phone: Comment on above: Patient Position: Sitting; Cuff Location : Left Arm; Cuff Size: Standard 06-03-2014 09:57-0400 Pulse (Heart Rate) 82 /min Shyanne Marcelo FLEMING [facility] Work Phone: Comment on above: Pattern: Regular 06-03-2014 09:57-0400 Pulse Oximetry 97 % Haily Butts [facility] Work Phone: Comment on above: Room air 06-03-2014 09:57-0400 Respiratory Rate 16 /min Shyanne Marcelo FLEMING [facility] Work Phone: 06-03-2014 09:57-0400 SaO2% (BldA) [Mass fraction] 97 % Shyanne Robertson LPN [facility]; [facility] Work Phone: Comment on above: Room air 06-03-2014 09:57-0400 Weight 83.52 kg Haily Butts [facility] Work Phone: Encounters Encounter Date Encounter Type Care Provider Facility Start: 10-04-2024 End: 10-04-2024 Patient encounter procedure Tip Iglesias [facility] Work Phone: Start: 10-04-2024 End: 10-04-2024 ambulatory Amanda Woods IMMIGRATION MANAGER-C Work Phone: [facility] Start: 09-09-2024 End: 09-09-2024 Patient encounter procedure Naveen Valencia PA -[facility] Work Phone: Start: 09-09-2024 End: 09-09-2024 ambulatory Amanda Woods IMMIGRATION MANAGER-C Work Phone: - [facility] Start: 09-09-2024 End: 09-09-2024 ambulatory Naveen YUN Facility:[facility] Start: 06-02-2024 End: 06-02-2024 Patient encounter procedure John Steen IMMIGRATION MANAGER-C -[facility] Work Phone: Start: 06-02-2024 End: 06-02-2024 ambulatory Amanda Woods Facility:[facility] Start: 03-10-2024 End: 03-10-2024 ambulatory Amanda Woods Facility:[facility] Start: 01-30-2024 ambulatory Amanda Woods Facility :[facility] Start: 01-29-2024 End: 01-29-2024 ambulatory Amanda Woods Facility:[facility] Start: 01-02-2024 End: 01-02-2024 ambulatory Amanda Woods Facility:[facility] Start: 12-14-2023 End: 12-14-2023 ambulatory Amanda Woods Facility:[facility] Start: 11-18-2023 End: 11-18-2023 ambulatory Faye Little Facility:[facility] Start: 11-23-2022 End: 11-25-2022 Office outpatient visit 25 minutes Amanda Woods RESIDENTIAL SERVICE TECHNICIAN Work Phone: [facility] Start: 11-23-2022 Review Amanda Woods RESIDENTIAL SERVICE TECHNICIAN Work Phone: [facility] Start: 08-15-2022 End: 08-15-2022 Annotation/Addendum Amanda Woods RESIDENTIAL SERVICE TECHNICIAN Work Phone: [facility] Start: 06-08-2022 End: 06-08-2022 Annotation/Addendum Amanda Woods FLOR[place] Work Phone: [facility] Start: 05-11-2022 ambulatory Haily Butts [facility] Start: 05-11-2022 End: 05-11-2022 Office outpatient visit 25 minutes Amanda Woods RESIDENTIAL SERVICE TECHNICIAN Work Phone: [facility] Start: 05-11-2022 Review Amanda Woods [place] Work Phone: [facility] Start: 12-13-2021 End: 12-13-2021 Patient encounter procedure Amanda Woods [place] Work Phone: [facility] Start: 12-07-2021 End: 12-07-2021 Office outpatient visit 15 minutes Amanda Chuck CNP Work Phone: [facility] Start: 11-10-2021 End: 11-10-2021 Office outpatient visit 15 minutes Amanda Woods RESIDENTIAL SERVICE TECHNICIAN Work Phone: [facility] Start: 08-11-2021 End: 08-11-2021 Patient encounter procedure IMMIGRATION MANAGER-C Haily Butts IMMIGRATION MANAGER Work Phone: [facility] Start: 07-13-2021 End: 07-13-2021 Office outpatient visit 15 minutes Haily Cifuentesace Work Phone: [facility] Start: 04-28-2021 Review Haily Butts RESIDENTIAL SERVICE TECHNICIAN Work Phone: [facility] Start: 04-28-2021 End: 04-28-2021 Annotation/Addendum Haily Butts RESIDENTIAL SERVICE TECHNICIAN Work Phone: [facility] Start: 04-28-2021 Non-patient / Non-visit IMMIGRATION MANAGER-C Haily Butts IMMIGRATION MANAGER Work Phone: [facility] Start: 04-28-2021 End: 04-28-2021 Office outpatient visit 15 minutes Haily Butts RESIDENTIAL SERVICE TECHNICIAN Work Phone: [facility] Start: 04-28-2021 End: 04-28-2021 Patient encounter procedure IMMIGRATION MANAGER-C Haily Butts IMMIGRATION MANAGER Work Phone: [facility] Start: 12-14-2020 End: 12-14-2020 Office outpatient visit 10 minutes Haily Butts RESIDENTIAL SERVICE TECHNICIAN Work Phone: [facility] Start: 10-20-2020 End: 10-20-2020 Office outpatient visit 15 minutes Haily Butts RESIDENTIAL SERVICE TECHNICIAN Work Phone: [facility] Start: 03-24-2020 End: 03-24-2020 Office outpatient visit 10 minutes Haily [facility]c [facility] Start: 09-18-2019 End: 09-18-2019 Annotation/Addendum Haily Butts [facility] Start: 09-17-2019 End: 09-17-2019 Annotation/Addendum Haily Butts [facility] Start: 09-17-2019 End: 09-17-2019 Patient encounter procedure Haiyl [facility] Start: 09-16-2019 End: 09-16-2019 Office outpatient visit 25 minutes Haily [facility] Start: 06-11-2019 End: 06-11-2019 Office outpatient visit 15 minutes Haily [facility] Start: 03-26-2019 End: 03-26-2019 Office outpatient visit 25 minutes Haily [facility] Start: 11-20-2017 End: 11-20-2017 Erroneous Entry Haily Butts [facility] Start: 11-20-2017 End: 11-20-2017 Phone Encounter Haily Jc [facility] Start: 11-20-2017 End: 11-20-2017 Annotation/Addendum Haily Butts [facility] Start: 11-20-2017 End: 11-20-2017 Office outpatient visit 25 minutes Haily [facility] Start: 11-17-2017 End: 11-17-2017 Annotation/Addendum Haily Butts [facility] Start: 11-17-2017 End: 11-17-2017 Office outpatient visit 25 minutes Haily [facility] Start: 11-15-2017 End: 11-15-2017 Annotation/Addendum Haily Butts [facility] Start: 11-15-2017 End: 11-15-2017 [facility] Start: 02-06-2017 End: 02-06-2017 [facility] Start: 09-09-2016 End: 09-09-2016 Office [facility] Start: 07-29-2016 End: 07-29-2016 Annotation/Addendum Haily Benny [facility] Start: 07-19-2016 End: 07-19-2016 [facility] Start: 11-18-2015 End: 11-18-2015 Office outpatient visit 15 minutes [facility] Start: 09-02-2015 End: 09-02-2015 Office outpatient visit 10 minutes [facility] Start: 01-05-2015 End: 01-05-2015 Annotation/Addendum Haily Benny [facility] Start: 06-24-2014 End: 06-25-2014 Historical Summary [facility] Start: 06-03-2014 End: 06-03-2014 Office outpatient new 45 minutes [facility] Procedures Date Procedure Procedure Detail Performing Clinician Start: 09-09-2024 X-ray of ankle, three or more views Amanda MARTINEZ Work Phone: Start: 11-12-2022 End: 11-12-2022 Office Visit Report Procedure Note: See Note; NOTES: [facility] [address] [place] [address] [place] [address] OFFICE VISIT Date of Service: 11/12/22 MR#: [id number] Acct: [id number] Patient: HELEN NOGUEIRA Rep #: [id number] : 1970 Provider: JAMA Engle Age/Sex: 52/M Location: [facility] Status: Signed Intake Vital Signs 06/09/22 12:35 11/12/22 08:11 Height 5 ft 11 in 5 ft 11 in Weight: 187 lb BMI 26.0 BP 146/90 H 128/80 H Blood Pressure Location Rt brachial Position Sitting Pulse 82 Pulse Source Monitor Intake Visit Reasons: CONCERN FOR SINUS INFECTION 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 Accompanied by: Self Is patient in pain?: No Allergies No Known Allergies Allergy (Verified 11/12/22 08:12) Medications fluticasone 100 mcg-salmeterol 50 mcg/dose blistr powdr for inhalation 1 puff inhalation DAILY 03/06/15 [History Confirmed 11/12/22] prednisone 20 mg tablet 40 mg (2 x 20 mg) PO DAILY #7 tabs 11/20/17 [Rx Confirmed 11/12/22] Entyvio 1 IV X1 05/24/22 [History Confirmed 11/12/22] rosuvastatin 5 mg tablet 5 mg PO DAILY 05/24/22 [History Confirmed 11/12/22] sertraline 50 mg tablet 50 mg PO DAILY 05/24/22 [History Confirmed 11/12/22] amoxicillin 500 mg-potassium clavulanate 125 mg tablet (Augmentin) 1 tab PO BID 10 days #20 tabs 11/12/22 [Rx Confirmed 11/12/22] prednisone 10 mg tablet 10 mg PO .COMPLEX #30 tabs 11/12/22 [Rx Confirmed 11/12/22] Nurse's Note: Presents to the clinic today with concerns of sinus infection. Symptoms started 4 days ago. [facility] Medical History Acute streptococcal pharyngitis Social History Smoking Status: Never smoker alcohol intake: current alcohol intake frequency: holidays/special occasions only substance use type: does not use what type of physical activity do you participate in: walking, aerobics and weight training frequency: 3-4 times per week HPI HPI Details: HELEN NOGUEIRA, is a 52 M who presents to the office today for concerns over a sinus infection. Pt has autoimmune disease and easily gets sinus infections once a year. Symptoms started 4 days ago: today has been the worse. Noticed drainage from his eyes, sinus pressure, QUEEN, cough, fatigue, sore throat. No fevers. ROS Const Constitutional: No other (As above) Exam Const General: cooperative, healthy appearing and no acute distress Nutritional Appearance: average body habitus Orientation: alert, awake and oriented x3 HENMT Head: normal to inspection Ears: hearing grossly normal bilaterally, external ears normal, TM's normal bilaterally and EAC's normal Nose: external nose normal, nares normal, septum normal and no nasal discharge Face and sinus: normal facial exam, face symmetric and sinus tenderness frontal and maxillary Mouth: oral mucosae normal, lip normal, tongue normal and oropharynx normal Throat: posterior oropharynx normal, uvula midline, abnormal tonsil bilaterally erythema and hypertrophy 4+; no exudates and postnasal drainage Eyes General: appearance normal, both eyes and all related structures Neck Neck: normal visual inspection, full ROM, no meningeal signs, supple and lymphadenopathy (Bilateral anterior cervical lymph node swelling/tender to palpation) Neck mass: No Thyroid: thyroid normal Chest Chest palpation inspection: normal inspection of the chest Resp Effort Inspection: normal respiratory effort and able to speak in complete sentences Auscultation: Bilateral: Clear to Auscultation Cardio Palpation: normal PMI Rate: regular rate Rhythm: regular rhythm Heart Sounds: S1 normal, S2 normal, no gallops, no murmurs and no rubs Pulses: radial pulses present GI Inspection: normal to inspection Skin General: no rashes or lesions noted Neuro General: patient alert, patient awake and patient oriented x3 Cognition: normal cognition Speech: speech normal Psych Appearance: grossly normal Mental Status: mental status grossly normal Mood: congruent mood Affect: normal affect Speech and Movement: speech and movement normal Attitude: cooperative Thought Process: normal Thought Content: normal Judgment: judgment good Coding Level of Care Code Off vis,est,level 3 Diagnoses Acute bacterial sinusitis J01.90; B96.89 Assessment and Plan Assessment and Plan (1) Acute bacterial sinusitis: Status: Acute Plan: Advised patient to complete course of antibiotics given. Also gave Rx from prednisone. Advised patient on the importance of hydration. Recommended the use of rfuz-ejv-[id number] support from Advil, Tylenol and comh-bzv-aafjqji cold medications to help alleviate symptoms. Did review maximum dosing on each of these medications to avoid accidental overdose of medications. Advised if not improving to see PCP. Medications: New amoxicillin-pot clavulanate 500-125 mg (Augmentin) 1 TAB PO BID 10 days 20 tabs 0RF prednisone Take 4 pills for 3 days, 3 pills for 3 days, 2 pills for 3 days, take 1 pill for 3 days 30 tabs 0RF Plan Details Goals Barriers: Goals Decrease pain Decrease inflammation Improve ability to sit Improve ROM Barriers Avid golfer Decreased L5/S1 11/12/22 0824 <Electronically signed by Angella Barahona> Date ___ Angella Garcia Signature: Date ___ (if applicable) CC: Amanda Woods CNP Work Phone: Start: 06-20-2022 End: 06-20-2022 Chiropractic Report Procedure Note: See Note; NOTES: [facility] [address] [place] [id number] OFFICE VISIT Date of Service: 06/20/22 MR#: [id number] Acct: [id number] Name: HELEN NOGUEIRA Rep #: [id number] : 1970 Provider: ENRIQUE Alvares Age/Sex: 51/M Location: [facility] Status: Signed Intake Intake Visit Reasons: Back pain Chief Complaint: mid/low back pain Is patient in pain?: Yes (mid back ) Pain scale (1-10): 2 Allergies No Known Allergies Allergy (Verified 06/20/22 14:28) Medications fluticasone 100 mcg-salmeterol 50 mcg/dose blistr powdr for inhalation 1 puff inhalation DAILY 03/06/15 [History Confirmed 06/20/22] prednisone 20 mg tablet 40 mg PO DAILY #7 tabs 11/20/17 [Rx Confirmed 06/20/22] Entyvio 1 IV X1 05/24/22 [History Confirmed 06/20/22] rosuvastatin 5 mg tablet 5 mg PO DAILY 05/24/22 [History Confirmed 06/20/22] sertraline 50 mg tablet 50 mg PO DAILY 05/24/22 [History Confirmed 06/20/22] PFSH Medical History Acute streptococcal pharyngitis Social History Smoking Status: Never smoker alcohol intake: current alcohol intake frequency: holidays/special occasions only substance use type: does not use what type of physical activity do you participate in: walking, aerobics and weight training frequency: 3-4 times per week HPI Back pain Chief Complaint: low back pain Visit Number: 3 Details: Helen is a 51 y/o male here for a follow up on mid/low back pain. Pt. advises his low back pain has improved since last weeks adjustment. He states his mid back just feel tight and needs 'cracked'. He rates his pain 2/10 today. He treats pain at home with STIM, ice, tylenol and muscle relaxers as needed. He denies injury, numbness, tingling or radiculopathy. He reports chiropractic adjustments are effective in relieving his pain. Onset: 05/30/22 Location: Mid, LBP Duration: constant Aggravating or associated factors: sitting, standing, laying down Relieving factors: chiro Treatment: Ice, stretching, NSAIDS Pain Quality: aching and dull Exam Musc General: Yes joint tenderness and decreased range of motion; No normal posture or normal gait Cervical Spine: Yes loss of normal cervical lordosis, Yes cervical muscular tenderness (slightly improved) bilateral lower , Yes cervical spasm right greater than left lower trapezius and paracervical muscles, left upper intrinsics and Yes misalignment misalignment: C2, C6 and C7 Thoracic/Lumber: Yes thoracic and lumbar spine normal to inspection, Yes paraspinal tenderness (slightly improved) on the right greater than left (lumbopelvic), Yes thoraco-lumbar spasm bilaterally (paraspinal (L2-L5)) and on the right greater than left (piriformis, glute med) and Yes misalignment T5, T6, T7, L2, L3, L4, L5 and RIL Sacroiliac joints: on the right tender to palpation Ortho Test CERVICAL THORACIC Kemps: Positive, Right and Left LUMBAR Kemps: Positive and Left Valsalvas: Positive SLR: Negative Iliac Compression: Positive, Right and Left Lumbar Series: +Minors sign Office Procedures Procedures - Chiropractic Procedures Manipulation: Cervical C2 and C6, Lumbar L4, Thoracic T6 and Pelvis RIL Manipulation: 3-4 regions Patient Response: positive Assessment and Plan Assessment and Plan (1) Back pain: Status: Acute Qualifiers: Back pain laterality: bilateral Back pain location: low back pain Chronicity: acute Sciatica presence: without sciatica Qualified Code(s): M54.5 - Low back pain (2) Lumbar neuritis: Status: Acute (3) Segmental and somatic dysfunction of pelvic region: Status: Acute (4) Segmental and somatic dysfunction of lumbar region: Status: Acute (5) Segmental and somatic dysfunction of thoracic region: Status: Acute (6) Segmental and somatic dysfunction of cervical region: Status: Acute Orders: Orders Chiropractic Treatments Today M54.16 - Radiculopathy, lumbar region, M54.5 - Low back pain, M99.01 - Segmental and somatic dysfunction of cervical region, M99.02 - Segmental and somatic dysfunction of thoracic region, M99.03 - Segmental and somatic dysfunction of lumbar region, M99.05 - Segmental and somatic dysfunction of pelvic region Plan Patient was treated without incident. Continue care on PRN basis. He has been showing improvement. Plan Details Goals Barriers: Goals Decrease pain Decrease inflammation Improve ability to sit Improve ROM Barriers Avid golfer Decreased L5/S1 Follow Up: PRN Coding Level of Care Code No Charge Diagnoses Back pain M54.5 Back pain laterality: bilateral Back pain location: low back pain Chronicity: acute Sciatica presence: without sciatica Lumbar neuritis M54.16 Segmental and somatic dysfunction of pelvic region M99.05 Segmental and somatic dysfunction of lumbar region M99.03 Segmental and somatic dysfunction of thoracic region M99.02 Segmental and somatic dysfunction of cervical region M99.01 CPT Codes Procedures - Manipulation: 3-4 regions ([id number]) 06/20/22 1703 <Electronically signed by Ashley Sweeney D.C.> Date ___ Ashley Sweeney D.C. Cosigner Signature: Date ___ (if applicable) CC: Amanda Woods [facility] Work Phone: Start: 06-13-2022 End: 06-14-2022 Chiropractic Report Procedure Note: See Note; NOTES: [facility] [address] [place] [address] OFFICE VISIT Date of Service: 06/13/22 MR#: [id number] Acct: [id number] Name: HELEN NOGUEIRA Rep #: [id number] : 1970 Provider: ENRIQUE Alvares Age/Sex: 51/M Location: [facility] Status: Signed Intake Vital Signs 07/22/20 15:44 06/09/22 12:35 Height 5 ft 11 in 5 ft 11 in Weight: 187 lb BMI 26.0 BP 146/90 H Intake Visit Reasons: Back pain Chief Complaint: mid/low back pain Is patient in pain?: Yes (mid/LBP) Pain scale (1-10): 4 Allergies No Known Allergies Allergy (Verified 06/13/22 16:21) Medications fluticasone 100 mcg-salmeterol 50 mcg/dose blistr powdr for inhalation 1 puff inhalation DAILY 03/06/15 [History Confirmed 06/13/22] prednisone 20 mg tablet 40 mg PO DAILY #7 tabs 11/20/17 [Rx Confirmed 06/13/22] Entyvio 1 IV X1 05/24/22 [History Confirmed 06/13/22] rosuvastatin 5 mg tablet 5 mg PO DAILY 05/24/22 [History Confirmed 06/13/22] sertraline 50 mg tablet 50 mg PO DAILY 05/24/22 [History Confirmed 06/13/22] PFSH Medical History Acute streptococcal pharyngitis Social History Smoking Status: Never smoker alcohol intake: current alcohol intake frequency: holidays/special occasions only substance use type: does not use what type of physical activity do you participate in: walking, aerobics and weight training frequency: 3-4 times per week HPI Back pain Chief Complaint: low back pain Visit Number: 2 Details: Helen is a 51 y/o male here for a follow up of back pain. Pt. complains of mid and low back pain that is worse on the right side. He states the pain has improved from last week and rates it a 4/10. He describes the pain as a constant dull ache. He has slightly better posture and gait. He has been treating pain at home with STIM, ice, tylenol and muscle relaxers with mild relief. His neck and midback have been hurting as well as a result of abnormal posture. He denies injury, numbness, tingling or radiculopathy. He reports chiropractic adjustments have been effective in the past. Onset: 05/30/22 Location: Mid, LBP Duration: constant Aggravating or associated factors: sitting, standing, laying down Relieving factors: chiro Treatment: Ice, stretching, NSAIDS Pain Quality: aching and dull Exam Musc General: Yes joint tenderness and decreased range of motion; No normal posture or normal gait Cervical Spine: Yes loss of normal cervical lordosis, Yes cervical muscular tenderness bilateral diffuse , Yes pain with cervical ROM with lateral flexion to right, with lateral flexion to left and with extension, Yes cervical spasm right greater than left lower trapezius and paracervical muscles, left upper intrinsics and Yes misalignment misalignment: C2, C6 and C7 Thoracic/Lumber: No thoracic and lumbar spine normal to inspection (right antalgia), Yes paraspinal tenderness on the right greater than left (lumbopelvic), Yes thoraco-lumbar spasm bilaterally (paraspinal (L2-L5)) and on the right greater than left (piriformis, glute med) and Yes misalignment T5, T6, T7, L2, L3, L4, L5 and RIL Sacroiliac joints: on the right tender to palpation Ortho Test CERVICAL THORACIC Kemps: Positive, Right and Left LUMBAR Kemps: Positive and Left Valsalvas: Positive SLR: Negative Iliac Compression: Positive, Right and Left Lumbar Series: +Minors sign Office Procedures Procedures - Chiropractic Procedures Manipulation: Cervical C2 and C6, Lumbar L4, Thoracic T6 and Pelvis RIL Manipulation: 3-4 regions Traction, Mechanical: Yes Patient Response: positive Assessment and Plan Assessment and Plan (1) Back pain: Status: Acute Qualifiers: Back pain laterality: bilateral Back pain location: low back pain Chronicity: acute Sciatica presence: without sciatica Qualified Code(s): M54.5 - Low back pain (2) Lumbar neuritis: Status: Acute (3) Segmental and somatic dysfunction of pelvic region: Status: Acute (4) Segmental and somatic dysfunction of lumbar region: Status: Acute (5) Segmental and somatic dysfunction of thoracic region: Status: Acute (6) Segmental and somatic dysfunction of cervical region: Status: Acute Orders: Orders Chiropractic Treatments 06/13/22 M54.16 - Radiculopathy, lumbar region, M54.5 - Low back pain, M99.02 - Segmental and somatic dysfunction of thoracic region, M99.03 - Segmental and somatic dysf unction of lumbar region, M99.05 - Segmental and somatic dysfunction of pelvic region Plan Patient was treated without incident. Continue care. Plan Details Goals Barriers: Goals Decrease pain Decrease inflammation Improve ability to sit Improve ROM Barriers Avid golfer Decreased L5/S1 Follow Up: 2x week x 2 weeks (2 of 4) Coding Level of Care Code No Charge Diagnoses Back pain M54.5 Back pain laterality: bilateral Back pain location: low back pain Chronicity: acute Sciatica presence: without sciatica Lumbar neuritis M54.16 Segmental and somatic dysfunction of pelvic region M99.05 Segmental and somatic dysfunction of lumbar region M99.03 Segmental and somatic dysfunction of thoracic region M99.02 Segmental and somatic dysfunction of cervical region M99.01 CPT Codes Procedures - Manipulation: 3-4 regions (52576) Procedures - Traction, Mechanical: Yes (87208) 06/14/22 1059 <Electronically signed by Ashley Sweeney D.C.> Date ___ Ashley Sweeney D.C. Cosigner Signature: Date ___ (if applicable) CC: Amanda Woods RESIDENTIAL SERVICE TECHNICIAN Work Phone: Start: 06-09-2022 End: 06-09-2022 Chiropractic Report Procedure Note: See Note; NOTES: [facility] [address] [place] [address] OFFICE VISIT Date of Service: 06/09/22 MR#: [id number] Acct: [id number] Name: HELEN NOGUEIRA Rep #: [id number] : 1970 Provider: ENRIQUE Alvares Age/Sex: 51/M Location: [facility] Status: Signed Intake Vital Signs 06/09/22 12:35 Height 5 ft 11 in Weight: 187 lb BMI 26.0 BP 146/90 H Intake Visit Reasons: REEVAL BACK PAIN Chief Complaint: mid/low back pain Is patient in pain?: Yes (low back ) Pain scale (1-10): 8 Allergies No Known Allergies Allergy (Verified 06/09/22 12:35) Medications fluticasone 100 mcg-salmeterol 50 mcg/dose blistr powdr for inhalation 1 puff inhalation DAILY 03/06/15 [History Confirmed 06/09/22] prednisone 20 mg tablet 40 mg PO DAILY #7 tabs 11/20/17 [Rx Confirmed 06/09/22] Entyvio 1 IV X1 05/24/22 [History Confirmed 06/09/22] rosuvastatin 5 mg tablet 5 mg PO DAILY 05/24/22 [History Confirmed 06/09/22] sertraline 50 mg tablet 50 mg PO DAILY 05/24/22 [History Confirmed 06/09/22] PFSH Medical History Acute streptococcal pharyngitis Social History Smoking Status: Never smoker alcohol intake: current alcohol intake frequency: holidays/special occasions only substance use type: does not use what type of physical activity do you participate in: walking, aerobics and weight training frequency: 3-4 times per week HPI REEVAL BACK PAIN Chief Complaint: mid/low back pain Visit Number: 1 Details: Helen is a 51 y/o male here for a re-evaluation of back pain. Pt. advises his shoulder blade pain flared up 4-5 days ago insidiously and has gradually moved down into his mid and settled into his low back and right buttock. He rates his low back pain 8/10 today. He states it is a constant intense pain that worsens as he lays down taking his breath away. He has been treating pain at home with STIM, ice, tylenol and muscle relaxers with mild relief. He denies injury, numbness, tingling or radiculopathy. He reports chiropractic adjustments have been effective in the past. Location: mid/low back Duration: frequent Aggravating or associated factors: bending, laying, sitting Relieving factors: chiro Pain Quality: aching and dull Exam Musc General: Yes joint tenderness and decreased range of motion; No normal posture or normal gait Thoracic/Lumber: No thoracic and lumbar spine normal to inspection (right antalgia), Yes straight leg raise negative bilaterally, Yes Lasegue's sign positive on the right, Yes pain with thoraco- lumbar ROM with forward flexion, with lateral flexion to the right, with lateral flexion to the left, with rotation to the right, with rotation to the left and other (extension), Yes paraspinal tenderness on the right greater than left (lumbopelvic), Yes thoraco-lumbar ROM limited with forward flexion, with lateral flexion to the right, with lateral flexion to the left, with rotation to the right and with rotation to the left, Yes thoraco-lumbar spasm bilaterally (paraspinal (L2-L5)) and on the right greater than left (piriformis, glute med) and Yes misalignment T5, T6, T7, L2, L3, L4, L5 and RIL Sacroiliac joints: on the right tender to palpation Neuro General: patient alert, patient awake, patient oriented x3, normal light touch, pain and propioception and no focal motor deficits Cranial Nerves: CN's II-XI intact bilaterally Cognition: normal cognition Speech: speech normal Gait: antalgic Motor: strength abnormal (spinal extensors) Sensory Exam: no sensory deficits noted Ortho Test CERVICAL THORACIC Kemps: Positive, Right and Left LUMBAR Kemps: Positive and Left Valsalvas: Positive SLR: Negative Iliac Compression: Positive, Right and Left Lumbar Series: +Minors sign Office Procedures Procedures - Chiropractic Procedures Manipulation: Lumbar L4, Thoracic T6 and Pelvis RIL Manipulation: 3-4 regions Electronic Stimulation: Yes Electrical Stimulation: Lumbar 15 mins (25) mA Therapy Performed by:: Stephanie Lange, Mechanical: Yes Patient Response: positive Assessment and Plan Assessment and Plan (1) Lumbar neuritis: Status: Acute (2) Back pain: Status: Acute Qualifiers: Back pain location: low back pain Chronicity: acute Back pain laterality: bilateral Sciatica presence: without sciatica Qualified Code(s): M54.5 - Low back pain (3) Segmental and somatic dysfunction of pelvic region: Status: Acute (4) Segmental and somatic dysfunction of lumbar region: Status: Acute (5) Segmental and somatic dysfunction of thoracic region: Status: Acute Orders: Orders Chiropractic Treatments Today M54.16 - Radiculopathy, lumbar region, M54.5 - Low back pain, M99.02 - Segmental and somatic dysfunction of thoracic region, M99.03 - Segmental and somatic dysfunction of lumbar region, M99.05 - Segmental and somatic dysfunction of pelvic region Plan Patient was treated without incident. Follow up with acute tx plan: 2x/wk/2-3wks. Suspect underlying disc bulge/herniation @L5/S1. Plan Details Goals Barriers: Goals Decrease pain Decrease inflammation Improve ability to sit Improve ROM Barriers Avid golfer Decreased L5/S1 Follow Up: 2x/wk/2wks (1 of 4) Coding Level of Care Code No Charge Diagnoses Lumbar neuritis M54.16 Back pain M54.5 Back pain location: low back pain Chronicity: acute Back pain laterality: bilateral Sciatica presence: without sciatica Segmental and somatic dysfunction of pelvic region M99.05 Segmental and somatic dysfunction of lumbar region M99.03 Segmental and somatic dysfunction of thoracic region M99.02 CPT Codes Procedures - Manipulation: 3-4 regions (21083) Procedures - Electronic Stimulation: Yes (46401) Procedures - Traction, Mechanical: Yes (18025) 06/09/22 1413 <Electronically signed by Ashley Sweeney D.C.> Date ___ Ashley Sweeney D.C. Cosigner Signature: Date ___ (if applicable) CC: Amanda Woods RESIDENTIAL SERVICE TECHNICIAN Work Phone: Start: 05-24-2022 End: 05-24-2022 Urgent Care Visit Report Procedure Note: See Note; NOTES: [facility] [address] [place] [address] OFFICE VISIT Date of Service: 05/24/22 MR#: [id number] Acct: [id number] Name: HELEN NOGUEIRA Rep #: [id number] : 1970 Provider: AJMA fernando Age/Sex: 51/M Location: [facility] Status: Signed Intake Vital Signs 07/22/20 15:44 05/24/22 08:06 Height 5 ft 11 in BP 104/70 Blood Pressure Location Lt brachial Position Sitting Respiration 15 Pulse 96 Pulse Source Monitor Temp 98.4 F Temp Source Temporal Pulse Oximetry (%) 96 Oxygen Delivery Method room air Intake Visit Reasons: SORE THROAT/FEVER Chief Complaint: sore throat Is patient in pain?: Yes Pain scale (1-10): 6 Allergies No Known Allergies Allergy (Verified 05/24/22 08:06) Medications fluticasone 100 mcg-salmeterol 50 mcg/dose blistr powdr for inhalation 1 puff inhalation DAILY 03/06/15 [History Confirmed 05/24/22] prednisone 20 mg tablet 40 mg PO DAILY #7 tabs 11/20/17 [Rx] Entyvio 1 IV X1 05/24/22 [History] amoxicillin 500 mg capsule 500 mg PO TID 10 days #30 caps 05/24/22 [Rx Confirmed 05/24/22] rosuvastatin 5 mg tablet 5 mg PO DAILY 05/24/22 [History Confirmed 05/24/22] sertraline 50 mg tablet 50 mg PO DAILY 05/24/22 [History Confirmed 05/24/22] [facility] Medical History (Updated 05/24/22 @ 08:28 by JAMA Garcia) Acute streptococcal pharyngitis Social History Smoking Status: Never smoker alcohol intake: current alcohol intake frequency: holidays/special occasions only substance use type: does not use what type of physical activity do you participate in: walking, aerobics and weight training frequency: 3-4 times per week HPI HPI Chief Complaint: sore throat Details: HELEN NOGUEIRA, is a 51 M who presents to the office today for initial evaluation approximately 24- hour history of progressively worsening sore throat with painful swallowing (though no difficulty swallowing/drooling), chills, swollen tender cervical lymph nodes in front of neck, and no cough. 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 Pediatric immunizations all received as a child he so states. No shwk-lqn-jefncys products taken to assist. No other associated symptoms and no alleviating/aggravating factors. ROS Const Constitutional: No other (As above) Exam Const General: cooperative, healthy appearing and no acute distress Nutritional Appearance: average body habitus Orientation: alert, awake and oriented x3 HENMT Head: normal to inspection Ears: hearing grossly normal bilaterally, external ears normal, TM's normal bilaterally and EAC's normal Nose: external nose normal, nares normal, septum normal and no nasal discharge Face and sinus: normal facial exam, sinuses nontender and face symmetric Mouth: oral mucosae normal, lip normal, tongue normal and oropharynx normal Throat: posterior oropharynx normal, uvula midline, abnormal tonsil bilaterally erythema and hypertrophy 4+; no exudates and postnasal drainage Eyes General: appearance normal, both eyes and all related structures Neck Neck: normal visual inspection, full ROM, no meningeal signs, supple and lymphadenopathy (Bilateral anterior cervical lymph node swelling/tender to palpation) Neck mass: No Thyroid: thyroid normal Chest Chest palpation inspection: normal inspection of the chest Resp Effort Inspection: normal respiratory effort and able to speak in complete sentences Auscultation: Bilateral: Clear to Auscultation Cardio Palpation: normal PMI Rate: regular rate Rhythm: regular rhythm Heart Sounds: S1 normal, S2 normal, no gallops, no murmurs and no rubs Pulses: radial pulses present GI Inspection: normal to inspection Skin General: no rashes or lesions noted Neuro General: patient alert, patient awake and patient oriented x3 Cognition: normal cognition Speech: speech normal Psych Appearance: grossly normal Mental Status: mental status grossly normal Mood: congruent mood Affect: normal affect Speech and Movement: speech and movement normal Attitude: cooperative Thought Process: normal Thought Content: normal Judgment: judgment good Results POC Rapid Strep A Office Rapid Strep A Positive Last Edit by Ayala Morgan on 05/24/22 08:19 Coding Level of Care Code Off vis,est,level 3 Diagnoses Acute streptococcal pharyngitis J02.0 Assessment and Plan Assessment and Plan (1) Acute streptococcal pharyngitis: Status: Acute Plan: See POC results. Amoxicillin as prescribed today. Supportive measures as instructed today. Follow-up with PCP in 3 to 5 days should symptoms not improve, ED sooner should symptoms worsen or any other concerns develop. Patient states acknowledging understanding all the above. This note was generated with [employer] software. It may contain incorrect words, spelling, and punctuation that were not noted in checking the note before signing. Orders: Orders POC Rapid Strep A Today J02.9 - Acute pharyngitis, unspecified Medications: New amoxicillin 500 mg PO TID 10 days 30 caps 0RF Plan Details Goals Barriers: Goals Decrease pain Decrease inflammation Improve ability to sit Improve ROM Barriers Avid golfer Decreased L5/S1 05/24/22 0829 <Electronically signed by Naveen YUN> Date ___ Naveen YUN Cosigner Signature: Date ___ (if applicable) CC: Amanda Woods [facility] Work Phone: Start: 04-28-2021 End: 05-10-2021 Radiology Report Comments: See Note; NOTES: [id number] [place] [address] 04/28/21 1540 MR#: [id number] Acct: [id number] Name: HELEN NOGUEIRA Rep #: [id number] : 1970 50 From: Ashley Sweeney D.C. PCP: Haily Butts NP-C Status:[facility] Location: [facility] X-Ray Report Impression Impression: Patients Name: HELEN NOGUEIRA : 1970 Views Submitted: a routine lumbar series was accomplished on 04/28/21 at [facility]. The lumbar series reveals in the AP view a right spinous process rotation from L1-L5. There is a 8mm leg length inequality on the left. There is anterior rotation of the left tiara on sacrum. Sacrum is inferior on the right. Soft tissue structures are unremarkable. The lateral lumbar view demonstrates a normal lordotic lumbar spine. The disc space is moderately reduced at L5/S1. Oblique views are within normal limits. No indication of instability. IMPRESSION: 1. Decreased disc space at L5/S1. Coding Level of Care Code Spine Lumbarsacral 4 views 05/10/21 1033 <Electronically signed by Ashley Sweeney D.C.> Date ___ Ashley Sweeney D.C. Signed Haily Bermudezarti Work Phone: Start: 04-28-2021 X-ray of lumbosacral spine IMMIGRATION MANAGER-C Haily Butts IMMIGRATION MANAGER Work Phone: Start: 04-28-2021 End: 04-29-2021 Chiropractic Report Comments: See Note; NOTES: [facility] [address] [place] [address] OFFICE VISIT Date of Service: 04/28/21 MR#: [id number] Acct: [id number] Name: HELEN NOGUEIRA Rep #: [id number] : 1970 Provider: ENRIQUE Alvares Age/Sex: 50/M Location: [facility] Status: Signed Intake Intake Visit Reasons: Back Pain Chief Complaint: Low Back Pain Is patient in pain?: Yes (Low Back) Pain scale (1-10): 8 Allergies No Known Allergies Allergy (Verified 11/20/17 17:50) [facility] Social History Smoking Status: Never smoker alcohol intake: current alcohol intake frequency: holidays/special occasions only substance use type: does not use what type of physical activity do you participate in: walking, aerobics and weight training frequency: 3-4 times per week HPI Back Pain Chief Complaint: Low Back Pain Visit Number: 1 Onset: 04/24/21 Location: Low Back Pain Duration: frequent Aggravating or associated factors: standing, bending, twisting Relieving factors: Chiro, sitting Pain Quality: aching, cramping and other (spasms, tightness) HPI Comments Details: Details: Helen Nogueira 50 years old M is here today for low back pain. Patient stated the left sided low back pain is 8/10. Described as sharp, aching, and frequent. Patient stated Monday04-24-21, he was bending over getting clothes out of the dryer when the spasms/pain started. He said the pain is aggravated by bending, standing and twisting. He gets relief by sitting. He stated he is having difficulty sleeping. He denies numbness, tingling and radiculopathy. Exam Musc General: Yes normal gait, joint tenderness and decreased range of motion; No normal posture Thoracic/Lumber: No thoracic and lumbar spine normal to inspection (right antalgia), Yes straight leg raise negative bilaterally, Yes Lasegue's sign positive on the left, Yes pain with thoraco- lumbar ROM with forward flexion, with lateral flexion to the left, with rotation to the left and other (extension), Yes paraspinal tenderness on the left greater than right (lumbopelvic), Yes thoraco-lumbar ROM limited with forward flexion, with lateral flexion to the right, with lateral flexion to the left, with rotation to the right and with rotation to the left, Yes thoraco-lumbar spasm on the left greater than right (paraspinal (L3-L5), piriformis) and Yes misalignment L3, L4, L5 and LIL Sacroiliac joints: on the left tender to palpation Neuro General: patient alert, patient awake, patient oriented x3, normal light touch, pain and propioception and no focal motor deficits Cranial Nerves: CN's II-XI intact bilaterally Cognition: normal cognition Speech: speech normal Gait: antalgic Motor: strength abnormal (spinal extensors) Sensory Exam: no sensory deficits noted Ortho Test CERVICAL THORACIC LUMBAR Kemps: Positive and Left Valsalvas: Negative SLR: Negative Iliac Compression: Positive and Left Office Procedures Procedures - Chiropractic Procedures Manipulation: Lumbar L4 and Pelvis LIL Manipulation: 1-2 regions Traction, Mechanical: Yes Patient Response: positive Assessment and Plan Assessment and Plan (1) Segmental and somatic dysfunction of lumbar region: Status: Acute Orders: Orders: Chiropractic Treatments 03/02/22 L/S Spine Min 4 Views 04/28/21 (2) Segmental and somatic dysfunction of pelvic region: Status: Acute Orders: Orders: L/S Spine Min 4 Views 04/28/21 (3) Back pain: Status: Acute Qualifiers: Back pain location: low back pain Chronicity: acute Back pain laterality: bilateral Sciatica presence: without sciatica Qualified Code(s): M54.5 - Low back pain (4) Lumbar neuritis: Status: Acute Plan Details Other Orders: Orders: Chiropractic Treatments 04/28/21 M99.02 Additional Comments: Re-evaluated patient and ordered xrays. Decreased height at L5/S1. Patient was treated without incident. Continue care should pain persist. Discussed home exercise. Goals Barriers: Goals Decrease pain Decrease inflammation Improve ability to sit Improve ROM Barriers Avid golfer Decreased L5/S1 Follow Up: PRN Coding Level of Care Code Off vis,est,level 2 Diagnoses Segmental and somatic dysfunction of lumbar region M99.03 Segmental and somatic dysfunction of pelvic region M99.05 Back pain M54.5 Back pain location: low back pain Chronicity: acute Back pain laterality: bilateral Sciatica presence: without sciatica Lumbar neuritis M54.16 CPT Codes Procedures - Manipulation: 1-2 regions (62164) Procedures - Traction, Mechanical: Yes (01916) 04/29/21 1444 <Electronically signed by Ashley Sweeney D.C.> Date ___ Ashley Sweeney D.C. Cosigner Signature: Date ___ (if applicable) CC: Haily Larakassieace Work Phone: Start: 08-07-2019 End: 08-07-2019 Chiropractic Report Comments: See Note; NOTES: [facility] [address] [place] [id number] OFFICE VISIT Date of Service: 08/07/19 MR#: [id number] Acct: [id number] Name: HELEN NOGUEIRA Rep #: [id number] : 1970 Provider: ENRIQUE Alvares Age/Sex: 48/M Location: [facility] Status: Signed Intake Intake Visit Reasons: back pain Chief Complaint: low back pain Is patient in pain?: Yes Allergies No Known Allergies Allergy (Verified 11/20/17 17:50) [facility] Social History (Updated 08/07/19 @ 08:[address] Ashley Sweeney, ENRIQUE) Smoking Status: Never smoker alcohol intake: current alcohol intake frequency: holidays/special occasions only substance use type: does not use what type of physical activity do you participate in: walking, aerobics, weight training frequency: 3-4 times per week HPI back pain : Chief Complaint: low back pain Visit Number: 1 Details: HELEN NOGUEIRA is a 48 year old M who presents with acute low back pain. He states that on Monday he was cutting his toe nails, and stood up feeling a sharp pain that he describes as a slip. The pain has been severe with a deep and sharp ache banding across the low back, with spasms radiating into the thoracic area. Daily movement causes increased pain, although standing from sitting makes his pain increased. He has been playing golf frequently which may be exacerbating his condition. Helen denies any numbness, tingling, radiculopathy, or any new injury. Onset: 08/02/19 Location: low back Duration: constant Aggravating or associated factors: daily movement, standing from sitting Relieving factors: unknown Pain Quality: aching, dull, cramping, sharp Exam Musc General: Yes normal posture, normal gait and joint tenderness (L3,L4,L5, L SI) Thoracic/Lumber: Yes thoracic and lumbar spine normal to inspection, Yes straight leg raise negative bilaterally, Yes Lasegue's sign positive on the left, Yes pain with thoraco-lumbar ROM with forward flexion, with rotation to the right and with rotation to the left, Yes paraspinal tenderness bilaterally in the mid lumbar and in the lower lumbar, Yes thoraco-lumbar ROM limited with forward flexion, with rotation to the right and with rotation to the left, Yes thoraco-lumbar spasm on the left greater than right (paraspinal L2-S1, piriformis), Yes misalignment L3, L4, L5, LIL Sacroiliac joints: on the left tender to palpation Neuro General: alert, awake, oriented x3, normal light touch, pain and propioception, no focal motor deficits Office Procedures Chiropractic Treatments Procedures Manipulation: Lumbar L4, Pelvis LIL Manipulation: 1-2 regions Electrical Stimulation: Lumbar 15 mins (18) mA Therapy Performed by:: Maliha Jules MA Traction, Mechanical: Yes Patient Response: positive Assessment Plan 1. Segmental and somatic dysfunction of lumbar region M99.03 Orders Orders: Chiropractic Treatments Today 2. Segmental and somatic dysfunction of pelvic region M99.05 3. Acute bilateral low back pain without sciatica M54.5 Plan Detail Other Orders Orders: Chiropractic Treatments Today M54.14, M99.02 Additional Comments Patient was re-evaluated and treated without incident. Recommended stretching hamstring, piriformis and stationary bike. Ice after golfing. Follow up should pain persist. Goals Decrease pain Decrease inflammation Improve ability to sit Barriers Avid golfer Follow Up prn Coding Level of Care Code Off vis,est,level 1 Diagnoses Segmental and somatic dysfunction of lumbar region M99.03 Segmental and somatic dysfunction of pelvic region M99.05 Acute bilateral low back pain without sciatica M54.5 ?Back pain location: low back pain ?Chronicity: acute ?Back pain laterality: bilateral ?Sciatica presence: without sciatica Additional Codes Procedures - Manipulation: 1-2 regions (02396) Procedures - Traction, Mechanical: Yes (82659) Comment RE-EVAL 08/07/19 0848 <Electronically signed by Ashley Sweeney D.C.> Date ___ Ashley Sweeney D.C. Cosigner Signature: Date ___ (if applicable) CC: Haily Butts Start: 11-21-2017 End: 11-21-2017 Discharge Instruction Comments: See Note; NOTES: [facility] Medical Records Department [address] [place] [address] Discharge Instruction 11/20/171925 MR#: [id number] Acct: [id number] Name: HELEN NOGUEIRA Rep #: [id number] : 1970 47 From: Sarabjit Izaguirre MD [...] problems, contact your Primary Care Provider. Call [facility] ([phone]) or report to the closest Emergency Room. Call 911 if necessary. 11/21/17 0019 <Electronically signed by Sarabjit Izaguirre MD> Date ___ Sarabjit Izaguirre MD Cosigner Signature (If Indicated): Date ___ CC: Haily Butts Start: 11-21-2017 End: 11-21-2017 Emergency Department Summary Comments: See Note; NOTES: [facility] Medical Records Department [address] [place] [address] Emergency Department Summary 11/20/17 1835 MR#: [id number] Acct: [id number] Name: HELEN NOGUEIRA Rep #: [id number] : 1970 47 From: Sarabjit Izaguirre MD [...] with the ear nose and throat physician special investigation unit investigator. Patient will call their office tomorrow to get in this week. I did speak to Dr. Zavala special investigation unit investigator for ENT. He and I both feel [...] ulcerative colitis This note was generated with [employer] software. It may contain incorrect words, spelling, [...] your Primary Care Provider. Call [facility] ([phone]) or report to the closest Emergency Room. Call 911 if necessary. 11/21/17 0019 <Electronically signed by Sarabjit Izaguirre MD> Date ___ Sarabjit Izaguirre MD Cosigner Signature (If Indicated): Date ___ CC: Haily Butts Start: 11-20-2017 End: 11-20-2017 Chest WITH Contrast Comments: See Note; NOTES: [facility] Imaging Services [address] [place] [address] Chest WITH Contrast MR#: [id number] Acct: [id number] Name: HELEN NOGUEIRA Rep #: [id number] : 1970 M 47 From: Zoltan Wiley MD PCP: Haily Butts NP Status: REG CLI Study: Chest WITH Contrast Date of Exam: 11/20/17 Exam# [id number] Ordering Dr: Haily Butts STUDY: CT CHEST [...] with prior study dated September 09, 2016. ___ FINDINGS: There is evidence of an azygous [...] demonstrated abnormality of the visualized upper abdomen. ___ CT/Chest WITH Contrast IMPRESSION: Minimal increased markings at the lung bases suggestive of mild linear atelectasis and/or scarring. Electronically Signed: Zoltan Wiley MD at 14:08 EDT Tel [phone], Service support , CC: Haily Butts NP Foreign Exchange Dealer: Signed Haily Butts Work Phone: Start: 11-20-2017 End: 11-20-2017 Sinus/Facial Bone Comments: See Note; NOTES: [facility] Imaging Services [address] [place] [address] Sinus/Facial Bone MR#: [id number] Acct: [id number] Name: HELEN NOGUEIRA Rep #: [id number] : 1970 M 47 From: Zoltan Wiley MD PCP: Haily Butts NP Status: REG CLI Study: Sinus/Facial Bone Date of Exam: 11/20/17 Exam# [id number] Ordering Dr: Haily Butts STUDY: CT MAXILLOFACIAL [...] were used for this CT. COMPARISON: None. ___ FINDINGS: FRONTAL SINUSES: Partial opacification of the [...] The visualized bilateral orbital contents are normal. ___ CT/Sinus/Facial Bone IMPRESSION: Rutledge sinusitis. Electronically Signed: Zoltan Wiley MD at 14:06 EDT Tel [phone], Service support , CC: Haily Butts NP Foreign Exchange Dealer: Signed Haily Butts Work Phone: Start: 11-15-2017 End: 11-15-2017 Chest PA and Lateral Comments: See Note; NOTES: [facility] Imaging Services [address] [place] [address] Chest PA and Lateral MR#: [id number] Acct: [id number] Name: JEROHELEN Irvin Rep #: [id number] : 1970 M 47 From: Vin Pelletier MD PCP: Haily Butts NP Status: REG CLI Study: Chest PA and Lateral Date of Exam: 11/15/17 Exam# [id number] Ordering Dr: Haily Butts STUDY: X-RAY CHEST REASON FOR EXAM: Male, 47 years old. Acute asthma. TECHNIQUE: Frontal and lateral views of the chest. COMPARISON: November 07, 2017 ___ FINDINGS: The lungs are clear and expanded. There is no demonstrated pleural abnormality. Normal size heart. Normal mediastinum and kathy. Normal visualized pulmonary arteries. Normal visualized aortic arch and descending thoracic aorta. Normal visualized thoracic spine. Normal visualized ribs, clavicles, and shoulders. There is no demonstrated abnormality of the visualized soft tissue structures of the upper abdomen. ___ RAD/Chest PA and Lateral IMPRESSION: Normal x-ray examination of the chest. Electronically Signed: Vin Pelletier MD at 10:47 EDT , Service support , CC: Haily Butts NP Foreign Exchange Dealer: Signed Haily Butts Work Phone: Start: 11-07-2017 End: 11-07-2017 Urgent Care Visit Report Comments: See Note; NOTES: [facility] [address] [place] [address] OFFICE VISIT Date of Service: 11/07/17 MR#: [id number] Acct: [id number] Name: JERO,HELEN Irvin Rep #: [id number] : 1970 Provider: Tip YUN Age/Sex: 47/M Location: [facility] Status: Signed Intake Vital Signs11/07/17 Height 5 ft 11 in 11/07/17 Weight: 185 lb 11/07/17 Body Mass Index (BMI) 25.7 11/07/17 Blood Pressure 140/88 Intake Visit Reasons: SINUS INFECTION Chief Complaint: sinus congestion 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 Accompanied by: self Is patient [...] 1050 <Electronically signed by Tip YUN> Date ___ Tip YUN Cosigner Signature: Date ___ (if applicable) CC: Haily Laraarti Start: 11-07-2017 End: 11-07-2017 Chest PA and Lateral Comments: See Note; NOTES: [facility] Imaging Services [address] [place] [address] Chest PA and Lateral MR#: [id number] Acct: [id number] Name: HELEN NOGUEIRA Rep #: [id number] : 1970 M 47 From: Zoltan Wiley MD PCP: Haily Butts NP Status: REG CLI Study: Chest PA and Lateral Date of Exam: 11/07/17 Exam# [id number] Ordering Dr: Tip Iglesias STUDY: X-RAY CHEST REASON FOR EXAM: Male, 47 years old. One-week history of cough. TECHNIQUE: PA and lateral views of the chest. COMPARISON: Comparison is made with prior examination dated September 09, 2016. ___ FINDINGS: Azygos lobe. This is a normal [...] soft tissue structures of the upper abdomen. ___ RAD/Chest PA and Lateral IMPRESSION: Mild increased linear markings in the lingular segment of the left upper lobe suggestive of either linear atelectasis and/or scarring. Electronically Signed: Zoltan Wiley MD at 10:29 EDT Tel [phone], Service support , CC: Haily Butts IMMIGRATION MANAGER; Tip YUN Foreign Exchange Dealer: Signed Haily Butts Start: 11-01-2017 End: 11-01-2017 Urgent Care Visit Report Comments: See Note; NOTES: [facility] [address] [place] [address] OFFICE VISIT Date of Service: 11/01/17 MR#: [id number] Acct: [id number] Name: HELEN NOGUEIRA Rep #: [id number] : 1970 Provider: Naveen YUN Age/Sex: 47/M Location: [facility] Status: Signed Intake Vital Signs11/01/17 Height 5 [...] the above. This note was generated with OpenPortal dictation software. It may contain incorrect words, spelling, and punctuation that were not noted in checking the note before signing. Medications New: Plan Detail Goals Decrease pain Improve sleep Coding Level of Care Code Off vis,est,level 3 Diagnoses Maxillary sinusitis J32.0 11/01/17 1400 <Electronically signed by Naveen YUN> Date ___ Naveen YUN Cosigner Signature: Date ___ (if applicable) CC: Haily Butts Start: 08-23-2017 End: 08-23-2017 Chiropractic Report Comments: See Note; NOTES: [facility] [address] [place], [place] [id number] OFFICE VISIT Date of Service: 08/22/17 MR#: [id number] Acct: [id number] Name: HELEN NOGUEIRA Rep #: [id number] : 1970 Provider: Ashley Sweeney D.C. Age/Sex: 46/M Location: [facility] Status: Signed Intake Vital Signs08/22/17 Height 5 [...] gm PO DAILY 04/17/15 [History Confirmed 05/04/17] [facility] Social History Smoking Status: Never smoker alcohol [...] Additional Codes Procedures - Manipulation: 1-2 regions (98865) 08/23/17 0846 <Electronically signed by Ashley Sweeney D.C.> Date ___ Ashley Sweeney D.C. Cosigner Signature: Date ___ (if applicable) CC: Haily Butts Start: 05-04-2017 End: 05-04-2017 Urgent Care Visit Report Comments: See Note; NOTES: [facility] [address] [place] [address] OFFICE VISIT Date of Service: 05/04/17 MR#: [id number] Acct: [id number] Name: HELEN NOGUEIRA Rep #: [id number] : 1970 Provider: Naveen YUN Age/Sex: 46/M Location: [facility] Status: Signed Intake Vital Signs05/04/17 Height 5 [...] 05/04/17] Mesalamine [Lialda] 2.4 gm PO DAILY 02/19/16 [History Confirmed 05/04/17] Ibuprofen 600 mg PO [...] body habitus Orientation: alert, awake, oriented x3 [facility] Head: normal to inspection Ears: hearing grossly [...] the above. This note was generated with [employer]ation software. It may contain incorrect words, spelling, and punctuation that were not noted in checking the note before signing. Medications New: Coding Level of Care Code Off vis,new,level 4 Diagnoses Bronchitis J40 Sinusitis, acute maxillary J01.00 05/04/17 1258 <Electronically signed by Naveen YUN> Date ___ Naveen YUN Cosigner Signature: Date ___ (if applicable) CC: Haily Laraarti Start: 01-18-2017 End: 01-18-2017 MRCP Abdomen without Contrast Comments: See Note; NOTES: [facility] Imaging Services [address] [place] [address] MRCP Abdomen without Contrast MR#: [id number] Acct: [id number] Name: HELEN NOGUEIRA Rep #: [id number] : 1970 M 46 From: George Solares DO PCP: Haily Butts Status: REG CLI Study: MRCP Abdomen without Contrast Date of Exam: 01/18/17 Exam# [id number] Ordering Dr: Constantino Mcelroy MD STUDY: MR CHOLANGIOPANCREATOGRAPHY (MRCP) REASON FOR EXAM: Male, 46 years old. Elevated LFTs. TECHNIQUE: Standard MRCP technique was utilized. COMPARISON: None. ___ FINDINGS: Gall Bladder: Normal with no distention or demonstrated fixed intraluminal filling defect. Cystic duct: Normal with no demonstrated fixed filling defect. Intrahepatic ducts: Normal visualized intrahepatic ducts with no demonstrated fixed filling defect, dilation or stricture. Common hepatic duct: Normal with no demonstrated fixed filling defect, dilation or stricture. Common bile duct: Normal with no demonstrated fixed filling defect, dilation or stricture. Pancreatic duct: Normal with no demonstrated fixed filling defect, dilation or stricture. Liver is normal in size contour and signal intensity. There is a 9 mm cyst in segment 7 of the liver. Normal spleen. Normal pancreas. Normal adrenal glands. Normal right kidney. There is a 2.2 cm parapelvic left renal cyst. Normal aorta. Normal IVC. Normal retroperitoneum. Normal stomach. Normal visualized small bowel and colon. Normal abdominal wall. Normal osseous structures. ___ MRI/MRCP Abdomen without Contrast IMPRESSION: 1. Normal MR Cholangiopancreatography (MRCP). 2. Hepatic and left renal cysts. Electronically Signed: George Solares DO at 15:06 EST Tel [phone], Service support , CC: Haily Mcelroy Foreign Exchange Dealer: Signed Haily Butts Start: 09-13-2016 End: 09-13-2016 12 lead ECG Comments: See Note; NOTES: [facility] Cardiovascular Services [address] [place] [address] 12 Lead EKG 09/09/16 1309 MR#: [id number] Acct: [id number] Name: HELEN NOGUEIRA Rep #: [id number] : 1970 45 From: Cholo Joyner MD Attending Dr: Status: DEP ER Ordering Dr: Vin Bailon MD Date: 09/09/16 Location: ED Sex: M C Admitted: Test Reason : CP Blood Pressure : / mmHG Vent. Rate : 085 BPM Atrial Rate : 085 BPM P-R Int : 142 ms QRS Dur : 092 ms QT Int : 362 ms P-R-T Axes : 027 -03 027 degrees QTc Int : 430 ms Normal sinus rhythm Voltage criteria for left ventricular hypertrophy Abnormal ECG Confirmed by HUE KRAMER, CHOLO ([id number]), manager editorial TIERRA JAMES ([id number]) on 09/13/2016 2:33:34 PM Referred By: UVALDO Confirmed By:CHOLO JOYNER MD 09/13/16 1433 Date ___ Cholo Joyner MD CC: Haily Butts Date Dictated: 09/09/16 1309 Date Transcribed: 09/09/16 1309 Foreign Exchange Dealer: Signed Haily Butts Start: 09-09-2016 End: 09-09-2016 Emergency Department Summary Comments: See Note; NOTES: [facility] Medical Records Department [address] [place] [address] Emergency Department Summary 09/09/16 1619 MR#: [id number] Acct: [id number] Name: HELNE NOGUEIRA Rep #: [id number] : 1970 45 From: Vin Bailon MD PCP: Haily Butts Status: REG ER - ER Visit Summary Date of Service: 09/09/16 Chief Complaint: Abdominal or chest pain History of Present Illness: The patient is a 45 M with gradual onset over the past 1-2 days of left lower chest or upper abdominal pain that is severe and occurs when he takes a deep breath and feels like spasms. He is not short of breath and denies any injury, but states he was throwing football with his son 2 days ago and wonders if that could be related. No nausea or vomiting, no effect with food, does feel worse when he does certain movements though. Never had this before. No history of DVT or PE. No recent leg pain or swelling, or other PE risk factors. Physical Examination: In mild to moderate painful distress, holding his left chest. No chest wall tenderness, no abdominal tenderness, lungs are clear to auscultation throughout with equal breath sounds bilaterally. no rashes in the affected area. Negative Homans sign no edema. Test Results: Chest x-ray normal. Labs, EKG, troponin normal. No tachycardia. Vital signs otherwise normal with pulse ox 96% on room air. CT angiography of the chest negative for PE, shows bibasilar atelectasis more significant on the left, where there is also the possibility that this is infiltrate versus atelectasis. No leukocytosis. Emergency Department Course and Treatment: After Toradol and morphine, he is much improved and breathing comfortably. States he can still feel it but it is tolerable. It is unlikely that he has pneumonia, he has no cough, no leukocytosis, I suspect that the imaged abnormal area is atelectasis. It is unknown if this is a result of his splinting and having difficulty breathing, or if it is the source of the discomfort. He did not have any colds or upper respiratory infections within the last month or 2, and he has not one now. I suspect this is pleurisy. Discussed with Dr. Shaw, he advises NSAIDs and following up in a week if not improving for further evaluation. Patient is comfortable with this plan. Treatment Plan: Ibuprofen, as needed oxycodone, pulmonary follow-up Disposition: Discharge home Impression: Pleurisy ED Disposition - Plan for ED Patient: Disposition: Home or Assisted Living Chief Complaint: Abd Pain Instructions: ED Chest Pain Pleurisy, ED Atelectasis Prescriptions: Oxycodone HCl/Acetaminophen [Percocet 5/325] 1 - 2 tablet PO Q4H PRN PRN #20 tablet PRN Reason: Pain Ibuprofen 600 mg PO 4X/DAY PRN #30 tablet PRN Reason: Pain Referrals: Stefano Shaw MD [STAFF PHYSICIAN] - 1 Week if not improving What to do if you have Problems For any increased pain, shortness of breath, bleeding, nausea or vomiting, chest pain, or any unexpected problems, contact your Primary Care Provider. Call [facility] ([phone]) or report to the closest Emergency Room. Call 911 if necessary. 09/09/16 7070 <Electronically signed by Vin Bailon MD> Date ___ Vin Bailon MD Cosigner Signature (If Indicated): Date ___ CC: Haily Butts Start: 09-09-2016 End: 09-09-2016 CTA Chest W/WO Contrast Comments: See Note; NOTES: [facility] Imaging Services [address] [place] [address] Verdana 4d CTA Chest W/WO Contrast MR#: [id number] Acct: [id number] Name: HELEN NOGUEIRA Rep #: [id number] : 1970 M 45 From: Zoltan Wiley MD PCP: Haily Butts Status: REG ER Study: CTA Chest W/WO Contrast Date of Exam: 09/09/16 Exam# [id number] Ordering Dr: Vin Bailon MD STUDY: CTA CHEST REASON FOR EXAM: Male, 45 years old. 2 day history of left pleuritic chest pain. RADIATION DOSAGE (If Supplied By Facility): CTDIvol = ( 17.74 ) mGy, DLP = ( 510.21 ) mGycm TECHNIQUE: The examination was performed with the intravenous administration of 75 ml of Isovue 370 contrast material. Post-processing of the angiographic images was performed, with multiplanar reformation and 3D reconstruction. Individualized dose optimization techniques were used for this CT. COMPARISON: None. ___ FINDINGS: Normal enhancement of the main pulmonary artery and right and left pulmonary arteries. Normal enhancement of the bilateral peripheral pulmonary arteries. There is no demonstrated pulmonary embolism. Normal thoracic aorta and visualized great vessels. There is no demonstrated aortic dissection. Normal heart and pericardium. Normal mediastinum. Normal hilar regions. Normal visualized trachea and bronchi. Limited inspiratory effort. Bibasilar atelectasis and/or infiltration at the lung bases. This is worse on the left side. No significant pleural effusion is seen. There is evidence of an azygous lobe. Normal pleura. Normal chest wall structures. There are degenerative changes of thoracic spine. Normal visualized upper abdomen. ___ CT/CTA Chest W/WO Contrast IMPRESSION: The seventh of atelectasis and/or infiltration at the lung bases worse on the left side. There is no evidence of pulmonary embolism. Electronically Signed: Zoltan Wiley MD at 15:00 EDT Tel [phone], Service support , CC: Haily Butts; VIN BAILON MD Foreign Exchange Dealer: Signed Haily Butts Start: 09-09-2016 End: 09-09-2016 Chest 1 View (Portable) Comments: See Note; NOTES: [facility] Imaging Services [address] [place] [address] Verdana 4d Chest 1 View (Portable) MR#: [id number] Acct: [id number] Name: HELEN NOGUEIRA Rep #: [id number] : 1970 M 45 From: Zoltan Wiley MD PCP: Haily Butts Status: REG ER Study: Chest 1 View (Portable) Date of Exam: 09/09/16 Exam# [id number] Ordering Dr: Vin Bailon MD STUDY: X-RAY CHEST REASON FOR EXAM: Male, 45 years old. Chest spasms. TECHNIQUE: Single AP portable view of the chest. COMPARISON: None. ___ FINDINGS: EKG electrodes are seen. Poor inspiratory effort. Increased markings at the lung bases suggestive of bibasilar atelectasis. There is no demonstrated pleural abnormality. Normal size heart. Normal mediastinum and kathy. Normal visualized pulmonary arteries. Normal visualized aortic arch and descending thoracic aorta. Normal visualized thoracic spine. Normal visualized ribs, clavicles, and shoulders. There is no demonstrated abnormality of the visualized soft tissue structures of the upper abdomen. ___ RAD/Chest 1 View (Portable) IMPRESSION: Findings in keeping with bibasilar atelectasis secondary to poor inspiratory effort. Electronically Signed: Zoltan Wiley MD at 13:47 EDT Tel [phone], Service support , CC: Haily Butts; VIN BAILON MD Foreign Exchange Dealer: Signed Haily Butts Colonoscopy Alie Manjocelyn Comment on above: 2013- Dr Mcelroy Colonoscopy [facility] [place] Comment on above: 2013- Dr Mcelroy Colonoscopy [facility] Alonso Comment on above: 2013- Dr Mcelroy Colonoscopy [facility] N Comment on above: 2013- Dr Mcelroy Colonoscopy Subha A Fast DO Work Phone: Comment on above: 2013- Dr Mcelroy Colonoscopy Vielka Salas [place] [facility] Comment on above: 2013- Dr Mcelroy Colonoscopy Shanika Wells MA Comment on above: 2013- Dr Mcelroy Colonoscopy [facility]arb [facility] N Comment on above: 2013- Dr Mcelroy Colonoscopy [facility] N Comment on above: 2013- Dr Mcelroy Plan of Treatment Date Care Activity Detail Author Start: 09-09-2024 X-ray of ankle, thre e or more views Ankle min 3 Views [place] [facility] Start: 09-09-2024 XR Ankle GE 3 Views [place] [facility] Start: 11-25-2022 Provider Instruction s for Treatment [facility] Work Phone: Start: 11-23-2022 Comprehensive metabo lic panel METABOLIC PANEL, COMPREHENSIVE (23335) : in 6 mo [facility]; [facility] Work Phone: Start: 11-23-2022 Lipid panel LIPID PANEL (8 0061) : in 6 mo. [facility]; [facility] Work Phone: Start: 11-23-2022 Procedure Education Eprescribe d prescriptions (G8553) [facility]; [facility] Work Phone: Start: 08-15-2022 Lipid panel LIPID PANEL (8 0061) : October 2022 [facility] Work Phone: Start: 05-11-2022 Lipid panel LIPID PANEL (8 0061) : July 2022 [facility]; [facility] Work Phone: Comment on above: fasting Start: 05-11-2022 Patient Education Hyperlipidemia Com [facility] Work Phone: Start: 05-11-2022 Procedure Education Eprescribe d prescriptions (G8553) [facility]; [facility] Work Phone: Start: 05-11-2022 Provider Instruction s for Treatment Follow up in 6 months [facility]; [facility] Work Phone: Start: 12-07-2021 Procedure Education Eprescribe d prescriptions (G8553) [facility]; [facility] Work Phone: Start: 12-07-2021 Provider Instruction s for Treatment Follow up if no improvement or if symptoms worsen [facility]; [facility] Work Phone: Start: 11-10-2021 Assay of prostate specific antigen total PSA (PROSTATE SPECIFIC ANTIGEN) (73506) [facility]; [facility] Work Phone: Start: 11-10-2021 Lipid panel LIPID PANEL (73710) [facility]; [facility] Work Phone: Start: 11-10-2021 Procedure Education Eprescribe d prescriptions (G8553) [facility]; [facility] Work Phone: Start: 11-10-2021 Provider Instruction s for Treatment Follow up in 6 months [facility]; [facility] Work Phone: Start: 07-13-2021 Procedure Education Eprescribe d prescriptions (G8553) [facility]; [facility] Work Phone: Start: 07-13-2021 INHOUSE COVID 19 (ON LY) RAPID (29985) INHOUSE COVID 19 (ONLY) RAPID (58717) [facility]; [facility] Work Phone: Start: 07-13-2021 Iaadiadoo influenza [facility]; [facility] Work Phone: Start: 04-28-2021 Assay of prostate specific antigen total PSA (PROSTATE SPECIFIC ANTIGEN) (V76.44) [facility]; [facility] Work Phone: Comment on above: Sep 2021 Start: 04-28-2021 25 hydroxy includes fractions if performed CALCIFEDIOL (26228) [facility]; [facility] Work Phone: Comment on above: Sep 2021 Start: 04-28-2021 Lipid panel LIPID PANEL (76943) [facility]; [facility] Work Phone: Comment on above: Sep 2021 Start: 04-28-2021 Assay of thyroid stimulating hormone tsh TSH (90927) [facility]; [facility] Work Phone: Comment on above: sep 2021 Start: 04-28-2021 Comprehensive metabo lic panel Metabolic Panel, Comprehensive (69158) [facility]; [facility] Work Phone: Comment on above: Sep 2021 Start: 04-28-2021 Procedure Education Eprescribe d prescriptions (G8553) [facility]; [facility] Work Phone: Start: 04-28-2021 Provider Instruction s for Treatment Follow up in 6 months [facility]; [facility] Work Phone: Start: 12-14-2020 Procedure Education Eprescribe d prescriptions (G8553) [facility] Work Phone: Start: 12-14-2020 Provider Instruction s for Treatment Follow up if no improvement or if symptoms worsen [facility] Work Phone: Start: 10-20-2020 Procedure Education Eprescribe d prescriptions (G8553) [facility] Work Phone: Start: 10-20-2020 Provider Instruction s for Treatment [facility] Work Phone: Start: 08-27-2020 Blood count complete auto&auto difrntl wbc CBC, Platelets & Auto Diff (27491) [facility]; [facility] Work Phone: Start: 08-27-2020 Comprehensive metabo lic panel Metabolic Panel, Comprehensive (25106) [facility]; [facility] Work Phone: Start: 08-27-2020 Lipid panel Lipid Panel (39522) [facility] Work Phone: Start: 08-27-2020 Assay of prostate specific antigen total PSA (PROSTATE SPECIFIC ANTIGEN) (V76.44) [facility]; [facility] Work Phone: Start: 03-24-2020 Procedure Education Eprescribe d prescriptions (G8553) [facility]; [facility] Work Phone: Start: 03-24-2020 Provider Instruction s for Treatment Follow up in 6 months for Gen 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, 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 [facility]; [facility] Work Phone: Start: 09-18-2019 Hepatic function panel HEPATIC FUNCTION PANEL (97207) [facility] Work Phone: Comment on above: Nov 2019 Start: 09-18-2019 Comprehensive metabo lic panel Metabolic Panel, Comprehensive (86752) [facility] Work Phone: Comment on above: Nov 2019 Start: 09-17-2019 Comprehensive metabo lic panel Metabolic Panel, Comprehensive (52927) [facility] Work Phone: Comment on above: 10-18-19 Start: 09-17-2019 ALP [Catalytic activity/Vol] ALKALINE PHOSPHATASE-ISOENZYM (97743) [facility] Work Phone: Comment on above: 10-18-2019 09-17-19 Start: 09-17-2019 Assay of phosphatase alkaline isoenzymes ALKALINE PHOSPHATASE-ISOENZYM (00431) [facility]; [facility] Work Phone: Comment on above: 10-18-2019 09-17-19 Start: 09-16-2019 Procedure Education Eprescribe d prescriptions (G8553) [facility] Work Phone: Start: 09-16-2019 Provider Instruction s for Treatment Follow up in 6 months [facility] Work Phone: Start: 06-11-2019 Procedure Education Eprescribe d prescriptions (G8553) [facility] Work Phone: Start: 06-11-2019 Provider Instruction s for Treatment Follow up in 4 months for Gen med [facility] Work Phone: Start: 03-26-2019 Procedure Education Eprescribe d prescriptions (G8553) [facility] Work Phone: Start: 03-26-2019 Provider Instruction s for Treatment Follow up in 6 months [facility] Work Phone: Start: 11-20-2017 Procedure Education Eprescribe d prescriptions (G8553) [facility] Work Phone: Start: 11-20-2017 Provider Instruction s for Treatment Follow up on Monday [facility] Work Phone: Start: 11-20-2017 Fibrin dgradj produc ts d-dimer quantitative D-Dimer (17860) [facility] Work Phone: Start: 11-17-2017 Procedure Education Eprescribe d prescriptions (G8553) [facility] Work Phone: Start: 11-17-2017 Provider Instruction s for Treatment [facility] Work Phone: Start: 11-17-2017 Natriuretic peptide BNTP (03500) [facility] Work Phone: Start: 11-17-2017 Protein mass conc BNTP (03186) [facility] Work Phone: Start: 11-17-2017 Comprehensive metabo lic panel Metabolic Panel, Comprehensive (99702) [facility] Work Phone: Start: 11-17-2017 Blood count complete auto&auto difrntl wbc CBC, Platelets & Auto Diff (05058) [facility] Work Phone: Start: 11-15-2017 Procedure Education Eprescribe d prescriptions (G8553) [facility] Work Phone: Start: 11-15-2017 Provider Instruction s for Treatment [facility] Work Phone: Start: 02-06-2017 ALP enzyme act/vol ALKALINE PHOSPHATASE-ISOENZYM (64122) [facility] Work Phone: Start: 02-06-2017 Assay of phosphatase alkaline isoenzymes ALKALINE PHOSPHATASE-ISOENZYM (94902) [facility]; [facility] Work Phone: Start: 02-06-2017 Procedure Education Eprescribe d prescriptions (G8553) [facility] Work Phone: Start: 02-06-2017 Provider Instruction s for Treatment Follow up in 6 months [facility] Work Phone: Start: 09-09-2016 Procedure Education Eprescribe d prescriptions (G8553) [facility] Work Phone: Start: 07-19-2016 Lipid panel LIPID PANEL (72394) [facility] Work Phone: Comment on above: July 2016 Start: 07-19-2016 Comprehensive metabo lic panel Metabolic Panel, Comprehensive (52604) [facility] Work Phone: Comment on above: July 2016 Start: 07-19-2016 Provider Instruction s for Treatment Follow up in 6 months [facility] Work Phone: Start: 09-02-2015 Procedure Education Eprescribe d prescriptions (G8553) [facility] Work Phone: Start: 06-03-2014 Provider Instruction s for Treatment Follow up in 6 months with [facility] for Gen [facility] Work Phone: [facility] Work [facility]: [facility] Work Phone: [facility] Work Phone: [facility] Work Phone: [facility] Work Phone: [facility] Work Phone: [facility] Work [facility] Work Phone[facility] Work Phone: [facility] Work Phone: [facility] Work Phone: [facility] Work Phone: [facility] Work Phone: Immunizations Immunization Date Immunization Notes Care Provider Jc king 04-13-2020 COVID-Pfizer (30 MCG/0.3 ML) Haily Butts CNP Work Phone: [facility]; [facility] Work Phone: 03-13-2020 COVID-Pfizer (30 MCG/0.3 ML) Haily Butts RESIDENTIAL SERVICE TECHNICIAN Work Phone: [facility]; [facility] Work Phone: Payers Date Payer Category Payer Self-pay [id number] 2008 Unknown [id number] 1970 Unknown [id number] Unknown Medical [facility] Unknown [id number] Unknown [id number] Unknown [id number] Unknown [id number] Unknown [id number] Unknown [id number] Unknown [id number] Unknown [id number] Unknown [id number] Unknown [id number] Social History Date Type Detail Facility Alcohol Use: Occasional alcoh ol use. 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 [facility] Work Phone: Start: 1970 Sex Assigned At Male W [facility] Start: 11-18-[address] [facility] (finding) [facility] Goals Date Patient Goal Desired Activity /State Clinical Notes 11-15-2017 to 09-09-2024 Note Date & Type Note Facility 09-09-2024 Radiology Diagnostic study note [facility] [address] [place], [place] [address] Ankle min 3 Views MR#: [id number] Acct: [id number] Name: HELEN NOGUEIRA Rep #: [id number] : 1970 M 53 From: Jaime Underwood MD PCP: JUHI WongC Status: REG C LI Study:Ankle min 3 Views Date of Exam: Exam# [id number] Ordering Dr: [facility] PROCEDURE: ANKLE MIN 3 VIEWS 09/09/2024 REASON FOR EXAM: PAIN TECHNIQUE: ANKLE MIN 3 VIEWS COMPARISON: None FINDINGS: There is no evidence of fracture or dislocation. There are no joint space abnormalities. There is a posterior heel spur. There are no soft tissue abnormalities. RAD/Ankle min 3 Views IMPRESSION: No evidence of fracture or significant arthropathy. No evidence of soft tissue gas or radiopaque foreign body. Reading Location: [place] [address] CC: JUHIC Amanda Woods; JAMA Muhammad ~ Foreign Exchange Dealer: Signed [facility] Work Phone: 06-02-2024 Evaluation note Diagnosis Onset Date Resolution Sinus infection acute May 8:01am [facility] Work Phone: [phone]) 925-765609-19-2018 Microscopic observation Gram stain Nom (Sput)Gram Stain EvaluationGSACC (Normal)Comments:This specimen is of good quality and is acceptable for routinebacterial culture. [facility]; [facility] Work Phone: comment on above:This specimen is of good quality and is acceptable for routinebacterial culture.PATIENT NOT FASTINGPERFORMED BY: ZAHEER [facility] [id number] [place] [id number] Information: SRC:SPEvaluation note* Diagnosis Onset Date Resolution Status Back pain acute Lumbar neuritis acute Segmental and somatic dysfunction of lumbar region acute Segmental and somatic dysfunction of pelvic region acute [facility] Work Phone: Evaluation noteNo assessment information available [facility] Work Phone: Instructions* Name Dates Details Patient Instructions Indication:Nonsmoker Start:28-Apr-2021 Instruction Type:Provider Instructions for Treatment How to Access Health Informa tion Online using Patient Portal and [employer] Apps Indication:Nonsmoker Start:28-Apr-2021 Instruction Type:Patient Education Patient Instructions Indication:Nonsmoker Start:14-Dec-2020 Instruction Type:Provider Instructions for Treatment How to Access Health Informa tion Online using Patient Portal and [employer] Apps Indication:Nonsmoker Start:14-Dec-2020 Instruction Type:Patient Education Patient Instructions Indication:BMI 25.0-25.9,adult Start:20-Oct-2020 Instruction Type:Provider Instructions for Treatment How to Access Health Informa tion Online using Patient Portal and [employer] Apps Indication:BMI 25.0-25.9,adult Start:20-Oct-2020 Instruction Type:Patient Education Patient Instructions Indication:Encounter for screening for malignant neoplasm of prostate (Renamed from Screening for prostate cancer) Start:24-Mar-2020 Instruction Type:Provider Instructions for Treatment How to Access Health Informa tion Online using Patient Portal and [employer] Apps Indication:Nonsmoker Start:24-Mar-2020 Instruction Type:Patient Education How to access health informa tion online Indication:Nonsmoker Start:16-Sep-2019 Instruction Type:Patient Education How to access health informa tion online - Detail Indication:Nonsmoker Start:16-Sep-2019 Instruction Type:Patient Education Patient Instructions Indication:Nonsmoker Start:16-Sep-2019 Instruction Type:Provider Instructions for Treatment How to access health informa tion online Indication:Nonsmoker Start:11-Jun-2019 Instruction Type:Patient Education How to access health informa tion online - Detail Indication:Nonsmoker Start:11-Jun-2019 Instruction Type:Patient Education Patient Instructions Indication:Nonsmoker Start:11-Jun-2019 Instruction Type:Provider Instructions for Treatment How to access health informa tion online Indication:Nonsmoker Start:26-Mar-2019 Instruction Type:Patient Education How to access health informa tion online - Detail Indication:Nonsmoker Start:26-Mar-2019 Instruction Type:Patient Education Patient Instructions Indication:Nonsmoker Start:26-Mar-2019 Instruction Type:Provider Instructions for Treatment How to access health informa tion online Indication:Unspecified Diagnosis Start:20-Nov-2017 Instruction Type:Patient Education How to access health informa tion online - Detail Indication:Unspecified Diagnosis Start:20-Nov-2017 Instruction Type:Patient Education Patient Instructions Indication:Unspecified Diagnosis Start:20-Nov-2017 Instruction Type:Provider Instructions for Treatment How to access health informa tion online Indication:Nonsmoker Start:20-Nov-2017 Instruction Type:Patient Education How to access health informa tion online - Detail Indication:Nonsmoker Start:20-Nov-2017 Instruction Type:Patient Education Patient Instructions Indication:Nonsmoker Start:20-Nov-2017 Instruction Type:Provider Instructions for Treatment How to access health informa tion online Indication:Nonsmoker Start:17-Nov-2017 Instruction Type:Patient Education How to access health informa tion online - Detail Indication:Nonsmoker Start:17-Nov-2017 Instruction Type:Patient Education Patient Instructions Indication:Nonsmoker Start:17-Nov-2017 Instruction Type:Provider Instructions for Treatment How to access health informa tion online Indication:Nonsmoker Start:15-Nov-2017 Instruction Type:Patient Education How to access health informa tion online - Detail Indication:Nonsmoker Start:15-Nov-2017 Instruction Type:Patient Education Patient Instructions Indication:Nonsmoker Start:15-Nov-2017 Instruction Type:Provider Instructions for Treatment How to access health informa tion online Indication:Asthma Start:06-Feb-2017 Instruction Type:Patient Education How to access health informa tion online - Detail Indication:Asthma Start:06-Feb-2017 Instruction Type:Patient Education Patient Instructions Indication:Asthma Start:06-Feb-2017 Instruction Type:Provider Instructions for Treatment How to access health informa tion online Indication:Nonsmoker Start:09-Sep-2016 Instruction Type:Patient Education How to access health informa tion online - Detail Indication:Abdominal pain, LUQ Start:09-Sep-2016 Instruction Type:Patient Education Patient Instructions Indication:Abdominal pain, LUQ Start:09-Sep-2016 Instruction Type:Provider Instructions for Treatment Patient Instructions Indication:Encounter for screening for lipid disorder Start:19-Jul-2016 Instruction Type:Provider Instructions for Treatment How to access health informa tion online Indication:Dog bite of thigh, left, initial encounter Start:02-Sep-2015 Instruction Type:Patient Education How to access health informa tion online - Detail Indication:Dog bite of thigh, left, initial encounter Start:02-Sep-2015 Instruction Type:Patient Education Patient Instructions Indication:Asthma Start:03-Jun-2014 Instruction Type:Provider Instructions for Treatment [facility]; [facility] Work Phone: Instructions* Name Dates Details Patient Instructions Indication:Nonsmoker Start:28-Apr-2021 Instruction Type:Provider Instructions for Treatment How to Access Health Informa tion Online using Patient Portal and 3rd [employer] Apps Indication:Nonsmoker Start:28-Apr-2021 Instruction Type:Patient Education Patient Instructions Indication:Nonsmoker Start:14-Dec-2020 Instruction Type:Provider Instructions for Treatment How to Access Health Informa tion Online using Patient Portal and 3rd [employer] Apps Indication:Nonsmoker Start:14-Dec-2020 Instruction Type:Patient Education Patient Instructions Indication:BMI 25.0-25.9,adult Start:20-Oct-2020 Instruction Type:Provider Instructions for Treatment How to Access Health Informa tion Online using Patient Portal and 3rd [employer] Apps Indication:BMI 25.0-25.9,adult Start:20-Oct-2020 Instruction Type:Patient Education Patient Instructions Indication:Encounter for screening for malignant neoplasm of prostate (Renamed from Screening for prostate cancer) Start:24-Mar-2020 Instruction Type:Provider Instructions for Treatment How to Access Health Informa tion Online using Patient Portal and 3rd [employer] Apps Indication:Nonsmoker Start:24-Mar-2020 Instruction Type:Patient Education How to access health informa tion online Indication:Nonsmoker Start:16-Sep-2019 Instruction Type:Patient Education How to access health informa tion online - Detail Indication:Nonsmoker Start:16-Sep-2019 Instruction Type:Patient Education Patient Instructions Indication:Nonsmoker Start:16-Sep-2019 Instruction Type:Provider Instructions for Treatment How to access health informa tion online Indication:Nonsmoker Start:11-Jun-2019 Instruction Type:Patient Education How to access health informa tion online - Detail Indication:Nonsmoker Start:11-Jun-2019 Instruction Type:Patient Education Patient Instructions Indication:Nonsmoker Start:11-Jun-2019 Instruction Type:Provider Instructions for Treatment How to access health informa tion online Indication:Nonsmoker Start:26-Mar-2019 Instruction Type:Patient Education How to access health informa tion online - Detail Indication:Nonsmoker Start:26-Mar-2019 Instruction Type:Patient Education Patient Instructions Indication:Nonsmoker Start:26-Mar-2019 Instruction Type:Provider Instructions for Treatment How to access health informa tion online Indication:Unspecified Diagnosis Start:20-Nov-2017 Instruction Type:Patient Education How to access health informa tion online - Detail Indication:Unspecified Diagnosis Start:20-Nov-2017 Instruction Type:Patient Education Patient Instructions Indication:Unspecified Diagnosis Start:20-Nov-2017 Instruction Type:Provider Instructions for Treatment How to access health informa tion online Indication:Nonsmoker Start:20-Nov-2017 Instruction Type:Patient Education How to access health informa tion online - Detail Indication:Nonsmoker Start:20-Nov-2017 Instruction Type:Patient Education Patient Instructions Indication:Nonsmoker Start:20-Nov-2017 Instruction Type:Provider Instructions for Treatment How to access health informa tion online Indication:Nonsmoker Start:17-Nov-2017 Instruction Type:Patient Education How to access health informa tion online - Detail Indication:Nonsmoker Start:17-Nov-2017 Instruction Type:Patient Education Patient Instructions Indication:Nonsmoker Start:17-Nov-2017 Instruction Type:Provider Instructions for Treatment How to access health informa tion online Indication:Nonsmoker Start:15-Nov-2017 Instruction Type:Patient Education How to access health informa tion online - Detail Indication:Nonsmoker Start:15-Nov-2017 Instruction Type:Patient Education Patient Instructions Indication:Nonsmoker Start:15-Nov-2017 Instruction Type:Provider Instructions for Treatment How to access health informa tion online Indication:Asthma Start:06-Feb-2017 Instruction Type:Patient Education How to access health informa tion online - Detail Indication:Asthma Start:06-Feb-2017 Instruction Type:Patient Education Patient Instructions Indication:Asthma Start:06-Feb-2017 Instruction Type:Provider Instructions for Treatment How to access health informa tion online Indication:Nonsmoker Start:09-Sep-2016 Instruction Type:Patient Education How to access health informa tion online - Detail Indication:Abdominal pain, LUQ Start:09-Sep-2016 Instruction Type:Patient Education Patient Instructions Indication:Abdominal pain, LUQ Start:09-Sep-2016 Instruction Type:Provider Instructions for Treatment Patient Instructions Indication:Encounter for screening for lipid disorder Start:19-Jul-2016 Instruction Type:Provider Instructions for Treatment How to access health informa tion online Indication:Dog bite of thigh, left, initial encounter Start:02-Sep-2015 Instruction Type:Patient Education How to access health informa tion online - Detail Indication:Dog bite of thigh, left, initial encounter Start:02-Sep-2015 Instruction Type:Patient Education Patient Instructions Indication:Asthma Start:03-Jun-2014 Instruction Type:Provider Instructions for Treatment [facility]; [facility] Work Phone: Instructions* Name Dates Details Patient Instructions Indication:Upper respiratory infection Start:13-Jul-2021 Instruction Type:Provider Instructions for Treatment Patient Instructions Indication:Nonsmoker Start:28-Apr-2021 Instruction Type:Provider Instructions for Treatment How to Access Health Informa tion Online using Patient Portal and 3rd [employer] Apps Indication:Nonsmoker Start:28-Apr-2021 Instruction Type:Patient Education Patient Instructions Indication:Nonsmoker Start:14-Dec-2020 Instruction Type:Provider Instructions for Treatment How to Access Health Informa tion Online using Patient Portal and 3rd [employer] Apps Indication:Nonsmoker Start:14-Dec-2020 Instruction Type:Patient Education Patient Instructions Indication:BMI 25.0-25.9,adult Start:20-Oct-2020 Instruction Type:Provider Instructions for Treatment How to Access Health Informa tion Online using Patient Portal and 3rd [employer] Apps Indication:BMI 25.0-25.9,adult Start:20-Oct-2020 Instruction Type:Patient Education Patient Instructions Indication:Encounter for screening for malignant neoplasm of prostate (Renamed from Screening for prostate cancer) Start:24-Mar-2020 Instruction Type:Provider Instructions for Treatment How to Access Health Informa tion Online using Patient Portal and 3rd [employer] Apps Indication:Nonsmoker Start:24-Mar-2020 Instruction Type:Patient Education How to access health informa tion online Indication:Nonsmoker Start:16-Sep-2019 Instruction Type:Patient Education How to access health informa tion online - Detail Indication:Nonsmoker Start:16-Sep-2019 Instruction Type:Patient Education Patient Instructions Indication:Nonsmoker Start:16-Sep-2019 Instruction Type:Provider Instructions for Treatment How to access health informa tion online Indication:Nonsmoker Start:11-Jun-2019 Instruction Type:Patient Education How to access health informa tion online - Detail Indication:Nonsmoker Start:11-Jun-2019 Instruction Type:Patient Education Patient Instructions Indication:Nonsmoker Start:11-Jun-2019 Instruction Type:Provider Instructions for Treatment How to access health informa tion online Indication:Nonsmoker Start:26-Mar-2019 Instruction Type:Patient Education How to access health informa tion online - Detail Indication:Nonsmoker Start:26-Mar-2019 Instruction Type:Patient Education Patient Instructions Indication:Nonsmoker Start:26-Mar-2019 Instruction Type:Provider Instructions for Treatment How to access health informa tion online Indication:Unspecified Diagnosis Start:20-Nov-2017 Instruction Type:Patient Education How to access health informa tion online - Detail Indication:Unspecified Diagnosis Start:20-Nov-2017 Instruction Type:Patient Education Patient Instructions Indication:Unspecified Diagnosis Start:20-Nov-2017 Instruction Type:Provider Instructions for Treatment How to access health informa tion online Indication:Nonsmoker Start:20-Nov-2017 Instruction Type:Patient Education How to access health informa tion online - Detail Indication:Nonsmoker Start:20-Nov-2017 Instruction Type:Patient Education Patient Instructions Indication:Nonsmoker Start:20-Nov-2017 Instruction Type:Provider Instructions for Treatment How to access health informa tion online Indication:Nonsmoker Start:17-Nov-2017 Instruction Type:Patient Education How to access health informa tion online - Detail Indication:Nonsmoker Start:17-Nov-2017 Instruction Type:Patient Education Patient Instructions Indication:Nonsmoker Start:17-Nov-2017 Instruction Type:Provider Instructions for Treatment How to access health informa tion online Indication:Nonsmoker Start:15-Nov-2017 Instruction Type:Patient Education How to access health informa tion online - Detail Indication:Nonsmoker Start:15-Nov-2017 Instruction Type:Patient Education Patient Instructions Indication:Nonsmoker Start:15-Nov-2017 Instruction Type:Provider Instructions for Treatment How to access health informa tion online Indication:Asthma Start:06-Feb-2017 Instruction Type:Patient Education How to access health informa tion online - Detail Indication:Asthma Start:06-Feb-2017 Instruction Type:Patient Education Patient Instructions Indication:Asthma Start:06-Feb-2017 Instruction Type:Provider Instructions for Treatment How to access health informa tion online Indication:Nonsmoker Start:09-Sep-2016 Instruction Type:Patient Education How to access health informa tion online - Detail Indication:Abdominal pain, LUQ Start:09-Sep-2016 Instruction Type:Patient Education Patient Instructions Indication:Abdominal pain, LUQ Start:09-Sep-2016 Instruction Type:Provider Instructions for Treatment Patient Instructions Indication:Encounter for screening for lipid disorder Start:19-Jul-2016 Instruction Type:Provider Instructions for Treatment How to access health informa tion online Indication:Dog bite of thigh, left, initial encounter Start:02-Sep-2015 Instruction Type:Patient Education How to access health informa tion online - Detail Indication:Dog bite of thigh, left, initial encounter Start:02-Sep-2015 Instruction Type:Patient Education Patient Instructions Indication:Asthma Start:03-Jun-2014 Instruction Type:Provider Instructions for Treatment [facility]; [facility] Work Phone: Instructions* Name Dates Details Patient Instructions Indication:BMI 26.0-26.9,adult Start:10-Nov-2021 Instruction Type:Provider Instructions for Treatment How to Access Health Informa tion Online using Patient Portal and [employer]rd [employer] Apps Indication:BMI 26.0-26.9,adult Start:10-Nov-2021 Instruction Type:Patient Education Patient Instructions Indication:Upper respiratory infection Start:13-Jul-2021 Instruction Type:Provider Instructions for Treatment Patient Instructions Indication:Nonsmoker Start:28-Apr-2021 Instruction Type:Provider Instructions for Treatment How to Access Health Informa tion Online using Patient Portal and [employer]rd [employer] Apps Indication:Nonsmoker Start:28-Apr-2021 Instruction Type:Patient Education Patient Instructions Indication:Nonsmoker Start:14-Dec-2020 Instruction Type:Provider Instructions for Treatment How to Access Health Informa tion Online using Patient Portal and [employer]rd [employer] Apps Indication:Nonsmoker Start:14-Dec-2020 Instruction Type:Patient Education Patient Instructions Indication:BMI 25.0-25.9,adult Start:20-Oct-2020 Instruction Type:Provider Instructions for Treatment How to Access Health Informa tion Online using Patient Portal and [employer]rd [employer] Apps Indication:BMI 25.0-25.9,adult Start:20-Oct-2020 Instruction Type:Patient Education Patient Instructions Indication:Encounter for screening for malignant neoplasm of prostate (Renamed from Screening for prostate cancer) Start:24-Mar-2020 Instruction Type:Provider Instructions for Treatment How to Access Health Informa tion Online using Patient Portal and [employer]rd [employer] Apps Indication:Nonsmoker Start:24-Mar-2020 Instruction Type:Patient Education How to access health informa tion online Indication:Nonsmoker Start:16-Sep-2019 Instruction Type:Patient Education How to access health informa tion online - Detail Indication:Nonsmoker Start:16-Sep-2019 Instruction Type:Patient Education Patient Instructions Indication:Nonsmoker Start:16-Sep-2019 Instruction Type:Provider Instructions for Treatment How to access health informa tion online Indication:Nonsmoker Start:11-Jun-2019 Instruction Type:Patient Education How to access health informa tion online - Detail Indication:Nonsmoker Start:11-Jun-2019 Instruction Type:Patient Education Patient Instructions Indication:Nonsmoker Start:11-Jun-2019 Instruction Type:Provider Instructions for Treatment How to access health informa tion online Indication:Nonsmoker Start:26-Mar-2019 Instruction Type:Patient Education How to access health informa tion online - Detail Indication:Nonsmoker Start:26-Mar-2019 Instruction Type:Patient Education Patient Instructions Indication:Nonsmoker Start:26-Mar-2019 Instruction Type:Provider Instructions for Treatment How to access health informa tion online Indication:Unspecified Diagnosis Start:20-Nov-2017 Instruction Type:Patient Education How to access health informa tion online - Detail Indication:Unspecified Diagnosis Start:20-Nov-2017 Instruction Type:Patient Education Patient Instructions Indication:Unspecified Diagnosis Start:20-Nov-2017 Instruction Type:Provider Instructions for Treatment How to access health informa tion online Indication:Nonsmoker Start:20-Nov-2017 Instruction Type:Patient Education How to access health informa tion online - Detail Indication:Nonsmoker Start:20-Nov-2017 Instruction Type:Patient Education Patient Instructions Indication:Nonsmoker Start:20-Nov-2017 Instruction Type:Provider Instructions for Treatment How to access health informa tion online Indication:Nonsmoker Start:17-Nov-2017 Instruction Type:Patient Education How to access health informa tion online - Detail Indication:Nonsmoker Start:17-Nov-2017 Instruction Type:Patient Education Patient Instructions Indication:Nonsmoker Start:17-Nov-2017 Instruction Type:Provider Instructions for Treatment How to access health informa tion online Indication:Nonsmoker Start:15-Nov-2017 Instruction Type:Patient Education How to access health informa tion online - Detail Indication:Nonsmoker Start:15-Nov-2017 Instruction Type:Patient Education Patient Instructions Indication:Nonsmoker Start:15-Nov-2017 Instruction Type:Provider Instructions for Treatment How to access health informa tion online Indication:Asthma Start:06-Feb-2017 Instruction Type:Patient Education How to access health informa tion online - Detail Indication:Asthma Start:06-Feb-2017 Instruction Type:Patient Education Patient Instructions Indication:Asthma Start:06-Feb-2017 Instruction Type:Provider Instructions for Treatment How to access health informa tion online Indication:Nonsmoker Start:09-Sep-2016 Instruction Type:Patient Education How to access health informa tion online - Detail Indication:Abdominal pain, LUQ Start:09-Sep-2016 Instruction Type:Patient Education Patient Instructions Indication:Abdominal pain, LUQ Start:09-Sep-2016 Instruction Type:Provider Instructions for Treatment Patient Instructions Indication:Encounter for screening for lipid disorder Start:19-Jul-2016 Instruction Type:Provider Instructions for Treatment How to access health informa tion online Indication:Dog bite of thigh, left, initial encounter Start:02-Sep-2015 Instruction Type:Patient Education How to access health informa tion online - Detail Indication:Dog bite of thigh, left, initial encounter Start:02-Sep-2015 Instruction Type:Patient Education Patient Instructions Indication:Asthma Start:03-Jun-2014 Instruction Type:Provider Instructions for Treatment [facility]; [facility] Work Phone: Instructions* Name Dates Details Patient Instructions Indication:BMI 26.0-26.9,adult Start:07-Dec-2021 Instruction Type:Provider Instructions for Treatment How to Access Health Informa tion Online using Patient Portal and [employer]rd [employer] Apps Indication:BMI 26.0-26.9,adult Start:07-Dec-2021 Instruction Type:Patient Education Patient Instructions Indication:BMI 26.0-26.9,adult Start:10-Nov-2021 Instruction Type:Provider Instructions for Treatment How to Access Health Informa tion Online using Patient Portal and [employer]rd [employer] Apps Indication:BMI 26.0-26.9,adult Start:10-Nov-2021 Instruction Type:Patient Education Patient Instructions Indication:Upper respiratory infection Start:13-Jul-2021 Instruction Type:Provider Instructions for Treatment Patient Instructions Indication:Nonsmoker Start:28-Apr-2021 Instruction Type:Provider Instructions for Treatment How to Access Health Informa tion Online using Patient Portal and [employer]rd [employer] Apps Indication:Nonsmoker Start:28-Apr-2021 Instruction Type:Patient Education Patient Instructions Indication:Nonsmoker Start:14-Dec-2020 Instruction Type:Provider Instructions for Treatment How to Access Health Informa tion Online using Patient Portal and [employer]rd [employer] Apps Indication:Nonsmoker Start:14-Dec-2020 Instruction Type:Patient Education Patient Instructions Indication:BMI 25.0-25.9,adult Start:20-Oct-2020 Instruction Type:Provider Instructions for Treatment How to Access Health Informa tion Online using Patient Portal and [employer]rd [employer] Apps Indication:BMI 25.0-25.9,adult Start:20-Oct-2020 Instruction Type:Patient Education Patient Instructions Indication:Encounter for screening for malignant neoplasm of prostate (Renamed from Screening for prostate cancer) Start:24-Mar-2020 Instruction Type:Provider Instructions for Treatment How to Access Health Informa tion Online using Patient Portal and [employer]rd [employer] Apps Indication:Nonsmoker Start:24-Mar-2020 Instruction Type:Patient Education How to access health informa tion online Indication:Nonsmoker Start:16-Sep-2019 Instruction Type:Patient Education How to access health informa tion online - Detail Indication:Nonsmoker Start:16-Sep-2019 Instruction Type:Patient Education Patient Instructions Indication:Nonsmoker Start:16-Sep-2019 Instruction Type:Provider Instructions for Treatment How to access health informa tion online Indication:Nonsmoker Start:11-Jun-2019 Instruction Type:Patient Education How to access health informa tion online - Detail Indication:Nonsmoker Start:11-Jun-2019 Instruction Type:Patient Education Patient Instructions Indication:Nonsmoker Start:11-Jun-2019 Instruction Type:Provider Instructions for Treatment How to access health informa tion online Indication:Nonsmoker Start:26-Mar-2019 Instruction Type:Patient Education How to access health informa tion online - Detail Indication:Nonsmoker Start:26-Mar-2019 Instruction Type:Patient Education Patient Instructions Indication:Nonsmoker Start:26-Mar-2019 Instruction Type:Provider Instructions for Treatment How to access health informa tion online Indication:Unspecified Diagnosis Start:20-Nov-2017 Instruction Type:Patient Education How to access health informa tion online - Detail Indication:Unspecified Diagnosis Start:20-Nov-2017 Instruction Type:Patient Education Patient Instructions Indication:Unspecified Diagnosis Start:20-Nov-2017 Instruction Type:Provider Instructions for Treatment How to access health informa tion online Indication:Nonsmoker Start:20-Nov-2017 Instruction Type:Patient Education How to access health informa tion online - Detail Indication:Nonsmoker Start:20-Nov-2017 Instruction Type:Patient Education Patient Instructions Indication:Nonsmoker Start:20-Nov-2017 Instruction Type:Provider Instructions for Treatment How to access health informa tion online Indication:Nonsmoker Start:17-Nov-2017 Instruction Type:Patient Education How to access health informa tion online - Detail Indication:Nonsmoker Start:17-Nov-2017 Instruction Type:Patient Education Patient Instructions Indication:Nonsmoker Start:17-Nov-2017 Instruction Type:Provider Instructions for Treatment How to access health informa tion online Indication:Nonsmoker Start:15-Nov-2017 Instruction Type:Patient Education How to access health informa tion online - Detail Indication:Nonsmoker Start:15-Nov-2017 Instruction Type:Patient Education Patient Instructions Indication:Nonsmoker Start:15-Nov-2017 Instruction Type:Provider Instructions for Treatment How to access health informa tion online Indication:Asthma Start:06-Feb-2017 Instruction Type:Patient Education How to access health informa tion online - Detail Indication:Asthma Start:06-Feb-2017 Instruction Type:Patient Education Patient Instructions Indication:Asthma Start:06-Feb-2017 Instruction Type:Provider Instructions for Treatment How to access health informa tion online Indication:Nonsmoker Start:09-Sep-2016 Instruction Type:Patient Education How to access health informa tion online - Detail Indication:Abdominal pain, LUQ Start:09-Sep-2016 Instruction Type:Patient Education Patient Instructions Indication:Abdominal pain, LUQ Start:09-Sep-2016 Instruction Type:Provider Instructions for Treatment Patient Instructions Indication:Encounter for screening for lipid disorder Start:19-Jul-2016 Instruction Type:Provider Instructions for Treatment How to access health informa tion online Indication:Dog bite of thigh, left, initial encounter Start:02-Sep-2015 Instruction Type:Patient Education How to access health informa tion online - Detail Indication:Dog bite of thigh, left, initial encounter Start:02-Sep-2015 Instruction Type:Patient Education Patient Instructions Indication:Asthma Start:03-Jun-2014 Instruction Type:Provider Instructions for Treatment [facility]; [facility] Work Phone: Instructions* Name Dates Details Patient Instructions Indication:BMI 26.0-26.9,adult Start:07-Dec-2021 Instruction Type:Provider Instructions for Treatment How to Access Health Informa tion Online using Patient Portal and [employer]rd [employer] Apps Indication:BMI 26.0-26.9,adult Start:07-Dec-2021 Instruction Type:Patient Education Patient Instructions Indication:BMI 26.0-26.9,adult Start:10-Nov-2021 Instruction Type:Provider Instructions for Treatment How to Access Health Informa tion Online using Patient Portal and [employer]rd [employer] Apps Indication:BMI 26.0-26.9,adult Start:10-Nov-2021 Instruction Type:Patient Education Patient Instructions Indication:Upper respiratory infection Start:13-Jul-2021 Instruction Type:Provider Instructions for Treatment Patient Instructions Indication:Nonsmoker Start:28-Apr-2021 Instruction Type:Provider Instructions for Treatment How to Access Health Informa tion Online using Patient Portal and [employer]rd [employer] Apps Indication:Nonsmoker Start:28-Apr-2021 Instruction Type:Patient Education Patient Instructions Indication:Nonsmoker Start:14-Dec-2020 Instruction Type:Provider Instructions for Treatment How to Access Health Informa tion Online using Patient Portal and [employer]rd [employer] Apps Indication:Nonsmoker Start:14-Dec-2020 Instruction Type:Patient Education Patient Instructions Indication:BMI 25.0-25.9,adult Start:20-Oct-2020 Instruction Type:Provider Instructions for Treatment How to Access Health Informa tion Online using Patient Portal and [employer]rd [employer] Apps Indication:BMI 25.0-25.9,adult Start:20-Oct-2020 Instruction Type:Patient Education Patient Instructions Indication:Encounter for screening for malignant neoplasm of prostate (Renamed from Screening for prostate cancer) Start:24-Mar-2020 Instruction Type:Provider Instructions for Treatment How to Access Health Informa tion Online using Patient Portal and [employer]rd [employer] Apps Indication:Nonsmoker Start:24-Mar-2020 Instruction Type:Patient Education How to access health informa tion online Indication:Nonsmoker Start:16-Sep-2019 Instruction Type:Patient Education How to access health informa tion online - Detail Indication:Nonsmoker Start:16-Sep-2019 Instruction Type:Patient Education Patient Instructions Indication:Nonsmoker Start:16-Sep-2019 Instruction Type:Provider Instructions for Treatment How to access health informa tion online Indication:Nonsmoker Start:11-Jun-2019 Instruction Type:Patient Education How to access health informa tion online - Detail Indication:Nonsmoker Start:11-Jun-2019 Instruction Type:Patient Education Patient Instructions Indication:Nonsmoker Start:11-Jun-2019 Instruction Type:Provider Instructions for Treatment How to access health informa tion online Indication:Nonsmoker Start:26-Mar-2019 Instruction Type:Patient Education How to access health informa tion online - Detail Indication:Nonsmoker Start:26-Mar-2019 Instruction Type:Patient Education Patient Instructions Indication:Nonsmoker Start:26-Mar-2019 Instruction Type:Provider Instructions for Treatment How to access health informa tion online Indication:Unspecified Diagnosis Start:20-Nov-2017 Instruction Type:Patient Education How to access health informa tion online - Detail Indication:Unspecified Diagnosis Start:20-Nov-2017 Instruction Type:Patient Education Patient Instructions Indication:Unspecified Diagnosis Start:20-Nov-2017 Instruction Type:Provider Instructions for Treatment How to access health informa tion online Indication:Nonsmoker Start:20-Nov-2017 Instruction Type:Patient Education How to access health informa tion online - Detail Indication:Nonsmoker Start:20-Nov-2017 Instruction Type:Patient Education Patient Instructions Indication:Nonsmoker Start:20-Nov-2017 Instruction Type:Provider Instructions for Treatment How to access health informa tion online Indication:Nonsmoker Start:17-Nov-2017 Instruction Type:Patient Education How to access health informa tion online - Detail Indication:Nonsmoker Start:17-Nov-2017 Instruction Type:Patient Education Patient Instructions Indication:Nonsmoker Start:17-Nov-2017 Instruction Type:Provider Instructions for Treatment How to access health informa tion online Indication:Nonsmoker Start:15-Nov-2017 Instruction Type:Patient Education How to access health informa tion online - Detail Indication:Nonsmoker Start:15-Nov-2017 Instruction Type:Patient Education Patient Instructions Indication:Nonsmoker Start:15-Nov-2017 Instruction Type:Provider Instructions for Treatment How to access health informa tion online Indication:Asthma Start:06-Feb-2017 Instruction Type:Patient Education How to access health informa tion online - Detail Indication:Asthma Start:06-Feb-2017 Instruction Type:Patient Education Patient Instructions Indication:Asthma Start:06-Feb-2017 Instruction Type:Provider Instructions for Treatment How to access health informa tion online Indication:Nonsmoker Start:09-Sep-2016 Instruction Type:Patient Education How to access health informa tion online - Detail Indication:Abdominal pain, LUQ Start:09-Sep-2016 Instruction Type:Patient Education Patient Instructions Indication:Abdominal pain, LUQ Start:09-Sep-2016 Instruction Type:Provider Instructions for Treatment Patient Instructions Indication:Encounter for screening for lipid disorder Start:19-Jul-2016 Instruction Type:Provider Instructions for Treatment How to access health informa tion online Indication:Dog bite of thigh, left, initial encounter Start:02-Sep-2015 Instruction Type:Patient Education How to access health informa tion online - Detail Indication:Dog bite of thigh, left, initial encounter Start:02-Sep-2015 Instruction Type:Patient Education Patient Instructions Indication:Asthma Start:03-Jun-2014 Instruction Type:Provider Instructions for Treatment [facility]; [facility] Work Phone: Instructions* Name Dates Details Patient Instructions Indication:BMI 26.0-26.9,adult Start:07-Dec-2021 Instruction Type:Provider Instructions for Treatment How to Access Health Informa tion Online using Patient Portal and [employer] Apps Indication:BMI 26.0-26.9,adult Start:07-Dec-2021 Instruction Type:Patient Education Patient Instructions Indication:BMI 26.0-26.9,adult Start:10-Nov-2021 Instruction Type:Provider Instructions for Treatment How to Access Health Informa tion Online using Patient Portal and [employer] Apps Indication:BMI 26.0-26.9,adult Start:10-Nov-2021 Instruction Type:Patient Education Patient Instructions Indication:Upper respiratory infection Start:13-Jul-2021 Instruction Type:Provider Instructions for Treatment Patient Instructions Indication:Nonsmoker Start:28-Apr-2021 Instruction Type:Provider Instructions for Treatment How to Access Health Informa tion Online using Patient Portal and [employer] Apps Indication:Nonsmoker Start:28-Apr-2021 Instruction Type:Patient Education Patient Instructions Indication:Nonsmoker Start:14-Dec-2020 Instruction Type:Provider Instructions for Treatment How to Access Health Informa tion Online using Patient Portal and [employer]rd [employer] Apps Indication:Nonsmoker Start:14-Dec-2020 Instruction Type:Patient Education Patient Instructions Indication:BMI 25.0-25.9,adult Start:20-Oct-2020 Instruction Type:Provider Instructions for Treatment How to Access Health Informa tion Online using Patient Portal and [employer]rd [employer] Apps Indication:BMI 25.0-25.9,adult Start:20-Oct-2020 Instruction Type:Patient Education Patient Instructions Indication:Encounter for screening for malignant neoplasm of prostate (Renamed from Screening for prostate cancer) Start:24-Mar-2020 Instruction Type:Provider Instructions for Treatment How to Access Health Informa tion Online using Patient Portal and [employer]rd [employer] Apps Indication:Nonsmoker Start:24-Mar-2020 Instruction Type:Patient Education How to access health informa tion online Indication:Nonsmoker Start:16-Sep-2019 Instruction Type:Patient Education How to access health informa tion online - Detail Indication:Nonsmoker Start:16-Sep-2019 Instruction Type:Patient Education Patient Instructions Indication:Nonsmoker Start:16-Sep-2019 Instruction Type:Provider Instructions for Treatment How to access health informa tion online Indication:Nonsmoker Start:11-Jun-2019 Instruction Type:Patient Education How to access health informa tion online - Detail Indication:Nonsmoker Start:11-Jun-2019 Instruction Type:Patient Education Patient Instructions Indication:Nonsmoker Start:11-Jun-2019 Instruction Type:Provider Instructions for Treatment How to access health informa tion online Indication:Nonsmoker Start:26-Mar-2019 Instruction Type:Patient Education How to access health informa tion online - Detail Indication:Nonsmoker Start:26-Mar-2019 Instruction Type:Patient Education Patient Instructions Indication:Nonsmoker Start:26-Mar-2019 Instruction Type:Provider Instructions for Treatment How to access health informa tion online Indication:Unspecified Diagnosis Start:20-Nov-2017 Instruction Type:Patient Education How to access health informa tion online - Detail Indication:Unspecified Diagnosis Start:20-Nov-2017 Instruction Type:Patient Education Patient Instructions Indication:Unspecified Diagnosis Start:20-Nov-2017 Instruction Type:Provider Instructions for Treatment How to access health informa tion online Indication:Nonsmoker Start:20-Nov-2017 Instruction Type:Patient Education How to access health informa tion online - Detail Indication:Nonsmoker Start:20-Nov-2017 Instruction Type:Patient Education Patient Instructions Indication:Nonsmoker Start:20-Nov-2017 Instruction Type:Provider Instructions for Treatment How to access health informa tion online Indication:Nonsmoker Start:17-Nov-2017 Instruction Type:Patient Education How to access health informa tion online - Detail Indication:Nonsmoker Start:17-Nov-2017 Instruction Type:Patient Education Patient Instructions Indication:Nonsmoker Start:17-Nov-2017 Instruction Type:Provider Instructions for Treatment How to access health informa tion online Indication:Nonsmoker Start:15-Nov-2017 Instruction Type:Patient Education How to access health informa tion online - Detail Indication:Nonsmoker Start:15-Nov-2017 Instruction Type:Patient Education Patient Instructions Indication:Nonsmoker Start:15-Nov-2017 Instruction Type:Provider Instructions for Treatment How to access health informa tion online Indication:Asthma Start:06-Feb-2017 Instruction Type:Patient Education How to access health informa tion online - Detail Indication:Asthma Start:06-Feb-2017 Instruction Type:Patient Education Patient Instructions Indication:Asthma Start:06-Feb-2017 Instruction Type:Provider Instructions for Treatment How to access health informa tion online Indication:Nonsmoker Start:09-Sep-2016 Instruction Type:Patient Education How to access health informa tion online - Detail Indication:Abdominal pain, LUQ Start:09-Sep-2016 Instruction Type:Patient Education Patient Instructions Indication:Abdominal pain, LUQ Start:09-Sep-2016 Instruction Type:Provider Instructions for Treatment Patient Instructions Indication:Encounter for screening for lipid disorder Start:19-Jul-2016 Instruction Type:Provider Instructions for Treatment How to access health informa tion online Indication:Dog bite of thigh, left, initial encounter Start:02-Sep-2015 Instruction Type:Patient Education How to access health informa tion online - Detail Indication:Dog bite of thigh, left, initial encounter Start:02-Sep-2015 Instruction Type:Patient Education Patient Instructions Indication:Asthma Start:03-Jun-2014 Instruction Type:Provider Instructions for Treatment [facility]; [facility] Work Phone: Instructions* Name Dates Details Patient Instructions Indication:BMI 26.0-26.9,adult Start:07-Dec-2021 Instruction Type:Provider Instructions for Treatment How to Access Health Informa tion Online using Patient Portal and [employer]rd [employer] Apps Indication:BMI 26.0-26.9,adult Start:07-Dec-2021 Instruction Type:Patient Education Patient Instructions Indication:BMI 26.0-26.9,adult Start:10-Nov-2021 Instruction Type:Provider Instructions for Treatment How to Access Health Informa tion Online using Patient Portal and [employer]rd [employer] Apps Indication:BMI 26.0-26.9,adult Start:10-Nov-2021 Instruction Type:Patient Education Patient Instructions Indication:Upper respiratory infection Start:13-Jul-2021 Instruction Type:Provider Instructions for Treatment Patient Instructions Indication:Nonsmoker Start:28-Apr-2021 Instruction Type:Provider Instructions for Treatment How to Access Health Informa tion Online using Patient Portal and [employer]rd [employer] Apps Indication:Nonsmoker Start:28-Apr-2021 Instruction Type:Patient Education Patient Instructions Indication:Nonsmoker Start:14-Dec-2020 Instruction Type:Provider Instructions for Treatment How to Access Health Informa tion Online using Patient Portal and [employer]rd [employer] Apps Indication:Nonsmoker Start:14-Dec-2020 Instruction Type:Patient Education Patient Instructions Indication:BMI 25.0-25.9,adult Start:20-Oct-2020 Instruction Type:Provider Instructions for Treatment How to Access Health Informa tion Online using Patient Portal and [employer]rd [employer] Apps Indication:BMI 25.0-25.9,adult Start:20-Oct-2020 Instruction Type:Patient Education Patient Instructions Indication:Encounter for screening for malignant neoplasm of prostate (Renamed from Screening for prostate cancer) Start:24-Mar-2020 Instruction Type:Provider Instructions for Treatment How to Access Health Informa tion Online using Patient Portal and [employer]rd [employer] Apps Indication:Nonsmoker Start:24-Mar-2020 Instruction Type:Patient Education How to access health informa tion online Indication:Nonsmoker Start:16-Sep-2019 Instruction Type:Patient Education How to access health informa tion online - Detail Indication:Nonsmoker Start:16-Sep-2019 Instruction Type:Patient Education Patient Instructions Indication:Nonsmoker Start:16-Sep-2019 Instruction Type:Provider Instructions for Treatment How to access health informa tion online Indication:Nonsmoker Start:11-Jun-2019 Instruction Type:Patient Education How to access health informa tion online - Detail Indication:Nonsmoker Start:11-Jun-2019 Instruction Type:Patient Education Patient Instructions Indication:Nonsmoker Start:11-Jun-2019 Instruction Type:Provider Instructions for Treatment How to access health informa tion online Indication:Nonsmoker Start:26-Mar-2019 Instruction Type:Patient Education How to access health informa tion online - Detail Indication:Nonsmoker Start:26-Mar-2019 Instruction Type:Patient Education Patient Instructions Indication:Nonsmoker Start:26-Mar-2019 Instruction Type:Provider Instructions for Treatment How to access health informa tion online Indication:Unspecified Diagnosis Start:20-Nov-2017 Instruction Type:Patient Education How to access health informa tion online - Detail Indication:Unspecified Diagnosis Start:20-Nov-2017 Instruction Type:Patient Education Patient Instructions Indication:Unspecified Diagnosis Start:20-Nov-2017 Instruction Type:Provider Instructions for Treatment How to access health informa tion online Indication:Nonsmoker Start:20-Nov-2017 Instruction Type:Patient Education How to access health informa tion online - Detail Indication:Nonsmoker Start:20-Nov-2017 Instruction Type:Patient Education Patient Instructions Indication:Nonsmoker Start:20-Nov-2017 Instruction Type:Provider Instructions for Treatment How to access health informa tion online Indication:Nonsmoker Start:17-Nov-2017 Instruction Type:Patient Education How to access health informa tion online - Detail Indication:Nonsmoker Start:17-Nov-2017 Instruction Type:Patient Education Patient Instructions Indication:Nonsmoker Start:17-Nov-2017 Instruction Type:Provider Instructions for Treatment How to access health informa tion online Indication:Nonsmoker Start:15-Nov-2017 Instruction Type:Patient Education How to access health informa tion online - Detail Indication:Nonsmoker Start:15-Nov-2017 Instruction Type:Patient Education Patient Instructions Indication:Nonsmoker Start:15-Nov-2017 Instruction Type:Provider Instructions for Treatment How to access health informa tion online Indication:Asthma Start:06-Feb-2017 Instruction Type:Patient Education How to access health informa tion online - Detail Indication:Asthma Start:06-Feb-2017 Instruction Type:Patient Education Patient Instructions Indication:Asthma Start:06-Feb-2017 Instruction Type:Provider Instructions for Treatment How to access health informa tion online Indication:Nonsmoker Start:09-Sep-2016 Instruction Type:Patient Education How to access health informa tion online - Detail Indication:Abdominal pain, LUQ Start:09-Sep-2016 Instruction Type:Patient Education Patient Instructions Indication:Abdominal pain, LUQ Start:09-Sep-2016 Instruction Type:Provider Instructions for Treatment Patient Instructions Indication:Encounter for screening for lipid disorder Start:19-Jul-2016 Instruction Type:Provider Instructions for Treatment How to access health informa tion online Indication:Dog bite of thigh, left, initial encounter Start:02-Sep-2015 Instruction Type:Patient Education How to access health informa tion online - Detail Indication:Dog bite of thigh, left, initial encounter Start:02-Sep-2015 Instruction Type:Patient Education Patient Instructions Indication:Asthma Start:03-Jun-2014 Instruction Type:Provider Instructions for Treatment [facility]; [facility] Work Phone: Instructions* Name Dates Details Patient Instructions Indication:Hyperlipidemia Start:11-May-2022 Instruction Type:Provider Instructions for Treatment How to Access Health Informa tion Online using Patient Portal and [employer] Apps Indication:Hyperlipidemia Start:11-May-2022 Instruction Type:Patient Education Patient Instructions Indication:BMI 26.0-26.9,adult Start:07-Dec-2021 Instruction Type:Provider Instructions for Treatment How to Access Health Informa tion Online using Patient Portal and [employer] Apps Indication:BMI 26.0-26.9,adult Start:07-Dec-2021 Instruction Type:Patient Education Patient Instructions Indication:BMI 26.0-26.9,adult Start:10-Nov-2021 Instruction Type:Provider Instructions for Treatment How to Access Health Informa tion Online using Patient Portal and [employer]rd [employer] Apps Indication:BMI 26.0-26.9,adult Start:10-Nov-2021 Instruction Type:Patient Education Patient Instructions Indication:Upper respiratory infection Start:13-Jul-2021 Instruction Type:Provider Instructions for Treatment Patient Instructions Indication:Nonsmoker Start:28-Apr-2021 Instruction Type:Provider Instructions for Treatment How to Access Health Informa tion Online using Patient Portal and [employer] Apps Indication:Nonsmoker Start:28-Apr-2021 Instruction Type:Patient Education Patient Instructions Indication:Nonsmoker Start:14-Dec-2020 Instruction Type:Provider Instructions for Treatment How to Access Health Informa tion Online using Patient Portal and [employer] Apps Indication:Nonsmoker Start:14-Dec-2020 Instruction Type:Patient Education Patient Instructions Indication:BMI 25.0-25.9,adult Start:20-Oct-2020 Instruction Type:Provider Instructions for Treatment How to Access Health Informa tion Online using Patient Portal and [employer]rd [employer] Apps Indication:BMI 25.0-25.9,adult Start:20-Oct-2020 Instruction Type:Patient Education Patient Instructions Indication:Encounter for screening for malignant neoplasm of prostate (Renamed from Screening for prostate cancer) Start:24-Mar-2020 Instruction Type:Provider Instructions for Treatment How to Access Health Informa tion Online using Patient Portal and [employer]rd [employer] Apps Indication:Nonsmoker Start:24-Mar-2020 Instruction Type:Patient Education How to access health informa tion online Indication:Nonsmoker Start:16-Sep-2019 Instruction Type:Patient Education How to access health informa tion online - Detail Indication:Nonsmoker Start:16-Sep-2019 Instruction Type:Patient Education Patient Instructions Indication:Nonsmoker Start:16-Sep-2019 Instruction Type:Provider Instructions for Treatment How to access health informa tion online Indication:Nonsmoker Start:11-Jun-2019 Instruction Type:Patient Education How to access health informa tion online - Detail Indication:Nonsmoker Start:11-Jun-2019 Instruction Type:Patient Education Patient Instructions Indication:Nonsmoker Start:11-Jun-2019 Instruction Type:Provider Instructions for Treatment How to access health informa tion online Indication:Nonsmoker Start:26-Mar-2019 Instruction Type:Patient Education How to access health informa tion online - Detail Indication:Nonsmoker Start:26-Mar-2019 Instruction Type:Patient Education Patient Instructions Indication:Nonsmoker Start:26-Mar-2019 Instruction Type:Provider Instructions for Treatment How to access health informa tion online Indication:Unspecified Diagnosis Start:20-Nov-2017 Instruction Type:Patient Education How to access health informa tion online - Detail Indication:Unspecified Diagnosis Start:20-Nov-2017 Instruction Type:Patient Education Patient Instructions Indication:Unspecified Diagnosis Start:20-Nov-2017 Instruction Type:Provider Instructions for Treatment How to access health informa tion online Indication:Nonsmoker Start:20-Nov-2017 Instruction Type:Patient Education How to access health informa tion online - Detail Indication:Nonsmoker Start:20-Nov-2017 Instruction Type:Patient Education Patient Instructions Indication:Nonsmoker Start:20-Nov-2017 Instruction Type:Provider Instructions for Treatment How to access health informa tion online Indication:Nonsmoker Start:17-Nov-2017 Instruction Type:Patient Education How to access health informa tion online - Detail Indication:Nonsmoker Start:17-Nov-2017 Instruction Type:Patient Education Patient Instructions Indication:Nonsmoker Start:17-Nov-2017 Instruction Type:Provider Instructions for Treatment How to access health informa tion online Indication:Nonsmoker Start:15-Nov-2017 Instruction Type:Patient Education How to access health informa tion online - Detail Indication:Nonsmoker Start:15-Nov-2017 Instruction Type:Patient Education Patient Instructions Indication:Nonsmoker Start:15-Nov-2017 Instruction Type:Provider Instructions for Treatment How to access health informa tion online Indication:Asthma Start:06-Feb-2017 Instruction Type:Patient Education How to access health informa tion online - Detail Indication:Asthma Start:06-Feb-2017 Instruction Type:Patient Education Patient Instructions Indication:Asthma Start:06-Feb-2017 Instruction Type:Provider Instructions for Treatment How to access health informa tion online Indication:Nonsmoker Start:09-Sep-2016 Instruction Type:Patient Education How to access health informa tion online - Detail Indication:Abdominal pain, LUQ Start:09-Sep-2016 Instruction Type:Patient Education Patient Instructions Indication:Abdominal pain, LUQ Start:09-Sep-2016 Instruction Type:Provider Instructions for Treatment Patient Instructions Indication:Encounter for screening for lipid disorder Start:19-Jul-2016 Instruction Type:Provider Instructions for Treatment How to access health informa tion online Indication:Dog bite of thigh, left, initial encounter Start:02-Sep-2015 Instruction Type:Patient Education How to access health informa tion online - Detail Indication:Dog bite of thigh, left, initial encounter Start:02-Sep-2015 Instruction Type:Patient Education Patient Instructions Indication:Asthma Start:03-Jun-2014 Instruction Type:Provider Instructions for Treatment [facility]; [facility] Work Phone: Instructions* Name Dates Details Patient Instructions Indication:Hyperlipidemia Start:11-May-2022 Instruction Type:Provider Instructions for Treatment How to Access Health Informa tion Online using Patient Portal and [employer]rd [employer] Apps Indication:Hyperlipidemia Start:11-May-2022 Instruction Type:Patient Education Patient Instructions Indication:BMI 26.0-26.9,adult Start:07-Dec-2021 Instruction Type:Provider Instructions for Treatment How to Access Health Informa tion Online using Patient Portal and [employer]rd [employer] Apps Indication:BMI 26.0-26.9,adult Start:07-Dec-2021 Instruction Type:Patient Education Patient Instructions Indication:BMI 26.0-26.9,adult Start:10-Nov-2021 Instruction Type:Provider Instructions for Treatment How to Access Health Informa tion Online using Patient Portal and [employer]rd [employer] Apps Indication:BMI 26.0-26.9,adult Start:10-Nov-2021 Instruction Type:Patient Education Patient Instructions Indication:Upper respiratory infection Start:13-Jul-2021 Instruction Type:Provider Instructions for Treatment Patient Instructions Indication:Nonsmoker Start:28-Apr-2021 Instruction Type:Provider Instructions for Treatment How to Access Health Informa tion Online using Patient Portal and [employer]rd [employer] Apps Indication:Nonsmoker Start:28-Apr-2021 Instruction Type:Patient Education Patient Instructions Indication:Nonsmoker Start:14-Dec-2020 Instruction Type:Provider Instructions for Treatment How to Access Health Informa tion Online using Patient Portal and [employer]rd [employer] Apps Indication:Nonsmoker Start:14-Dec-2020 Instruction Type:Patient Education Patient Instructions Indication:BMI 25.0-25.9,adult Start:20-Oct-2020 Instruction Type:Provider Instructions for Treatment How to Access Health Informa tion Online using Patient Portal and [employer]rd [employer] Apps Indication:BMI 25.0-25.9,adult Start:20-Oct-2020 Instruction Type:Patient Education Patient Instructions Indication:Encounter for screening for malignant neoplasm of prostate (Renamed from Screening for prostate cancer) Start:24-Mar-2020 Instruction Type:Provider Instructions for Treatment How to Access Health Informa tion Online using Patient Portal and [employer]rd [employer] Apps Indication:Nonsmoker Start:24-Mar-2020 Instruction Type:Patient Education How to access health informa tion online Indication:Nonsmoker Start:16-Sep-2019 Instruction Type:Patient Education How to access health informa tion online - Detail Indication:Nonsmoker Start:16-Sep-2019 Instruction Type:Patient Education Patient Instructions Indication:Nonsmoker Start:16-Sep-2019 Instruction Type:Provider Instructions for Treatment How to access health informa tion online Indication:Nonsmoker Start:11-Jun-2019 Instruction Type:Patient Education How to access health informa tion online - Detail Indication:Nonsmoker Start:11-Jun-2019 Instruction Type:Patient Education Patient Instructions Indication:Nonsmoker Start:11-Jun-2019 Instruction Type:Provider Instructions for Treatment How to access health informa tion online Indication:Nonsmoker Start:26-Mar-2019 Instruction Type:Patient Education How to access health informa tion online - Detail Indication:Nonsmoker Start:26-Mar-2019 Instruction Type:Patient Education Patient Instructions Indication:Nonsmoker Start:26-Mar-2019 Instruction Type:Provider Instructions for Treatment How to access health informa tion online Indication:Unspecified Diagnosis Start:20-Nov-2017 Instruction Type:Patient Education How to access health informa tion online - Detail Indication:Unspecified Diagnosis Start:20-Nov-2017 Instruction Type:Patient Education Patient Instructions Indication:Unspecified Diagnosis Start:20-Nov-2017 Instruction Type:Provider Instructions for Treatment How to access health informa tion online Indication:Nonsmoker Start:20-Nov-2017 Instruction Type:Patient Education How to access health informa tion online - Detail Indication:Nonsmoker Start:20-Nov-2017 Instruction Type:Patient Education Patient Instructions Indication:Nonsmoker Start:20-Nov-2017 Instruction Type:Provider Instructions for Treatment How to access health informa tion online Indication:Nonsmoker Start:17-Nov-2017 Instruction Type:Patient Education How to access health informa tion online - Detail Indication:Nonsmoker Start:17-Nov-2017 Instruction Type:Patient Education Patient Instructions Indication:Nonsmoker Start:17-Nov-2017 Instruction Type:Provider Instructions for Treatment How to access health informa tion online Indication:Nonsmoker Start:15-Nov-2017 Instruction Type:Patient Education How to access health informa tion online - Detail Indication:Nonsmoker Start:15-Nov-2017 Instruction Type:Patient Education Patient Instructions Indication:Nonsmoker Start:15-Nov-2017 Instruction Type:Provider Instructions for Treatment How to access health informa tion online Indication:Asthma Start:06-Feb-2017 Instruction Type:Patient Education How to access health informa tion online - Detail Indication:Asthma Start:06-Feb-2017 Instruction Type:Patient Education Patient Instructions Indication:Asthma Start:06-Feb-2017 Instruction Type:Provider Instructions for Treatment How to access health informa tion online Indication:Nonsmoker Start:09-Sep-2016 Instruction Type:Patient Education How to access health informa tion online - Detail Indication:Abdominal pain, LUQ Start:09-Sep-2016 Instruction Type:Patient Education Patient Instructions Indication:Abdominal pain, LUQ Start:09-Sep-2016 Instruction Type:Provider Instructions for Treatment Patient Instructions Indication:Encounter for screening for lipid disorder Start:19-Jul-2016 Instruction Type:Provider Instructions for Treatment How to access health informa tion online Indication:Dog bite of thigh, left, initial encounter Start:02-Sep-2015 Instruction Type:Patient Education How to access health informa tion online - Detail Indication:Dog bite of thigh, left, initial encounter Start:02-Sep-2015 Instruction Type:Patient Education Patient Instructions Indication:Asthma Start:03-Jun-2014 Instruction Type:Provider Instructions for Treatment [facility]; [facility] Work Phone: Instructions* Name Dates Details Patient Instructions Indication:Hyperlipidemia Start:11-May-2022 Instruction Type:Provider Instructions for Treatment How to Access Health Informa tion Online using Patient Portal and [employer] Apps Indication:Hyperlipidemia Start:11-May-2022 Instruction Type:Patient Education Patient Instructions Indication:BMI 26.0-26.9,adult Start:07-Dec-2021 Instruction Type:Provider Instructions for Treatment How to Access Health Informa tion Online using Patient Portal and [employer] Apps Indication:BMI 26.0-26.9,adult Start:07-Dec-2021 Instruction Type:Patient Education Patient Instructions Indication:BMI 26.0-26.9,adult Start:10-Nov-2021 Instruction Type:Provider Instructions for Treatment How to Access Health Informa tion Online using Patient Portal and [employer] Apps Indication:BMI 26.0-26.9,adult Start:10-Nov-2021 Instruction Type:Patient Education Patient Instructions Indication:Upper respiratory infection Start:13-Jul-2021 Instruction Type:Provider Instructions for Treatment Patient Instructions Indication:Nonsmoker Start:28-Apr-2021 Instruction Type:Provider Instructions for Treatment How to Access Health Informa tion Online using Patient Portal and [employer] Apps Indication:Nonsmoker Start:28-Apr-2021 Instruction Type:Patient Education Patient Instructions Indication:Nonsmoker Start:14-Dec-2020 Instruction Type:Provider Instructions for Treatment How to Access Health Informa tion Online using Patient Portal and [employer] Apps Indication:Nonsmoker Start:14-Dec-2020 Instruction Type:Patient Education Patient Instructions Indication:BMI 25.0-25.9,adult Start:20-Oct-2020 Instruction Type:Provider Instructions for Treatment How to Access Health Informa tion Online using Patient Portal and [employer]rd [employer] Apps Indication:BMI 25.0-25.9,adult Start:20-Oct-2020 Instruction Type:Patient Education Patient Instructions Indication:Encounter for screening for malignant neoplasm of prostate (Renamed from Screening for prostate cancer) Start:24-Mar-2020 Instruction Type:Provider Instructions for Treatment How to Access Health Informa tion Online using Patient Portal and [employer]rd [employer] Apps Indication:Nonsmoker Start:24-Mar-2020 Instruction Type:Patient Education How to access health informa tion online Indication:Nonsmoker Start:16-Sep-2019 Instruction Type:Patient Education How to access health informa tion online - Detail Indication:Nonsmoker Start:16-Sep-2019 Instruction Type:Patient Education Patient Instructions Indication:Nonsmoker Start:16-Sep-2019 Instruction Type:Provider Instructions for Treatment How to access health informa tion online Indication:Nonsmoker Start:11-Jun-2019 Instruction Type:Patient Education How to access health informa tion online - Detail Indication:Nonsmoker Start:11-Jun-2019 Instruction Type:Patient Education Patient Instructions Indication:Nonsmoker Start:11-Jun-2019 Instruction Type:Provider Instructions for Treatment How to access health informa tion online Indication:Nonsmoker Start:26-Mar-2019 Instruction Type:Patient Education How to access health informa tion online - Detail Indication:Nonsmoker Start:26-Mar-2019 Instruction Type:Patient Education Patient Instructions Indication:Nonsmoker Start:26-Mar-2019 Instruction Type:Provider Instructions for Treatment How to access health informa tion online Indication:Unspecified Diagnosis Start:20-Nov-2017 Instruction Type:Patient Education How to access health informa tion online - Detail Indication:Unspecified Diagnosis Start:20-Nov-2017 Instruction Type:Patient Education Patient Instructions Indication:Unspecified Diagnosis Start:20-Nov-2017 Instruction Type:Provider Instructions for Treatment How to access health informa tion online Indication:Nonsmoker Start:20-Nov-2017 Instruction Type:Patient Education How to access health informa tion online - Detail Indication:Nonsmoker Start:20-Nov-2017 Instruction Type:Patient Education Patient Instructions Indication:Nonsmoker Start:20-Nov-2017 Instruction Type:Provider Instructions for Treatment How to access health informa tion online Indication:Nonsmoker Start:17-Nov-2017 Instruction Type:Patient Education How to access health informa tion online - Detail Indication:Nonsmoker Start:17-Nov-2017 Instruction Type:Patient Education Patient Instructions Indication:Nonsmoker Start:17-Nov-2017 Instruction Type:Provider Instructions for Treatment How to access health informa tion online Indication:Nonsmoker Start:15-Nov-2017 Instruction Type:Patient Education How to access health informa tion online - Detail Indication:Nonsmoker Start:15-Nov-2017 Instruction Type:Patient Education Patient Instructions Indication:Nonsmoker Start:15-Nov-2017 Instruction Type:Provider Instructions for Treatment How to access health informa tion online Indication:Asthma Start:06-Feb-2017 Instruction Type:Patient Education How to access health informa tion online - Detail Indication:Asthma Start:06-Feb-2017 Instruction Type:Patient Education Patient Instructions Indication:Asthma Start:06-Feb-2017 Instruction Type:Provider Instructions for Treatment How to access health informa tion online Indication:Nonsmoker Start:09-Sep-2016 Instruction Type:Patient Education How to access health informa tion online - Detail Indication:Abdominal pain, LUQ Start:09-Sep-2016 Instruction Type:Patient Education Patient Instructions Indication:Abdominal pain, LUQ Start:09-Sep-2016 Instruction Type:Provider Instructions for Treatment Patient Instructions Indication:Encounter for screening for lipid disorder Start:19-Jul-2016 Instruction Type:Provider Instructions for Treatment How to access health informa tion online Indication:Dog bite of thigh, left, initial encounter Start:02-Sep-2015 Instruction Type:Patient Education How to access health informa tion online - Detail Indication:Dog bite of thigh, left, initial encounter Start:02-Sep-2015 Instruction Type:Patient Education Patient Instructions Indication:Asthma Start:03-Jun-2014 Instruction Type:Provider Instructions for Treatment [facility] Work Phone: Instructions* Name Dates Details Patient Instructions Indication:Hyperlipidemia Start:11-May-2022 Instruction Type:Provider Instructions for Treatment How to Access Health Informa tion Online using Patient Portal and [employer]rd [employer] Apps Indication:Hyperlipidemia Start:11-May-2022 Instruction Type:Patient Education Patient Instructions Indication:BMI 26.0-26.9,adult Start:07-Dec-2021 Instruction Type:Provider Instructions for Treatment How to Access Health Informa tion Online using Patient Portal and [employer]rd [employer] Apps Indication:BMI 26.0-26.9,adult Start:07-Dec-2021 Instruction Type:Patient Education Patient Instructions Indication:BMI 26.0-26.9,adult Start:10-Nov-2021 Instruction Type:Provider Instructions for Treatment How to Access Health Informa tion Online using Patient Portal and 3rd [employer] Apps Indication:BMI 26.0-26.9,adult Start:10-Nov-2021 Instruction Type:Patient Education Patient Instructions Indication:Upper respiratory infection Start:13-Jul-2021 Instruction Type:Provider Instructions for Treatment Patient Instructions Indication:Nonsmoker Start:28-Apr-2021 Instruction Type:Provider Instructions for Treatment How to Access Health Informa tion Online using Patient Portal and [employer]rd [employer] Apps Indication:Nonsmoker Start:28-Apr-2021 Instruction Type:Patient Education Patient Instructions Indication:Nonsmoker Start:14-Dec-2020 Instruction Type:Provider Instructions for Treatment How to Access Health Informa tion Online using Patient Portal and [employer]rd [employer] Apps Indication:Nonsmoker Start:14-Dec-2020 Instruction Type:Patient Education Patient Instructions Indication:BMI 25.0-25.9,adult Start:20-Oct-2020 Instruction Type:Provider Instructions for Treatment How to Access Health Informa tion Online using Patient Portal and [employer]rd [employer] Apps Indication:BMI 25.0-25.9,adult Start:20-Oct-2020 Instruction Type:Patient Education Patient Instructions Indication:Encounter for screening for malignant neoplasm of prostate (Renamed from Screening for prostate cancer) Start:24-Mar-2020 Instruction Type:Provider Instructions for Treatment How to Access Health Informa tion Online using Patient Portal and [employer]rd [employer] Apps Indication:Nonsmoker Start:24-Mar-2020 Instruction Type:Patient Education How to access health informa tion online Indication:Nonsmoker Start:16-Sep-2019 Instruction Type:Patient Education How to access health informa tion online - Detail Indication:Nonsmoker Start:16-Sep-2019 Instruction Type:Patient Education Patient Instructions Indication:Nonsmoker Start:16-Sep-2019 Instruction Type:Provider Instructions for Treatment How to access health informa tion online Indication:Nonsmoker Start:11-Jun-2019 Instruction Type:Patient Education How to access health informa tion online - Detail Indication:Nonsmoker Start:11-Jun-2019 Instruction Type:Patient Education Patient Instructions Indication:Nonsmoker Start:11-Jun-2019 Instruction Type:Provider Instructions for Treatment How to access health informa tion online Indication:Nonsmoker Start:26-Mar-2019 Instruction Type:Patient Education How to access health informa tion online - Detail Indication:Nonsmoker Start:26-Mar-2019 Instruction Type:Patient Education Patient Instructions Indication:Nonsmoker Start:26-Mar-2019 Instruction Type:Provider Instructions for Treatment How to access health informa tion online Indication:Unspecified Diagnosis Start:20-Nov-2017 Instruction Type:Patient Education How to access health informa tion online - Detail Indication:Unspecified Diagnosis Start:20-Nov-2017 Instruction Type:Patient Education Patient Instructions Indication:Unspecified Diagnosis Start:20-Nov-2017 Instruction Type:Provider Instructions for Treatment How to access health informa tion online Indication:Nonsmoker Start:20-Nov-2017 Instruction Type:Patient Education How to access health informa tion online - Detail Indication:Nonsmoker Start:20-Nov-2017 Instruction Type:Patient Education Patient Instructions Indication:Nonsmoker Start:20-Nov-2017 Instruction Type:Provider Instructions for Treatment How to access health informa tion online Indication:Nonsmoker Start:17-Nov-2017 Instruction Type:Patient Education How to access health informa tion online - Detail Indication:Nonsmoker Start:17-Nov-2017 Instruction Type:Patient Education Patient Instructions Indication:Nonsmoker Start:17-Nov-2017 Instruction Type:Provider Instructions for Treatment How to access health informa tion online Indication:Nonsmoker Start:15-Nov-2017 Instruction Type:Patient Education How to access health informa tion online - Detail Indication:Nonsmoker Start:15-Nov-2017 Instruction Type:Patient Education Patient Instructions Indication:Nonsmoker Start:15-Nov-2017 Instruction Type:Provider Instructions for Treatment How to access health informa tion online Indication:Asthma Start:06-Feb-2017 Instruction Type:Patient Education How to access health informa tion online - Detail Indication:Asthma Start:06-Feb-2017 Instruction Type:Patient Education Patient Instructions Indication:Asthma Start:06-Feb-2017 Instruction Type:Provider Instructions for Treatment How to access health informa tion online Indication:Nonsmoker Start:09-Sep-2016 Instruction Type:Patient Education How to access health informa tion online - Detail Indication:Abdominal pain, LUQ Start:09-Sep-2016 Instruction Type:Patient Education Patient Instructions Indication:Abdominal pain, LUQ Start:09-Sep-2016 Instruction Type:Provider Instructions for Treatment Patient Instructions Indication:Encounter for screening for lipid disorder Start:19-Jul-2016 Instruction Type:Provider Instructions for Treatment How to access health informa tion online Indication:Dog bite of thigh, left, initial encounter Start:02-Sep-2015 Instruction Type:Patient Education How to access health informa tion online - Detail Indication:Dog bite of thigh, left, initial encounter Start:02-Sep-2015 Instruction Type:Patient Education Patient Instructions Indication:Asthma Start:03-Jun-2014 Instruction Type:Provider Instructions for Treatment [facility] Work Phone: Instructions* Name Dates Details Patient Instructions Indication:Nonsmoker Start:23-Nov-2022 Instruction Type:Provider Instructions for Treatment How to Access Health Informa tion Online using Patient Portal and [employer]rd [employer] Apps Indication:Nonsmoker Start:23-Nov-2022 Instruction Type:Patient Education Patient Instructions Indication:Hyperlipidemia Start:11-May-2022 Instruction Type:Provider Instructions for Treatment How to Access Health Informa tion Online using Patient Portal and [employer] Apps Indication:Hyperlipidemia Start:11-May-2022 Instruction Type:Patient Education Patient Instructions Indication:BMI 26.0-26.9,adult Start:07-Dec-2021 Instruction Type:Provider Instructions for Treatment How to Access Health Informa tion Online using Patient Portal and [employer] Apps Indication:BMI 26.0-26.9,adult Start:07-Dec-2021 Instruction Type:Patient Education Patient Instructions Indication:BMI 26.0-26.9,adult Start:10-Nov-2021 Instruction Type:Provider Instructions for Treatment How to Access Health Informa tion Online using Patient Portal and [employer]rd [employer] Apps Indication:BMI 26.0-26.9,adult Start:10-Nov-2021 Instruction Type:Patient Education Patient Instructions Indication:Upper respiratory infection Start:13-Jul-2021 Instruction Type:Provider Instructions for Treatment Patient Instructions Indication:Nonsmoker Start:28-Apr-2021 Instruction Type:Provider Instructions for Treatment How to Access Health Informa tion Online using Patient Portal and [employer]rd [employer] Apps Indication:Nonsmoker Start:28-Apr-2021 Instruction Type:Patient Education Patient Instructions Indication:Nonsmoker Start:14-Dec-2020 Instruction Type:Provider Instructions for Treatment How to Access Health Informa tion Online using Patient Portal and [employer] Apps Indication:Nonsmoker Start:14-Dec-2020 Instruction Type:Patient Education Patient Instructions Indication:BMI 25.0-25.9,adult Start:20-Oct-2020 Instruction Type:Provider Instructions for Treatment How to Access Health Informa tion Online using Patient Portal and [employer] Apps Indication:BMI 25.0-25.9,adult Start:20-Oct-2020 Instruction Type:Patient Education Patient Instructions Indication:Encounter for screening for malignant neoplasm of prostate (Renamed from Screening for prostate cancer) Start:24-Mar-2020 Instruction Type:Provider Instructions for Treatment How to Access Health Informa tion Online using Patient Portal and [employer] Apps Indication:Nonsmoker Start:24-Mar-2020 Instruction Type:Patient Education How to access health informa tion online Indication:Nonsmoker Start:16-Sep-2019 Instruction Type:Patient Education How to access health informa tion online - Detail Indication:Nonsmoker Start:16-Sep-2019 Instruction Type:Patient Education Patient Instructions Indication:Nonsmoker Start:16-Sep-2019 Instruction Type:Provider Instructions for Treatment How to access health informa tion online Indication:Nonsmoker Start:11-Jun-2019 Instruction Type:Patient Education How to access health informa tion online - Detail Indication:Nonsmoker Start:11-Jun-2019 Instruction Type:Patient Education Patient Instructions Indication:Nonsmoker Start:11-Jun-2019 Instruction Type:Provider Instructions for Treatment How to access health informa tion online Indication:Nonsmoker Start:26-Mar-2019 Instruction Type:Patient Education How to access health informa tion online - Detail Indication:Nonsmoker Start:26-Mar-2019 Instruction Type:Patient Education Patient Instructions Indication:Nonsmoker Start:26-Mar-2019 Instruction Type:Provider Instructions for Treatment How to access health informa tion online Indication:Unspecified Diagnosis Start:20-Nov-2017 Instruction Type:Patient Education How to access health informa tion online - Detail Indication:Unspecified Diagnosis Start:20-Nov-2017 Instruction Type:Patient Education Patient Instructions Indication:Unspecified Diagnosis Start:20-Nov-2017 Instruction Type:Provider Instructions for Treatment How to access health informa tion online Indication:Nonsmoker Start:20-Nov-2017 Instruction Type:Patient Education How to access health informa tion online - Detail Indication:Nonsmoker Start:20-Nov-2017 Instruction Type:Patient Education Patient Instructions Indication:Nonsmoker Start:20-Nov-2017 Instruction Type:Provider Instructions for Treatment How to access health informa tion online Indication:Nonsmoker Start:17-Nov-2017 Instruction Type:Patient Education How to access health informa tion online - Detail Indication:Nonsmoker Start:17-Nov-2017 Instruction Type:Patient Education Patient Instructions Indication:Nonsmoker Start:17-Nov-2017 Instruction Type:Provider Instructions for Treatment How to access health informa tion online Indication:Nonsmoker Start:15-Nov-2017 Instruction Type:Patient Education How to access health informa tion online - Detail Indication:Nonsmoker Start:15-Nov-2017 Instruction Type:Patient Education Patient Instructions Indication:Nonsmoker Start:15-Nov-2017 Instruction Type:Provider Instructions for Treatment How to access health informa tion online Indication:Asthma Start:06-Feb-2017 Instruction Type:Patient Education How to access health informa tion online - Detail Indication:Asthma Start:06-Feb-2017 Instruction Type:Patient Education Patient Instructions Indication:Asthma Start:06-Feb-2017 Instruction Type:Provider Instructions for Treatment How to access health informa tion online Indication:Nonsmoker Start:09-Sep-2016 Instruction Type:Patient Education How to access health informa tion online - Detail Indication:Abdominal pain, LUQ Start:09-Sep-2016 Instruction Type:Patient Education Patient Instructions Indication:Abdominal pain, LUQ Start:09-Sep-2016 Instruction Type:Provider Instructions for Treatment Patient Instructions Indication:Encounter for screening for lipid disorder Start:19-Jul-2016 Instruction Type:Provider Instructions for Treatment How to access health informa tion online Indication:Dog bite of thigh, left, initial encounter Start:02-Sep-2015 Instruction Type:Patient Education How to access health informa tion online - Detail Indication:Dog bite of thigh, left, initial encounter Start:02-Sep-2015 Instruction Type:Patient Education Patient Instructions Indication:Asthma Start:03-Jun-2014 Instruction Type:Provider Instructions for Treatment [facility]; [facility] Work Phone: Instructions* Name Dates Details Patient Instructions Indication:Nonsmoker Start:23-Nov-2022 Instruction Type:Provider Instructions for Treatment How to Access Health Informa tion Online using Patient Portal and [employer]rd [employer] Apps Indication:Nonsmoker Start:23-Nov-2022 Instruction Type:Patient Education Patient Instructions Indication:Hyperlipidemia Start:11-May-2022 Instruction Type:Provider Instructions for Treatment How to Access Health Informa tion Online using Patient Portal and [employer]rd [employer] Apps Indication:Hyperlipidemia Start:11-May-2022 Instruction Type:Patient Education Patient Instructions Indication:BMI 26.0-26.9,adult Start:07-Dec-2021 Instruction Type:Provider Instructions for Treatment How to Access Health Informa tion Online using Patient Portal and [employer]rd [employer] Apps Indication:BMI 26.0-26.9,adult Start:07-Dec-2021 Instruction Type:Patient Education Patient Instructions Indication:BMI 26.0-26.9,adult Start:10-Nov-2021 Instruction Type:Provider Instructions for Treatment How to Access Health Informa tion Online using Patient Portal and [employer]rd [employer] Apps Indication:BMI 26.0-26.9,adult Start:10-Nov-2021 Instruction Type:Patient Education Patient Instructions Indication:Upper respiratory infection Start:13-Jul-2021 Instruction Type:Provider Instructions for Treatment Patient Instructions Indication:Nonsmoker Start:28-Apr-2021 Instruction Type:Provider Instructions for Treatment How to Access Health Informa tion Online using Patient Portal and [employer]rd [employer] Apps Indication:Nonsmoker Start:28-Apr-2021 Instruction Type:Patient Education Patient Instructions Indication:Nonsmoker Start:14-Dec-2020 Instruction Type:Provider Instructions for Treatment How to Access Health Informa tion Online using Patient Portal and [employer]rd [employer] Apps Indication:Nonsmoker Start:14-Dec-2020 Instruction Type:Patient Education Patient Instructions Indication:BMI 25.0-25.9,adult Start:20-Oct-2020 Instruction Type:Provider Instructions for Treatment How to Access Health Informa tion Online using Patient Portal and [employer]rd [employer] Apps Indication:BMI 25.0-25.9,adult Start:20-Oct-2020 Instruction Type:Patient Education Patient Instructions Indication:Encounter for screening for malignant neoplasm of prostate (Renamed from Screening for prostate cancer) Start:24-Mar-2020 Instruction Type:Provider Instructions for Treatment How to Access Health Informa tion Online using Patient Portal and [employer]rd [employer] Apps Indication:Nonsmoker Start:24-Mar-2020 Instruction Type:Patient Education How to access health informa tion online Indication:Nonsmoker Start:16-Sep-2019 Instruction Type:Patient Education How to access health informa tion online - Detail Indication:Nonsmoker Start:16-Sep-2019 Instruction Type:Patient Education Patient Instructions Indication:Nonsmoker Start:16-Sep-2019 Instruction Type:Provider Instructions for Treatment How to access health informa tion online Indication:Nonsmoker Start:11-Jun-2019 Instruction Type:Patient Education How to access health informa tion online - Detail Indication:Nonsmoker Start:11-Jun-2019 Instruction Type:Patient Education Patient Instructions Indication:Nonsmoker Start:11-Jun-2019 Instruction Type:Provider Instructions for Treatment How to access health informa tion online Indication:Nonsmoker Start:26-Mar-2019 Instruction Type:Patient Education How to access health informa tion online - Detail Indication:Nonsmoker Start:26-Mar-2019 Instruction Type:Patient Education Patient Instructions Indication:Nonsmoker Start:26-Mar-2019 Instruction Type:Provider Instructions for Treatment How to access health informa tion online Indication:Unspecified Diagnosis Start:20-Nov-2017 Instruction Type:Patient Education How to access health informa tion online - Detail Indication:Unspecified Diagnosis Start:20-Nov-2017 Instruction Type:Patient Education Patient Instructions Indication:Unspecified Diagnosis Start:20-Nov-2017 Instruction Type:Provider Instructions for Treatment How to access health informa tion online Indication:Nonsmoker Start:20-Nov-2017 Instruction Type:Patient Education How to access health informa tion online - Detail Indication:Nonsmoker Start:20-Nov-2017 Instruction Type:Patient Education Patient Instructions Indication:Nonsmoker Start:20-Nov-2017 Instruction Type:Provider Instructions for Treatment How to access health informa tion online Indication:Nonsmoker Start:17-Nov-2017 Instruction Type:Patient Education How to access health informa tion online - Detail Indication:Nonsmoker Start:17-Nov-2017 Instruction Type:Patient Education Patient Instructions Indication:Nonsmoker Start:17-Nov-2017 Instruction Type:Provider Instructions for Treatment How to access health informa tion online Indication:Nonsmoker Start:15-Nov-2017 Instruction Type:Patient Education How to access health informa tion online - Detail Indication:Nonsmoker Start:15-Nov-2017 Instruction Type:Patient Education Patient Instructions Indication:Nonsmoker Start:15-Nov-2017 Instruction Type:Provider Instructions for Treatment How to access health informa tion online Indication:Asthma Start:06-Feb-2017 Instruction Type:Patient Education How to access health informa tion online - Detail Indication:Asthma Start:06-Feb-2017 Instruction Type:Patient Education Patient Instructions Indication:Asthma Start:06-Feb-2017 Instruction Type:Provider Instructions for Treatment How to access health informa tion online Indication:Nonsmoker Start:09-Sep-2016 Instruction Type:Patient Education How to access health informa tion online - Detail Indication:Abdominal pain, LUQ Start:09-Sep-2016 Instruction Type:Patient Education Patient Instructions Indication:Abdominal pain, LUQ Start:09-Sep-2016 Instruction Type:Provider Instructions for Treatment Patient Instructions Indication:Encounter for screening for lipid disorder Start:19-Jul-2016 Instruction Type:Provider Instructions for Treatment How to access health informa tion online Indication:Dog bite of thigh, left, initial encounter Start:02-Sep-2015 Instruction Type:Patient Education How to access health informa tion online - Detail Indication:Dog bite of thigh, left, initial encounter Start:02-Sep-2015 Instruction Type:Patient Education Patient Instructions Indication:Asthma Start:03-Jun-2014 Instruction Type:Provider Instructions for Treatment [facility]; [facility] Work Phone: reason for referral (narrative)No reason for referral information available[facility] Work Phone: Family History No Family History Records FoundUnknown Family Member Name Dates Details Maternal Grandfather Comments:heart Dz Status:Active Mother Comments:Br Ca Status:Active Paternal Grandfather Comments:colon Ca Status:Active Paternal Grandmother Comments:CVA Status:Active Unknown Family Member Name Dates Details Maternal Grandfather Comments:heart Dz Status:Active Mother Comments:Br Ca Status:Active Paternal Grandfather Comments:colon Ca Status:Active Paternal Grandmother Comments:CVA Status:Active Unknown Family Member Name Dates Details Maternal Grandfather Comments:heart Dz Status:Active Mother Comments:Br Ca Status:Active Paternal Grandfather Comments:colon Ca Status:Active Paternal Grandmother Comments:CVA Status:Active Unknown Family Member Name Dates Details Maternal Grandfather Comments:heart Dz Status:Active Mother Comments:Br Ca Status:Active Paternal Grandfather Comments:colon Ca Status:Active Paternal Grandmother Comments:CVA Status:Active Unknown Family Member Name Dates Details Maternal Grandfather Comments:heart Dz Status:Active Mother Comments:Br Ca Status:Active Paternal Grandfather Comments:colon Ca Status:Active Paternal Grandmother Comments:CVA Status:Active Unknown Family Member Name Dates Details Maternal Grandfather Comments:heart Dz Status:Active Mother Comments:Br Ca Status:Active Paternal Grandfather Comments:colon Ca Status:Active Paternal Grandmother Comments:CVA Status:Active Unknown Family Member Name Dates Details Maternal Grandfather Comments:heart Dz Status:Active Mother Comments:Br Ca Status:Active Paternal Grandfather Comments:colon Ca Status:Active Paternal Grandmother Comments:CVA Status:Active Unknown Family Member Name Dates Details Maternal Grandfather Comments:heart Dz Status:Active Mother Comments:Br Ca Status:Active Paternal Grandfather Comments:colon Ca Status:Active Paternal Grandmother Comments:CVA Status:Active Unknown Family Member Name Dates Details Maternal Grandfather Comments:heart Dz Status:Active Mother Comments:Br Ca Status:Active Paternal Grandfather Comments:colon Ca Status:Active Paternal Grandmother Comments:CVA Status:Active Unknown Family Member Name Dates Details Maternal Grandfather Comments:heart Dz Status:Active Mother Comments:Br Ca Status:Active Paternal Grandfather Comments:colon Ca Status:Active Paternal Grandmother Comments:CVA Status:Active Unknown Family Member Name Dates Details Maternal Grandfather Comments:heart Dz Status:Active Mother Comments:Br Ca Status:Active Paternal Grandfather Comments:colon Ca Status:Active Paternal Grandmother Comments:CVA Status:Active Unknown Family Member Name Dates Details Maternal Grandfather Comments:heart Dz Status:Active Mother Comments:Br Ca Status:Active Paternal Grandfather Comments:colon Ca Status:Active Paternal Grandmother Comments:CVA Status:Active Unknown Family Member Name Dates Details Maternal Grandfather Comments:heart Dz Status:Active Mother Comments:Br Ca Status:Active Paternal Grandfather Comments:colon Ca Status:Active Paternal Grandmother Comments:CVA Status:Active Unknown Family Member Name Dates Details Maternal Grandfather Comments:heart Dz Status:Active Mother Comments:Br Ca Status:Active Paternal Grandfather Comments:colon Ca Status:Active Paternal Grandmother Comments:CVA Status:Active Unknown Family Member Name Dates Details Maternal Grandfather Comments:heart Dz Status:Active Mother Comments:Br Ca Status:Active Paternal Grandfather Comments:colon Ca Status:Active Paternal Grandmother Comments:CVA Status:Active Unknown Family Member Name Dates Details Maternal Grandfather Comments:heart Dz Status:Active Mother Comments:Br Ca Status:Active Paternal Grandfather Comments:colon Ca Status:Active Paternal Grandmother Comments:CVA Status:Active Unknown Family Member Name Dates Details Maternal Grandfather Comments:heart Dz Status:Active Mother Comments:Br Ca Status:Active Paternal Grandfather Comments:colon Ca Status:Active Paternal Grandmother Comments:CVA Status:Active Unknown Family Member Name Dates Details Maternal Grandfather Comments:heart Dz Status:Active Mother Comments:Br Ca Status:Active Paternal Grandfather Comments:colon Ca Status:Active Paternal Grandmother Comments:CVA Status:Active Unknown Family Member Name Dates Details Maternal Grandfather Comments:heart Dz Status:Active Mother Comments:Br Ca Status:Active Paternal Grandfather Comments:colon Ca Status:Active Paternal Grandmother Comments:CVA Status:Active Unknown Family Member Name Dates Details Maternal Grandfather Comments:heart Dz Status:Active Mother Comments:Br Ca Status:Active Paternal Grandfather Comments:colon Ca Status:Active Paternal Grandmother Comments:CVA Status:Active Unknown Family Member Name Dates Details Maternal Grandfather Comments:heart Dz Status:Active Mother Comments:Br Ca Status:Active Paternal Grandfather Comments:colon Ca Status:Active Paternal Grandmother Comments:CVA Status:Active Unknown Family Member Name Dates Details Maternal Grandfather Comments:heart Dz Status:Active Mother Comments:Br Ca Status:Active Paternal Grandfather Comments:colon Ca Status:Active Paternal Grandmother Comments:CVA Status:Active Instructions Name Dates Details Unspecified Diagnosis : How to access health information online Indication:Unspecified Diagnosis Unspecified Diagnosis : How to access health information online - Detail Indication:Unspecified Diagnosis Unspecified Diagnosis : Chloe ent Instructions Indication:Unspecified Diagnosis Nonsmoker : How to access he alth information online Indication:Nonsmoker Nonsmoker : How to access he alth information online - Detail Indication:Nonsmoker Nonsmoker : Patient Instruct ions Indication:Nonsmoker Asthma : How to access healt h information online Indication:Asthma Asthma : How to access healt h information online - Detail Indication:Asthma Asthma : Patient Instruction s Indication:Asthma Abdominal pain, LUQ : How to access health information online - Detail Indication:Abdominal pain, LUQ Abdominal pain, LUQ : Patien t Instructions Indication:Abdominal pain, LUQ Encounter for screening for lipid disorder : Patient Instructions Indication:Encounter for screening for lipid disorder Dog bite of thigh, left, ini tial encounter : How to access health information online Indication:Dog bite of thigh, left, initial encounter Dog bite of thigh, left, ini tial encounter : How to access health information online - Detail Indication:Dog bite of thigh, left, initial encounter Name Dates Details Unspecified Diagnosis : How to access health information online Indication:Unspecified Diagnosis Unspecified Diagnosis : How to access health information online - Detail Indication:Unspecified Diagnosis Unspecified Diagnosis : Chloe ent Instructions Indication:Unspecified Diagnosis Nonsmoker : How to access he alth information online Indication:Nonsmoker Nonsmoker : How to access he alth information online - Detail Indication:Nonsmoker Nonsmoker : Patient Instruct ions Indication:Nonsmoker Asthma : How to access healt h information online Indication:Asthma Asthma : How to access healt h information online - Detail Indication:Asthma Asthma : Patient Instruction s Indication:Asthma Abdominal pain, LUQ : How to access health information online - Detail Indication:Abdominal pain, LUQ Abdominal pain, LUQ : Patien t Instructions Indication:Abdominal pain, LUQ Encounter for screening for lipid disorder : Patient Instructions Indication:Encounter for screening for lipid disorder Dog bite of thigh, left, ini tial encounter : How to access health information online Indication:Dog bite of thigh, left, initial encounter Dog bite of thigh, left, ini tial encounter : How to access health information online - Detail Indication:Dog bite of thigh, left, initial encounter Name Dates Details How to access health informa tion online Indication:Nonsmoker Start:16-Sep-2019 Instruction Type:Patient Education How to access health informa tion online - Detail Indication:Nonsmoker Start:16-Sep-2019 Instruction Type:Patient Education Patient Instructions Indication:Nonsmoker Start:16-Sep-2019 Instruction Type:Provider Instructions for Treatment How to access health informa tion online Indication:Nonsmoker Start:11-Jun-2019 Instruction Type:Patient Education How to access health informa tion online - Detail Indication:Nonsmoker Start:11-Jun-2019 Instruction Type:Patient Education Patient Instructions Indication:Nonsmoker Start:11-Jun-2019 Instruction Type:Provider Instructions for Treatment How to access health informa tion online Indication:Nonsmoker Start:26-Mar-2019 Instruction Type:Patient Education How to access health informa tion online - Detail Indication:Nonsmoker Start:26-Mar-2019 Instruction Type:Patient Education Patient Instructions Indication:Nonsmoker Start:26-Mar-2019 Instruction Type:Provider Instructions for Treatment How to access health informa tion online Indication:Unspecified Diagnosis Start:20-Nov-2017 Instruction Type:Patient Education How to access health informa tion online - Detail Indication:Unspecified Diagnosis Start:20-Nov-2017 Instruction Type:Patient Education Patient Instructions Indication:Unspecified Diagnosis Start:20-Nov-2017 Instruction Type:Provider Instructions for Treatment How to access health informa tion online Indication:Nonsmoker Start:20-Nov-2017 Instruction Type:Patient Education How to access health informa tion online - Detail Indication:Nonsmoker Start:20-Nov-2017 Instruction Type:Patient Education Patient Instructions Indication:Nonsmoker Start:20-Nov-2017 Instruction Type:Provider Instructions for Treatment How to access health informa tion online Indication:Nonsmoker Start:17-Nov-2017 Instruction Type:Patient Education How to access health informa tion online - Detail Indication:Nonsmoker Start:17-Nov-2017 Instruction Type:Patient Education Patient Instructions Indication:Nonsmoker Start:17-Nov-2017 Instruction Type:Provider Instructions for Treatment How to access health informa tion online Indication:Nonsmoker Start:15-Nov-2017 Instruction Type:Patient Education How to access health informa tion online - Detail Indication:Nonsmoker Start:15-Nov-2017 Instruction Type:Patient Education Patient Instructions Indication:Nonsmoker Start:15-Nov-2017 Instruction Type:Provider Instructions for Treatment How to access health informa tion online Indication:Asthma Start:06-Feb-2017 Instruction Type:Patient Education How to access health informa tion online - Detail Indication:Asthma Start:06-Feb-2017 Instruction Type:Patient Education Patient Instructions Indication:Asthma Start:06-Feb-2017 Instruction Type:Provider Instructions for Treatment How to access health informa tion online Indication:Nonsmoker Start:09-Sep-2016 Instruction Type:Patient Education How to access health informa tion online - Detail Indication:Abdominal pain, LUQ Start:09-Sep-2016 Instruction Type:Patient Education Patient Instructions Indication:Abdominal pain, LUQ Start:09-Sep-2016 Instruction Type:Provider Instructions for Treatment Patient Instructions Indication:Encounter for screening for lipid disorder Start:19-Jul-2016 Instruction Type:Provider Instructions for Treatment How to access health informa tion online Indication:Dog bite of thigh, left, initial encounter Start:02-Sep-2015 Instruction Type:Patient Education How to access health informa tion online - Detail Indication:Dog bite of thigh, left, initial encounter Start:02-Sep-2015 Instruction Type:Patient Education Patient Instructions Indication:Asthma Start:03-Jun-2014 Instruction Type:Provider Instructions for Treatment Name Dates Details How to access health informa tion online Indication:Nonsmoker Start:16-Sep-2019 Instruction Type:Patient Education How to access health informa tion online - Detail Indication:Nonsmoker Start:16-Sep-2019 Instruction Type:Patient Education Patient Instructions Indication:Nonsmoker Start:16-Sep-2019 Instruction Type:Provider Instructions for Treatment How to access health informa tion online Indication:Nonsmoker Start:11-Jun-2019 Instruction Type:Patient Education How to access health informa tion online - Detail Indication:Nonsmoker Start:11-Jun-2019 Instruction Type:Patient Education Patient Instructions Indication:Nonsmoker Start:11-Jun-2019 Instruction Type:Provider Instructions for Treatment How to access health informa tion online Indication:Nonsmoker Start:26-Mar-2019 Instruction Type:Patient Education How to access health informa tion online - Detail Indication:Nonsmoker Start:26-Mar-2019 Instruction Type:Patient Education Patient Instructions Indication:Nonsmoker Start:26-Mar-2019 Instruction Type:Provider Instructions for Treatment How to access health informa tion online Indication:Unspecified Diagnosis Start:20-Nov-2017 Instruction Type:Patient Education How to access health informa tion online - Detail Indication:Unspecified Diagnosis Start:20-Nov-2017 Instruction Type:Patient Education Patient Instructions Indication:Unspecified Diagnosis Start:20-Nov-2017 Instruction Type:Provider Instructions for Treatment How to access health informa tion online Indication:Nonsmoker Start:20-Nov-2017 Instruction Type:Patient Education How to access health informa tion online - Detail Indication:Nonsmoker Start:20-Nov-2017 Instruction Type:Patient Education Patient Instructions Indication:Nonsmoker Start:20-Nov-2017 Instruction Type:Provider Instructions for Treatment How to access health informa tion online Indication:Nonsmoker Start:17-Nov-2017 Instruction Type:Patient Education How to access health informa tion online - Detail Indication:Nonsmoker Start:17-Nov-2017 Instruction Type:Patient Education Patient Instructions Indication:Nonsmoker Start:17-Nov-2017 Instruction Type:Provider Instructions for Treatment How to access health informa tion online Indication:Nonsmoker Start:15-Nov-2017 Instruction Type:Patient Education How to access health informa tion online - Detail Indication:Nonsmoker Start:15-Nov-2017 Instruction Type:Patient Education Patient Instructions Indication:Nonsmoker Start:15-Nov-2017 Instruction Type:Provider Instructions for Treatment How to access health informa tion online Indication:Asthma Start:06-Feb-2017 Instruction Type:Patient Education How to access health informa tion online - Detail Indication:Asthma Start:06-Feb-2017 Instruction Type:Patient Education Patient Instructions Indication:Asthma Start:06-Feb-2017 Instruction Type:Provider Instructions for Treatment How to access health informa tion online Indication:Nonsmoker Start:09-Sep-2016 Instruction Type:Patient Education How to access health informa tion online - Detail Indication:Abdominal pain, LUQ Start:09-Sep-2016 Instruction Type:Patient Education Patient Instructions Indication:Abdominal pain, LUQ Start:09-Sep-2016 Instruction Type:Provider Instructions for Treatment Patient Instructions Indication:Encounter for screening for lipid disorder Start:19-Jul-2016 Instruction Type:Provider Instructions for Treatment How to access health informa tion online Indication:Dog bite of thigh, left, initial encounter Start:02-Sep-2015 Instruction Type:Patient Education How to access health informa tion online - Detail Indication:Dog bite of thigh, left, initial encounter Start:02-Sep-2015 Instruction Type:Patient Education Patient Instructions Indication:Asthma Start:03-Jun-2014 Instruction Type:Provider Instructions for Treatment Name Dates Details How to access health informa tion online Indication:Nonsmoker Start:16-Sep-2019 Instruction Type:Patient Education How to access health informa tion online - Detail Indication:Nonsmoker Start:16-Sep-2019 Instruction Type:Patient Education Patient Instructions Indication:Nonsmoker Start:16-Sep-2019 Instruction Type:Provider Instructions for Treatment How to access health informa tion online Indication:Nonsmoker Start:11-Jun-2019 Instruction Type:Patient Education How to access health informa tion online - Detail Indication:Nonsmoker Start:11-Jun-2019 Instruction Type:Patient Education Patient Instructions Indication:Nonsmoker Start:11-Jun-2019 Instruction Type:Provider Instructions for Treatment How to access health informa tion online Indication:Nonsmoker Start:26-Mar-2019 Instruction Type:Patient Education How to access health informa tion online - Detail Indication:Nonsmoker Start:26-Mar-2019 Instruction Type:Patient Education Patient Instructions Indication:Nonsmoker Start:26-Mar-2019 Instruction Type:Provider Instructions for Treatment How to access health informa tion online Indication:Unspecified Diagnosis Start:20-Nov-2017 Instruction Type:Patient Education How to access health informa tion online - Detail Indication:Unspecified Diagnosis Start:20-Nov-2017 Instruction Type:Patient Education Patient Instructions Indication:Unspecified Diagnosis Start:20-Nov-2017 Instruction Type:Provider Instructions for Treatment How to access health informa tion online Indication:Nonsmoker Start:20-Nov-2017 Instruction Type:Patient Education How to access health informa tion online - Detail Indication:Nonsmoker Start:20-Nov-2017 Instruction Type:Patient Education Patient Instructions Indication:Nonsmoker Start:20-Nov-2017 Instruction Type:Provider Instructions for Treatment How to access health informa tion online Indication:Nonsmoker Start:17-Nov-2017 Instruction Type:Patient Education How to access health informa tion online - Detail Indication:Nonsmoker Start:17-Nov-2017 Instruction Type:Patient Education Patient Instructions Indication:Nonsmoker Start:17-Nov-2017 Instruction Type:Provider Instructions for Treatment How to access health informa tion online Indication:Nonsmoker Start:15-Nov-2017 Instruction Type:Patient Education How to access health informa tion online - Detail Indication:Nonsmoker Start:15-Nov-2017 Instruction Type:Patient Education Patient Instructions Indication:Nonsmoker Start:15-Nov-2017 Instruction Type:Provider Instructions for Treatment How to access health informa tion online Indication:Asthma Start:06-Feb-2017 Instruction Type:Patient Education How to access health informa tion online - Detail Indication:Asthma Start:06-Feb-2017 Instruction Type:Patient Education Patient Instructions Indication:Asthma Start:06-Feb-2017 Instruction Type:Provider Instructions for Treatment How to access health informa tion online Indication:Nonsmoker Start:09-Sep-2016 Instruction Type:Patient Education How to access health informa tion online - Detail Indication:Abdominal pain, LUQ Start:09-Sep-2016 Instruction Type:Patient Education Patient Instructions Indication:Abdominal pain, LUQ Start:09-Sep-2016 Instruction Type:Provider Instructions for Treatment Patient Instructions Indication:Encounter for screening for lipid disorder Start:19-Jul-2016 Instruction Type:Provider Instructions for Treatment How to access health informa tion online Indication:Dog bite of thigh, left, initial encounter Start:02-Sep-2015 Instruction Type:Patient Education How to access health informa tion online - Detail Indication:Dog bite of thigh, left, initial encounter Start:02-Sep-2015 Instruction Type:Patient Education Patient Instructions Indication:Asthma Start:03-Jun-2014 Instruction Type:Provider Instructions for Treatment Name Dates Details How to access health informa tion online Indication:Unspecified Diagnosis Start:20-Nov-2017 Instruction Type:Patient Education How to access health informa tion online - Detail Indication:Unspecified Diagnosis Start:20-Nov-2017 Instruction Type:Patient Education Patient Instructions Indication:Unspecified Diagnosis Start:20-Nov-2017 Instruction Type:Provider Instructions for Treatment How to access health informa tion online Indication:Nonsmoker Start:20-Nov-2017 Instruction Type:Patient Education How to access health informa tion online - Detail Indication:Nonsmoker Start:20-Nov-2017 Instruction Type:Patient Education Patient Instructions Indication:Nonsmoker Start:20-Nov-2017 Instruction Type:Provider Instructions for Treatment How to access health informa tion online Indication:Nonsmoker Start:17-Nov-2017 Instruction Type:Patient Education How to access health informa tion online - Detail Indication:Nonsmoker Start:17-Nov-2017 Instruction Type:Patient Education Patient Instructions Indication:Nonsmoker Start:17-Nov-2017 Instruction Type:Provider Instructions for Treatment How to access health informa tion online Indication:Nonsmoker Start:15-Nov-2017 Instruction Type:Patient Education How to access health informa tion online - Detail Indication:Nonsmoker Start:15-Nov-2017 Instruction Type:Patient Education Patient Instructions Indication:Nonsmoker Start:15-Nov-2017 Instruction Type:Provider Instructions for Treatment How to access health informa tion online Indication:Asthma Start:06-Feb-2017 Instruction Type:Patient Education How to access health informa tion online - Detail Indication:Asthma Start:06-Feb-2017 Instruction Type:Patient Education Patient Instructions Indication:Asthma Start:06-Feb-2017 Instruction Type:Provider Instructions for Treatment How to access health informa tion online Indication:Nonsmoker Start:09-Sep-2016 Instruction Type:Patient Education How to access health informa tion online - Detail Indication:Abdominal pain, LUQ Start:09-Sep-2016 Instruction Type:Patient Education Patient Instructions Indication:Abdominal pain, LUQ Start:09-Sep-2016 Instruction Type:Provider Instructions for Treatment Patient Instructions Indication:Encounter for screening for lipid disorder Start:19-Jul-2016 Instruction Type:Provider Instructions for Treatment How to access health informa tion online Indication:Dog bite of thigh, left, initial encounter Start:02-Sep-2015 Instruction Type:Patient Education How to access health informa tion online - Detail Indication:Dog bite of thigh, left, initial encounter Start:02-Sep-2015 Instruction Type:Patient Education Patient Instructions Indication:Asthma Start:03-Jun-2014 Instruction Type:Provider Instructions for Treatment Name Dates Details Patient Instructions Indication:Encounter for screening for malignant neoplasm of prostate (Renamed from Screening for prostate cancer) Start:24-Mar-2020 Instruction Type:Provider Instructions for Treatment How to Access Health Informa tion Online using Patient Portal and [employer] Indication:Nonsmoker Start:24-Mar-2020 Instruction Type:Patient Education How to access health informa tion online Indication:Nonsmoker Start:16-Sep-2019 Instruction Type:Patient Education How to access health informa tion online - Detail Indication:Nonsmoker Start:16-Sep-2019 Instruction Type:Patient Education Patient Instructions Indication:Nonsmoker Start:16-Sep-2019 Instruction Type:Provider Instructions for Treatment How to access health informa tion online Indication:Nonsmoker Start:11-Jun-2019 Instruction Type:Patient Education How to access health informa tion online - Detail Indication:Nonsmoker Start:11-Jun-2019 Instruction Type:Patient Education Patient Instructions Indication:Nonsmoker Start:11-Jun-2019 Instruction Type:Provider Instructions for Treatment How to access health informa tion online Indication:Nonsmoker Start:26-Mar-2019 Instruction Type:Patient Education How to access health informa tion online - Detail Indication:Nonsmoker Start:26-Mar-2019 Instruction Type:Patient Education Patient Instructions Indication:Nonsmoker Start:26-Mar-2019 Instruction Type:Provider Instructions for Treatment How to access health informa tion online Indication:Unspecified Diagnosis Start:20-Nov-2017 Instruction Type:Patient Education How to access health informa tion online - Detail Indication:Unspecified Diagnosis Start:20-Nov-2017 Instruction Type:Patient Education Patient Instructions Indication:Unspecified Diagnosis Start:20-Nov-2017 Instruction Type:Provider Instructions for Treatment How to access health informa tion online Indication:Nonsmoker Start:20-Nov-2017 Instruction Type:Patient Education How to access health informa tion online - Detail Indication:Nonsmoker Start:20-Nov-2017 Instruction Type:Patient Education Patient Instructions Indication:Nonsmoker Start:20-Nov-2017 Instruction Type:Provider Instructions for Treatment How to access health informa tion online Indication:Nonsmoker Start:17-Nov-2017 Instruction Type:Patient Education How to access health informa tion online - Detail Indication:Nonsmoker Start:17-Nov-2017 Instruction Type:Patient Education Patient Instructions Indication:Nonsmoker Start:17-Nov-2017 Instruction Type:Provider Instructions for Treatment How to access health informa tion online Indication:Nonsmoker Start:15-Nov-2017 Instruction Type:Patient Education How to access health informa tion online - Detail Indication:Nonsmoker Start:15-Nov-2017 Instruction Type:Patient Education Patient Instructions Indication:Nonsmoker Start:15-Nov-2017 Instruction Type:Provider Instructions for Treatment How to access health informa tion online Indication:Asthma Start:06-Feb-2017 Instruction Type:Patient Education How to access health informa tion online - Detail Indication:Asthma Start:06-Feb-2017 Instruction Type:Patient Education Patient Instructions Indication:Asthma Start:06-Feb-2017 Instruction Type:Provider Instructions for Treatment How to access health informa tion online Indication:Nonsmoker Start:09-Sep-2016 Instruction Type:Patient Education How to access health informa tion online - Detail Indication:Abdominal pain, LUQ Start:09-Sep-2016 Instruction Type:Patient Education Patient Instructions Indication:Abdominal pain, LUQ Start:09-Sep-2016 Instruction Type:Provider Instructions for Treatment Patient Instructions Indication:Encounter for screening for lipid disorder Start:19-Jul-2016 Instruction Type:Provider Instructions for Treatment How to access health informa tion online Indication:Dog bite of thigh, left, initial encounter Start:02-Sep-2015 Instruction Type:Patient Education How to access health informa tion online - Detail Indication:Dog bite of thigh, left, initial encounter Start:02-Sep-2015 Instruction Type:Patient Education Patient Instructions Indication:Asthma Start:03-Jun-2014 Instruction Type:Provider Instructions for Treatment Name Dates Details How to access health informa tion online Indication:Unspecified Diagnosis Start:20-Nov-2017 Instruction Type:Patient Education How to access health informa tion online - Detail Indication:Unspecified Diagnosis Start:20-Nov-2017 Instruction Type:Patient Education Patient Instructions Indication:Unspecified Diagnosis Start:20-Nov-2017 Instruction Type:Provider Instructions for Treatment How to access health informa tion online Indication:Nonsmoker Start:20-Nov-2017 Instruction Type:Patient Education How to access health informa tion online - Detail Indication:Nonsmoker Start:20-Nov-2017 Instruction Type:Patient Education Patient Instructions Indication:Nonsmoker Start:20-Nov-2017 Instruction Type:Provider Instructions for Treatment How to access health informa tion online Indication:Nonsmoker Start:17-Nov-2017 Instruction Type:Patient Education How to access health informa tion online - Detail Indication:Nonsmoker Start:17-Nov-2017 Instruction Type:Patient Education Patient Instructions Indication:Nonsmoker Start:17-Nov-2017 Instruction Type:Provider Instructions for Treatment How to access health informa tion online Indication:Nonsmoker Start:15-Nov-2017 Instruction Type:Patient Education How to access health informa tion online - Detail Indication:Nonsmoker Start:15-Nov-2017 Instruction Type:Patient Education Patient Instructions Indication:Nonsmoker Start:15-Nov-2017 Instruction Type:Provider Instructions for Treatment How to access health informa tion online Indication:Asthma Start:06-Feb-2017 Instruction Type:Patient Education How to access health informa tion online - Detail Indication:Asthma Start:06-Feb-2017 Instruction Type:Patient Education Patient Instructions Indication:Asthma Start:06-Feb-2017 Instruction Type:Provider Instructions for Treatment How to access health informa tion online Indication:Nonsmoker Start:09-Sep-2016 Instruction Type:Patient Education How to access health informa tion online - Detail Indication:Abdominal pain, LUQ Start:09-Sep-2016 Instruction Type:Patient Education Patient Instructions Indication:Abdominal pain, LUQ Start:09-Sep-2016 Instruction Type:Provider Instructions for Treatment Patient Instructions Indication:Encounter for screening for lipid disorder Start:19-Jul-2016 Instruction Type:Provider Instructions for Treatment How to access health informa tion online Indication:Dog bite of thigh, left, initial encounter Start:02-Sep-2015 Instruction Type:Patient Education How to access health informa tion online - Detail Indication:Dog bite of thigh, left, initial encounter Start:02-Sep-2015 Instruction Type:Patient Education Patient Instructions Indication:Asthma Start:03-Jun-2014 Instruction Type:Provider Instructions for Treatment Chief Complaint and Reason for Visit Chief Complaint reeval lbp Lumbar pain UC Reason for Visit Back pain Lumbar neuritis Segmental and somatic dysfunction of lumbar region Segmental and somatic dysfunction of pelvic region Chief Complaint Admit Date concern for sinus infection June 02 8:01am SWOLLEN L FOOT FROM NON INJURY August 9:07am pain- LEFT ANKLE September 09, 2024 9:18 am Reason for Visit Admit Date Sinus infection June 02, 2024 8:01 am Chief Complaint Admit Date SWOLLEN L FOOT FROM NON INJURY August 9:07am pain- LEFT ANKLE September 09, 2024 9:18 am RASH ON R LEG October 04, 2024 6:4 8am Advance Directives No Advanced Directives Records Found Advance Directive Response Recorded Date/ Time Advance Directives No October 8:31am Living Will No November 20, 2017 5:50pm Power of Assurance Services Manager Health Care No October 5:50pm Advance Directive Response Recorded Date/ Time Advance Directives No October 9:51am Summary Purpose Additional Source Comments (unrecognized sect ion and content) No Status Records FoundNo Status Records Found INFORMATION SOURCE (unrecogn ized section and content) DATE CREATED AUTHOR 05/12/2022 [facility] DATE CREATED AUTHOR AUTHOR'S ORGANIZ ATION [facility] Care Teams (unrecognized sec tion and content) Team Status: Active Member Role/Relationship Status Dates Haily Butts NP, IMMIGRATION MANAGER-C Family Provider Active JUAN Wong Primary Care Provider Active Team Status: Inactive Member Role/Relationship Status Dates JUAN Wong Primary Care Provider Active Start: June 02, 2024 End: June 02, 2024 JUAN Wong Referring Provider Active Start: June 02, 2024 End: June 02, 2024 John Steen NP, IMMIGRATION MANAGER-C Attending Provider Active S tart: June 02, 2024 End: June 02, 2024 Team Status: Inactive Member Role/Relationship Status Dates Amanda Woods IMMIGRATION MANAGER-C Primary Care Provider Active Start: September 09, 2024 End: September 09, 2024 Amanda Woods IMMIGRATION MANAGER-C Referring Provider Active Start: September 09, 2024 End: September 09, 2024 Naveen Valencia PA, PA Attending Provider Active Start: September 09, 2024 End: September 09, 2024 Team Status: Active Member Role/Relationship Status Dates Amanda Woods IMMIGRATION MANAGER-C Primary Care Provider Active Start: September 09, 2024 Naveen Valencia PA, PA Attending Provider Active Start: September 09, 2024 Naveen Valencia PA, PA Referring Provider Active Start: September 09, 2024 Team Status: Inactive Member Role/Relationship Status Dates Amanda Woods IMMIGRATION MANAGER-C Primary Care Provider Active Start: September 09, 2024 End: September 09, 2024 Naveen Valencia PA, PA Attending Provider Active Start: September 09, 2024 End: September 09, 2024 Naveen Valencia PA, PA Referring Provider Active Start: September 09, 2024 End: September 09, 2024 Team Status: Inactive Member Role/Relationship Status Dates Amanda Woods IMMIGRATION MANAGER-C Primary Care Provider Active Start: September 09, 2024 End: September 09, 2024 Amanda Woods IMMIGRATION MANAGER-C Referring Provider Active Start: September 09, 2024 End: September 09, 2024 Naveen Valencia PA, PA Attending Provider Active Start: September 09, 2024 End: September 09, 2024 Team Status: Inactive Member Role/Relationship Status Dates Amanda Woods IMMIGRATION MANAGER-C Primary Care Provider Active Start: September 09, 2024 End: September 09, 2024 Naveen Valencia PA, PA Attending Provider Active Start: September 09, 2024 End: September 09, 2024 Naveen Valencia PA, PA Referring Provider Active Start: September 09, 2024 End: September 09, 2024 Team Status: Inactive Member Role/Relationship Status Dates Amanda Woods IMMIGRATION MANAGER-C Primary Care Provider Active Start: October 04, 2024 End: October 04, 2024 Amanda Woods IMMIGRATION MANAGER-C Referring Provider Active Start: October 04, 2024 End: October 04, 2024 Tip YUN, PA Attending Provider Active Sta rt: October 04, 2024 End: October 04, 2024 FOR RECORDS PERTAINING TO PATIENTS WHO ARE OR HAVE BEEN ENROLLED IN A CHEMICAL DEPENDENCY/SUBSTANCEABUSE PROGRAM, SOME INFORMATION MAY BE OMITTED. This clinical summary was aggregated from multiple sources. Caution should be exercised in using it in the provision of clinical care. This summary normalizes information from multiple sources, and as a consequence, information in this document may materially change the coding, format and clinical context of patient data. In addition, data may be omitted in some cases. CLINICAL DECISIONS SHOULD BE BASED ON THE PRIMARY CLINICAL RECORDS. [facility] provides no warranty or guarantee of the accuracy or completeness of information in this document.
[2025-02-17 10:40] LABS: Hematocrit 42.4 % (40-54); Hemoglobin 14.7 g/dL (13.0-16.5); Mean Corp Hgb Conc 34.7 g/dL (32-36); Mean Corpuscular Volume 87.8 fL (80-94); Mean Platelet Vol. 10.6 fl (6.2-12.0); Platelet Count 305 K/mm3 (150-450); RBC Distribution Width CV 12.3 % (11.6-14.6); RBC Distribution Width SD 39.8 fl (35.1-43.9); Red Blood Count 4.83 M/mm3 (4.6-6.2); White Blood Count 6.3 K/mm3 (4.4-11.0)
[2025-02-17 11:07] LABS: AST(SGOT) 47 U/L (<=37); Alanine Aminotransfer ALT/SGPT 81 U/L (<=46); Albumin, Serum 4.4 g/dL (3.5-5.0); Alkaline Phosphatase 76 U/L (40-129); Anion Gap 10 (5-15); BUN 21 mg/dL (4-19); BUN/Creat Ratio 22.0 RATIO (10-20); Calcium,Total 8.9 mg/dL (7.6-11.0); Carbon Dioxide 25.2 mmol/L (21.0-32.0); Chloride 103 mmol/L (98-108); Cholesterol 223 mg/dL (<=200); Globulin 3.5 g/dL (2.2-4.2); Glucose 105 mg/dL (70-99); Low Density Lipoprotein Calc. 130 mg/dL; PSA,Total - Annual Screen 1.23 ng/mL (0.02-4.00); Potassium 3.9 mmol/L (3.3-5.1); Triglycerides 256 mg/dL; Very Low Density Lipoprotein 51 mg/dL (5-40); Vitamin D,25 Hydroxy 24.0 ng/mL (30-100); cholesterol:hdl ratio screen 4.72
== END | disposition home or self-care (01) ==
LOC: MTLAB 07:12
PROVIDERS: PCP Family Medicine; Referring Provider Family Medicine; Visit Provider Family Medicine
DX: Z13.1 Encounter for screening for diabetes mellitus (principal); Z12.5 Encounter for screening for malignant neoplasm of prostate; K51.90 Ulcerative colitis, unspecified, without complications; E78.5 Hyperlipidemia, unspecified
CPT/HCPCS: 36415; 80053; 80061; 82306; 83036; 84153; 85027; G0103